=== PATIENT | female | born 1980 | race Caucasian/White ===

== ENCOUNTER 2022-05-06 21:48 | Emergency (ER) | payer OTHER, SELFPAY ==
[2022-05-06] VITALS (10 sets, daily range): BP systolic 96–127; BP diastolic 65–81; PULSE 73–104; TEMP 36.9; O2SAT 95–99; BMI 29.2
--- NOTE | 2022-05-06 23:17 | CRLHL7_ITS ---
For Patients: As a result of the Century Cures Act, medical imaging exams and procedure reports are released immediately into your electronic medical record. You may view this report before your referring provider. If you have questions, please contact your health care provider. INDICATION: Seizure. TECHNIQUE: CT head without contrast. COMPARISON: None. FINDINGS: CSF spaces: Within normal limits for age. Brain parenchyma and extra-axial spaces: The vidales-white differentiation is normal. No sign of mass, hemorrhage, or midline shift. No extra-axial fluid collection. Skull base and calvarium: The visualized paranasal sinuses and mastoid air cells demonstrate no acute or significant findings. The visualized orbits are grossly unremarkable. No skull fractures. IMPRESSION: Unremarkable noncontrast head CT. Please note that all CT scans at this facility use dose modulation, iterative reconstruction, and/or weight-based dosing when appropriate to reduce radiation dose to as low as reasonably achievable. Dictated by Meena Hart MD @ 05/06/2022 11:53:48 PM (Electronically Signed)
[2022-05-06 23:34] LABS: Appearance Urine Clear (Clear); Bilirubin Urine Negative (Negative); Blood Urine Negative (Negative); Color Urine Yellow (Yellow); Glucose Urine Negative (Negative); Ketones Urine Negative (Negative); Leukocyte Esterase Urine Negative (Negative); Nitrite Urine Negative (Negative); Protein Urine Negative (Negative); Specific Gravity Urine 1.015 (1.000-1.030); Urobilinogen Urine 0.2 (0.2-1.0)
[2022-05-06 23:38] LABS: Amphetamine Screen Urine Negative (Negative); Barbiturate Screen Urine Negative (Negative); Benzodiazepines Screen Urine Negative (Negative); Cannabinoid Screen Urine Negative (Negative); Cocaine Screen Urine Negative (Negative); Methadone Screen Urine Negative (Negative); Methamphetamines Screen Urine Negative (Negative); Opiate Screen Urine Negative (Negative); Oxycodone Screen Urine Negative (Negative); Phencyclidine Screen Urine Negative (Negative); Tricyclic Antidepressant Urine Negative (Negative)
[2022-05-06 23:41] LABS: Basophils Absolute Auto 0.03 K/uL (0.00-0.30); Basophils Percent Auto 0.4 % (0.0-3.0); Eosinophils Absolute Auto 0.04 K/uL (0.00-0.50); Eosinophils Percent Auto 0.6 % (0.0-7.0); Hematocrit 38.3 % (33.0-51.0); Hemoglobin* 13.1 gm/dL (12.0-16.0); Immature Granulocytes Abs Auto 0.04 K/uL (0.00-0.30); Immature Granulocytes Pct Auto 0.6 %; Lymphocytes Percent Auto 23.1 % (20-44); Mean Corpuscular HGB Conc 34 gm/dL (32-36); Mean Corpuscular Hemoglobin 30 pg (26-34); Mean Corpuscular Volume 88 fL (80-100); Monocytes Percent Auto 7.4 % (0.0-11.0); Neutrophils Percent Auto 67.9 % (42.0-72.0); Platelet Count* 237 K/uL (140-440); RDW Coefficient of Variation % 12.2 % (11.5-15.5); Red Blood Count 4.37 m/uL (4.00-5.20); White Blood Count* 6.92 K/uL (4.50-11.00)
[2022-05-06 23:43] LABS: Slide Review Reflex No
[2022-05-06] MEDS: 0.9 % SODIUM CHLORIDE 1000 ml 1,000 ML IV (23:50)
[2022-05-06 23:53] LABS: Chloride* 105 mmol/L (96-114); Sodium* 137 mmol/L (135-149)
--- OUTSIDE RECORDS SUMMARY | 2022-05-06 23:54 | XMS_ITS | Encounter Summary ---
:1980 Author Organization [facility] [place] Address [address] [facility] [place] [address] Care Team Providers Name Role Phone Unavailable Primary Care Provider Unavailable Reason for Visit Reason Comments No Show Encounter Details Date Type Department Care Team Description 07/29/2011 Office Visit [facility] Carla Roach [facility] Physicians ENCOUNTER--DISREGARD [address], (Primary Dx) [address] [facility] [address] [place] [address] [phone] Social History Tobacco Use Types Packs/Day Years Used Date Smoking Tobacco: Never Alcohol Use Standard Drinks/Week Comments Not Asked 0 (1 standard drink = 0.6 oz pure alcoho l) Alcohol Habits Answer Date Recorded How often do you have a drink containing alcohol? Never 07/29/2018 How many drinks containing alcohol do you have on a typical Not asked day when you are drinking? How often do you have six or more drinks on one occasion? 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
--- OUTSIDE RECORDS SUMMARY | 2022-05-06 23:54 | XMS_ITS | Encounter Summary ---
:1980 Author Organization [facility] Address [address] [facility] [place] [address] Care Team Providers Name Role Phone System, Provider Not In Primary Care Provider Unavailable Reason for Visit Reason Comments Fever chills, bodyaches, fever, di zzy, nausea, productive cough, ST, fatigue x 1 day Encounter Details Date Type Department Care Team Description 07/29/2018 Office Visit [facility] Komlanvi, Ami Strep thr oat (Primary Dx); Urgent Care Ty Lay PA-C Throat pain [address] [place] [address] [phone] Social History Tobacco Use Types Packs/Day Years Used Date Smoking Tobacco: Never Smokeless Tobacco: Never Alcohol Use Standard Drinks/Week Comments No 0 (1 standard drink = 0.6 oz [...] on file documented as of this encounter Last Filed Vital Signs Vital Sign Reading Time Taken Comments Blood Pressure 106/62 07/29/2018 5:36 PM PSYCHIATRIC THERAPIST Pulse 98 07/29/2018 5:36 PM PSYCHIATRIC THERAPIST Temperature 38.6 ??C (101.5 ??F) 07/29/2018 5:36 PM PSYCHIATRIC THERAPIST Respiratory Rate - - Oxygen Saturation 96% 07/29/2018 5:36 PM PSYCHIATRIC THERAPIST Inhaled Oxygen Concentration - - Weight 75.3 kg (166 lb) 07/29/2018 5:36 PM PSYCHIATRIC THERAPIST Height 157.5 cm (5' 2) 07/29/2018 5:36 PM PSYCHIATRIC THERAPIST Body Mass Index 30.36 07/29/2018 5:36 PM PSYCHIATRIC THERAPIST documented in this encounter Progress Notes Aby Go PA-C - 07/29/2018 5:20 PM CST SUBJECTIVE: Marc Vann is a 37 year old female presenting with a chief complaint of Chief Complaint Patient presents with ??? Fever chills, bodyaches, fever, dizzy, nausea, productive cough, ST, fatigue x 1 day She is a new patient of [facility]. URI Adult Onset of symptoms was 1 day ago. Course of illness is worsening. Severity moderate Current and Associated symptoms: sore throat, fever, chills, body aches, mild cough Treatment measures tried include Tylenol/Ibuprofen. Predisposing factors include None. Review of Systems Constitutional: Positive for chills and fever. HENT: Positive for sore throat. Respiratory: Positive for cough. Gastrointestinal: Negative for diarrhea, nausea and vomiting. Past Medical History: Diagnosis Date ??? NO ACTIVE PROBLEMS Family History Problem Relation Age of Onset ??? Cancer Father Femur A/W Current Outpatient Medications Medication Sig Dispense Refill ??? ORTHO EVRA 150-20 MCG/24HR TD PTWK 1 patch weekly for 3 weeks, skip week 4 9 4 ??? penicillin V (VEETID) 500 MG tablet Take 1 tablet (500 mg) by mouth 2 times daily for 10 days 20tablet 0 Social History Tobacco Use ??? Smoking status: Never Smoker ??? Smokeless tobacco: Never Used Substance Use Topics ??? Alcohol use: No Frequency: Never OBJECTIVE BP 106/62 (BP Location: Right arm, Patient Position: Chair, Cuff Size: Adult Regular) Pulse 98 Temp 101.5 ??F (38.6 ??C) (Oral) Ht 1.575 m (5' 2) Wt 75.3 kg (166 lb) LMP 07/21/2018 SpO2 96% ? No BMI 30.36 kg/m?? Physical Exam Constitutional: She appears well-developed and well-nourished. No distress. HENT: Head: Normocephalic and atraumatic. Right Ear: Tympanic membrane normal. Left Ear: Tympanic membrane normal. Mouth/Throat: Posterior oropharyngeal erythema present. Eyes: Conjunctivae are normal. Neck: Normal range of motion. Cardiovascular: Regular rhythm and normal heart sounds. Pulmonary/Chest: Effort normal and breath sounds normal. No respiratory distress. Neurological: She is alert. Skin: Skin is warm and dry. Psychiatric: She has a normal mood and affect. Labs: Results for orders placed or performed in visit on 07/29/18 (from the past 24 hour(s)) Strep, Rapid Screen Result Value Ref Range Specimen Description Throat Rapid Strep A Screen (A) POSITIVE: Group A Streptococcal antigen detected by immunoassay. Influenza A/B antigen Result Value Ref Range Influenza A/B Agn Specimen Nasal Influenza A Negative NEG^Negative Influenza B Negative NEG^Negative ASSESSMENT: ICD-10-CM 1. Strep throat J02.0 penicillin V (VEETID) 500 MG tablet 2. Throat pain R07.0 Strep, Rapid Screen Influenza A/B antigen PLAN: Strep throat: Penicillin VK Rx. Tylenol or motrin prn fever. Discard old toothbrush. Follow up if any worsening symptoms. Patient agrees. Followup: If not improving or if condition worsens, follow up with your Primary Care Provider HIATRIC THERAPIST documented in this encounter Plan of Treatment Not on filedocumented as of this encounter Procedures Procedure Name Priority Date/Time Associated Diagnosis Comme nts RAPID STREP SCREEN Routine 07/29/2018 5:42 PM Throat pain Res ults for this THROAT SWAB PSYCHIATRIC THERAPIST procedure are i n the results section. INFLUENZA A/B Routine 07/29/2018 5:42 PM Throat pain Results for this ANTIGEN PSYCHIATRIC THERAPIST procedure are i n the results section. documented in this encounter Results Influenza A/B antigen (07/29/2018 5:42 PM PSYCHIATRIC THERAPIST) P athologist Signature Influenza A/B Nasal 07/29/2018 [place] Agn Specimen 5:43 PM PSYCHIATRIC THERAPIST [facility] Influenza A Negative NEG^Negati 07/29/2018 [place] ve 6:03 PM [facility] Influenza B Negative NEG^Negati 07/29/2018 [place] ve 6:03 PM PSYCHIATRIC THERAPIST [facility] Comment: Test results must be correlated with cli nical data. If necessary, results should be confirmed by a molecular assay or viral culture. Specimen Anatomical Collection Method Collection Time Receive d Time (Source) Location / / Volume Laterality Specimen from 07/29/2018 5:42 PM 07/29/19 19 5:43 nose (specimen) PSYCHIATRIC THERAPIST PM PSYCHIATRIC THERAPIST Aby Go PA-C LAB - MICRO GENERAL ORDERABL ES Performing Organization Address City/[facility]/ZIP Code Phon e Number [facility] [id number] [place] [address] (ABNORMAL) Strep, Rapid Screen (07/29/2018 5:42 PM PSYCHIATRIC THERAPIST) Component Value Ref Test Analysis Performed At [facility] Range Method Time Signature Specimen Throat [facility] [place] [place] Rapid Strep A POSITIVE: Group 07/29/2018 [place] Screen A Streptococcal 5:54 PM PSYCHIATRIC THERAPIST [facility] antigen detected [place] by immunoassay. (A) Specimen Anatomical Collection Method Collection Time Receive d Time (Source) Location / / Volume Laterality Specimen from 07/29/2018 5:42 PM 07/29/19 19 5:43 throat PSYCHIATRIC THERAPIST PM PSYCHIATRIC THERAPIST (specimen) Aby Go PA-C LAB - MICRO GENERAL ORDERABL ES Performing Organization Address City/[facility] Phon e Number [facility] [address] [place] [address] documented in this encounter Visit Diagnoses Diagnosis Strep throat - Primary Streptococcal sore throat Throat pain documented in this encounter Care Teams Surgical Aides Teacher Relationship Specialty Start Date End Date System, Provider Not In PCP - General Clinic 07/29/18 07/29/18 documented as of this encounter
--- OUTSIDE RECORDS SUMMARY | 2022-05-06 23:54 | XMS_ITS | Clinical Summary ---
:1980 Author Organization [place] Address [address] [facility] [place] [address] Care Team Providers Name Role Phone Unavailable Primary Care Provider Unavailable Allergies No known active allergies Medications Medication Sig Dispensed Refills Start Date End Date Status ORTHO EVRA 150-20 1 patch weekly 9 4 10/07/2005 Active MCG/24HR TD for 3 weeks, PTWKIndications: skip week 4 Contraceptive surveillance, unspecified Active Problems No known active problems Family History Medical History Relation Comments Cancer Father Femur A/W Relation Status Comments Father Social History Tobacco Use Types Packs/Day Years [...] Assigned at Date Recorded Not on file Last Filed Vital Signs Vital Sign Reading Time Taken Comments Blood Pressure 106/62 07/29/2018 5:36 PM CONTINUOUS MINING MACHINE OPERATOR Pulse 98 07/29/2018 5:36 PM CONTINUOUS MINING MACHINE OPERATOR Temperature 38.6 ??C (101.5 ??F) 07/29/2018 5:36 PM CONTINUOUS MINING MACHINE OPERATOR Respiratory Rate - - Oxygen Saturation 96% 07/29/2018 5:36 PM CONTINUOUS MINING MACHINE OPERATOR Inhaled Oxygen Concentration - - Weight 75.3 kg (166 lb) 07/29/2018 5:36 PM CONTINUOUS MINING MACHINE OPERATOR Height 157.5 cm (5' 2) 07/29/2018 5:36 PM CONTINUOUS MINING MACHINE OPERATOR Body Mass Index 30.36 07/29/2018 5:36 PM CONTINUOUS MINING MACHINE OPERATOR Plan of Treatment Not on file Insurance Payer Benefit Plan / Subscriber ID Effective Phone Address T ype Group Dates [facility] [id number] 2018-Pres [phone] [address] HMO OPEN ACCESS ent [address] [place] [address]
--- OUTSIDE RECORDS SUMMARY | 2022-05-06 23:54 | XMS_ITS | Encounter Summary ---
:1980 Author Organization [place] Address [address] [facility] [place] [address] Care Team Providers Name Role Phone System, Provider Not In Primary Care Provider Unavailable Encounter Details Date Type Department Care Team Description 07/29/2018 Travel Social History Tobacco Use Types Packs/Day Years [...] on file documented as of this encounter Plan of Treatment Not on filedocumented as of this encounter Visit Diagnoses Not on filedocumented in this encounter Care Teams Marriage Counselor Minister Relationship Specialty Start Date End Date System, Provider Not In PCP - General Clinic 07/29/18 07/29/18 documented as of this encounter
--- OUTSIDE RECORDS SUMMARY | 2022-05-06 23:55 | XMS_ITS | Encounter Summary ---
:1980 Author Organization [facility] Address [address], [place] [address] Care Team Providers Name Role Phone No Primary/Referring, Phy Primary Care Provider Unavailable Encounter Details Date Type Department Care Team Description 02/08/2020 Notes/Orders [facility] Vineet Garcia DDS Dentistry [address] [facility] [address] [place] [address] [place] [address] 24 [phone] Social History Tobacco Use Types Packs/Day Years Used Date Smoking Tobacco: Never Smokeless Tobacco: Never Alcohol Use Standard Drinks/Week Comments No 0 (1 standard drink = 0.6 oz pure Alcoho lic Drinks/day: Freq:Never; alcohol) Sex Assigned at Date Recorded Female 05/12/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 Rx: amoxicillin to [facility]. Ira Garcia DDS 02/08/2020, 9:21 AM documented in this encounter Plan of Treatment Upcoming Encounters Date Type Specialty Care Team Description 05/12/2022 Appointment Audiology 05/12/2022 Appointment Otolaryngology Bro Arroyo , [facility] [address] [address] (Wo rk) 06/03/2022 Appointment General Dentistry Rylee Amaro, [facility] [address] [place] [address] 06/03/2022 Appointment General Dentistry Pee Garcia, DDS [address] [place] [address] (Wo rk) 06/17/2022 Appointment General Dentistry Pee Garcia, DDS [address] [place], [place] [phone] (Wo rk) documented as of this encounter Visit Diagnoses Not on filedocumented in this encounter Care Teams Dining Chair Seat Cushion Trimmer Relationship Specialty Start Date End Date No Primary/Referring, Phy PCP - General 07/15/17 documented as of this encounter
--- OUTSIDE RECORDS SUMMARY | 2022-05-06 23:55 | XMS_ITS | Clinical Summary ---
:1980 Author Organization [facility] Address [address] [place] [address] Care Team Providers Name Role Phone No Primary/Referring, Phy Primary Care Provider Unavailable Source Comments You are receiving this document as you are listed as the primary care provider,follow-up provider, or the patient has been referred to you for consultation.This is in compliance with the Medicare and Medicaid EHR Incentive Program,which states Providers who transition their patient to another setting of careor provider of care or refers their patient to another provider of care shouldprovide summarycare record for each transition of care or referral. 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 Normal 20 w [place] ultrasound. ; Supervision of other normal Immunizations Name Administration Dates Next Due HepB Adult (Engerix-B, 20+ yrs, 3 dose series) 07/14/2021 Influenza IIV4 (Quadrivalent) 0.5mL (74393) 07/04/2021 Pfizer (Comirnaty) COVID-19, 12+ Yrs Purple Top 12/06/2020, 11/13/2020 TDAP (BOOSTRIX) 10/06/2013, 12/07/2008 Family History Medical History Relation Name Comments Cancer Father lymphoma, deceas ed Diabetes Mother High Cholesterol Mother Thyroid Disorder Mother Depression Brother Diabetes Brother High Cholesterol Brother Cancer Maternal Grandmother Diabetes Maternal Grandmother Thyroid Disorder Sister Cancer, Ovary Negative Family History Relation Name Status Comments Father Mother Alive Brother Alive Maternal Grandfather Maternal Grandmother Paternal Grandfather Paternal Grandmother Sister Alive Social History Tobacco Use Types Packs/Day Years Used Date Smoking Tobacco: Never Smokeless Tobacco: Never Tobacco Cessation: Counseling Given: No Alcohol Use Standard Drinks/Week Comments No 0 (1 standard drink = 0.6 oz pure Alcoho lic Drinks/day: Freq:Never; alcohol) Sex Assigned at Date Recorded Female 05/12/2021 9:48 AM 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 Last Filed Vital Signs Vital Sign Reading Time Taken Comments Blood Pressure 113/65 12/05/2021 2:34 PM CDT Pulse 71 12/05/2021 2:34 PM CDT Temperature 37.1 ??C (98.7 ??F) 07/04/2021 5:01 PM 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 Respiratory Rate 16 01/04/2014 4:27 PM CDT Oxygen Saturation - - Inhaled Oxygen Concentration - - Weight 76.2 kg (168 lb) 12/05/2021 2:34 PM CDT Height 156.2 cm (5' 1.5) 12/05/2021 2:34 PM CDT Body Mass Index 31.23 12/05/2021 2:34 PM CDT Plan of Treatment Upcoming Encounters Date Type Specialty Care Team Description 05/12/2022 Appointment Audiology 05/12/2022 Appointment Otolaryngology Bro Arroyo , [facility] [address] [address] (Wo rk) 06/03/2022 Appointment General Dentistry Rylee Amaro, [address] [place] [address] 06/03/2022 Appointment General Dentistry Pee Garcia, DDS [address] [place] [address] (Wo rk) 06/17/2022 Appointment General Dent[place] D[place] [address] [place] [address] (Wo rk) Health Maintenance Due Date Last Done Comments COVID-19 Vaccine (3 - 01/31/2021 12/06/2020, 11/13/2020 Booster for Pfizer series) HepB (2) 08/11/2021 07/14/2021 Influenza (#1) 2022 07/04/2021 DTaP/Tdap/Td (3 - Tdap) 10/07/2023 10/06/2013, 12/07/2008 Adult Preventive Visit 12/06/2023 12/05/2021, 08/12/2020, 07/21/2019, Additional history exists Pap 12/05/2024 12/05/2021, 08/12/2020, 07/21/2019, Additional history exists Zoster/Shingles (1 of 2) 2032 HIV Screening (Preventive Completed 05/10/2013, 08/04/2007 Services) Hep C Screening (Preventive Completed 11/29/2013 Services) HPV Vaccine Aged Out No longer eligib le based on patient 's age to complete this topic HepA Aged Out No longer eligib le based on patient 's age to complete this topic Hib Aged Out No longer eligib le based on patient 's age to complete this topic IPV (Polio) Aged Out No longer eligib le based on patient 's age to complete this topic MCV4 Aged Out No longer eligib le based on patient 's age to complete this topic Pneumococcal Aged Out No longer eligib le based on patient 's age to complete this topic Insurance Payer Benefit Plan Subscriber ID Effective Phone Address Typ e / Group Dates [facility] [id number] 2020-Prese Commercial MANAGED CARE nt [facility] [employer] [id number] 2017-Prese Commercial DENTAL PLAN INSURED nt DENTAL [facility] [employer] [id number] 2020-Prese Commercial MANAGED CARE nt Marc Vann Personal/Family Self [address] (Home) [place] [address] Marc Vann Personal/Family Self [address] (Home) [place] [address] Marc Vann Personal/Family Self [address] (Home) [place] [address] Advance Directives Latest Code Status on File Code Status Date Activated Date Inactivated Comments Full Code 01/02/2014 8:37 PM 01/04/2014 9:06 PM Care Teams Nursing Scheduler Relationship Specialty Start Date End Date No Primary/Referring, Sonay PCP - General 07/15/17
--- OUTSIDE RECORDS SUMMARY | 2022-05-06 23:55 | XMS_ITS | Encounter Summary ---
:1980 Author Organization [employer] Address [address] [address] Care Team Providers Name Role Phone No Primary/Referring, Phy Primary Care Provider Unavailable Reason for Visit Reason Comments ROUTINE HEALTH MAINTENANCE Encounter Details Date Type Department Care Team Description 07/04/2021 Office Visit [place] Celeste Wisdom Enco unters for administrative purposes (Primary Dx); Medicine MD Screening examination for infectious dis ease; [address] [address] [facility] Screening examination for pulmonary tube rculosis [place], [place] [phone] [place] [address] Social History Tobacco Use Types Packs/Day Years Used Date Smoking Tobacco: Never Smokeless Tobacco: Never Alcohol Use Standard Drinks/Week Comments No 0 (1 standard drink = 0.6 oz pure Alcoho lic Drinks/day: Freq:Never; alcohol) Sex Assigned at Date Recorded 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 documented as of this encounter Last Filed Vital Signs Vital Sign Reading Time Taken Comments Blood Pressure 107/71 07/04/2021 4:50 PM WILDLIFE SCIENCE PROFESSOR Pulse 81 07/04/2021 4:50 PM WILDLIFE SCIENCE PROFESSOR Temperature 37.1 ??C (98.7 ??F) 07/04/2021 5:01 PM WILDLIFE SCIENCE PROFESSOR Respiratory Rate - - Oxygen Saturation - - Inhaled Oxygen Concentration - - Weight 78.3 kg (172 lb 9.6 oz) 07/04/2021 4:50 PM WILDLIFE SCIENCE PROFESSOR Height 157.5 cm (5' 2) 07/04/2021 4:50 PM WILDLIFE SCIENCE PROFESSOR Body Mass Index 31.57 07/04/2021 4:50 PM WILDLIFE SCIENCE PROFESSOR documented in this encounter Patient Instructions Patient InstructionsCeleste Bettencourt MD - 07/04/2021 4:30 PM CST Labs today Flu shot today COVID booster KAMRON I will let you know when paperwork completed. LIFE SCIENCE PROFESSOR documented in this encounter Progress Notes Celeste Bettencourt MD - 07/04/2021 4:30 PM CST New to me and primary care. Needs paperwork/labs to start clinicals for phlebotomy course at [facility] Sees STUDENT LOAN COUNSELOR yearly for PE - has appointment in Jul Only have records of COVID and Tdap vaccinations. Does not have other record though rec'd multiple vaccines in [place]. Does not think she's had TB testing before. No TB exposures. Patient Active Problem List Diagnosis ??? Hyperthyroidism (HRC) ??? Cervical high risk HPV (human papillomavirus) test positive Outpatient Medications Prior to Visit Medication Sig Dispense Refill ??? Norelgestromin-Eth Estradiol (XULANE) 150-35 MCG/24HR patch Apply 1 patch to skin each week for 3 weeks, then 1 week patch free; repeat cycle. 9 Patch 3 No facility-administered medications prior to visit. PMHx, Surg Hx, FHx, SocHx reviewed and updated BP 107/71 (BP Location: Right Arm, BP Cuff Size: Regular) Pulse 81 Temp 98.7 ??F (37.1 ??C) Ht5' 2 (1.575 m) Wt 172 lb 9.6 oz (78.3 kg) BMI 31.57 kg/m?? EXAM: Gen: A&O, in NAD HEENT: NCAT, non-icteric sclera Neck: supple, no LAD, no thyromegaly CV: RRR sans M Lungs: CTA B Abd: soft, NT, BS + Ext: warm and well perfused, no CCE Psych: mood and affect wnl 1. Encounters for administrative purposes - Rubeola Immune Status, IgG; Future - Mumps Immune Status, IgG; Future - Rubella Immune Status, IgG; Future - V Zoster Immune Status, IgG; Future - Hepatitis B Nahomi, Quantitative; Future - Influenza IIV4 (Quadrivalent) 0.5 mL (15020) 2. Screening examination for infectious disease - Rubeola Immune Status, IgG; Future - Mumps Immune Status, IgG; Future - Rubella Immune Status, IgG; Future - V Zoster Immune Status, IgG; Future - Hepatitis B Nahomi, Quantitative; Future 3. Screening examination for pulmonary tuberculosis - TB QuantiFERON Gold Plus; Future Patient Instructions Labs today Flu shot today COVID booster KAMRON I will let you know when paperwork completed. LIFE SCIENCE PROFESSOR documented in this encounter Plan of Treatment Upcoming Encounters Date Type Specialty Care Team Description 05/12/2022 Appointment Audiology 05/12/2022 Appointment Otolaryngology Bro Arroyo , PAMorisC [address] [facility] [address] (Wo rk) 06/03/2022 Appointment General Dentistry Rylee Amaro, [facility] [address] [place] [address] 06/03/2022 Appointment General Dentistry Pee Garcia, DDS [address] [place], [place] [phone] (Wo rk) 06/17/2022 Appointment General Dentistry Pee Garcia DDS [address] [place], [place] [phone] (Wo rk) documented as of this encounter Results (ABNORMAL) Hepatitis B Nahomi, Quantitative (07/04/2021 5:44 PM WILDLIFE SCIENCE PROFESSOR) [facility] Time Signature Hep B Surf <2.0 mIU/mL 07/04/2021 [facility] Antibody Result 9:44 PM WILDLIFE SCIENCE PROFESSOR LABORATORY Hep B Surf Negative Positive 07/04/2021 [facility] Antibody (Non (Reactive) 9:44 PM WILDLIFE SCIENCE PROFESSOR LABORATORY Interpretation Reactive) (A) Specimen Anatomical Collection Method / Collection Time Recei delta Time (Source) Location / Volume Laterality Blood Venipuncture / 07/04/2021 5:44 07/04/2021 5:56 Unknown PM WILDLIFE SCIENCE PROFESSOR PM WILDLIFE SCIENCE PROFESSOR Narrative [facility] - 07/04/2021 9:44 P M WILDLIFE SCIENCE PROFESSOR Individual is considered not immune to H BV infection. Celeste Bettencourt MD LAB_1 Performing Organization Address [facility] Phon e Number [facility] [address] [place] [address] V Zoster Immune Status, IgG (07/04/2021 5:44 PM WILDLIFE SCIENCE PROFESSOR) athologist Signature Varicella 540.7 IV 07/07/2021 [facility] Zoster Units 11:46 AM WILDLIFE SCIENCE PROFESSOR LABORATORY Comment: The magnitude of the measured r esult, above the cutoff, is not indicative of the amount of antibody present. Varicella Zoster Immune Immune 07/07/2021 11:46 AM MET HODIST LABORATORY Intepretation WILDLIFE SCIENCE PROFESSOR Specimen Anatomical Collection Method / Collection Time Recei delta Time (Source) Location / Volume Laterality Blood Venipuncture / 07/04/2021 5:44 07/04/2021 5:56 Unknown PM WILDLIFE SCIENCE PROFESSOR PM WILDLIFE SCIENCE PROFESSOR Celeste Bettencourt MD LAB_1 Performing Organization Address [facility] Phon e Number [facility] [address] [place] [address] Rubella Immune Status, IgG (07/04/2021 5:44 PM WILDLIFE SCIENCE PROFESSOR) athologist Signature Rubella Units 22.30 07/07/2021 [facility] 11:50 AM WILDLIFE SCIENCE PROFESSOR LABORATORY Comment: The magnitude of the measured r esult, above the cutoff, is not indicative of the amount of antibody present. Rubella Intepretation Immune Immune 07/07/2021 11: 50 AM WILDLIFE SCIENCE PROFESSOR [facility] Specimen Anatomical Collection Method / Collection Time Recei delta Time (Source) Location / Volume Laterality Blood Venipuncture / 07/04/2021 5:44 07/04/2021 5:56 Unknown PM WILDLIFE SCIENCE PROFESSOR PM WILDLIFE SCIENCE PROFESSOR Celeste Bettencourt MD LAB_1 Performing Organization Address [facility] Phon e Number [facility] [address] [place] [address] Mumps Immune Status, IgG (07/04/2021 5:44 PM WILDLIFE SCIENCE PROFESSOR) athologist Signature Mumps Units 29.4 AU/mL 07/07/2021 [facility] 11:49 AM WILDLIFE SCIENCE PROFESSOR LABORATORY Comment: The magnitude of the measured r esult, above the cutoff, is not indicative of the amount of antibody present. Mumps Intepretation Immune Immune 07/07/2021 11:49 AM WILDLIFE SCIENCE PROFESSOR [facility] Specimen Anatomical Collection Method / Collection Time Recei delta Time (Source) Location / Volume Laterality Blood Venipuncture / 07/04/2021 5:44 07/04/2021 5:56 Unknown PM WILDLIFE SCIENCE PROFESSOR PM WILDLIFE SCIENCE PROFESSOR Celeste Bettencourt MD LAB_1 Performing Organization Address [facility] Phon e Number [facility] [address] [place] [address] Rubeola Immune Status, IgG (07/04/2021 5:44 PM WILDLIFE SCIENCE PROFESSOR) athologist Signature Rubeola Units >300.0 AU/mL 07/07/2021 [facility] 11:48 AM WILDLIFE SCIENCE PROFESSOR LABORATORY Comment: The magnitude of the measured r esult, above the cutoff, is not indicative of the amount of antibody present. Rubeola Interpretation Immune Immune 07/07/2021 11 :48 AM WILDLIFE SCIENCE PROFESSOR [facility] Specimen Anatomical Collection Method / Collection Time Recei delta Time (Source) Location / Volume Laterality Blood Venipuncture / 07/04/2021 5:44 07/04/2021 5:56 Unknown PM WILDLIFE SCIENCE PROFESSOR PM WILDLIFE SCIENCE PROFESSOR Celeste Bettencourt MD LAB_1 Performing Organization Address City/[facility] Phon e Number [facility] [address] [place] [address] documented in this encounter Visit Diagnoses Diagnosis Encounters for administrative purposes - Primary Encounters for unspecified administrativ e purpose Screening examination for infectious dis ease Screening examination for unspecified in fectious disease Screening examination for pulmonary tube rculosis documented in this encounter Care Teams Primer Press Operator Relationship Specialty Start Date End Date No Primary/Referring, Phy PCP - General 07/15/17 documented as of this encounter
--- OUTSIDE RECORDS SUMMARY | 2022-05-06 23:55 | XMS_ITS | Encounter Summary ---
:1980 Author Organization [employer] Address [address] [address] Care Team Providers Name Role Phone No Primary/Referring, Phy Primary Care Provider Unavailable Reason for Visit Reason Comments Dental Exam sensitive UR, lost filling L R but put in a filling herself Dental Hygiene Encounter Details Date Type Department Care Team Description 03/21/2021 Office Visit [place] [facility] Mary Boone, De ntal Exam (sensitive Dentistry [facility] [place] [address] [place] [address] but put in a filling [place], [place] herself ); Dental [address] Hygiene [phone] Social History Tobacco Use Types Packs/Day Years Used Date Smoking Tobacco: Never Smokeless Tobacco: Never Alcohol Use Standard Drinks/Week Comments No 0 (1 standard drink = 0.6 oz pure Alcoho lic Drinks/day: Freq:Never; alcohol) Sex Assigned at Date Recorded 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 How to Reduce Your Risk: Hygiene recall at 3 to 6 months. Rinse with fluoride rinse once to twice daily at times other than when brushing. Use specific products to assist with proper oral hygiene such as an electric toothbrush with a timer. Radiographs to detect decay. Risk Level: MODERATE Risk Factors: Have had a diagnosis of gum disease either with or without past treatment. Missing scheduled dental appointments. Visible plaque. How to Reduce Your Risk: Return visit with the dental hygienist at 3 month intervals to assess periodontal condition and provide necessary treatment. Specific information about what causes periodontal disease and what steps can be taken to help control it. Use specific products to assist with proper oral hygiene such as electric toothbrush with timer. Schedule a separate appointment to assess the results of treatment provided for periodontal disease. Risk Level: LOW How to Maintain your Low Risk: Congratulations on your low risk for oral cancer. Making healthy life style choices such as not using tobacco and low to moderate alcohol use should help you maintain this low risk. Marc, we look forward to seeing you at your next visit! Thank you for choosing [facility]. documented in this encounter Progress Notes Marie Aguirre DDS - 03/21/2021 10:10 AM CDT RECALL EXAM NOTE REASON FOR VISIT/CHIEF COMPLAINT: Marc is a 40 y.o. female who presents for Dental Exam and Dental Hygiene CHART REVIEW: Reviewed with patient: Medical history, Dental history, Problem list, Periodontal charting and Radiographs SOFT TISSUE, HEAD AND NECK EXAMINATION: Lips: Normal Tongue: Normal linea alba Palate: Normal Throat: Normal Floor of the mouth: Normal Mucosa: Normal Head and neck: Normal left masseter tight TMD EVALUATION: Palpation Pain: None Joint Sounds: None Pain with Range of Motion: None OCCLUSAL EXAMINATION: Angle relationship: Right molar: Class I Right cuspid: Class I Left molar: Class III Left cuspid: Class I Maxillary midline: WNL Mandibular midline: WNL Overbite: 3 mm Overjet: 3 mm Crossbite: None Space loss: None Crowding: Mild Occlusion: All teeth Attrition: Normal Erosion: Absent Overall occlusal relationship: Stable COSMETIC CONCERNS: Patient's Perception: Acceptable Dentist's Perception: Acceptable TREATMENT REVIEW AND FOLLOW-UP: Discussed the Dental findings, Prognosis and Treatment options with the patient. All questions answered and informed consent was obtained. Recommended Recall Interval: Examination: 8 months : Recall prophy: 4 months Planned Recall Interval: Examination: 8 months : Recall prophy: 4 months Recommend starting with crown 31 first then 15 in the mean time sed filling recommended.Disccused clinical findings suggesting clenching recommend wearing a guard. Peridex rinse to help with inflammation.prescribed Peridex, adv to do 4 month cleaning, lot of gingival inflammation sen today, recommended a crown on # 29 as well but only after # 31 and # 15 are taken care of, recession noted on # 23 , not getting any worse Next Planned Visit: op 31 first, Marie Aguirre DDS 03/21/2021, 11:20 AM --End of Note-- Mary Boone RD - 03/21/2021 10:10 AM CDT HYGIENE PROPHY NOTE PROCEDURAL PAUSE: Patient identity verified: Yes Treatment plan/site verified with the patient: Yes Instruments/equipment verified: Yes Any medication/allergy contraindications: No PRESENTATION: Oral Hygiene: Good Plaque: Generalized, moderate interproximal, mandibular anterior and posterior buccal Calculus: Localized, moderate mandibular anterior and Generalized, light supra- gingival and interproximal Stain: None Bleeding: Generalized light Gingival tissue: Inflamed Mucogingival concerns: Absent ACTIVITIES: Hand scale, Ultrasonic scale, Essential selective polishing and Flossed all contacts PATIENT EDUCATION: Caries risk, Periodontal risk, Oral cancer risk, OHI, Demonstrated tooth brushingand Demonstrated flossing NEXT PLANNED HYGIENE VISIT: Hygiene Prophy with exam Discussed inflammation recommended peridex and demo gumline brushing. [place] anterior and 3 were more inflamed today she does use an electric brush demo how to use.recommend 4mrc Mary Boone RDH 03/21/2021, 12:22 PM --End of Note-- documented in this encounter Plan of Treatment Upcoming Encounters Date Type Specialty Care Team Description 05/12/2022 Appointment Audiology 05/12/2022 Appointment Otolaryngology Bro Arroyo , JANET [address] [place] [place] [address] (Wo rk) 06/03/2022 Appointment General Dentistry Rylee Amaro, [facility] [address] [place] [address] 06/03/2022 Appointment General Dentistry Pee Garcia, DDS [address] [place], [place] [phone] (Wo rk) 06/17/2022 Appointment General Dentistry Pee Garcia, DDS [address] [place], [place] [phone] (Wo rk) Scheduled Orders Name Type Priority Associated Diagnoses Order S chedule PROPHYLAXIS-ADULT Dental Procedures Routine 1 Occ urrences RECALL starting 2020 documented as of this encounter Procedures Procedure Name Priority Date/Time Associated Diagnosis Comme nts [id number] Routine 03/21/2021 10:10 AM Generalized mar ginal CDT gingivitis 31 FILM-PERIAPICAL Routine 03/21/2021 10:10 AM Generalized mar ginal FIRST CDT gingivitis PERIODIC ORAL Routine 03/21/2021 10:10 AM Generalized marginal EVALUATION CDT gingivitis PROPHYLAXIS-ADULT Routine 03/21/2021 10:10 AM Generalized mark inal RECALL CDT gingivitis documented in this encounter Visit Diagnoses Diagnosis Generalized marginal gingivitis - Primar y documented in this encounter Care Teams Pricing Director Relationship Specialty Start Date End Date No Primary/Referring, Phy PCP - General 07/15/17 documented as of this encounter
--- OUTSIDE RECORDS SUMMARY | 2022-05-06 23:55 | XMS_ITS | Encounter Summary ---
:1980 Author Organization [employer] Address [address] [address] Care Team Providers Name Role Phone No Primary/Referring, Phy Primary Care Provider Unavailable Reason for Visit Reason Comments Refill Encounter Details Date Type Department Care Team Description 07/05/2020 [place]ill [place] [facility] [place] Refill Obstetrics/Gynecolog y [address] [place] [address] [place], [place] [address] [phone] Social History Tobacco Use Types Packs/Day Years Used Date Smoking Tobacco: Never Smokeless Tobacco: Never Alcohol Use Standard Drinks/Week Comments No 0 (1 standard drink = 0.6 oz pure Alcoho lic Drinks/day: Freq:Never; alcohol) Sex Assigned at Date Recorded 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 XULANE 150-35 MCG/24HR patch [Pharmacy Med Name: XULANE PATCH] 9 Patch 3 Sig: APPLY 1 PATCH TO SKIN EACH WEEK FOR 3 WEEKS, THEN 1 WEEK PATCH FREE REPEAT CYCLE. Last visit- 07/21/2019 Last ordered- 07/21/2019 Prescribing provider- Dr. Rubi No future appointments. The medication(s) has been approved for refill, in accordance with the [facility] Medication Refill Policy / Per Standing Order. 90 day supply given per Emergency Refill Standing Order. Marisol Fonseca RN 07/05/2020, 11:37 AM UE SPECIALIST documented in this encounter Plan of Treatment Upcoming Encounters Date Type Specialty Care Team Description 05/12/2022 Appointment Audiology 05/12/2022 Appointment Otolaryngology Bro Arroyo , JANET [address] [facility] [address] (Wo rk) 06/03/2022 Appointment General Dentistry Rylee Amaro, [facility] [address] [place] [address] 06/03/2022 Appointment General Dentistry Pee Garcia, DDS [address] [place], [place] [phone] (Wo rk) 06/17/2022 Appointment General Dentistry Pee Garcia DDS [address] [place], [place] [phone] (Wo rk) documented as of this encounter Visit Diagnoses Diagnosis Visit for control pills maintenanc e Surveillance of previously prescribed co ntraceptive pill documented in this encounter Care Teams Application Support Technician Relationship Specialty Start Date End Date No Primary/Referring, Phy PCP - General 07/15/17 documented as of this encounter
--- OUTSIDE RECORDS SUMMARY | 2022-05-06 23:55 | XMS_ITS | Encounter Summary ---
:1980 Author Organization [employer] Address [address] [address] Care Team Providers Name Role Phone No Primary/Referring, Phy Primary Care Provider Unavailable Reason for Visit Reason Comments Restorative Services #2 Composite, CC: I just rich d a RCT and they recommended a crown, can we discuss that a lso today? Encounter Details Date Type Department Care Team Description 02/26/2020 Office Visit [facility] Ira Garcia storative Services Dentistry AMBROSE Farrell (#2 Composite, CC: I [id number] [facility] [id number] [place] [address] just had a RCT and [place] [phone] crown, can we discuss [phone] (Wo rk) that also today?) Social History Tobacco Use Types Packs/Day Years Used Date Smoking Tobacco: Never Smokeless Tobacco: Never Alcohol Use Standard Drinks/Week Comments No 0 (1 standard drink = 0.6 oz pure Alcoho lic Drinks/day: Freq:Never; alcohol) Sex Assigned at Date Recorded 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 female who presents for Restorative Services (#2 Composite, CC: I just had a RCT and they recommended a crown, can we discuss that also today?) Patient given 1%-1.5% hydrogen peroxide, rinsed for 60 seconds prior to procedure. CHIEF COMPLAINT: No CC Objective/Assessment Chart Review The following information was reviewed with the patient: Medical history, Dental history, Problem list, Periodontal charting and Radiographs PROGNOSIS: #2 Questionable May need RCT due to deep caries present. Plan Treatment Discussion I discussed the Dental findings, Prognosis, Treatment options, Risks and complications associated with procedure and Billing/Treatment estimate with patient. CONSENT: All questions answered and the patient gave informed consent to proceed with dental treatment/services. Completed Procedures ANESTHESIA: Topical with 20% benzocaine 1.0 carpules 2% lidocaine with 1:100,000 epinephrine was administered with PSA in Maxillary right No adverse side effects observed. Anesthesia was administered by Ira Gracia DDS COMPOSITE ORIENTAL ORTHODOX - #2: Prepared with complete caries removal and complete removal of the existing mosque Isolated area with high speed suction, cotton rolls and a cheek guard. Applied Glass ionomer base Bonding with [employer] [place] material Preparation filled with composite material : Shade: A3.5 Polishing adjuncts: N/A Verified occlusion, contacts, margins and aesthetics. Post-Op Instructions: Patient was advised of normal post-operative instructions, potential for post-operative sensitivity and potential need for additional treatment because of proximity to the pulp Difficult access and deep bite. Pt to call back if bite feels off. Discussed needs for mosque #14 (caries) and crown #15 (caries). Bobo #31 a priority to prevent fracture which could result in loss of the tooth. Pt concerned w/ yearly max. Will get pt a tx estimate but warned that it may not yetreflect the RCT #31 as it was done outside of and claims can take a couple of weeks to hit the account. AQA. Care was assisted by Tammi Sahu [facility] [address] Anaesthetic Technician: Cheryl Ozuna Next Planned Visit: crown #31 Ira Garcia DDS 02/26/2020, 4:23 PM --End of Note-- 2:03 PM documented in this encounter Plan of Treatment Upcoming Encounters Date Type Specialty Care Team Description 05/12/2022 Appointment Audiology 05/12/2022 Appointment Otolaryngology Bro Arroyo , JANET [address] [place] [address] (Wo rk) 06/03/2022 Appointment General Dentistry Rylee Amaro, [facility] [address] [place] [address] 06/03/2022 Appointment General Dentistry Pee Garcia, DDS [address] [place], [place] [phone] (Wo rk) 06/17/2022 Appointment General Dentistry Pee Garcia, DDS [address] [place], [place] [phone] (Wo rk) documented as of this encounter Procedures Procedure Name Priority Date/Time Associated Diagnosis Comme nts 2 O RESIN-BASED Routine 02/26/2020 1:50 PM CDT Dental caries e xtending COMPOSITE-1 into inner third of SURFACE-POSTERIO dentin 31 EXISTING ROOT CANAL Routine 02/26/2020 12:00 AM TREATMENT CDT documented in this encounter Visit Diagnoses Diagnosis Dental caries extending into inner third of dentin - Primary Defective dental mosque Unspecified unsatisfactory mosque o f tooth documented in this encounter Care Teams Dobby Loom Chain Pegger Relationship Specialty Start Date End Date No Primary/Referring, Phy PCP - General 07/15/17 documented as of this encounter
--- OUTSIDE RECORDS SUMMARY | 2022-05-06 23:55 | XMS_ITS | Encounter Summary ---
:1980 Author Organization [employer] Address [address] [place] [address] Care Team Providers Name Role Phone Unavailable Primary Care Provider Unavailable Encounter Details Date Type Department Care Team Description 10/10/2005 Orders Only [facility] ROU SARITHA MEDICAL EXAM [facility] [place] [facility] [address] [phone] Social History Tobacco Use Types Packs/Day Years [...] encounter Procedures Procedure Name Priority Date/Time Associated Comments Diagnosis CL AFF CBC WITH Routine 10/10/2005 9:51 AM Routine Medical Res ults for this PLATELETS CDT Exam procedure are i n the results section. HCL TSH Routine 10/10/2005 9:51 AM Routine Medical Result s for this CDT Exam procedure are i n the results section. HCL GLYCATED Routine 10/10/2005 9:51 AM Routine Medical Result s for this HEMOGLOBIN CDT Exam procedure are i n the results section. CL AFF A.M.A. LIPID Routine 10/10/2005 9:51 AM Routine Medical Results for this PANEL CDT Exam procedure are i n the results section. documented in this encounter Results TSH- (10/10/2005 9:51 AM CDT) P athologist Signature TSH 1.44 0.4 - 5.0 [facility] mU/L CLINIC LAB Specimen Anatomical Collection Method Collection Time Receive d Time (Source) Location / / Volume Laterality 10/10/2005 9:51 AM 6 9:56 CDT AM CDT Jennifer De La Cruz MD LABORATORY Performing Organization Address City/[facility]/ZIP Code Phon e Number [facility][1] [address] [place] [address] [facility] LAB (ABNORMAL) CBC WITH PLATELETS (10/10/2005 9:51 AM CDT) P athologist Signature WBC 3.7 (L) 4.0 - 11.0 [place] 10e9/L [facility] LAB RBC Count 4.29 3.8 - 5.2 [place] 10e12/L [facility] LAB Hemoglobin 12.8 11.7 - [facility] 15.7 g/dL [facility] Hematocrit 37.2 35.0 - [facility] 47.0 % [facility] MCV 87 78 - 100 [facility] LAB MCH 29.8 26.5 - [place] 33.0 pg [facility] LAB MCHC 34.3 32.0 - [facility] 36.0 g/dL [facility] RDW 10.9 10.0 - [place] 15.0 % [facility] Platelet Count 293 150 - 450 [place] 10e9/L [facility] LAB Specimen Anatomical Collection Method Collection Time Receive d Time (Source) Location / / Volume Laterality 10/10/2005 9:51 AM 6 9:56 CDT AM CDT Jennifer De La Cruz MD LABORATORY Performing Organization Address City/[facility]/ZIP Code Phon e Number [facility][1] [address] [place] [phone] [facility] A.M.A. LIPID PANEL (10/10/2005 9:51 AM CDT) P athologist Signature Cholesterol 167 0 - 200 [place] mg/dL [facility] LAB Comment: LDL Cholesterol is the primary guide to therapy: LDL-cholesterol goal in high risk patients is <100 mg/dL and in very high risk patients is <70 mg/dL. The NCEP recommends further evaluation of: patients with cholesterol <200 mg/dL if additional risk factors are present, cholesterol >240 mg/dL, triglycerides >150 mg/dL, or HDL <40 mg/dL. Triglycerides 45 0 - 150 mg/dL [place] [facility] HDL Cholesterol 62 50 - 110 mg/dL [facility] LDL Cholesterol Calculated 96 0 - 129 mg/dL [facility] Comment: LDL Cholesterol is the primary guide to therapy: LDL-cholesterol goal in high risk patients is <100 mg/dL and in very high risk patients is <70 mg/dL. VLDL-Cholesterol 9 0 - 30 mg/dL [place] [facility] Cholesterol/HDL Ratio 2.7 0.0 - 5.0 [facility] Specimen Anatomical Collection Method Collection Time Receive d Time (Source) Location / / Volume Laterality 10/10/2005 9:51 AM 6 9:56 CDT AM CDT Jennifer De La Cruz MD LABORATORY Performing Organization Address City/State/ZIP Code Phon e Number [facility][1] [address] [place] [phone] [facility] HEMOGLOBIN A1C (10/10/2005 9:51 AM CDT) P athologist Signature Hemoglobin A1C 5.2 4.3 - 6.0 [facility] LAB Specimen Anatomical Collection Method Collection Time Receive d Time (Source) Location / / Volume Laterality 10/10/2005 9:51 AM 6 9:56 CDT AM CDT Jennifer De La Cruz MD LABORATORY Performing Organization Address City/State/ZIP Code Phon e Number [facility][1] [address] [place] [address] [facility] documented in this encounter Visit Diagnoses Diagnosis Routine general medical examination at a health care facility documented in this encounter
--- OUTSIDE RECORDS SUMMARY | 2022-05-06 23:55 | XMS_ITS | Encounter Summary ---
:1980 Author Organization [employer] Address [address] [place] [address] Care Team Providers Name Role Phone No Primary/Referring, Phy Primary Care Provider Unavailable Encounter Details Date Type Department Care Team Description 07/04/2021 Lab Visit [facility] ters for administrative purposes; Laboratory Screening examination for in fectious disease; [id number] [facility] Screening examination [place] [phone] Social History Tobacco Use Types Packs/Day Years Used Date Smoking Tobacco: Never Smokeless Tobacco: Never Alcohol Use Standard Drinks/Week Comments No 0 (1 standard drink = 0.6 oz pure Alcoho lic Drinks/day: Freq:Never; alcohol) Sex Assigned at Date Recorded Female 05/12/2021 9:48 AM [employer] documented as of this encounter Plan of Treatment Upcoming Encounters Date Type Specialty Care Team Description 05/12/2022 Appointment Audiology 05/12/2022 Appointment Otolaryngology Bro Arroyo , PA-C [address] [facility] [place] GRIJALVA [phone] (Wo rk) 06/03/2022 Appointment General Dentistry Rylee Amaro, RDH [address] [place] [address] 06/03/2022 Appointment General Dentistry Pee Garcia, DDS [address] [place], [place] [phone] (Wo rk) 06/17/2022 Appointment General Dentistry Pee Garcia, DDS [address] [facility] [place] [place], [place] [phone] (Wo rk) documented as of this encounter Procedures Procedure Name Priority Date/Time Associated Diagnosis Comme nts RUBELLA IMMUNE Routine 07/04/2021 5:44 Encounters for Results for this STATUS, IGG PM [employer] administrative procedure are in purposes the results Screening examination sectio n. for infectious disease TB QUANTIFERON GOLD Routine 07/04/2021 5:44 Screening examinat ion Results for this PLUS PM [employer] for pulmonary procedure are in tuberculosis the results section. TB QUANTIFERON GOLD Routine 07/04/2021 5:44 Screening examinat ion Results for this PLUS MITOGEN PM [employer] for pulmonary procedure are in tuberculosis the results section. TB QUANTIFERON GOLD Routine 07/04/2021 5:44 Screening examinat ion Results for this PLUS TB2 PM [employer] for pulmonary procedure are in tuberculosis the results section. TB QUANTIFERON GOLD Routine 07/04/2021 5:44 Screening examinat ion Results for this PLUS TB1 PM [employer] for pulmonary procedure are in tuberculosis the results section. TB QUANTIFERON GOLD Routine 07/04/2021 5:44 Screening examinat ion Results for this PLUS NIL PM [employer] for pulmonary procedure are in tuberculosis the results section. HEPATITIS B SURFACE Routine 07/04/2021 5:44 Encounters for Res ults for this ANTIBODY PM [employer] administrative procedure are in purposes the results Screening examination sectio n. for infectious disease RUBEOLA IMMUNE Routine 07/04/2021 5:44 Encounters for Results for this STATUS, IGG PM [employer] administrative procedure are in purposes the results Screening examination sectio n. for infectious disease V ZOSTER IMMUNE Routine 07/04/2021 5:44 Encounters for Results for this STATUS, IGG PM [employer] administrative procedure are in purposes the results Screening examination sectio n. for infectious disease MUMPS IMMUNE STATUS, Routine 07/04/2021 5:44 Encounters for Re sults for this IGG PM [employer] administrative procedure are in purposes the results Screening examination sectio n. for infectious disease documented in this encounter Results TB QuantiFERON Gold Plus Mitogen (07/04/2021 5:44 PM [employer]) athologist Signature MITOGEN >10.000 IU/mL 07/07/2021 [facility] 1:17 PM [employer] LABORATORY Specimen Anatomical Collection Method / Collection Time Recei delta Time (Source) Location / Volume Laterality Blood Venipuncture / 07/04/2021 5:44 07/04/2021 5:56 Unknown PM [employer] PM [employer] Celeste Bettencourt MD LAB_1 Performing Organization Address [facility] Phon e Number [facility] [address] [place] [address] TB QuantiFERON Gold Plus TB2 (07/04/2021 5:44 PM [employer]) athologist Signature TB2 0.024 IU/mL 07/07/2021 [facility] 1:17 PM [employer] LABORATORY Specimen Anatomical Collection Method / Collection Time Recei delta Time (Source) Location / Volume Laterality Blood Venipuncture / 07/04/2021 5:44 07/04/2021 5:56 Unknown PM [employer] PM [employer] Celeste Bettencourt MD LAB_1 Performing Organization Address [facility] Phon e Number [facility] [address] [place] [address] TB QuantiFERON Gold Plus TB1 (07/04/2021 5:44 PM [employer]) athologist Signature TB1 0.030 IU/mL 07/07/2021 [facility] 1:18 PM [employer] LABORATORY Specimen Anatomical Collection Method / Collection Time Recei delta Time (Source) Location / Volume Laterality Blood Venipuncture / 07/04/2021 5:44 07/04/2021 5:56 Unknown PM [employer] PM [employer] Celeste Bettencourt MD LAB_1 Performing Organization Address [facility] Phon e Number [facility] [address] [place] [address] TB QuantiFERON Gold Plus NIL (07/04/2021 5:44 PM [employer]) [facility] Method Time Signature TB QuantiFERON Negative, M. Negative, M. 07/07/2021 [facility] T Gold Plus tuberculosis tuberculosis 1:18 PM LABORATORY Infection NOT Infection NOT [employer] likely likely NIL 0.021 IU/mL 07/07/2021 [facility] 1:18 PM LABORATORY [employer] TB1-NIL 0.01 IU/mL 07/07/2021 [facility] 1:18 PM LABORATORY [employer] TB2-NIL 0.00 IU/mL 07/07/2021 [facility] 1:18 PM LABORATORY [employer] Mitogen-NIL 9.98 IU/mL 07/07/2021 [facility] 1:18 PM LABORATORY [employer] Specimen Anatomical Collection Method / Collection Time Recei delta Time (Source) Location / Volume Laterality Blood Venipuncture / 07/04/2021 5:44 07/04/2021 5:56 Unknown PM [employer] PM [employer] Narrative [facility] - 07/07/2021 1:18 P M [employer] Nil ?TB1-Nil ? TB2-Nil ?Mitogen-Nil ??Result ?Interpretation (IU/ml) ??(IU/mL) ? (IU/mL) ?(IU/mL) <=8.0 ? >=0.35 & ? Any ?Any ?Positive ?M. tuberculosis ?>=25% Nil ?infection likely <=8.0 ? Any ?>=0.35 & ? Any ?Positive ?M. tuberculosis ? >=25% Nil ? infection likely <=8.0 ? <0.35 or ? <0.35 or ? >=0.50 ? Negative ?M. tuberculosis ?>=0.35 & ? >=0.35 & ?infection NOT ?<25% Nil ? <25% Nil ?likely <=8.0 ? <0.35 or ? <0.35 or ? <0.50 ? Indeterminate ??M. tuberculosis ?>=0.35 & ? >=0.35 & ?infection cannot ?<25% Nil ? <25% Nil ?be determined >8.0 ?Any ?Any ?Any ? Indeterminate ??M. tuberculosis ? infection cannot ? be determined. Important: Diagnosing or excluding tuber culosis disease, and assessing the probability of LTBI, requires a combination of epidemiological, historical, medical, and diagnostic findings that should be nirav en into account when interpreting QFT-Pl us results. See general guidance on the diagnosis and treatment of TB disease and LTBI (https://www.cdc.gov/tb/publications/guidelines/default.htm). The magnitude of the measured IFN-gamma level cannot be correlated to stage or degree of infection, level of immune responsiveness, or likelihood for progression to active disease. A positive TB respons e in persons who are negative to Mitogen is rare, but has been seen in patients with TB disease. This indicates the IFN-gamma response to TB antigens is greater than that to Mitogen, which is possible a s the level of Mitogen does not maximall y stimulate IFN-gamma production by lymphocytes. Celeste Bettencourt MD LAB_1 Performing Organization Address [facility] Phon e Number [facility] [address] [place] [address] (ABNORMAL) Hepatitis B N[place], Quantitative (07/04/2021 5:44 PM [employer]) [facility] Method Time Signature Hep B Surf <2.0 mIU/mL 07/04/2021 [facility] Antibody Result 9:44 PM [employer] LABORATORY Hep B Surf Negative Positive 07/04/2021 [facility] Antibody (Non (Reactive) 9:44 PM [employer] LABORATORY Interpretation Reactive) (A) Specimen Anatomical Collection Method / Collection Time Recei delta Time (Source) Location / Volume Laterality Blood Venipuncture / 07/04/2021 5:44 07/04/2021 5:56 Unknown PM [employer] PM [employer] Narrative [facility] - 07/04/2021 9:44 P M [employer] Individual is considered not immune to H BV infection. Celeste Bettencourt MD LAB_1 Performing Organization Address [facility] Phon e Number [facility] [address] [place] [address] V Zoster Immune Status, IgG (07/04/2021 5:44 PM [employer]) athologist Signature Varicella 540.7 IV 07/07/2021 [facility] Zoster Units 11:46 AM [employer] LABORATORY Comment: The magnitude of the measured r esult, above the cutoff, is not indicative of the amount of antibody present. Varicella Zoster Immune Immune 07/07/2021 11:46 AM MET HODIST LABORATORY Intepretation [employer] Specimen Anatomical Collection Method / Collection Time Recei delta Time (Source) Location / Volume Laterality Blood Venipuncture / 07/04/2021 5:44 07/04/2021 5:56 Unknown PM [employer] DRIVER PM [employer] Celeste Bettencourt MD LAB_1 Performing Organization Address [facility] e Number [facility] [address] [place] [address] Rubella Immune Status, IgG (07/04/2021 5:44 PM [employer]) P athologist Signature Rubella Units 22.30 07/07/2021 [facility] 11:50 AM [employer] LABORATORY Comment: The magnitude of the measured r esult, above the cutoff, is not indicative of the amount of antibody present. Rubella Intepretation Immune Immune 07/07/2021 11: 50 AM [employer]IVER [facility] Specimen Anatomical Collection Method / Collection Time Recei delta Time (Source) Location / Volume Laterality Blood Venipuncture / 07/04/2021 5:44 07/04/2021 5:56 Unknown PM [employer] DRIVER PM [employer] DRIVER Celeste Bettencourt MD LAB_1 Performing Organization Address [facility] e Number [facility] [address] [place] [phone] Mumps Immune Status, IgG (07/04/2021 5:44 PM [employer]) P athologist Signature Mumps Units 29.4 AU/mL 07/07/2021 [facility] 11:49 AM [employer] LABORATORY Comment: The magnitude of the measured r esult, above the cutoff, is not indicative of the amount of antibody present. Mumps Intepretation Immune Immune 07/07/2021 11:49 AM [employer]IVER [facility] Specimen Anatomical Collection Method / Collection Time Recei delta Time (Source) Location / Volume Laterality Blood Venipuncture / 07/04/2021 5:44 07/04/2021 5:56 Unknown PM [employer] DRIVER PM [employer] DRIVER Celeste Bettencourt MD LAB_1 Performing Organization Address [facility] e Number [facility] [address] [place] [address] Rubeola Immune Status, IgG (07/04/2021 5:44 PM [employer]) P athologist Signature Rubeola Units >300.0 AU/mL 07/07/2021 [facility] 11:48 AM [employer] LABORATORY Comment: The magnitude of the measured r esult, above the cutoff, is not indicative of the amount of antibody present. Rubeola Interpretation Immune Immune 07/07/2021 11 :48 AM [employer] DRIVER [facility] Specimen Anatomical Collection Method / Collection Time Recei delta Time (Source) Location / Volume Laterality Blood Venipuncture / 07/04/2021 5:44 07/04/2021 5:56 Unknown PM [employer] DRIVER PM [employer]IVER Celeste Bettencourt MD LAB_1 Performing Organization Address City/State/ZIP Code Phon e Number [facility] [address] [place] [address] documented in this encounter Visit Diagnoses Diagnosis Encounters for administrative purposes Encounters for unspecified administrativ e purpose Screening examination for infectious dis ease Screening examination for unspecified in fectious disease Screening examination for pulmonary tube rculosis documented in this encounter Care Teams Varnish Dipper Relationship Specialty Start Date End Date No Primary/Referring, Phy PCP - General 07/15/17 documented as of this encounter
--- OUTSIDE RECORDS SUMMARY | 2022-05-06 23:55 | XMS_ITS | Encounter Summary ---
:1980 Author Organization [facility] Address [address] [facility] [place] [address] Care Team Providers Name Role Phone Unavailable Primary Care Provider Unavailable Encounter Details Date Type Department Care Team Description 08/04/2010 Historic Results INTERFACED REPORT Caesar Cortez MD [facility] [address] [place], [place] [id number] (Wo rk) Social History Tobacco Use Types Packs/Day Years [...] Procedure Name Priority Date/Time Associated Comments Diagnosis ABO/RH TYPE AND SCREEN STAT 08/04/2010 11:35 R esults for this AM HYPERION ADMINISTRATOR procedure are i n the results section. INR AND PTT PANEL STAT 08/04/2010 10:20 Result s for this AM HYPERION ADMINISTRATOR procedure are i n the results section. CBC WITH PLATELETS & STAT 08/04/2010 10:20 Res ults for this DIFFERENTIAL AM HYPERION ADMINISTRATOR procedure are i n the results section. LIPASE STAT 08/04/2010 10:20 Results for this AM HYPERION ADMINISTRATOR procedure are i n the results section. COMPREHENSIVE STAT 08/04/2010 10:20 Results fo r this METABOLIC PANEL AM HYPERION ADMINISTRATOR procedure ar e in the results section. HCG QUALITATIVE URINE STAT 08/04/2010 8:30 AM Results for this HYPERION ADMINISTRATOR procedure are i n the results section. ROUTINE UA WITH STAT 08/04/2010 8:30 AM Result s for this MICROSCOPIC HYPERION ADMINISTRATOR procedure are i n the results section. documented in this encounter Results ABO/Rh type and screen (08/04/2010 11:35 AM HYPERION ADMINISTRATOR) Analysis Performed At Patho logist Time Signature ABO O [facility] RH(D) Pos [facility] Antibody Neg [facility] Screen Specimen 08/07/2010 [facility] Expires Specimen Anatomical Collection Method Collection Time Receive d Time (Source) Location / / Volume Laterality 08/04/2010 11:35 08/04/2010 9:58 AM HYPERION ADMINISTRATOR AM HYPERION ADMINISTRATOR Anthony Cortez MD LAB - BLOOD BANK TEST ORDER Performing Organization Address City/State/ZIP Code Phon e Number [facility] CBC with platelets differential (08/04/2010 10:20 AM HYPERION ADMINISTRATOR) Patholo gist Method Time Signature MCV 85 78 - 100 [facility] fl MCH 29.5 26.5 - [facility] 33.0 pg MCHC 34.6 31.5 - [facility] 36.5 g/dL RDW 12.0 10.0 - [facility] 15.0 % WBC 5.3 4.0 - [facility] 11.0 10e9/L RBC Count 4.37 3.8 - 5.2 [facility] 10e12/L Hemoglobin 12.9 11.7 - [facility] 15.7 g/dL Hematocrit 37.3 35.0 - [facility] 47.0 % % Neutrophils 58.5 40 - 75 % [facility] % Lymphocytes 35.0 20 - 48 % [facility] % Monocytes 5.5 0 - 12 % [facility] % Eosinophils 0.8 0 - 6 % [facility] % Basophils 0.2 0 - 2 % [facility] Platelet Count 211 150 - 450 [facility] 10e9/L Absolute 3.1 1.6 - 8.3 [facility] Neutrophil 10e9/L Absolute 1.9 0.8 - 5.3 [facility] Lymphocytes 10e9/L Absolute 0.3 0.0 - 1.3 [facility] Monocytes 10e9/L Absolute 0.0 0.0 - 0.7 [facility] Eosinophils 10e9/L Absolute 0.0 0.0 - 0.2 [facility] Basophils 10e9/L Diff Method Automated [facility] Method Specimen Anatomical Collection Method Collection Time Receive d Time (Source) Location / / Volume Laterality 08/04/2010 10:20 08/04/2010 9:58 AM HYPERION ADMINISTRATOR AM HYPERION ADMINISTRATOR Anthony Cortez MD LAB - BLOOD ORDERABLES Performing Organization Address City/State/ZIP Code Phon e Number [facility] INR AND PTT PANEL (08/04/2010 10:20 AM HYPERION ADMINISTRATOR) P athologist Signature INR 1.09 0.86 - 1.14 [facility] PTT 31 22 - 37 sec [facility] Specimen Anatomical Collection Method Collection Time Receive d Time (Source) Location / / Volume Laterality 08/04/2010 10:20 08/04/2010 9:58 AM HYPERION ADMINISTRATOR AM HYPERION ADMINISTRATOR Anthony Cortez MD LAB - BLOOD ORDERABLES Performing Organization Address City/State/ZIP Code Phon e Number [facility] Lipase (08/04/2010 10:20 AM HYPERION ADMINISTRATOR) athologist Signature Lipase 60 20 - 250 U/L [facility] Specimen Anatomical Collection Method Collection Time Receive d Time (Source) Location / / Volume Laterality 08/04/2010 10:20 08/04/2010 9:58 AM HYPERION ADMINISTRATOR AM HYPERION ADMINISTRATOR Anthony Cortez MD LAB - BLOOD ORDERABLES Performing Organization Address City/State/ZIP Code Phon e Number [facility] Comprehensive metabolic panel (08/04/2010 10:20 AM HYPERION ADMINISTRATOR) P athologist Signature Sodium 140 133 - 144 [facility] mmol/L Potassium 3.8 3.4 - 5.3 [facility] mmol/L Chloride 106 94 - 109 [facility] mmol/L Carbon Dioxide 24 20 - 32 [facility] mmol/L Glucose 92 60 - 99 [facility] mg/dL Urea Nitrogen 10 5 - 24 [facility] mg/dL Creatinine 0.66 0.52 - 1.04 [facility] mg/dL Comment: New IDMS-traceable calibration beginning 10/27/07 GFR Estimate >90 >60 mL/min/1.7m2 [facility] GFR Estimate If Black >90 >60 mL/min/1.7m2 [facility] Calcium 9.3 8.5 - 10.4 mg/dL [facility] AST 31 0 - 45 U/L [facility] Protein Total 7.7 6.8 - 8.8 g/dL [facility] Anion Gap 10 6 - 17 mmol/L [facility] Albumin 4.6 3.9 - 5.1 g/dL [facility] ALT 18 0 - 50 U/L [facility] Alkaline Phosphatase 57 40 - 150 U/L [facility] Bilirubin Total 0.2 0.2 - 1.3 mg/dL [facility] Specimen Anatomical Collection Method Collection Time Receive d Time (Source) Location / / Volume Laterality 08/04/2010 10:20 08/04/2010 9:58 AM HYPERION ADMINISTRATOR AM HYPERION ADMINISTRATOR Anthony Cortez MD LAB - BLOOD ORDERABLES Performing Organization Address City/State/ZIP Code Phon e Number [facility] (ABNORMAL) Routine UA with microscopic (08/04/2010 8:30 AM HYPERION ADMINISTRATOR) Patholo gist Method Time Signature Source Midstream [facility] Urine Color Urine Yellow [facility] Appearance Urine Slightly [facility] Cloudy Glucose Urine Negative NEG mg/dL [facility] Bilirubin Urine Negative NEG [facility] Ketones Urine Negative NEG mg/dL [facility] Specific Stanton 1.021 1.003 - [facility] Urine 1.035 Blood Urine Negative NEG [facility] pH Urine 5.5 5.0 - 7.0 [facility] pH Protein Albumin 10 (A) NEG mg/dL [facility] Urine Urobilinogen Normal 0.0 - 2.0 [facility] mg/dL mg/dL Nitrite Urine Negative NEG [facility] Leukocyte Negative NEG [facility] Esterase Urine WBC Urine 2 0 - 2 [facility] /HPF RBC Urine 1 0 - 2 [facility] /HPF Squamous 10 (H) 0 - 1 [facility] Epithelial /HPF /HPF Urine Transitional Epi <1 0 - 1 [facility] /HPF Mucous Urine Present (A) NEG /LPF [facility] Specimen Anatomical Collection Method Collection Time Receive d Time (Source) Location / / Volume Laterality 08/04/2010 8:30 AM 1 8:41 HYPERION ADMINISTRATOR AM HYPERION ADMINISTRATOR Brown Wilkinson MD LAB - URINE ORDERABLES Performing Organization Address City/State/ZIP Code Phon e Number [facility] HCG qualitative urine (08/04/2010 8:30 AM HYPERION ADMINISTRATOR) athologist Signature HCG Qual Urine Negative NEG [facility] Specimen Anatomical Collection Method Collection Time Receive d Time (Source) Location / / Volume Laterality 08/04/2010 8:30 AM 1 8:41 HYPERION ADMINISTRATOR AM HYPERION ADMINISTRATOR Brown Wilkinson MD LAB - URINE ORDERABLES Performing Organization Address City/State/ZIP Code Phon e Number [facility] documented in this encounter Visit Diagnoses Not on filedocumented in this encounter
--- OUTSIDE RECORDS SUMMARY | 2022-05-06 23:55 | XMS_ITS | Encounter Summary ---
:1980 Author Organization [facility] Address [address], [place] [address] Care Team Providers Name Role Phone No Primary/Referring, Phy Primary Care Provider Unavailable Reason for Visit Reason Comments Refill Encounter Details Date Type Department Care Team Description 02/08/2020 Telephone [facility], Vineet Farrell DDS Refill Dentistry [address] [facility] [address] [place] [address] [place], [place] [address] [phone] Social History Tobacco Use Types Packs/Day Years Used Date Smoking Tobacco: Never Smokeless Tobacco: Never Alcohol Use Standard Drinks/Week Comments No 0 (1 standard drink = 0.6 oz pure Alcoho lic Drinks/day: Freq:Never; alcohol) Sex Assigned at Date Recorded 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 [facility] Pharmacy// [place] pt. don't have an address or phone number documented in this encounter Plan of Treatment Upcoming Encounters Date Type Specialty Care Team Description 05/12/2022 Appointment Audiology 05/12/2022 Appointment Otolaryngology Bro Arroyo , PAMorisC [address] [place] [address] (Wo rk) 06/03/2022 Appointment General Dentistry Rylee Amaro, [facility] [address] [place] [address] 06/03/2022 Appointment General Dentistry Pee Garcia, DDS [address] [place], [place] [phone] (Wo rk) 06/17/2022 Appointment General Dentistry Pee Garcia DDS [address] [place], [place] [phone] (Wo rk) documented as of this encounter Visit Diagnoses Not on filedocumented in this encounter Care Teams Evidence Custodian Relationship Specialty Start Date End Date No Primary/Referring, Phy PCP - General 07/15/17 documented as of this encounter
--- OUTSIDE RECORDS SUMMARY | 2022-05-06 23:55 | XMS_ITS | Encounter Summary ---
:1980 Author Organization [employer] Address [address] [place] [address] Care Team Providers Name Role Phone No Primary/Referring, Phy Primary Care Provider Unavailable Reason for Visit Reason Comments Annual Exam Nerve issues in right leg - referral?, no patch - period concerns, wants labs ordered - not fasting t srinivasa Encounter Details Date Type Department Care Team Description 12/05/2021 Office Visit [place] E[facility]ia Helen B, Well female e xam with routine gynecological exam (Primary Dx); Obstetrics/Gynecolog y Screening for lipoid disorders; [address] Screening for diabetes mellitus; [address] Screening for thyroid disorder; [place], [place] [address] [place], [place] Screening for cervical cance r [phone] Social History Tobacco Use Types Packs/Day Years Used Date Smoking Tobacco: Never Smokeless Tobacco: Never Tobacco Cessation: Counseling Given: No Alcohol Use Standard Drinks/Week Comments No 0 (1 standard drink = 0.6 oz pure Alcoho lic Drinks/day: Freq:Never; alcohol) Sex Assigned at Date Recorded 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 female who presents today for her annual exam. She has been well, and has had no acute complaints or problems. OBGYN Issues: Menstrual history: Cycles regular with no concerns. Pap history: hx of HPV, due for recheck Current contraception: condoms STD history: no past history Other ob/gyn doctor issues: none Past Medical History: Past Medical History: Diagnosis Date ??? Obesity (HRC) ??? Pap smear abnormality of cervix ??? (spontaneous vaginal delivery) x2 ??? Thyroid disease (HRC) Past Surgical History: Past Surgical History: Procedure Laterality Date ??? WISDOM TEETH EXTRACTION Medications: Current Outpatient Medications Medication ??? 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 Diabetes Mother ??? High Cholesterol Mother ??? Thyroid Disorder Mother ??? Cancer Father 62 lymphoma, ??? Thyroid Disorder Sister ??? Depression Brother ??? Diabetes Brother ??? High Cholesterol Brother ??? Cancer Maternal Grandmother ??? Diabetes Maternal Grandmother ??? Cancer, Ovary Negative Family History Preventative health: Pap: Pap smear done today Tetanus: last tetanus booster within 10 years Cholesterol: orders written for new lab studies as appropriate; see orders Calcium/VitaminD: adequate OBJECTIVE : height is 5' 1.5 (1.562 m) and weight is 168 lb (76.2 kg). Her blood pressure is 113/65 and her pulse is 71. Estimated body mass index is 31.23 kg/m?? as calculated from the following: Height as of this encounter: 5' 1.5 (1.562 m). Weight as of this encounter: 168 lb (76.2 kg). Gen: Alert, cooperative in no acute distress. HEENT: no thyromegaly CV: RRR, no murmurs noted Lungs: CTA bilaterally Breast: Symmetric without masses or nodularity. No skin lesions. No axillary or clavicular adenopathy. Abdomen: The abdomen was soft and nontender, normal sounds present. No obvious masses or organomegaly. Pelvic: EGBUS within normal limits, normal cervix without lesions, polyps or tenderness, uterus normal size, shape, consistency, no mass or tenderness, adnexa normal in size without mass or tenderness ASSESSMENT : Routine Female Annual exam. PLAN : ICD-10-CM 1. Well female exam with routine gynecological exam Z01.419 2. Screening for lipoid disorders Z13.220 CHOLESTEROL, TOTAL AND HDL 3. Screening for diabetes mellitus Z13.1 HGB A1C 4. Screening for thyroid disorder Z13.29 TSH 5. Screening for cervical cancer Z12.4 Scr Pap Smer; Obtain Prep&Convy-Lab PAP Test HPV with 16 18 Genotyping Helen Rubi MD documented in this encounter Plan of Treatment Upcoming Encounters Date Type Specialty Care Team Description 05/12/2022 Appointment Audiology 05/12/2022 Appointment Otolaryngology Bro Arroyo , PADerick [address] [facility] [address] (Shereen espino) 06/03/2022 Appointment General Dentistry Rylee Amaro, RD [address] [place] [address] 06/03/2022 Appointment General Dentistry Pee Garcia DDS [address] [place], [place] [phone] (Shereen espino) 06/17/2022 Appointment General Dentistry Pee Garcia DDS [address] [facility] [place], [place] [phone] (Shereen espino) documented as of this encounter Procedures Procedure Name Priority Date/Time Associated Diagnosis Comme nts PAP TEST Routine 12/05/2021 3:05 PM Screening for Results for this CDT cervical cancer procedure ar e in the results section. HPV WITH 16 18 Routine 12/05/2021 3:05 PM Screening for Result s for this GENOTYPING, CDT cervical cancer procedure ar e in CERVICAL/ENDOCERVIC the resu lts AL section. documented in this encounter Results TSH (12/05/2021 3:14 PM CDT) athologist Signature TSH, Sensitive 0.97 0.30 - 12/05/2021 [facility] 4.50 9:31 PM CDT LABORATORY uIU/mL Specimen Anatomical Collection Method / Collection Time Recei delta Time (Source) Location / Volume Laterality Blood Venipuncture / 12/05/2021 3:14 12/05/2021 3:14 Unknown PM CDT PM CDT Helen Rubi MD LAB_1 Performing Organization Address City/[facility]/ZIP Code Phon e Number [facility] [address] [place] [address] HGB A1C (12/05/2021 3:14 PM CDT) athologist [facility] Hemoglobin A1C 5.2 <=5.6 % 12/05/2021 [place] (Rapid) 3:59 PM CDT LABORATORY (PN) Specimen Anatomical Collection Method / Collection Time Recei delta Time (Source) Location / Volume Laterality Blood Venipuncture / 12/05/2021 3:14 12/05/2021 3:14 Unknown PM CDT PM CDT Helen Rubi MD LAB_1 Performing Organization Address City/State/ZIP Code Phon e Number [facility] [address] [place] [address] (PN) Dr (ABNORMAL) CHOLESTEROL, TOTAL AND HDL (12/05/2021 3:14 PM CDT) [facility] Method Time Signature Cholesterol 200 (H) 0 - 199 12/05/2021 [facility] mg/dL 9:01 PM CDT LABORATORY HDL Cholesterol 75 >=40 mg/dL 12/05/2021 [facility] 9:01 PM CDT LABORATORY Non HDL Chol, 125 <=159 12/05/2021 [facility] Calculated mg/dL 9:01 PM CDT LABORATORY Specimen Anatomical Collection Method / Collection Time Recei delta Time (Source) Location / Volume Laterality Blood Venipuncture / 12/05/2021 3:14 12/05/2021 3:14 Unknown PM CDT PM CDT Helen Rubi MD LAB_1 Performing Organization Address City/State/ZIP Code Phon e Number [facility] [address] [place] [address] HPV with 16 18 Genotyping (12/05/2021 3:05 PM CDT) [facility] Method Time [facility] HPV High Risk Not Detected Not detected 12/10/2021 [facility] Type 16 PCR 5:46 AM CDT HOSPITAL HPV High Risk Not Detected Not Detected 12/10/2021 [facility] Type 18 PCR 5:46 AM CDT HOSPITAL HPV High Risk Not Detected Not detected 12/10/2021 [facility] Other Than 5:46 AM CDT HOSPITAL 16/18 Specimen Anatomical Collection Method Collection Time Receive d Time (Source) Location / / Volume Laterality Cervical Broom ENTIRE ENDOCERVIX 12/05/2021 3:05 PM 4:53 / Unknown CDT PM CDT [facility] 12/10/2021 5:46 AM CD T The Mahesh HPV test is a qualitative in vitro test for the detection of Human Papillomavirus in [facility] patient specimens. The test utilizes amplification of target DNA by Polymerase Chain Reaction (PCR ) and nucleic acid hybridization for the detection of 14 high-risk (HR) HPV types. The assay tests for high risk types (16, 18, 31, 33, 35, 39, 45, 51, 52, 56, 58, 59, 66, and 68). Helen Rubi MD LAB_1 Performing Organization Address City/State/ZIP Code Phon e Number [address] [address] PAP Test (12/05/2021 3:05 PM CDT) Component Value Ref Test Analysis Performed At [facility] Range Method Time Signature Case Report Pap ? Case: [id number] ? 2021 [facility] Authorizing Provider: ??Helen Rubi MD ?Collected: ? 12/05/2021 1505 ? 11:28 AM LABO RATORY Ordering Location: ? [place] ?Received: ?12/05/2021 1653 ? CDT ? Obstetrics/Gynecology ? First Screen: ? Nault, Shannan E, CT (ASCP) ? Specimen: ?Pap Test, Pau gnostic, Cervix/Endocervix ? Pap Specimen Satisfactory for 2021 [facility] Adequacy evaluation, 11:28 AM LABORATORY endocervical/coles CDT sformation zone component present. Pap (NILM) Negative 2021 [facility] Lisa ctronically Interpretation for 11:28 AM LABORATORY sign ed by intraepithelial CDT Naul t, Shannan E, lesion or CT (ASCP) on malignancy. 2 at 11:28 AM Pap Disclaimer The Pap test is a 2021 METHOD IST screening test 11:28 AM LABORATORY designed to aid CDT in the detection of cervical cancer and its precursor lesions. It is not a diagnostic procedure and should not be used as the sole means of detecting cervical cancer. Both false-positive and false-negative results may occur. Gross The specimen is 2021 [facility] Description received in 11:28 AM LABORATORY [facility] fixative CDT and properly labeled. 1 Pap-stained SurePath slide is prepared. Embedded Images 2021 [facility] 11:28 AM LABORATORY CDT Specimen Anatomical Collection Method Collection Time Receive d Time (Source) Location / / Volume Laterality Other Specimen ENTIRE ENDOCERVIX 12/05/2021 3:05 PM 4:53 Type / Unknown CDT PM CDT Comment: LMP: Patient's last menstrual p eriod was 11/15/2021 (exact date). Helen Rubi MD LAB PATHOLOGY Performing Organization Address City/State/ZIP Code Phon e Number [facility] [address] [place] [address] documented in this encounter Visit Diagnoses Diagnosis Well female exam with routine gynecologi karen exam - Primary Routine gynecological examination Screening for lipoid disorders Screening for diabetes mellitus Screening for thyroid disorder Screening for cervical cancer Screening for malignant neoplasm of the cervix documented in this encounter Care Teams Production Lead Relationship Specialty Start Date End Date No Primary/Referring, Phy PCP - General 07/15/17 documented as of this encounter
--- OUTSIDE RECORDS SUMMARY | 2022-05-06 23:55 | XMS_ITS | Encounter Summary ---
:1980 Author Organization [employer] Address [address], [place] [address] Care Team Providers Name Role Phone No Primary/Referring, Phy Primary Care Provider Unavailable Reason for Visit Reason Comments Forms Encounter Details Date Type Department Care Team Description 07/11/2021 Telephone [facility] Celeste Cerda MD Forms [address] [address] [place] [address] [place] [address] [phone] (Wo rk) Social History Tobacco Use Types Packs/Day Years Used Date Smoking Tobacco: Never Smokeless Tobacco: Never Alcohol Use Standard Drinks/Week Comments No 0 (1 standard drink = 0.6 oz pure Alcoho lic Drinks/day: Freq:Never; alcohol) Sex Assigned at Date Recorded Female 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 Can pick out hand paperwork and I suggest she get her first Hep B shot that day (nurse giving vaccine should document on paperwork). Celeste Bettencourt MD 1:01 PM 07/09/2021 IFIED PHARMACY TECHNICIAN documented in this encounter Plan of Treatment Upcoming Encounters Date Type Specialty Care Team Description 05/12/2022 Appointment Audiology 05/12/2022 Appointment Otolaryngology Bro Arroyo , PADerick [address] [facility] [place] [address] (Wo rk) 06/03/2022 Appointment General Dentistry Rylee Amaro, [facility] [address] [place] [address] 06/03/2022 Appointment General Dentistry Pee Garcia DDS [address] [place], [place] [phone] (Wo rk) 06/17/2022 Appointment General Dentistry Pee Garcia DDS [address] [place], [place] [phone] (Wo rk) documented as of this encounter Visit Diagnoses Not on filedocumented in this encounter Care Teams Neonatal Nurse Relationship Specialty Start Date End Date No Primary/Referring, Phy PCP - General 07/15/17 documented as of this encounter
--- OUTSIDE RECORDS SUMMARY | 2022-05-06 23:55 | XMS_ITS | Encounter Summary ---
:1980 Author Organization [employer] Address [address] [place] [address] Care Team Providers Name Role Phone No Primary/Referring, Phy Primary Care Provider Unavailable Encounter Details Date Type Department Care Team Description 01/10/2021 Notes/Orders [facility] Richard Chinchilla tact with and Kaila Willis MD (suspected) exposure [address] to [place]id-19 [place] [address] [place], [place] [phone] [address] Social History Tobacco Use Types Packs/Day Years Used Date Smoking Tobacco: Never Smokeless Tobacco: Never Alcohol Use Standard Drinks/Week Comments No 0 (1 standard drink = 0.6 oz pure Alcoho lic Drinks/day: Freq:Never; alcohol) Sex Assigned at Date Recorded 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 of 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 encounter Plan of Treatment Upcoming Encounters Date Type Specialty Care Team Description 05/12/2022 Appointment Audiology 05/12/2022 Appointment Otolaryngology Bro Arroyo , PAMroisC [address] [place] [address] (Wo rk) 06/03/2022 Appointment General Dentistry Rylee Amaro, [facility] [address] [place] [address] 06/03/2022 Appointment General Dentistry Pee Garcia, DDS [address] [place], [place] [phone] (Wo rk) 06/17/2022 Appointment General Dentistry Pee Garcia, DDS [address] [place], [place] [phone] (Wo rk) documented as of this encounter Visit Diagnoses Diagnosis Contact with and (suspected) exposure to covid-19 documented in this encounter Care Teams Lap Machine Tender Relationship Specialty Start Date End Date No Primary/Referring, Phy PCP - General 07/15/17 documented as of this encounter
--- OUTSIDE RECORDS SUMMARY | 2022-05-06 23:55 | XMS_ITS | Encounter Summary ---
:1980 Author Organization [employer] Address [address] [place] [address] Care Team Providers Name Role Phone No Primary/Referring, Phy Primary Care Provider Unavailable Encounter Details Date Type Department Care Team Description 08/12/2020 Lab Visit [facility] ry Screening cholesterol level; [address] [facility] ivania Screening for diabetes [facility]; [place], [place] [address] Thyroid disorder screen [phone] Social History Tobacco Use Types Packs/Day Years Used Date Smoking Tobacco: Never Smokeless Tobacco: Never Alcohol Use Standard Drinks/Week Comments No 0 (1 standard drink = 0.6 oz pure Alcoho lic Drinks/day: Freq:Never; alcohol) Sex Assigned at Date Recorded 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 N [phone] (Wo rk) 06/03/2022 Appointment General Dentistry Rylee Amaro, RDH [address] [place] [address] 06/03/2022 Appointment General Dentistry Pee Garcia, TAWANNAS [address] [place] [address] (Wo rk) 06/17/2022 Appointment General Dentistry Pee Garcia, DDS [address] [place] [address] (Wo rk) documented as of this encounter Procedures Procedure Name Priority Date/Time Associated Diagnosis Comme nts TSH, SENSITIVE Routine 08/12/2020 2:50 PM Thyroid disorder Res ults for this OUTSOLE TACKER screen procedure are i n the results section. CHOLESTEROL, TOTAL Routine 08/12/2020 2:50 PM Screening Res ults for this AND HDL OUTSOLE TACKER cholesterol level procedure are in the results section. HGB A1C Routine 08/12/2020 2:50 PM Screening for Results for this OUTSOLE TACKER diabetes mellitus procedure are in the results section. documented in this encounter Results TSH (08/12/2020 2:50 PM OUTSOLE TACKER) athologist Signature TSH, Sensitive 0.47 0.30 - 08/12/2020 [facility] 4.50 7:16 PM OUTSOLE TACKER LABORATORY uIU/mL Specimen Anatomical Collection Method / Collection Time Recei delta Time (Source) Location / Volume Laterality Blood Venipuncture / 08/12/2020 2:50 08/12/2020 2:50 Unknown PM OUTSOLE TACKER PM OUTSOLE TACKER Helen Rubi MD LAB_1 Performing Organization Address City/State/ZIP Code Phon e Number [facility] [address] [place] [address] Hemoglobin A1C [A1C] (08/12/2020 2:50 PM OUTSOLE TACKER) [facility] Method Time Signature Hemoglobin A1C 5.3 <=5.6 % 08/13/2020 [facility] 10:23 AM OUTSOLE TACKER CENTRAL LAB Specimen Anatomical Collection Method / Collection Time Recei delta Time (Source) Location / Volume Laterality Blood Venipuncture / 08/12/2020 2:50 08/12/2020 2:50 Unknown PM OUTSOLE TACKER PM OUTSOLE TACKER Helen Rubi MD LAB_1 Performing Organization Address City/[facility]/ZIP Code Phon e Number [email or web address] [address] [phone] (ABNORMAL) Cholesterol, Total & HDL [CHS] (08/12/2020 2:50 PM OUTSOLE TACKER) Patholo gist Method Time Signature Cholesterol 236 (H) 0 - 199 08/12/2020 [facility] mg/dL 7:09 PM OUTSOLE TACKER LABORATORY HDL Cholesterol 81 >=40 mg/dL 08/12/2020 [facility] 7:09 PM OUTSOLE TACKER LABORATORY Non HDL Chol, 155 mg/dL 08/12/2020 [facility] Calculated 7:09 PM OUTSOLE TACKER LABORATORY Specimen Anatomical Collection Method / Collection Time Recei delta Time (Source) Location / Volume Laterality Blood Venipuncture / 08/12/2020 2:50 08/12/2020 2:50 Unknown PM OUTSOLE TACKER PM OUTSOLE TACKER Helen Rubi MD LAB_1 Performing Organization Address City/State/ZIP Code Phon e Number [facility] [address] [place] [address] documented in this encounter Visit Diagnoses Diagnosis Screening cholesterol level Screening for lipoid disorders Screening for diabetes mellitus Thyroid disorder screen Screening for thyroid disorder documented in this encounter Care Teams Bone Crusher Relationship Specialty Start Date End Date No Primary/Referring, Phy PCP - General 07/15/17 documented as of this encounter
--- OUTSIDE RECORDS SUMMARY | 2022-05-06 23:55 | XMS_ITS | Encounter Summary ---
:1980 Author Organization [employer] Address [address] [place] [address] Care Team Providers Name Role Phone Unavailable Primary Care Provider Unavailable Encounter Details Date Type Department Care Team Description 10/13/2005 Orders Only [facility] Jennifer De La Cruz FIND[facility] Clinic Dejuan Fatima MD (Primary Dx) [place] [address] [place] [phone] (Wo rk) Social History Tobacco Use Types [...] as of this encounter Visit Diagnoses Diagnosis Other nonspecific abnormal finding - [facility] documented in this encounter
--- OUTSIDE RECORDS SUMMARY | 2022-05-06 23:55 | XMS_ITS | Encounter Summary ---
:1980 Author Organization [employer] Address [address] [place] [address] Care Team Providers Name Role Phone No Primary/Referring, Phy Primary Care Provider Unavailable Encounter Details Date Type Department Care Team Description 12/05/2021 Lab Visit [facility] Screening for lipoid disorde rs; [address] 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 documented as of this encounter Plan of Treatment Upcoming Encounters Date Type Specialty Care Team Description 05/12/2022 Appointment Audiology 05/12/2022 Appointment Otolaryngology Bro Arroyo , PA-C [address] [place] [phone] (Wo rk) 06/03/2022 Appointment General Dentistry Rylee Amaro, RDH [address] [place] [address] 06/03/2022 Appointment General Dentistry Pee Garcia, DDS [address] [place], [place] [phone] (Wo rk) 06/17/2022 Appointment General Dentistry Pee Garcia, DDS [address] [place] [address] (Wo rk) documented as of this encounter Procedures Procedure Name Priority Date/Time Associated Diagnosis Comme nts TSH, SENSITIVE Routine 12/05/2021 3:14 PM Screening for Result s for this CDT thyroid disorder procedure a re in the results section. CHOLESTEROL, TOTAL Routine 12/05/2021 3:14 PM Screening for li poid Results for this AND HDL CDT disorders procedure are i n the results section. HGB A1C Routine 12/05/2021 3:14 PM Screening for Results for this CDT diabetes mellitus procedure are in the results section. documented in this encounter Results TSH (12/05/2021 3:14 PM CDT) athologist Signature TSH, Sensitive 0.97 0.30 - 12/05/2021 [facility] 4.50 9:31 PM CDT LABORATORY uIU/mL Specimen Anatomical Collection Method / Collection Time Recei delta Time (Source) Location / Volume Laterality Blood Venipuncture / 12/05/2021 3:14 12/05/2021 3:14 Unknown PM CDT PM CDT Helen Rubi MD LAB_1 Performing Organization Address City/[facility]/ZIP Code Phon e Number [facility] [address] [place] [address] HGB A1C (12/05/2021 3:14 PM CDT) athologist Signature Hemoglobin A1C 5.2 <=5.6 % 12/05/2021 [facility] (Rapid) 3:59 PM CDT LABORATORY (PN) Specimen Anatomical Collection Method / Collection Time Recei delta Time (Source) Location / Volume Laterality Blood Venipuncture / 12/05/2021 3:14 12/05/2021 3:14 Unknown PM CDT PM CDT Helen Rubi MD LAB_1 Performing Organization Address City/[facility] Phon e Number [facility] [address] [place], [place] [phone] (PN) (ABNORMAL) CHOLESTEROL, TOTAL AND HDL (12/05/2021 3:14 PM CDT) [facility] Method Time Signature Cholesterol 200 (H) 0 - 199 12/05/2021 [facility] mg/dL 9:01 PM CDT LABORATORY HDL Cholesterol 75 >=40 mg/dL 12/05/2021 [facility] 9:01 PM CDT LABORATORY Non HDL Chol, 125 <=159 12/05/2021 [facility] Calculated mg/dL 9:01 PM CDT LABORATORY Specimen Anatomical Collection Method / Collection Time Recei delta Time (Source) Location / Volume Laterality Blood Venipuncture / 12/05/2021 3:14 12/05/2021 3:14 Unknown PM CDT PM CDT Helen Rubi MD LAB_1 Performing Organization Address City/State/ZIP Code Phon e Number [facility] [address] [place] [address] documented in this encounter Visit Diagnoses Diagnosis Screening for lipoid disorders Screening for diabetes mellitus Screening for thyroid disorder documented in this encounter Care Teams Channel Lip Stiffener Insoles Relationship Specialty Start Date End Date No Primary/Referring, Phy PCP - General 07/15/17 documented as of this encounter
--- OUTSIDE RECORDS SUMMARY | 2022-05-06 23:55 | XMS_ITS | Encounter Summary ---
:1980 Author Organization [employer] Address [address] [facility] [place] [address] Care Team Providers Name Role Phone Unavailable Primary Care Provider Unavailable Reason for Visit Reason Onset Date Comments Appointment 11/24/2005 billing Encounter Details Date Type Department Care Team Description 11/24/2005 Telephone [facility] Jennifer De La Cruz tme (billing) Clinic [place] MD [place] [address] [place] [phone] (Wo rk) Social History Tobacco Use Types [...] on file documented as of this encounter Miscellaneous Notes Telephone Encounter - Carrie Crane - 11/27/2005 9:26 AM CDT Pt advised of MD message. Colin Crane RN She was given phone number of the Business Office. Colin Crane RN Telephone Encounter - Thelma Patel - 11/26/2005 9:11 AM CDT Home # busy and then no answer when I tried again. Mireya Patel RN Telephone Encounter - Carrie Crane - 11/25/2005 3:58 PM CDT No answere at home, no voice mail, no work number. Colin Crane RN Telephone Encounter - Carrie Crane - 11/25/2005 1:37 PM CDT No answer at home.Colin Crane RN Telephone Encounter - Carrie Crane - 11/25/2005 11:22 AM CDT No answer at home, no voice daniel pickle processor. Will try again latter. Colin Crane RN Telephone Encounter - Jennifer De La Cruz - 11/25/2005 10:04 AM CDT Please advise patient that I only document what I do And it is billed out accordingly. She can call billing and see if they could do something for her. Telephone Encounter - Thelma Patel - 11/24/2005 4:35 PM CDT Pt states she had appt on 10/07 for RHM. Now pt states she is having to pay $300 for the exam becauseAetna states that is her part of the co-pay. She wants to amend the visit so it does notindicate she had a complete physical. I advised that may not be able to be done since she did have aRHM exam. May leave message on home recorder. Mireya Patle RN documented in this encounter Plan of Treatment Not on filedocumented as of this encounter Visit Diagnoses Not on filedocumented in this encounter
--- OUTSIDE RECORDS SUMMARY | 2022-05-06 23:55 | XMS_ITS | Encounter Summary ---
:1980 Author Organization [facility] Address [address], [place] [address] Care Team Providers Name Role Phone No Primary/Referring, Phy Primary Care Provider Unavailable Reason for Visit Reason Comments [place] [facility] [place] prep # 31 [facility] Sed filling # 15 Encounter Details Date Type Department Care Team Description 05/12/2021 Office Visit [facility] Marie Aguirre C [facility] DDS Services ([place] prep # [id number] [facility] [address]); [place], [place] Service s (Sed filling [phone] # 15) [phone] Social History Tobacco Use Types Packs/Day Years Used Date Smoking Tobacco: Never Smokeless Tobacco: Never Alcohol Use Standard Drinks/Week Comments No 0 (1 standard drink = 0.6 oz pure Alcoho lic Drinks/day: Freq:Never; alcohol) Sex Assigned at Date Recorded 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 Plan Consent: All questions answered and the patient gave informed consent to proceed with dental treatment/services. Procedural Pause: Patient identity verified: Yes Treatment plan/site verified with the patient: Yes Instruments/equipment verified: Yes Medication/allergy contraindications: No Completed Procedures: ANESTHESIA: Topical with 20% benzocaine 1.0 carpules 2% lidocaine with 1:100,000 epinephrine was administered with ARELI in #31 No adverse side effects observed. Anesthesia was administered by Marie Aguirre DDS CROWN AND BRIDGE PREP, #31: Initial placement Prepped tooth presents with Incomplete fracture Preoperative radiograph: Reviewed Isolated area with high speed suction, cotton rolls, a cheek guard and retraction cord with chemicalhemostatic agent # 00 and # 01 cords placed Applied desensitizer Triple tray and Separate bite registration impression made with polyvinyl siloxane material : Shade:3 m 3 Maura 3 D master shade guide Temporary crown made with custom material : Seated with non-eugenol Verified occlusion, contacts, margins, aesthetics and cement removal POST-OP INSTRUCTIONS: Patient was advised of normal post-operative instructions, potential for post-operative sensitivity, potential need for additional treatment because of proximity to the pulp and the need to exercise care because of the risk of fracture SEDATIVE EPISCOPALIAN, #15: Prepared with complete caries removal Isolated area with high speed suction, cotton rolls and a cheek guard Applied desensitizer Preparation filled with glass ionomer material : Shade: A2 Post-Op Instructions: Patient was advised of normal post-operative instructions Care was assisted by JAYLEEN Vargas Next Planned Visit: crown seat Marie Aguirre DDS 05/12/2021, 1:00 PM --End of Progress Note-- 10:46 AM RECOVERY OPERATOR documented in this encounter Plan of Treatment Upcoming Encounters Date Type Specialty Care Team Description 05/12/2022 Appointment Audiology 05/12/2022 Appointment Otolaryngology Bro Arroyo , PAMorisC [address] [place] [address] (Wo rk) 06/03/2022 Appointment General Dentistry Rylee Amaro, [facility] [address] [place] [address] 06/03/2022 Appointment General Dentistry Pee Garcia, DDS [address] [place], [place] [phone] (Wo rk) 06/17/2022 Appointment General Dentistry Pee Garcia, DDS [address] [place], [place] [phone] (Wo rk) documented as of this encounter Procedures Procedure Name Priority Date/Time Associated Diagnosis Comme nts 31 O RESIN-BASED Routine 05/12/2021 10:40 AM Defective dental COMPOSITE-1 OIL RECOVERY OPERATOR latter-day SURFACE-POSTERIO 15 MODL SEDATIVE Routine 05/12/2021 10:40 AM Defective dental FILLING OIL RECOVERY OPERATOR latter-day 31 PORCELAIN CROWN Routine 05/12/2021 10:40 AM Full restoratio n of OIL RECOVERY OPERATOR crown of tooth needed due to previous endodontic treat ment 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
--- OUTSIDE RECORDS SUMMARY | 2022-05-06 23:55 | XMS_ITS | Encounter Summary ---
:1980 Author Organization [employer] Address [address] [place] [address] Care Team Providers Name Role Phone Unavailable Primary Care Provider Unavailable Encounter Details Date Type Department Care Team Description 08/04/2010 [facility] Results MD EMERGENCY PHYSIC ROLF TODD [address] [place] [address] (Wo rk) Social History Tobacco Use Types [...] Name Priority Date/Time Associated Diagnosis Comme nts XR KNEE RIGHT 1/2 Routine 08/04/2010 11:27 AM Res ults for this VIEWS SENIOR PLANNING MANAGER procedure are i n the results section. XR CHEST 2 VIEWS Routine 08/04/2010 11:27 AM Resu lts for this SENIOR PLANNING MANAGER procedure are i n the results section. CT ABDOMEN PELVIS W Routine 08/04/2010 11:12 AM R esults for this CONTRAST SENIOR PLANNING MANAGER procedure are i n the results section. CT CERVICAL SPINE Routine 08/04/2010 11:11 AM Res ults for this W/O CONTRAST SENIOR PLANNING MANAGER procedure are i n the results section. documented in this encounter Results X-ray rt knee 1 to 2 view* (08/04/2010 11:27 AM SENIOR PLANNING MANAGER) Anatomical Region Laterality Modality Thigh, Knee, Leg Right Other Specimen (Source) Anatomical Collection Method Collection Time Re ceived Time Location / / Volume Laterality 08/04/2010 11:27 AM SENIOR PLANNING MANAGER Impressions 08/04/2010 1:03 PM SENIOR PLANNING MANAGER KNEE 1 TO 2 VIEWS RIGHT* Aug 04, 2010 11: 27:00 AM HISTORY: ??Trauma, FINDINGS: Negative. Anthony Cortez MD [facility] DIAGNOSTIC IMAGING ORDER KAVEH X-ray Chest 2 vws* (08/04/2010 11:27 AM SENIOR PLANNING MANAGER) Anatomical Region Laterality Modality Chest Other Specimen (Source) Anatomical Collection Method Collection Time Re ceived Time Location / / Volume Laterality 08/04/2010 11:27 AM SENIOR PLANNING MANAGER Impressions 08/04/2010 1:03 PM SENIOR PLANNING MANAGER CHEST TWO VIEW* Aug 04, 2010 11:27:00 AM HISTORY: ??Trauma, ??Right shoulder pain FINDINGS: Negative. Anthony Cortez MD [facility] [place] [facility] ORDER KAVEH CT Abdomen pelvis w contrast* (08/04/2010 11:12 AM SENIOR PLANNING MANAGER) Anatomical Region Laterality Modality Abdomen/Pelvis, SUBRAD CT BODY, UMP CT ABDOMEN PELVIS Computed Tomography Specimen (Source) Anatomical Collection Method Collection Time Re ceived Time Location / / Volume Laterality 08/04/2010 11:12 AM SENIOR PLANNING MANAGER Impressions 08/04/2010 4:[address] ABDOMEN AND PELVIS WITH CONTRAST ?? F eb 2010 11:12:00 AM HISTORY: ??Trauma. COMPARISON: ??None. TECHNIQUE: ??Following the uneventful ad ministration of 100 mL Optiray 350 intravenous contrast and oral contra st, helical sections were acquired from the top of the diaphragm t hrough the pubic symphysis. Coronal reconstructions were generated. FINDINGS: Abdomen: A small ill-defined region of l ow attenuation within the medial segment of the left lobe of the l iver is most likely focal fatty infiltration. The spleen, pancreas , adrenal glands and kidneys are unremarkable. The gallbladder is pre sent. No enlarged lymph nodes or free fluid in the upper abdomen. Scan through the lower chest is unremark able. Pelvis: The small and large bowel are no rmal in caliber. The appendix is likely visualized and unremarkable. N o bowel wall thickening, pneumatosis or free intraperitoneal gas. The uterus is present. No enlarged lymph nodes or free fluid in th e pelvis. IMPRESSION: No evidence of acute trauma within the abdomen or pelvis. Anthony Cortez MD [facility] [place] CT ORDERABLES CT Cervical spine w/o contrast* (08/04/2010 11:11 AM SENIOR PLANNING MANAGER) Anatomical Region Laterality Modality Spine, SUBRAD CT NEURO, SUBRAD CT NEURO, UMP CT SPINE Computed Tomography Specimen (Source) Anatomical Collection Method Collection Time Re ceived Time Location / / Volume Laterality 08/04/2010 11:11 AM SENIOR PLANNING MANAGER Impressions 08/04/2010 11:43 [address] CT CERVICAL SPINE WITHOUT CONTRAST ?? Fe b 2010 11:11:00 AM HISTORY: Trauma, TECHNIQUE: Axial images of the cervical spine were obtained without intravenous contrast. Multiplanar reform ations were performed. ?? COMPARISON: None. FINDINGS: There is no evidence of fractu re. Vertebral body heights of the cervical spine are well maintained. Alignment: There is normal alignment of the cervical vertebrae; however, there is mild reversal of marcelino l cervical lordosis. ?? Craniocervical junction: Normal. C1-C2: ??Normal. C2-C3: ??Normal disc, facet joints, spin al canal and neural foramina. C3-C4: ??Normal disc, facet joints, spin al canal and neural foramina. C4-C5: ??Normal disc, facet joints, spin al canal and neural foramina. C5-C6: ??Normal disc, facet joints, spin al canal and neural foramina. ?? C6-C7: ??Normal disc, facet joints, spin al canal and neural foramina. ?? C7-T1: ?? Normal disc, facet joints, spi nal canal and neural foramina. IMPRESSION: ??Normal CT scan of the cerv ical spine. ?? the Anthony Cortez MD [facility] [place] CT ORDERABLES documented in this encounter Visit Diagnoses Not on filedocumented in this encounter
--- OUTSIDE RECORDS SUMMARY | 2022-05-06 23:55 | XMS_ITS | Encounter Summary ---
:1980 Author Organization [place] Address [address] [place] [address] Care Team Providers Name Role Phone Unavailable Primary Care Provider Unavailable Reason for Visit Reason Comments Physical with pap Encounter Details Date Type Department Care Team Description 10/07/2005 Office Visit [facility] Jennifer Dalton MEDICAL EXAM (Primary Dx); Clinic Dejuan Fatima MD CONTRACEPT SURVE[facility] N[facility] [place] [address] [place] [address] [id number] Social History Tobacco Use Types Packs/Day Years [...] Sign Reading Time Taken Comments Blood Pressure 120/60 10/07/2005 8:45 AM CDT Pulse 88 10/07/2005 8:45 AM CDT Temperature - - Respiratory Rate - - Oxygen Saturation - - Inhaled Oxygen Concentration - - Weight 59 kg (130 lb) 10/07/2005 8:45 AM CDT Height 156.2 cm (5' 1.5) 10/07/2005 8:45 AM CDT Body Mass Index 24.17 10/07/2005 8:45 AM CDT documented in this encounter Progress Notes Jennifer Dalton - 10/07/2005 9:29 AM CDT SUBJECTIVE: Marc Vann is an 24 year old P0 woman who presents for annual exam. Patient's last menstrual period was 09/26/2005. Periods are regular q 28-30 days, lasting 7 days. Dysmenorrhea none. Cyclic symptoms include none. Additional symptoms include none Current contraception: oral contraceptives History of abnormal Pap smear: no Family history of uterine or ovarian cancer: no Regular self breast exam: No Family history of breast cancer: no History of abnormal lipids: no Calcium Intake: diet supplement Intake is adequate Exercise: sporadic irregular exercise walking Past Medical History Diagnosis Date ??? NO ACTIVE PROBLEMS No past surgical history on file. Current Outpatient Rx Name Route Sig Dispense Refill ??? NO ACTIVE MEDICATIONS 0 0 No Known Allergies. History Substance Use Topics ??? Tobacco Use: Never ??? Alcohol Use: Not on file Review of Systems CONSTITUTIONAL:NEGATIVE EYES: NEGATIVE ENT/MOUTH: NEGATIVE RESP: NEGATIVE CV: NEGATIVE GI: NEGATIVE : NEGATIVE MUSCULOSKELATAL: NEGATIVE INTEGUMENTARY/SKIN: NEGATIVE BREAST: NEGATIVE NEURO: Has had Febrile convulsions as a child and some seizures in 2000.None since ENDOCRINE: NEGATIVE HEME/ALLERGY/IMMUNE: NEGATIVE PSYCHIATRIC: NEGATIVE OBJECTIVE: BP 120/60 Pulse 88 Ht 5' 1.5 (1.56m) Wt 130 lbs (59.0kg) LMP 09/26/2005 EXAM: GENERAL APPEARANCE: healthy, alert and no distress NECK:Negative BREAST: normal without masses, tenderness or nipple discharge and no palpable axillary masses or adenopathy ABDOMEN:Abdomen soft, flat, nontender,without masses, without scars. PELVIS: Normal external genitalia. Vagina clean and moist. Cervix without lesions. Uterus antiverted, mobile, and normal size. Adnexae without masses, without tenderness. RECTUM: No haemorrhoids, no lesions. Patient wishes to restart Hormonal contraception. She would try the Patch. ASSESSMENT: Satisfactory annual battery tester exam Contraceptive Management PLAN: V70.0 ROUTINE MEDICAL EXAM (primary encounter diagnosis) Plan: A THIN LAYER PAP SCREEN, N.GONORRHOEAE, DNA, (GC), CHLMYD TRACH, DNA, AMP PROBE See Orders Of Today's Visit PE: reviewed health maintenance including diet, regular exercise and periodic exams. No health maintenance topics applied. documented in this encounter Nursing Notes 10/07/2005 8:45 AM CDT >> BECKI KERN 10/07/2005 9:02 am Marc Vann presents for physical with pap. Pt has consented to gc and chlamidia testing. Initial BP 120/60 Pulse 88 Ht 5' 1.5 (1.56m) Wt 130 lbs (59.0kg) LMP 09/26/2005 Body mass index is 24.17 kg/(m^2).. BP completed using cuff size: regular Becki Kern CMA documented in this encounter Plan of Treatment Not on filedocumented as of this encounter Procedures Procedure Name Priority Date/Time Associated Diagnosis Comme nts CL AFF Routine 10/07/2005 1:42 PM Routine Medical Exam R esults for this N.GONORRHOEAE, DNA CDT procedure are in AMP PROBE the results section. CL AFF CHLMYD Routine 10/07/2005 1:42 PM Routine Medical Exam Results for this TRACH, DNA, AMP CDT procedure ar e in PROBE the results section. HCL PAP THIN LAYER Routine 10/07/2005 12:00 AM Routine Medical Exam Results for this SCREEN CDT procedure are i n the results section. documented in this encounter Results CHLMYD TRACH, DNA, AMP PROBE (10/07/2005 1:42 PM CDT) Component Value Ref Test Analysis Performed At [facility] Range Method Time Signature Specimen Vagina [facility] LABS Chlamydia Negative for C. trachomatis rRNA by interactive account manager mediated amplification. [facility] Trachomatis A negative result by transc ription mediated amplification does not preclude the [place] PCR presence of C. trachomatis infection because results are dependent on proper CAMPUS LABS and adequate collection, absence of inhibitors, and suffici ent rRNA to be detected. Specimen Anatomical Collection Method Collection Time Receive d Time (Source) Location / / Volume Laterality 10/07/2005 1:42 PM 6 1:47 CDT PM CDT Jennifer Dalton MD LABORATORY Performing Organization Address City/State/ZIP Code Phon e Number [facility] [address] [place], [place] [id number] [place] [address] LABS N.GONORRHOEAE, DNA, (GC) (10/07/2005 1:42 PM CDT) Component Value Ref Test Analysis Performed At [facility] Range Method Time Signature Specimen [facility] LABS N Gonorrhea Negative for N. gonorrhoeae rRNA by interactive account manager mediated amplification. [facility] PCR A negative result by transc ription mediated amplification does not preclude the [place] presence of N. gonorrhoeae infection because re sults are dependent on proper CAMPUS LABS and adequate collection, absence of inhibitors, and suffici ent rRNA to be detected. Specimen Anatomical Collection Method Collection Time Receive d Time (Source) Location / / Volume Laterality 10/07/2005 1:42 PM 6 1:47 CDT PM CDT Jennifer Dalton MD LABORATORY Performing Organization Address City/State/ZIP Code Phon e Number [phone] [place] [address] LABS A THIN LAYER PAP SCREEN (10/07/2005 12:00 AM CDT) Component Value Ref Test Analysis Performed At [facility] Range Method Time Signature PAP NIL COP[place] Copath Report [place] Patient Name: MARC VANN MR#: [id number] Specimen #: [id number] Collected: 10/07/2005 Received: 10/08/2005 Reported: 10/09/2005 08:22 Ordering Phy(s): Nicolasa DALTON SPECIMEN/STAIN PROCESS: Pap thin layer prep screening ([facility]) ? Pap-Cyto x 1, Reflex HPV x 1 SOURCE: Cervical, endocervical ---- Pap thin layer prep screening ([facility]) SPECIMEN ADEQUACY: Satisfactory for evaluation. -Transformation zone component present. CYTOLOGIC INTERPRETATION: Negative for Intraepithelial Lesion or Malignancy Electronically signed out by: ODETTE Snow (ASCP) Processed and screened at [facility], [facility] CLINICAL HISTORY: Previous normal pap Date of Last Pap: 01-30, TESTING LAB LOCATION: [address] ??[id number] COLLECTION SITE: Client: ??[facility] Location: [facility] (S) Specimen (Source) Anatomical Collection Method Collection Time Re ceived Time Location / / Volume Laterality 10/07/2005 10/08/2005 8:33 AM CDT Jennifer Dalton MD LABORATORY Performing Organization Address City/State/ZIP Code Phon e Number [place] documented in this encounter Visit Diagnoses Diagnosis Routine general medical examination at a health care facility - Primary Contraceptive surveillance, unspecified documented in this encounter
--- OUTSIDE RECORDS SUMMARY | 2022-05-06 23:55 | XMS_ITS | Encounter Summary ---
:1980 Author Organization [employer] [facility] Address [address] [address] Care Team Providers Name Role Phone No Primary/Referring, Phy Primary Care Provider Unavailable Reason for Visit Reason Comments [facility] crown seat Encounter Details Date Type Department Care Team Description 05/26/2021 Office Visit [facility] Marie Aguirre [facility] DDS Services (crown seat ) [address] [place] [phone] Social History Tobacco Use Types Packs/Day Years Used Date Smoking Tobacco: Never Smokeless Tobacco: Never Alcohol Use Standard Drinks/Week Comments No 0 (1 standard drink = 0.6 oz pure Alcoho lic Drinks/day: Freq:Never; alcohol) Sex Assigned at Date Recorded Female 05/12/2021 9:48 AM 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 Plan Consent: All questions answered and the patient gave informed consent to proceed with dental treatment/services. Procedural Pause: Patient identity verified: Yes Treatment plan/site verified with the patient: Yes Instruments/equipment verified: Yes Medication/allergy contraindications: No Completed Procedures: ANESTHESIA: None used, procedure was minimally invasive. CROWN AND BRIDGE SEAT, #31: [place] cementation with resin-modified glass ionomer rely X luting plus Radiographs made with mormonism in place and reviewed Verified occlusion, contacts, margins, aesthetics and cement removal POST-OP INSTRUCTIONS: Patient was advised of normal post-operative instructions, potential for post-operative sensitivity, potential need for additional treatment because of proximity to the pulp and the need to exercise care because of the risk of fracture Care was assisted by Nuvia Maldonado Planned Visit: recall Marie Aguirre DDS 05/26/2021, 11:58 AM --End of Progress Note-- 11:26 AM EL REGISTERED NURSE ICU documented in this encounter Plan of Treatment Upcoming Encounters Date Type Specialty Care Team Description 05/12/2022 Appointment Audiology 05/12/2022 Appointment Otolaryngology Bro Arroyo PA-C [address] [facility] [id number] (Shereen espino) 06/03/2022 Appointment General Dentistry Rylee Amaro, [facility] [address] [place] [address] 06/03/2022 Appointment General Dentistry Pee Garcia DDS [address] [place], [place] [phone] (Shereen espino) 06/17/2022 Appointment General Dentistry Pee Garcia D[facility] [address] [facility] [place] [phone] (Wo rk) documented as of this encounter Procedures Procedure Name Priority Date/Time Associated Diagnosis Comme nts 31 CROWN SEAT Routine 05/26/2021 11:20 AM TRAVEL REGISTERED NURSE ICU Defectiv e dental mormonism Weakened cusp of tooth due to undermined en amel Full mormonism of crown of tooth needed due to previous endodontic treatment documented in this encounter Visit Diagnoses Diagnosis Defective dental mormonism - Primary Unspecified unsatisfactory mormonism o f tooth Weakened cusp of tooth due to undermined enamel Full mormonism of crown of tooth neede d due to previous endodontic treatment documented in this encounter Care Teams [employer] Relationship Specialty Start Date End Date No Primary/Referring, Phy PCP - General 07/15/17 documented as of this encounter
--- OUTSIDE RECORDS SUMMARY | 2022-05-06 23:55 | XMS_ITS | Encounter Summary ---
:1980 Author Organization [employer] Address [address], [place] [address] Care Team Providers Name Role Phone No Primary/Referring, Phy Primary Care Provider Unavailable Reason for Visit Reason Comments No Show Encounter Details Date Type Department Care Team Description 02/22/2020 Telephone [place] Al[place], [facility] No Show Dentistry [id number] [address] [place] [address] Social History Tobacco Use Types Packs/Day Years Used Date Smoking Tobacco: Never Smokeless Tobacco: Never Alcohol Use Standard Drinks/Week Comments No 0 (1 standard drink = 0.6 oz pure Alcoho lic Drinks/day: Freq:Never; alcohol) Sex Assigned at Date Recorded Female 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 documented as of this encounter Plan of Treatment Upcoming Encounters Date Type Specialty Care Team Description 05/12/2022 Appointment Audiology 05/12/2022 Appointment Otolaryngology Bro Arroyo , [facility] [address] [phone] (Wo rk) 06/03/2022 Appointment General Dentistry Rylee Amaro, RD [address] [place] [address] 06/03/2022 Appointment General Dentistry Pee Garcia DDS [address] [place], [place] [phone] (Wo rk) 06/17/2022 Appointment General Dentistry Pee Garcia, DDS [address] [place] [address] (Wo rk) documented as of this encounter Visit Diagnoses Not on filedocumented in this encounter Care Teams Oven Dauber Relationship Specialty Start Date End Date No Primary/Referring, Phy PCP - General 07/15/17 documented as of this encounter
--- OUTSIDE RECORDS SUMMARY | 2022-05-06 23:55 | XMS_ITS | Encounter Summary ---
:1980 Author Organization [place] Address [address] [facility] [place] [address] Care Team Providers Name Role Phone Unavailable Primary Care Provider Unavailable Encounter Details Date Type Department Care Team Description 11/24/2005 Telephone [facility] Jennifer De La Cruz [place] Mary Fatima MD [address] [place] [phone] [place], [place] [phone] (Wo rk) Social History Tobacco Use Types [...]
--- OUTSIDE RECORDS SUMMARY | 2022-05-06 23:55 | XMS_ITS | Encounter Summary ---
:1980 Author Organization [place] Address [address] [facility] [place] [address] Care Team Providers Name Role Phone Unavailable Primary Care Provider Unavailable Encounter Details Date Type Department Care Team Description 11/04/2010 Hospital Laboratory [facility] Jody, [place] [facility] MD Jayshree Results [facility] [address] [place] [address] (Wo rk) Social History Tobacco Use Types [...] Name Priority Date/Time Associated Diagnosis Comme nts AST Routine 11/04/2010 4:30 PM Results f or this CDT procedure are i n the results section . ALT Routine 11/04/2010 4:30 PM Results f or this CDT procedure are i n the results section . documented in this encounter Results AST (11/04/2010 4:30 PM CDT) P athologist Signature AST 38 0 - 45 U/L [facility] Specimen Anatomical Collection Method Collection Time Receive d Time (Source) Location / / Volume Laterality 11/04/2010 4:30 PM 1 4:31 CDT PM CDT Ashley Vera MD LAB - BLOOD ORDERABLES Performing Organization Address City/State/ZIP Code Phon e Number [facility] [address] [place] [address] [facility] ALT (11/04/2010 4:30 PM CDT) P athologist Signature ALT 21 0 - 50 U/L [facility] Specimen Anatomical Collection Method Collection Time Receive d Time (Source) Location / / Volume Laterality 11/04/2010 4:30 PM 1 4:31 CDT PM CDT Ashley Vera MD LAB - BLOOD ORDERABLES Performing Organization Address City/[facility] Code Phon e Number [facility] [address] [place], [place] [address] [facility] documented in this encounter Visit Diagnoses Not on filedocumented in this encounter
--- OUTSIDE RECORDS SUMMARY | 2022-05-06 23:55 | XMS_ITS | Encounter Summary ---
:1980 Author Organization [place] Address [address] [facility] [place] [address] Care Team Providers Name Role Phone No Primary/Referring, Phy Primary Care Provider Unavailable Reason for Visit Reason Comments Annual Exam Encounter Details Date Type Department Care Team Description 08/12/2020 Office Visit Spencer Eleni Rubi, Isac female e xam with routine gynecological exam (Primary Dx); Obstetrics/Gynecolog y Cervical high risk HPV (human papillomav irus) test positive; [address] Screening for cervical cancer; [address] Visit for control pills maintenanc e; [place], [place] [address] [place], [place] Screening cholesterol level; [phone] Thyroid disorder screen; [phone] Screening for d iabetes mellitus (Work) Social History Tobacco Use Types Packs/Day Years Used Date Smoking Tobacco: Never Smokeless Tobacco: Never Tobacco Cessation: Counseling Given: No Alcohol Use Standard Drinks/Week Comments No 0 (1 standard drink = 0.6 oz pure Alcoho lic Drinks/day: Freq:Never; alcohol) Sex Assigned at Date Recorded Female 05/12/2021 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 documented as of this encounter Last Filed Vital Signs Vital Sign Reading Time Taken Comments Blood Pressure 119/73 08/12/2020 2:08 PM SILK SCREEN FRAME ASSEMBLER Pulse 75 08/12/2020 2:08 PM SILK SCREEN FRAME ASSEMBLER Temperature - - Respiratory Rate - - Oxygen Saturation - - Inhaled Oxygen Concentration - - Weight 74.8 kg (165 lb) 08/12/2020 2:08 PM SILK SCREEN FRAME ASSEMBLER Height 155.6 cm (5' 1.25) 08/12/2020 2:08 PM SILK SCREEN FRAME ASSEMBLER Body Mass Index 30.92 08/12/2020 2:08 PM SILK SCREEN FRAME ASSEMBLER documented in this encounter Progress Notes Eleni Rubi MD - 08/12/2020 2:00 PM SILK SCREEN FRAME ASSEMBLER Addended by: ELENI RUBI on: 08/12/2020 02:39 PM Modules accepted: Orders SCREEN FRAME ASSEMBLER Eleni Rubi MD - 08/12/2020 2:00 PM CST PREVENTATIVE FEMALE ANNUAL EXAM This is a 39 y.o. female who presents today for her annual exam. She has been well, and has had no acute complaints or problems. OBGYN Issues: Menstrual history: Cycles regular with no concerns. 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 (spontaneous vaginal delivery) x2 Past Surgical History: Past Surgical History: Procedure Laterality Date ??? WISDOM TEETH EXTRACTION Medications: Current Outpatient Medications Medication ??? Norelgestromin-Eth Estradiol (XULANE) 150-35 MCG/24HR patch ??? 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 Diabetes Mother ??? High Cholesterol Mother ??? Thyroid Disorder Mother ??? Diabetes Maternal Grandmother ??? Cancer Father 62 lymphoma, ??? Thyroid Disorder Sister ??? Depression Brother ??? Diabetes Brother ??? High Cholesterol Brother ??? Cancer, Breast Negative Family History ??? Cancer, Ovary Negative Family History Preventative health: Pap: Pap smear done today Tetanus: last tetanus booster within 10 years Cholesterol: labs are reviewed, up to date and normal Calcium/VitaminD: adequate OBJECTIVE : height is 5' 1.25 (1.556 m) and weight is 165 lb (74.8 kg). Her blood pressure is 119/73 and her pulse is 75. Estimated body mass index is 30.92 kg/m?? as calculated from the following: Height as of this encounter: 5' 1.25 (1.556 m). Weight as of this encounter: 165 lb (74.8 kg). Gen: Alert, cooperative in no acute distress. Breast: Symmetric without masses or nodularity. No [...] exam with routine gynecological exam Z01.419 2. Cervical high risk HPV (human papillomavirus) test positive R87.810 Scr Pap Smer; Obtain Prep&Convy-Lab PAP Test HPV with 16 18 Genotyping 3. Screening for cervical cancer Z12.4 Scr Pap Smer; Obtain Prep&Convy-Lab PAP Test HPV with 16 18 Genotyping 4. Visit for control pills maintenance Z30.41 Norelgestromin-Eth Estradiol (XULANE) 150-35 MCG/24HR patch Eleni Rubi MD SCREEN FRAME ASSEMBLER documented in this encounter Plan of Treatment Upcoming Encounters Date Type Specialty Care Team Description 05/12/2022 Appointment Audiology 05/12/2022 Appointment Otolaryngology rBo Arroyo , PAMorisC [address] [facility] [phone] (Shereen espino) 06/03/2022 Appointment General Dentistry Rylee Amaro, RD [address] [place] [address] 06/03/2022 Appointment General Dentistry Pee Garcia DDS [address] [place] [address] (Wo rk) 06/17/2022 Appointment General Dentistry Pee Garcia, DDS [address] [place], [place] [id number] (Wo rk) documented as of this encounter Procedures Procedure Name Priority Date/Time Associated Diagnosis Comme nts PAP TEST Routine 08/12/2020 2:43 PM Cervical high risk Res ults for this SILK SCREEN FRAME ASSEMBLER HPV (human procedure are i n papillomavirus) test the res ults positive section. Screening for cervical cancer HPV WITH 16 18 Routine 08/12/2020 2:43 PM Cervical high risk R esults for this GENOTYPING, SILK SCREEN FRAME ASSEMBLER HPV (human procedure are i n CERVICAL/ENDOCERVIC papillomavirus) test the results AL positive section. Screening for cervical cancer documented in this encounter Results TSH (08/12/2020 2:50 PM SILK SCREEN FRAME ASSEMBLER) athologist Signature TSH, Sensitive 0.47 0.30 - 08/12/2020 [facility] 4.50 7:16 PM SILK SCREEN FRAME ASSEMBLER LABORATORY uIU/mL Specimen Anatomical Collection Method / Collection Time Recei delta Time (Source) Location / Volume Laterality Blood Venipuncture / 08/12/2020 2:50 08/12/2020 2:50 Unknown PM SILK SCREEN FRAME ASSEMBLER PM SILK SCREEN FRAME ASSEMBLER Eleni Rubi MD LAB_1 Performing Organization Address City/State/ZIP Code Phon e Number [facility] [address] [place] [address] Hemoglobin A1C [A1C] (08/12/2020 2:50 PM SILK SCREEN FRAME ASSEMBLER) [facility] Method Time Signature Hemoglobin A1C 5.3 <=5.6 % 08/13/2020 [facility] 10:23 AM SILK SCREEN FRAME ASSEMBLER CEN[facility]AL LAB Specimen Anatomical Collection Method / Collection Time Recei delta Time (Source) Location / Volume Laterality Blood Venipuncture / 08/12/2020 2:50 08/12/2020 2:50 Unknown PM SILK SCREEN FRAME ASSEMBLER PM SILK SCREEN FRAME ASSEMBLER Eleni Rubi MD LAB_1 Performing Organization Address City/State/ZIP Code Phon e Number [facility] [address] [address] (ABNORMAL) Cholesterol, Total & HDL [CHS] (08/12/2020 2:50 PM SILK SCREEN FRAME ASSEMBLER) [facility] Method Time Signature Cholesterol 236 (H) 0 - 199 08/12/2020 [facility] mg/dL 7:09 PM SILK SCREEN FRAME ASSEMBLER LABORATORY HDL Cholesterol 81 >=40 mg/dL 08/12/2020 [facility] 7:09 PM SILK SCREEN FRAME ASSEMBLER LABORATORY Non HDL Chol, 155 mg/dL 08/12/2020 [facility] Calculated 7:09 PM SILK SCREEN FRAME ASSEMBLER LABORATORY Specimen Anatomical Collection Method / Collection Time Recei delta Time (Source) Location / Volume Laterality Blood Venipuncture / 08/12/2020 2:50 08/12/2020 2:50 Unknown PM SILK SCREEN FRAME ASSEMBLER PM SILK SCREEN FRAME ASSEMBLER Eleni Rubi MD LAB_1 Performing Organization Address City/[facility] Phon e Number [facility] [address] [place] [address] HPV with 16 18 Genotyping (08/12/2020 2:43 PM SILK SCREEN FRAME ASSEMBLER) [facility] Method Time Signature HPV High Risk Not Detected Not detected 08/15/2020 [facility] Type 16 PCR 1:19 PM SILK SCREEN FRAME ASSEMBLER [facility] HPV High Risk Not Detected Not Detected 08/15/2020 [facility] Type 18 PCR 1:19 PM [facility] HPV High Risk Not Detected Not detected 08/15/2020 [facility] Other Than 1:19 PM [facility] 16 Specimen Anatomical Collection Method Collection Time Receive d Time (Source) Location / / Volume Laterality Cervical Broom ENTIRE ENDOCERVIX 08/12/2020 2:43 PM 4:11 / Unknown SILK SCREEN FRAME ASSEMBLER PM SILK SCREEN FRAME ASSEMBLER [facility] 08/15/2020 1:19 PM CS T The Mahesh HPV test is a [...] 52, 56, 58, 59, 66, and 68). Eleni Rubi MD LAB_1 Performing Organization Address City/[facility]/ZIP [facility] Phon e Number [address] [address] PAP Test (08/12/2020 2:43 PM SILK SCREEN FRAME ASSEMBLER) Component Value Ref Test Analysis Performed At [facility] Range Method Time Signature Case Report Pap ? Case: [id number] ? 08/19/2020 [facility] Authorizing Provider: ??Eleni Rubi MD ?Collected: ? 08/12/2020 1443 ? 4:15 PM LABO RATORY Ordering Location: ? [place] ?Received: ?08/12/2020 1606 ? SILK SCREEN FRAME ASSEMBLER ? Obstetrics/Gynecology ? First Screen: ? Марина Zaragoza, CT (ASCP) ? Specimen: ?Pap Test, Pau gnostic, Cervix/Endocervix ? Pap Specimen Satisfactory for 08/19/2020 [facility] Adequacy evaluation, 4:15 PM LABORATORY endocervical/coles SILK SCREEN FRAME ASSEMBLER sformation zone component present. Pap Negative for 08/19/2020 [facility] Electr onically Interpretation intraepithelial 4:15 PM LABORATOR Y signed by garret Zaragoza or SILK SCREEN FRAME ASSEMBLER PRISCILLA Patel malignancy (ASCP) on (NILM). 08/19/2020 at 4:15 PM Pap Disclaimer The Pap test is a 08/19/2020 METHOD IST screening test 4:15 PM LABORATORY designed to aid SILK SCREEN FRAME ASSEMBLER in the detection of cervical cancer and its precursor lesions. It is not a diagnostic procedure and should not be used as the sole means of detecting cervical cancer. Both false-positive and false-negative results may occur. Gross The specimen is 08/19/2020 [facility] Description received in 4:15 PM LABORATORY [employer] fixative SILK SCREEN FRAME ASSEMBLER and properly labeled. 1 Pap-stained [facility] slide is prepared. Embedded Images 08/19/2020 [facility] 4:15 PM LABORATORY SILK SCREEN FRAME ASSEMBLER Specimen Anatomical Collection Method Collection Time Receive d Time (Source) Location / / Volume Laterality Other Specimen ENTIRE ENDOCERVIX 08/12/2020 2:43 PM 4:06 Type / Unknown SILK SCREEN FRAME ASSEMBLER PM SILK SCREEN FRAME ASSEMBLER Comment: LMP: Patient's last menstrual p eriod was 08/07/2020 (exact date). Eleni Rubi MD LAB PATHOLOGY Performing Organization Address City/State/ZIP Code Phon e Number [facility] [address] [place] [address] documented in this encounter Visit Diagnoses Diagnosis Well female exam with routine gynecologi karen exam - Primary Routine gynecological examination Cervical high risk HPV (human papillomav irus) test positive Cervical high risk human papillomavirus (HPV) DNA test positive Screening for cervical cancer Screening for malignant neoplasm of the cervix Visit for control pills maintenanc e Surveillance of previously prescribed co ntraceptive pill Screening cholesterol level Screening for lipoid disorders Thyroid disorder screen Screening for thyroid disorder Screening for diabetes mellitus documented in this encounter Care Teams External Grinder Relationship Specialty Start Date End Date No Primary/Referring, Phy PCP - General 07/15/17 documented as of this encounter
--- OUTSIDE RECORDS SUMMARY | 2022-05-06 23:55 | XMS_ITS | Encounter Summary ---
:1980 Author Organization [facility] Address [address], [place] [address] Care Team Providers Name Role Phone No Primary/Referring, Phy Primary Care Provider Unavailable Reason for Visit Reason Comments IMMUNIZATIONS Encounter Details Date Type Department Care Team Description 07/14/2021 Nursing Visit [facility], Wendy Roach [facility] Fp immunization (Primary [address] Dx) [place] [address] Social History Tobacco Use Types Packs/Day Years Used Date Smoking Tobacco: Never Smokeless Tobacco: Never Alcohol Use Standard Drinks/Week Comments No 0 (1 standard drink = 0.6 oz pure Alcoho lic Drinks/day: Freq:Never; alcohol) Sex Assigned at Date Recorded Female 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 documented as of this encounter Plan of Treatment Upcoming Encounters Date Type Specialty Care Team Description 05/12/2022 Appointment Audiology 05/12/2022 Appointment Otolaryngology Bro Arroyo , PA-C [address] [facility] [address] [place] [address] (Wo rk) 06/03/2022 Appointment General Dentistry Rylee Amaro, RDH [address] [place] [address] 06/03/2022 Appointment General Dentistry Pee Garcia, DDS [address] [place] [address] (Wo rk) 06/17/2022 Appointment General Dentistry [place], DDS [address] [place] [address] (Wo rk) documented as of this encounter Visit Diagnoses Diagnosis Encounter for immunization - Primary Need for other specified prophylactic va ccination against single bacterial disease documented in this encounter Care Teams Rope Laying Machine Operator Relationship Specialty Start Date End Date No Primary/Referring, Phy PCP - General 07/15/17 documented as of this encounter
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
[2022-05-06 23:56] LABS: Carbon Dioxide* 24 mmol/L (20-32); Creatinine* 0.7 mg/dL (0.5-1.5); Est. Creatinine Clearance* 89.26; Estimated Glomerular Filt Rate 113 ml/min
--- OUTSIDE RECORDS SUMMARY | 2022-05-06 23:56 | XMS_ITS | Encounter Summary ---
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 N [phone] (Wo rk) 06/03/2022 Appointment General Dentistry Rylee Amaro, [facility] [address] [place] [address] 06/03/2022 Appointment General Dentistry Pee Garcia, DDS [address] [place] [address] (Wo rk) 06/17/2022 Appointment General Dentistry Pee Garcia, DDS [address] [place], [place] [phone] (Wo rk) documented as of this encounter Procedures Procedure Name Priority Date/Time Associated Diagnosis Comme nts TSH, SENSITIVE Routine 06/17/2017 3:49 PM Hyperthyroidism Resu lts for this DETECTIVE AND INTELLIGENCE ANALYST procedure are i n the results section . FREE T4 Routine 06/17/2017 3:49 PM Hyperthyroidism Result s for this DETECTIVE AND INTELLIGENCE ANALYST procedure are i n the results section . documented in this encounter Results TSH (06/17/2017 3:49 PM DETECTIVE AND INTELLIGENCE ANALYST) athologist Signature Thyroid 1.03 0.30 - PN SOFT Stimulating 4.50 Hormone uIU/mL Specimen Anatomical Collection Method Collection Time Receive d Time (Source) Location / / Volume Laterality 06/17/2017 3:49 PM 7 6:30 DETECTIVE AND INTELLIGENCE ANALYST PM DETECTIVE AND INTELLIGENCE ANALYST Narrative PN SOFT - 06/17/2017 7:16 PM DETECTIVE AND INTELLIGENCE ANALYST [place] [address] CLIA number [id number] Daniel PURCELL LAB_1 Performing Organization Address [facility] Phon e Number PN SOFT [address] [place] [address] Free T4 (06/17/2017 3:49 PM DETECTIVE AND INTELLIGENCE ANALYST) athologist Signature Thyroxine, Free 0.9 0.7 - 1.5 PN SOFT ng/dL Specimen Anatomical Collection Method Collection Time Receive d Time (Source) Location / / Volume Laterality 06/17/2017 3:49 PM 7 6:30 DETECTIVE AND INTELLIGENCE ANALYST PM DETECTIVE AND INTELLIGENCE ANALYST Narrative PN SOFT - 06/17/2017 8:00 PM DETECTIVE AND INTELLIGENCE ANALYST Performed at [address] [address] CLIA number [id number] Daniel GILBERTBS LAB_1 Performing Organization Address [facility] Phon e Number PN SOFT [address] [place] [address] documented in this encounter Visit Diagnoses Diagnosis Hyperthyroidism (HRC) Thyrotoxicosis without mention of goiter or other cause, without mention of thyrotoxic crisis or storm documented in this encounter Care Teams Shipping Clerk Packing Relationship Specialty Start Date End Date Needs Pcp, Assignment PCP - General 06/08/13 07/14/17 [place] [address] documented as of this encounter
--- OUTSIDE RECORDS SUMMARY | 2022-05-06 23:56 | XMS_ITS | Encounter Summary ---
:1980 Author Organization [employer] Address [address], [place] [address] Care Team Providers Name Role Phone No Primary/Referring, Phy Primary Care Provider Unavailable Reason for Visit Reason Comments No Show LM regarding no showed appt. Encounter Details Date Type Department Care Team Description 01/05/2018 Telephone [facility] Cheryl Russo, N o Show (LM regarding Dentistry LDA no showed appt. 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 JAYLEEN Mills 01/05/2018, 3:44 PM documented in this encounter Plan of Treatment Upcoming Encounters Date Type Specialty Care Team Description 05/12/2022 Appointment Audiology 05/12/2022 Appointment Otolaryngology Bro Arroyo , JANET [address] [place] [address] (Wo rk) 06/03/2022 Appointment General Dentistry Rylee Amaro, [facility] [address] [place] [address] 06/03/2022 Appointment General Dentistry Pee Garcia, DDS [address] [place] [address] (Wo rk) 06/17/2022 Appointment General Dentistry Pee Garcia DDS [address] [place] [address] (Wo rk) documented as of this encounter Visit Diagnoses Not on filedocumented in this encounter Care Teams Director Compliance Relationship Specialty Start Date End Date No Primary/Referring, Phy PCP - General 07/15/17 documented as of this encounter
--- OUTSIDE RECORDS SUMMARY | 2022-05-06 23:56 | XMS_ITS | Encounter Summary ---
:1980 Author Organization [employer] Address [address], [place] [address] Care Team Providers Name Role Phone Needs Pcp, Assignment Primary Care Provider Reason for Visit Reason Comments Orders Needed Encounter Details Date Type Department Care Team Description 06/09/2017 Telephone [facility] [address] Clarence Bobo MBBS Orders Needed Endocrinology [address] 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 ACE LAY OUT TECHNICIAN Daniel Bobo MBBS - 06/09/2017 10:05 AM CST Labs are signed. ACE LAY OUT TECHNICIAN Barb Santos, RN - 06/09/2017 9:35 AM CST Pt. Calling to have repeat thyroid labs ordered. Previous have . Please sign pending. Any additional? Call the pt. Back with an update. ACE LAY OUT TECHNICIAN documented in this encounter Plan of Treatment Upcoming Encounters Date Type Specialty Care Team Description 05/12/2022 Appointment Audiology 05/12/2022 Appointment Otolaryngology Bro Arroyo , PA-C [address] [facility] [address] (Wo rk) 06/03/2022 Appointment General Dentistry Rylee Amaro, [facility] [address] [place] [address] 06/03/2022 Appointment General Dentistry Pee Garcia, DDS [address] [place] [address] (Wo rk) 06/17/2022 Appointment General Dentistry P[place] Garcia, DDS [address] [place], [place] [phone] (Wo rk) documented as of this encounter Results TSH (06/17/2017 3:49 PM SURFACE LAY OUT TECHNICIAN) athologist Signature Thyroid 1.03 0.30 - PN SOFT Stimulating 4.50 Hormone uIU/mL Specimen Anatomical Collection Method Collection Time Receive d Time (Source) Location / / Volume Laterality 06/17/2017 3:49 PM 7 6:30 SURFACE LAY OUT TECHNICIAN PM SURFACE LAY OUT TECHNICIAN Narrative PN SOFT - 06/17/2017 7:16 PM SURFACE LAY OUT TECHNICIAN Performed at [facility], [address] [place] [address] CLIA number [id number] Daniel PURCELL LAB_1 Performing Organization Address City/State/ZIP Code Phon e Number PN SOFT [address] [place] [address] [phone] Free T4 (06/17/2017 3:49 PM SURFACE LAY OUT TECHNICIAN) P athologist Signature Thyroxine, Free 0.9 0.7 - 1.5 PN SOFT ng/dL Specimen Anatomical Collection Method Collection Time Receive d Time (Source) Location / / Volume Laterality 06/17/2017 3:49 PM 7 6:30 SURFACE LAY OUT TECHNICIAN PM SURFACE LAY OUT TECHNICIAN Narrative PN SOFT - 06/17/2017 8:00 PM SURFACE LAY OUT TECHNICIAN Performed at [place] [address] [place] [address] CLIA number [id number] Daniel PURCELL LAB_1 Performing Organization Address City/State/ZIP Code Phon e Number PN SOFT [address] [place] [address] documented in this encounter Visit Diagnoses Diagnosis Hyperthyroidism (HRC) - Primary Thyrotoxicosis without mention of goiter or other cause, without mention of thyrotoxic crisis or storm Hyperthyroidism (HRC) Thyrotoxicosis without mention of goiter or other cause, without mention of thyrotoxic crisis or storm documented in this encounter Care Teams Shelf Stocker Relationship Specialty Start Date End Date Needs Pcp, Assignment PCP - General 06/08/13 07/14/17 [place] [address] documented as of this encounter
--- OUTSIDE RECORDS SUMMARY | 2022-05-06 23:56 | XMS_ITS | Encounter Summary ---
:1980 Author Organization [email or web address] Address [address] [place] [address] Care Team Providers Name Role Phone Needs Pcp, Assignment Primary Care Provider Reason for Visit Procedure/Equipment (Routine) - Incomplete Specialty Diagnoses / Procedures Referred By Contact Refer red To Contact Diagnoses Breast pain Jessica De Luna MD Procedures [facility] Mammogram Diag [address] [place], [place] [address] Referral ID Status Reason Start Date Expiration Date Visits V isits Requested Authorized [id number] Incomplete 12/18/2016 03/19/2018 1 1 Encounter Details Date Type Department Care Team Description 12/24/2016 Imaging [facility] 385Chandni Stevenson MD Breast pain Mammography [address] 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 documented as of this encounter Plan of Treatment Upcoming Encounters Date Type Specialty Care Team Description 05/12/2022 Appointment Audiology 05/12/2022 Appointment Otolaryngology Bro Arroyo , JANET [address] [place] [address] (Wo rk) 06/03/2022 Appointment General Dentistry Rylee Amaro, [facility] [address] [place] [address] 06/03/2022 Appointment General Dentistry Pee Garcia, DDS [address] [place], [place] [phone] (Wo rk) 06/17/2022 Appointment General Dentistry Pee Garcia, DDS [address] [place], [place] [phone] (Wo rk) documented as of this encounter Procedures Procedure Name Priority Date/Time Associated Diagnosis Comme nts [facility] MAMMOGRAM DIAG Routine 12/24/2016 8:34 AM Breast pain Res ults for this RT W 3D SINAN CDT procedure are i n the results section. documented in this encounter Results [facility] US Breast Rt (12/24/2016 9:05 AM CDT) Anatomical Region Laterality Modality Breast Right Ultrasound Specimen (Source) Anatomical Collection Method Collection Time Re ceived Time Location / / Volume Laterality 12/24/2016 9:05 AM CDT Impressions 12/24/2016 9:37 AM CDT IMPRESSION: ??ACR BI-RADS CATEGORY 1: ??Negative. Given the lack of imaging findings, furt her management should be based on clinical grounds. Narrative 12/24/2016 9:37 AM CDT HISTORY: right breast pain, asymmetry, no palpable mass, no prior imaging COMPARISON: None ? FINDINGS: Right CC and MLO C-Views with CAD and tomosynthesis. There are scattered areas of fibroglandular density. There is no suspicious mass, suspicious microcalcifications or architectural distortion. Right breast ultrasound from the 9-12 o' clock position and in the axilla was performed. There is no suspicious mass. This was confirmed with real-time imaging. ?? RECOMMENDATIONS: The results were discus sed with the patient after the exam. Clinical follow-up is recommended. Bilateral screening mammography is recommended to begin at age 40. The [facility] will attempt to schedule the re commended follow up with the patient. ??If the patient develops new symptoms such as a new palpable lump, skin changes or nipple discharge, evaluation at that time is recommended. ?? Procedure Note Brown Smith MD - 12/24/2016Format ting of this note might be different from the original. HISTORY: right breast pain, asymmetry, n o palpable mass, no prior imaging COMPARISON: None FINDINGS: Right CC and MLO C-Views with CAD and tomosynthesis. There are scattered areas of fibroglandular density. There is no suspicious mass, suspicious microcalcifications or architectural distortion. Right breast ultrasound from the 9-12 o' clock position and in the axilla was performed. There is no suspicious mass. This was confirmed with real-time imaging. RECOMMENDATIONS: The results were discus sed with the patient after the exam. Clinical follow-up is recommended. Bilateral screening mammography is recommended to begin at age 40. The [facility] will attempt to schedule the recommended foll ow up with the patient. If the patient develops new symptoms such as a new palpable lump, skin changes or nipple discharge, evaluation at that time is recommended. IMPRESSION IMPRESSION: ACR BI-RADS CATEGORY 1: Nega tive. Given the lack of imaging findings, furt her management should be based on clinical grounds. Jessica De Luna MD RAD COURT [facility] Mammogram Diag [address]t [address] Sinan (12/24/2016 8:34 AM CDT) Anatomical Region Laterality Modality Breast Right Mammography Specimen (Source) Anatomical Collection Method Collection Time Re ceived Time Location / / Volume Laterality 12/24/2016 8:31 AM CDT Impressions 12/24/2016 9:37 AM CDT IMPRESSION: ??ACR BI-RADS CATEGORY 1: ??Negative. Given the lack of imaging findings, furt her management should be based on clinical grounds. Narrative 12/24/2016 9:37 AM CDT HISTORY: right breast pain, asymmetry, no palpable mass, no prior imaging COMPARISON: None ? FINDINGS: Right CC and MLO C-Views with CAD and tomosynthesis. There are scattered areas of fibroglandular density. There is no suspicious mass, suspicious microcalcifications or architectural distortion. Right breast ultrasound from the 9-12 o' clock position and in the axilla was performed. There is no suspicious mass. This was confirmed with real-time imaging. ?? RECOMMENDATIONS: The results were discus sed with the patient after the exam. Clinical follow-up is recommended. Bilateral screening mammography is recommended to begin at age 40. The [facility] will attempt to schedule the re commended follow up with the patient. ??If the patient develops new symptoms such as a new palpable lump, skin changes or nipple discharge, evaluation at that time is recommended. ?? Procedure Note Brown Smith MD - 12/24/2016Format ting of this note might be different from the original. HISTORY: right breast pain, asymmetry, n o palpable mass, no prior imaging COMPARISON: None FINDINGS: Right CC and MLO C-Views with CAD and tomosynthesis. There are scattered areas of fibroglandular density. There is no suspicious mass, suspicious microcalcifications or architectural distortion. Right breast ultrasound from the 9-12 o' clock position and in the axilla was performed. There is no suspicious mass. This was confirmed with real-time imaging. RECOMMENDATIONS: The results were discus sed with the patient after the exam. Clinical follow-up is recommended. Bilateral screening mammography is recommended to begin at age 40. The [facility] will attempt to schedule the recommended foll ow up with the patient. If the patient develops new symptoms such as a new palpable lump, skin changes or nipple discharge, evaluation at that time is recommended. IMPRESSION IMPRESSION: ACR BI-RADS CATEGORY 1: Nega tive. Given the lack of imaging findings, furt her management should be based on clinical grounds. Jessica De Luna MD RAD COURT documented in this encounter Visit Diagnoses Diagnosis Breast pain Mastodynia Breast pain Mastodynia documented in this encounter Care Teams Flat Bed Operator Relationship Specialty Start Date End Date Needs Pcp, Assignment PCP - General 06/08/13 07/14/17 [place] [address] documented as of this encounter
--- OUTSIDE RECORDS SUMMARY | 2022-05-06 23:56 | XMS_ITS | Encounter Summary ---
:1980 Author Organization [employer] Address [address], [place] [address] Care Team Providers Name Role Phone Needs Pcp, Assignment Primary Care Provider Reason for Visit Reason Onset Date Comments LAB RESULTS 12/30/2016 Encounter Details Date Type Department Care Team Description 12/30/2016 Telephone [facility] Daniel Bobo MBBS LAB RESULTS [address] [place], [place] [phone] [place] [address] Social History Tobacco Use Types Packs/Day Years Used Date Smoking Tobacco: Never Smokeless Tobacco: Never Alcohol Use Standard Drinks/Week Comments No 0 (1 standard drink = 0.6 oz pure Alcoho lic Drinks/day: Freq:Never; alcohol) Sex Assigned at Date Recorded 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 Called back and was informed of below. Pt. States an understanding. No additional questions at this time. T Myrtle Gupta - 12/30/2016 9:05 AM CDT Called pt, no answer. LM to call back. Myrtle Gupta - 12/30/2016 9:05 AM CDT ----- Message from JAZZY Blair sent at 12/28/2016 8:22 AM CDT ----- Thyroid labs are improving and thyroid antibody was negative. This suggests thyroiditis, which is self limited and should recover back to normal spontaneously in 2-3 months. I recommend observation, repeating the thyroid labs again in 6 weeks. documented in this encounter Plan of Treatment Upcoming Encounters Date Type Specialty Care Team Description 05/12/2022 Appointment Audiology 05/12/2022 Appointment Otolaryngology Bro Arroyo , JANET [address] [facility] [address] (Wo rk) 06/03/2022 Appointment General Dentistry Rylee Amaro, [facility] [address] [place] [address] 06/03/2022 Appointment General Dentistry Pee Garcia, DDS [address] [place], [place] [phone] (Wo rk) 06/17/2022 Appointment General Dentistry Pee Garcia DDS [address] [place], [place] [phone] (Wo rk) documented as of this encounter Visit Diagnoses Not on filedocumented in this encounter Care Teams Thermocouple Tester Relationship Specialty Start Date End Date Needs Pcp, Assignment PCP - General 06/08/13 07/14/17 [place] [address] documented as of this encounter
--- OUTSIDE RECORDS SUMMARY | 2022-05-06 23:56 | XMS_ITS | Encounter Summary ---
:1980 Author Organization [employer] Address [address], [place] [address] Care Team Providers Name Role Phone No Primary/Referring, Phy Primary Care Provider Unavailable Reason for Visit Reason Comments TOOTHACHE cheek swelling. Encounter Details Date Type Department Care Team Description 01/08/2020 Telephone [facility] Ira Garcia, TOOTHACHE (cheek Dentistry DDS swelling. 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 [address] [place] [address] 06/03/2022 Appointment General Dentistry Pee Garcia, DDS [address] [place], [place] [phone] (Wo rk) 06/17/2022 Appointment General Dentistry Pee Garcia DDS [address] [facility] [place] [phone] (Wo rk) documented as of this encounter Visit Diagnoses Not on filedocumented in this encounter Care Teams Telemarketing Fundraiser Relationship Specialty Start Date End Date No Primary/Referring, Phy PCP - General 07/15/17 documented as of this encounter
--- OUTSIDE RECORDS SUMMARY | 2022-05-06 23:56 | XMS_ITS | Encounter Summary ---
:1980 Author Organization [employer] Address [address], [place] [address] Care Team Providers Name Role Phone No Primary/Referring, Phy Primary Care Provider Unavailable Reason for Visit Reason Comments Problem Focused Exam TA lower Right Encounter Details Date Type Department Care Team Description 01/08/2020 Office Visit [facility] [place] [address] [place] [address] Problem Focused Exam Dentistry Yardsophia, Exam (TA lower Right) [address] [place] [address] Social History Tobacco Use Types Packs/Day Years Used Date Smoking Tobacco: Never Smokeless Tobacco: Never Alcohol Use Standard Drinks/Week Comments No 0 (1 standard drink = 0.6 oz pure Alcoho lic Drinks/day: Freq:Never; alcohol) Sex Assigned at Date Recorded 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 female who presents for Problem Focused Exam (TA lower Right) Patient given 1%-1.5% hydrogen peroxide, rinsed for 60 seconds prior to procedure. CHIEF COMPLAINT: Toothache Pain started last Wednesday, generalized to R side, not a specific tooth.I was out of town when the pain started. Has had pain for the last 5 days. Taking tylenol Last dose was last night 500 mg. For the past 2- 3 days no relief from OTC meds. Yesterday sore tro touch, pain all over and yesterday I think it was the last tooth on the Lower Right. Tender to biting pressure and to tooth brushing, not sens to hot or cold, feels like I have a swollen face, no bleeding, LOP 8 T.Also used bee pollen which helped some. But try not to take too many meds. Mostly take at night. Feels swollen on gum and cheek, now hurts to bite. Have hyperalgesia on lower right from nerve damage whe n wisdom tooth pulled Objective/Assessment Chart Review The following information was reviewed with the patient: Medical history, Dental history, Problem list, Periodontal charting and Radiographs #31 existing occlusal composite, swelling of gingiva behind tooth, cl 1 mobile. Wears head scarf so hard to detect facial swelling, no submandibular swelling No clinical caries or crown fx. 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 Discussed option to try and save with endo and crown, other option extract. Patient elects extraction. No time today, rescheduled for tomorrow CONSENT: All questions answered and the patient gave informed consent to proceed with dental treatment/services. Completed Procedures Limited Oral Exam RX for PenVK ANTIBIOTIC PRECAUTIONS: Reviewed verbally with the patient ?? Take as prescribed, even if symptoms improve, to get the most benefit from this antibiotic. ?? This medication may be taken with or without food. Take with food or milk if you experience nausea while taking this drug. ?? Stop taking medication and seek immediate medical attention in case of a serious allergic reaction (i.e. rash; hives; itching; shortness of breath; wheezing; cough; and/or swelling of the face, lips, tongue or throat). ?? control pills and other hormone based control drugs may not work well to prevent while taking antibiotics. Use some other type of control while taking this drug. ?? Call your physician or dentist immediately if you experience very loose or watery stools, or bloody stools as this be an indication of a serious medical condition. [facility] PAIN MANAGEMENT PROTOCOL: ?? Take 3 (200 mg) tablets of Ibuprofen (Advil or Motrin) before the anesthetic wears off. ?? If after 3 to 4 hours the Ibuprofen hasn't controlled the pain, take Acetaminophen (Tylenol). ?? You can take 2 tablets (500 mg) or 3 tablets of Regular Strength (325 mg). ?? Alternating Ibuprofen and Acetaminophen every 3 to 4 hours gives you an even amount of medicationto help control your discomfort. Do not take more than 2400 mg of Ibuprofen or 3000 mg of Acetaminophen in a 24-hour period. Care was assisted by gabby Next Planned Visit: extract 31. Jaime Chan DDS 01/08/2020, 1:45 PM --End of Note-- 1:03 PM documented in this encounter Plan of Treatment Upcoming Encounters Date Type Specialty Care Team Description 05/12/2022 Appointment Audiology 05/12/2022 Appointment Otolaryngology Bro Arroyo , JANET [address] [facility] [address] (Shereen espino) 06/03/2022 Appointment General Dentistry Rylee Amaro, [facility] [address] [place] [address] 06/03/2022 Appointment General Dentistry Pee Garcia DDS [address] [place], [place] [phone] (Shereen espino) 06/17/2022 Appointment General Dentistry Pee Garcia DDS [address] [facility] [place], [place] [phone] (Shereen espino) documented as of this encounter Procedures Procedure Name Priority Date/Time Associated Diagnosis Comme nts FILM-PERIAPICAL FIRST Routine 01/08/2020 12:50 PM Symptomatic irreversible CDT pulpitis Cracked tooth syndrome documented in this encounter Visit Diagnoses Diagnosis Symptomatic irreversible pulpitis - Prim zander Cracked tooth syndrome documented in this encounter Care Teams Hospitalist Nocturnist Physician Relationship Specialty Start Date End Date No Primary/Referring, Phy PCP - General 07/15/17 documented as of this encounter
--- OUTSIDE RECORDS SUMMARY | 2022-05-06 23:56 | XMS_ITS | Encounter Summary ---
:1980 Author Organization [employer] Address [address], [place] [address] Care Team Providers Name Role Phone Needs Pcp, Assignment Primary Care Provider Encounter Details Date Type Department Care Team Description 12/28/2016 Notes/Orders [facility] [address] Hyper thyroidism (Primary Endocrinology M, MBBS Dx) [address] [facility] 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 documented as of this encounter Plan of Treatment Upcoming Encounters Date Type Specialty Care Team Description 05/12/2022 Appointment Audiology 05/12/2022 Appointment Otolaryngology Bro Arroyo PA-C [address] [facility] [address] [address] (Wo rk) 06/03/2022 Appointment General Dentistry Rylee Amaro, [facility] [address] [place] [address] 06/03/2022 Appointment General Dentistry Pee Garcia, DDS [address] [place] [address] (Wo rk) 06/17/2022 Appointment General Dentistry Pee Garcia, DDS [address] [place] [address] (Wo rk) documented as of this encounter Visit Diagnoses Diagnosis Hyperthyroidism (HRC) - Primary Thyrotoxicosis without mention of goiter or other cause, without mention of thyrotoxic crisis or storm documented in this encounter Care Teams Duplicating Machine Mechanic Relationship Specialty Start Date End Date Needs Pcp, Assignment PCP - General 06/08/13 07/14/17 [place] [address] documented as of this encounter
--- OUTSIDE RECORDS SUMMARY | 2022-05-06 23:56 | XMS_ITS | Encounter Summary ---
:1980 Author Organization [employer] Address [address] [place] [address] Care Team Providers Name Role Phone No Primary/Referring, Phy Primary Care Provider Unavailable Reason for Visit Reason Comments Annual Exam no concerns Encounter Details Date Type Department Care Team Description 05/02/2018 Office Visit [facility] Helen Rubi, Encounter for gynecological examination without abnormal finding (Primary Dx); Obstetrics/Gynecolog y Screening for lipoid disorders; [address] Screening for thyroid disorder; [address] Screening for diabetes mellitus; [place], [place] [address] [place], [place] Screening for endocrine diso rder; [phone] Encounter for vitamin deficiency screeni ng; [phone] Visit for control pills maintenance (Work) Social History Tobacco Use Types Packs/Day Years Used Date Smoking Tobacco: Never Smokeless Tobacco: Never Alcohol Use Standard Drinks/Week Comments No 0 (1 standard drink = 0.6 oz pure Alcoho lic Drinks/day: Freq:Never; alcohol) Sex Assigned at Date Recorded 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 documented as of this encounter Last Filed Vital Signs Vital Sign Reading Time Taken Comments Blood Pressure 97/63 05/02/2018 3:27 PM EARTHMOVING LABOURER Pulse 76 05/02/2018 3:27 PM EARTHMOVING LABOURER Temperature - - Respiratory Rate - - Oxygen Saturation - - Inhaled Oxygen Concentration - - Weight 73.4 kg (161 lb 12.8 oz) 05/02/2018 3:27 PM EARTHMOVING LABOURER Height 156.7 cm (5' 1.71) 05/02/2018 3:27 PM EARTHMOVING LABOURER Body Mass Index 29.87 05/02/2018 3:27 PM EARTHMOVING LABOURER documented in this encounter Progress Notes Helen Rubi MD - 05/02/2018 3:00 PM CST PREVENTATIVE FEMALE ANNUAL EXAM This is a 37 y.o. female who presents today for her annual exam. She has been well, and has had no acute complaints or problems. OBGYN Issues: Menstrual history: Cycles regular with no concerns. Pap history: No history of abnormal paps. Pap/HPV neg 2015 Current contraception: Ortho-Evra STD history: no past history Other spot welder issues: none Past Medical History: Past Medical History: Diagnosis Date ??? (spontaneous vaginal delivery) x2 Past Surgical History: Past Surgical History: Procedure Laterality Date ??? WISDOM TEETH EXTRACTION Medications: Current Outpatient Prescriptions Medication ??? Norelgestromin-Eth Estradiol (XULANE) 150-35 MCG/24HR patch ??? 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 Diabetes Mother ??? High Cholesterol Mother ??? Thyroid Disorder Mother ??? Diabetes Maternal Grandmother ??? Cancer Father 62 lymphoma, ??? Thyroid Disorder Sister ??? Depression Brother ??? Cancer, Breast Negative Family History ??? Cancer, Ovary Negative Family History Preventative health: Pap: Pap smear schedule reviewed with patient Tetanus: last tetanus booster within 10 years Cholesterol: orders written for new lab studies as appropriate; see orders Calcium/VitaminD: adequate OBJECTIVE : height is 5' 1.71 (1.568 m) and weight is 161 lb 12.8 oz (73.4 kg). Her blood pressure is 97/63 and her pulse is 76. Estimated body mass index is 29.87 kg/(m^2) as calculated from the following: Height as of this encounter: 5' 1.71 (1.568 m). Weight as of this encounter: 161 lb 12.8 oz (73.4 kg). Gen: Alert, cooperative in no acute distress. Breast: Symmetric without masses or nodularity. No skin lesions. No axillary or clavicular adenopathy. Abdomen: The abdomen was soft and nontender, normal sounds present. No obvious masses or organomegaly. Pelvic: EGBUS within normal limits, uterus normal size, shape, consistency, no mass or tenderness, adnexa normal in size without mass or tenderness ASSESSMENT : Routine Female Annual exam. PLAN : ICD-10-CM 1. Encounter for gynecological examination without abnormal finding Z01.419 2. Screening for lipoid disorders Z13.220 LIPID PANEL AND DIRECT LDL(IF NEEDED) 3. Screening for thyroid disorder Z13.29 TSH with Free T4 (if TSH Abnormal) 4. Screening for diabetes mellitus Z13.1 Glucose 5. Screening for endocrine disorder Z13.29 VITAMIN D 25-HYDROXY, TOTAL 6. Encounter for vitamin deficiency screening Z13.21 VITAMIN D 25-HYDROXY, TOTAL 7. Visit for control pills maintenance Z30.41 Norelgestromin-Eth Estradiol (XULANE) 150-35 MCG/24HR patch Helen Rubi MD HMOVING LABOURER documented in this encounter Plan of Treatment Upcoming Encounters Date Type Specialty Care Team Description 05/12/2022 Appointment Audiology 05/12/2022 Appointment Otolaryngology Bro Arroyo , JANET [address] [facility] [address] (Shereen espino) 06/03/2022 Appointment General Dentistry Rylee Amaro, [facility] [address] [place] [address] 06/03/2022 Appointment General Dentistry Pee Garcia DDS [address] [place], [place] [phone] (Shereen espino) 06/17/2022 Appointment General Dentistry Pee Garcia DDS [address] [facility] [place] [phone] (Shereen espino) documented as of this encounter Results (ABNORMAL) VITAMIN D 25-HYDROXY, TOTAL (05/17/2018 8:15 AM EARTHMOVING LABOURER) athologist Signature Vitamin D 25 Oh 11 (L) 20 - 80 PN SOFT ng/mL Comment: Deficiency = <20 Adequate ??= 20-29 Preferred = 30-50 Uncertain safety = 51-80 High = >80 Specimen Anatomical Collection Method Collection Time Receive d Time (Source) Location / / Volume Laterality 05/17/2018 8:15 AM 8 EARTHMOVING LABOURER 11:46 AM EARTHMOVING LABOURER Narrative PN SOFT - 05/17/2018 12:30 PM EARTHMOVING LABOURER Performed at [facility] [address] [place] [address] CLIA number [id number] Helen Rubi MD LAB_1 Performing Organization Address City[facility] Phon e Number PN SOFT [address] [place] [address] Glucose (05/17/2018 8:15 AM EARTHMOVING LABOURER) athologist Signature Lab Glucose 95 70 - 100 PN SOFT mg/dL Comment: The stated glucose range is for the fast ing state. Non-fasting glucose range is 70-180 mg/d L Specimen Anatomical Collection Method Collection Time Receive d Time (Source) Location / / Volume Laterality 05/17/2018 8:15 AM 8 EARTHMOVING LABOURER 11:14 AM EARTHMOVING LABOURER Narrative PN SOFT - 05/17/2018 12:16 PM EARTHMOVING LABOURER Performed at [facility]3], [address] [place] [address] CLIA number [id number] Helen Rubi MD LAB_1 Performing Organization Address [facility] Phon e Number PN SOFT [address] [place] [address] TSH with Free T4 (if TSH Abnormal) (05/17/2018 8:15 AM EARTHMOVING LABOURER) athologist Signature Thyroid 2.13 0.30 - PN SOFT Stimulating 4.50 Hormone uIU/mL Specimen Anatomical Collection Method Collection Time Receive d Time (Source) Location / / Volume Laterality 05/17/2018 8:15 AM 8 EARTHMOVING LABOURER 11:46 AM EARTHMOVING LABOURER Narrative PN SOFT - 05/17/2018 12:28 PM EARTHMOVING LABOURER Performed at [facility], [address] [place] [address] CLIA number [id number] Helen Rubi MD LAB_1 Performing Organization Address [facility] Phon e Number PN SOFT [address] [place] [address] (ABNORMAL) LIPID PANEL AND DIRECT LDL(IF NEEDED) (05/17/2018 8:15 AM EARTHMOVING LABOURER) [facility] gist Method Time Signature Cholesterol 208 (H) 0 - 199 PN SOFT mg/dL Triglycerides 96 4 - 149 PN SOFT mg/dL HDL Cholesterol 85 >39 mg/dL PN SOFT Cholesterol/HDL 2.4 PN SOFT Ratio Screen LDL Calculated 104 19 - 130 PN SOFT mg/dL Non HDL Chol, Calc 123 0 - 159 PN SOFT mg/dL Length Of Fast 11.0 PN SOFT Specimen Anatomical Collection Method Collection Time Receive d Time (Source) Location / / Volume Laterality 05/17/2018 8:15 AM 8 EARTHMOVING LABOURER 11:14 AM EARTHMOVING LABOURER Narrative PN SOFT - 05/17/2018 12:16 PM EARTHMOVING LABOURER Performed at [facility]3], [address] [place] [address] CLIA number [id number] Helen Rubi MD LAB_1 Performing Organization Address [facility] Phon e Number PN SOFT [address] [place] [address] documented in this encounter Visit Diagnoses Diagnosis Encounter for gynecological examination without abnormal finding - Primary Routine gynecological examination Screening for lipoid disorders Screening for thyroid disorder Screening for diabetes mellitus Screening for endocrine disorder Encounter for vitamin deficiency screeni ng Visit for control pills maintenanc e Surveillance of previously prescribed co ntraceptive pill Screening for lipoid disorders Screening for thyroid disorder Screening for diabetes mellitus Screening for endocrine disorder Encounter for vitamin deficiency screeni ng documented in this encounter Care Teams Bag Sorter Relationship Specialty Start Date End Date No Primary/Referring, Phy PCP - General 07/15/17 documented as of this encounter
--- OUTSIDE RECORDS SUMMARY | 2022-05-06 23:56 | XMS_ITS | Encounter Summary ---
:1980 Author Organization [employer] ? Address [address], [place] [address] Care Team Providers Name Role Phone No Primary/Referring, Phy Primary Care Provider Unavailable Reason for Visit Reason Comments DENTAL PAIN Encounter Details Date Type Department Care Team Description 11/01/2017 Telephone [facility], Vineet Farrell DDS DENTAL PAIN Dentistry [address] [facility] [address] [place] [address] [place], [place] [address] [phone] Social History Tobacco Use Types Packs/Day Years Used Date Smoking Tobacco: Never Smokeless Tobacco: Never Alcohol Use Standard Drinks/Week Comments No 0 (1 standard drink = 0.6 oz pure Alcoho lic Drinks/day: Freq:Never; alcohol) Sex Assigned at Date Recorded Female 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 Have you ever been seen in our office before? [] No [x] Yes Last Seen: [] Less than 5 years [] 5 years or more Comments: 2. What is causing your problem? [] Accident [] Lost Moravian [] Broken Tooth [] Chipped Tooth Location: [] Upper Left [] Upper Front [] Upper Right [] Lower Left [] Lower Front [x] Lower Right Comments: 3. What kind of discomfort are you in? [] No Discomfort [x] Awake Last Night [x] Radiating Pain [x] Throbbing Pain Comments: 4. When does the discomfort occur? [x] Cold Sensitive [x] Constantly [x] Pressure Sensitive [x] Hot Sensitive [] Occasionally [] Other (fill in comments) Comments: 5. How long has the degree of discomfort lasted? [x] Longer Duration [] Other (enter duration in comments) Comments: 2 day aago Are you experiencing any other signs or symptoms? [] Bleeding/Oozing [] Fever [] Other (list other signs/symptoms in comments) Comments: No Are you taking medications for this problem? [] No [] Yes (list meds in comments) Comments: ADVIL 6. Have you been advised to take antibiotics prior to dental treatment? [x] No [] Yes Comments: documented in this encounter Plan of Treatment Upcoming Encounters Date Type Specialty Care Team Description 05/12/2022 Appointment Audiology 05/12/2022 Appointment Otolaryngology Bro Arroyo , JANET [address] [facility] [address] [address] (Shereen espino) 06/03/2022 Appointment General Dentistry Rylee Amaro, [facility] [address] [place] [address] 06/03/2022 Appointment General Dentistry Pee Garcia DDS [address] [place], [place] [phone] (Shereen rk) 06/17/2022 Appointment General Dentistry Pee Garcia DDS [address] [place], [place] [phone] (Shereen espino) documented as of this encounter Visit Diagnoses Not on filedocumented in this encounter Care Teams Multimedia Production Assistant Relationship Specialty Start Date End Date No Primary/Referring, Phy PCP - General 07/15/17 documented as of this encounter
--- OUTSIDE RECORDS SUMMARY | 2022-05-06 23:56 | XMS_ITS | Encounter Summary ---
:1980 Author [facility] Address [address], [place] [address] Care Team Providers Name Role Phone No Primary/Referring, Phy Primary Care Provider Unavailable Reason for Visit Reason Comments Oral Surgical Services Encounter Details Date Type Department Care Team Description 07/26/2019 Office Visit [facility] Ira Garcia Or jasmine Surgical Dentistry Bud, [facility] [id number] [place] [phone] (Wo rk) Social History Tobacco Use Types Packs/Day Years Used Date Smoking Tobacco: Never Smokeless Tobacco: Never Alcohol Use Standard Drinks/Week Comments No 0 (1 standard drink = 0.6 oz pure Alcoho lic Drinks/day: Freq:Never; alcohol) Sex Assigned at Date Recorded Female 05/12/2021 9:48 AM 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 female who presents for Oral Surgical Services CHART REVIEW Reviewed with patient: Medical history, Dental history, Problem list, Periodontal charting and Radiographs TREATMENT DISCUSSION I discussed the Dental findings, Prognosis and Treatment options with patient. PROGNOSIS: #1, #16 Unfavorable CONSENT: Oral Surgery: Patient was advised of the risks and potential complications of oral surgery: ?? Postoperative discomfort, swelling or bruising, and jaw stiffness that may necessitate several days of home recuperation. ?? Nerve injury resulting in a temporary or permanent numbness of tingling of the lip, tongue, chin,gums, cheek or teeth ?? Infection requiring medication or additional treatment ?? Opening into the sinus cavity requiring medication or additional surgical treatment. ?? Injury to adjacent teeth and restorations resulting in treatment (fillings, crowns, perio surg, rct and/or tooth loss). ?? Breaking the jaw ?? Restricted mouth opening and/or facial or joint pain lasting for several days or weeks, potentially requiring additional treatment. ?? Dry socket, which may require treatment. ?? Leaving a small piece of root in jaw when its removal would require extensive surgery or unnecessary risks. ?? Small fragments of bone may appear, sometimes months after surgery, which may require removal. ?? Extraction may result movement of remaining teeth or space loss. ?? Need for subsequent procedures and any unforeseen complications. All questions answered and the patient gave informed consent to proceed with dental treatment/services. PROCEDURES PERFORMED AT THIS VISIT ANESTHESIA: Topical with 20% benzocaine 2.25 carpules 2% lidocaine with 1:100,000 epinephrine was administered with PSA and infiltration in #1, #16, Maxillary right and Maxillary left No adverse side effects observed. Anesthesia was administered by Ira Garcia DDS ORAL SURGICAL SERVICES: Preoperative blood pressure was taken and recorded 107/67 p 68 Site of surgery: Verified with the patient Extraction: #1, #16 Flap: N/A Bone removal: N/A Section: N/A Alveoplasty: N/A Irrigation: N/A Sutures: None Patient tolerated the procedure : Complications: None Postoperative blood pressure was taken and recorded 109/70 p 76 POST-OP INSTRUCTIONS: Reviewed verbally and in writing with the patient ?? The mouth will be numb approximately two to four hours. ?? If oozing occurs hold gauze with firm pressure against surgical site until oozing has stopped. ?? Contact us if bleeding continues for more than two hours. ?? Do not disturb surgical site ?? Rinse with warm salt water beginning tomorrow after meals. ?? Avoid physical exercise and exertion today (resume normal activities as tolerated). ?? Drink cool non-carbonated liquids (no straws) after all bleeding has stopped. ?? Cold soft foods are ideal first day, consistency of foods can progress by 2nd day as tolerated. ?? Avoid foods such as nuts, sunflower seeds, and popcorn until healing is more established. ?? Teeth may be brushed and flossed gently but avoid stimulating the surgical site. ?? 600 mg Ibuprofen and 1000 mg Acetaminophen at six hour intervals. Advised not to take more than 2400 mg of Ibuprofen or 3000 mg of Acetaminophen in a 24-hour period recommended. No Medications ordered this encounter Care was assisted by Lois NEXT PLANNED VISIT: restorations, allow 3-4 weeks for healing of extraction sites. Ira Garcia DDS 07/26/2019, 9:45 AM --End of Note-- 9:03 AM ERIBS TRIMMER documented in this encounter Plan of Treatment Upcoming Encounters Date Type Specialty Care Team Description 05/12/2022 Appointment Audiology 05/12/2022 Appointment Otolaryngology Bro Arroyo , JANET [address] [facility] [address] (Shereen espino) 06/03/2022 Appointment General Dentistry Rylee Amaro, [facility] [address] [place] [address] 06/03/2022 Appointment General Dentistry Pee Garcia DDS [address] [place], [place] [phone] (Wo rk) 06/17/2022 Appointment General Dentistry Pee Garcia DDS [address] [place], [place] [phone] (Wo rk) documented as of this encounter Procedures Procedure Name Priority Date/Time Associated Diagnosis Comme nts 16 EXTRACTION-ERUPTED Routine 07/26/2019 8:40 AM SPARERIBS TRIMMER Dental ca mark extending TOOTH OR EXPOSED RT into middle third of dentin 1 EXTRACTION-ERUPTED Routine 07/26/2019 8:40 AM SPARERIBS TRIMMER Dental car ies limited TOOTH OR EXPOSED RT to outer third of dentin documented in this encounter Visit Diagnoses Diagnosis Dental caries limited to outer third of dentin - Primary Dental caries extending into middle thir d of dentin documented in this encounter Care Teams Director Of Supply Chain Relationship Specialty Start Date End Date No Primary/Referring, Phy PCP - General 07/15/17 documented as of this encounter
--- OUTSIDE RECORDS SUMMARY | 2022-05-06 23:56 | XMS_ITS | Encounter Summary ---
:1980 Author Organization [facility] Address [address] [address] Care Team Providers Name Role Phone No Primary/Referring, Phy Primary Care Provider Unavailable Reason for Visit Reason Comments Annual Exam Encounter Details Date Type Department Care Team Description 07/21/2019 Office Visit Helen Giordano Well female e xam with routine gynecological exam (Primary Dx); Obstetrics/Gynecolog y MD Screening for cervical cancer; [address] 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 documented as of this encounter Last Filed Vital Signs Vital Sign Reading Time Taken Comments Blood Pressure 99/72 07/21/2019 3:12 PM KNITTING INSPECTOR Pulse 76 07/21/2019 3:12 PM KNITTING INSPECTOR Temperature - - Respiratory Rate - - Oxygen Saturation - - Inhaled Oxygen Concentration - - Weight 76.2 kg (168 lb) 07/21/2019 3:12 PM KNITTING INSPECTOR Height 156.2 cm (5' 1.5) 07/21/2019 3:12 PM KNITTING INSPECTOR Body Mass Index 31.23 07/21/2019 3:12 PM KNITTING INSPECTOR documented in this encounter Progress Notes Helen Rubi MD - 07/21/2019 3:00 PM CST PREVENTATIVE FEMALE ANNUAL EXAM This is a 38 y.o. female who presents today for her annual exam. She has been well, and has had no acute complaints or problems. OBGYN Issues: Menstrual history: Cycles regular with no concerns. Pap history: No history of abnormal paps. Current contraception: Ortho-Evra STD history: no past history Other obgyn nurse issues: none Past Medical History: Past Medical History: Diagnosis Date ??? (spontaneous vaginal delivery) x2 Past Surgical History: Past Surgical History: Procedure Laterality Date ??? WISDOM TEETH EXTRACTION Medications: Current Outpatient Medications Medication ??? Norelgestromin-Eth Estradiol (XULANE) 150-35 MCG/24HR patch ??? 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 Her blood pressure is 99/72 and her pulse is 76. Estimated body mass index is 31.23 kg/m?? [...] routine gynecological exam Z01.419 2. Screening for cervical cancer Z12.4 Scr Pap Smer; Obtain Prep&Convy-Lab PAP Test HPV with 16 18 Genotyping 3. Visit for control pills maintenance Z30.41 Norelgestromin-Eth Estradiol (XULANE) 150-35 MCG/24HR patch Helen Rubi MD TING INSPECTOR documented in this encounter Plan of Treatment Upcoming Encounters Date Type Specialty Care Team Description 05/12/2022 Appointment Audiology 05/12/2022 Appointment Otolaryngology Bro Arroyo , PAMorisC [address] [facility] [address] (Wo rk) 06/03/2022 Appointment General Dentistry Rylee Amaro, [facility] [address] [place] [address] 06/03/2022 Appointment General Dentistry Pee Garcia DDS [address] [place], [place] [phone] (Wo rk) 06/17/2022 Appointment General Dentistry Pee Garcia DDS [address] [place], [place] [phone] (Wo rk) documented as of this encounter Procedures Procedure Name Priority Date/Time Associated Diagnosis Comme nts PAP TEST Routine 07/21/2019 3:57 PM Screening for Results for this KNITTING INSPECTOR cervical cancer procedure ar e in the results section. HPV WITH 16 18 Routine 07/21/2019 3:57 PM Screening for Result s for this GENOTYPING, KNITTING INSPECTOR cervical cancer procedure ar e in CERVICAL/ENDOCERVIC the resu lts AL section. documented in this encounter Results (ABNORMAL) HPV with 16 18 Genotyping (07/21/2019 3:57 PM KNITTING INSPECTOR) [facility] Method Time Signature HPV High Risk Not Detected Not detected 07/25/2019 [facility] Type 16 PCR 2:33 PM KNITTING INSPECTOR LABORATORY HPV High Risk Not Detected Not Detected 07/25/2019 NONDENOMINATIONAL Type 18 PCR 2:33 PM KNITTING INSPECTOR LABORATORY HPV High Risk Detected (A) Not detected 07/25/2019 NONDENOMINATIONAL Other Than 2:33 PM KNITTING INSPECTOR LABORATORY 16/18 Specimen Anatomical Collection Method Collection Time Receive d Time (Source) Location / / Volume Laterality Cervical Broom ENTIRE ENDOCERVIX 07/21/2019 3:57 PM 4:00 / Unknown KNITTING INSPECTOR PM KNITTING INSPECTOR Narrative [facility] - 07/25/2019 2:33 P M KNITTING INSPECTOR The Mahesh HPV test is a qualitative [...] 52, 56, 58, 59, 66, and 68). NOTE: This test was developed and its pe rformance characteristics determined by [facility]. It has not been cleared or approved by the FDA. The laboratory ??is required under CLIA as qualified to perform high-complexity brannon ting. This test is used for clinical purposes. It should not be regarded as investigational or for research. Helen Rubi MD LAB_1 Performing Organization Address City/State/ZIP Code Phon e Number [facility] [address] [place] [address] PAP Test (07/21/2019 3:57 PM KNITTING INSPECTOR) Component Value Ref Test Analysis Performed At [facility] Range Method Time Signature Case Report Pap ? Case: [id number] ? 07/28/2019 NONDENOMINATIONAL Authorizing Provider: ??Helen Rubi MD ?Collected: ? 07/21/2019 03:57 PM ? 10:31 AM LABORA TORY Ordering Location: ? [place] ?Received: ?07/21/2019 04:00 PM ? KNITTING INSPECTOR ? Obstetrics/Gynecology ? First Screen: ? Mali, Cheryl J, CT (ASCP) ? Rescreen: ?Марина Zaragoza, CT (ASCP) ? Specimen: ?Pap Test, Rou cosmo, Cervix/Endocervix ? Pap Specimen Satisfactory for 07/28/2019 NONDENOMINATIONAL Adequacy evaluation, 10:31 AM LABORATORY endocervical/[place] KNITTING INSPECTOR sformation zone component present. Pap Negative for 07/28/2019 NONDENOMINATIONAL Electr onically Interpretation intraepithelial 10:31 AM LABORATOR Y signed by garret Zaragoza or KNITTING INSPECTOR PRISCILLA Patel malignancy (ASCP) on (NILM). 07/28/2019 at 10:31 AM Gross The specimen is 07/28/2019 NONDENOMINATIONAL Description received in 10:31 AM LABORATORY [facility] fixative KNITTING INSPECTOR and properly labeled. 1 Pap-stained Sure[facility] slide is prepared. Pap Disclaimer The Pap test is a 07/28/2019 METHOD IST screening test 10:31 AM LABORATORY designed to aid KNITTING INSPECTOR in the detection of cervical cancer and its precursor lesions. It is not a diagnostic procedure and should not be used as the sole means of detecting cervical cancer. Both false-positive and false-negative reports may occur. Embedded Images 07/28/2019 NONDENOMINATIONAL 10:31 AM LABORATORY KNITTING INSPECTOR Specimen Anatomical Collection Method Collection Time Receive d Time (Source) Location / / Volume Laterality Other Specimen ENTIRE ENDOCERVIX 07/21/2019 3:57 PM 4:00 Type / Unknown KNITTING INSPECTOR PM KNITTING INSPECTOR Comment: LMP: Patient's last menstrual p eriod was 07/07/2019 (exact date). Helen Rubi MD LAB PATHOLOGY Performing Organization Address City/State/ZIP Code Phon e Number [facility] [address] [place] [address] documented in this encounter Visit Diagnoses Diagnosis Well female exam with routine gynecologi karen exam - Primary Routine gynecological examination Screening for cervical cancer Screening for malignant neoplasm of the cervix Visit for control pills maintenanc e Surveillance of previously prescribed co ntraceptive pill documented in this encounter Care Teams Diversified Crops Farmer Relationship Specialty Start Date End Date No Primary/Referring, Phy PCP - General 07/15/17 documented as of this encounter
--- OUTSIDE RECORDS SUMMARY | 2022-05-06 23:56 | XMS_ITS | Encounter Summary ---
:1980 Author Organization [facility] Address [address] [place] [address] Care Team Providers Name Role Phone Needs Pcp, Assignment Primary Care Provider Encounter Details Date Type Department Care Team Description 12/24/2016 Lab Visit [facility] [address] Hyperthyroidism; [address] [place] 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 This suggests thyroiditis, which is self limited and should recover back to normal spontaneously in 2-3 months. I recommend observation, repeating the thyroid labs again in 6 weeks. documented in this encounter Plan of Treatment Upcoming Encounters Date Type Specialty Care Team Description 05/12/2022 Appointment Audiology 05/12/2022 Appointment Otolaryngology Bro Arroyo PA-C [address] [place] [address] (Wo rk) 06/03/2022 Appointment General Dentistry Prem Rylee Bud, RDH [address] [place] [address] 06/03/2022 Appointment General Dentistry Pee Garcia, DDS [address] [place], [place] [phone] (Wo rk) 06/17/2022 Appointment General Dentistry Pee Garcia, DDS [address] [place] [address] (Wo rk) documented as of this encounter Procedures Procedure Name Priority Date/Time Associated Diagnosis Comme nts TSH RECEPTOR Routine 12/24/2016 10:26 AM Hyperthyroid ism Results for this ANTIBODY CDT Vitamin D deficiency procedu re are in the results section. T3, FREE Routine 12/24/2016 10:26 AM Hyperthyroid ism Results for this CDT Vitamin D deficiency procedu re are in the results section. LIVER PANEL(HEPATIC Routine 12/24/2016 10:26 AM Hyperthy roidism Results for this FUNCTION PANEL) CDT Vitamin D deficiency proc edure are in the results section. TSH, SENSITIVE Routine 12/24/2016 10:26 AM Hyperthyroid ism Results for this CDT Vitamin D deficiency procedu re are in the results section. COMPLETE BLOOD Routine 12/24/2016 10:26 AM Hyperthyroid ism Results for this COUNT-NO DIFF CDT Vitamin D deficiency proced ure are in the results section. FREE T4 Routine 12/24/2016 10:26 AM Hyperthyroid ism Results for this CDT Vitamin D deficiency procedu re are in the results section. documented in this encounter Results (ABNORMAL) CBC - Complete Blood Count No Diff (12/24/2016 10:26 AM CDT) Analysis Performed At Patho logist Time Signature White Blood Cell 3.5 (L) 3.8 - 11.0 PN SOFT Count k/cmm Red Blood Cell 4.46 3.70 - PN SOFT Count 5.20 m/cmm Hemoglobin 13.4 11.8 - PN SOFT 15.5 g/dL Hematocrit 38.6 35.0 - PN SOFT 46.0 % Mean Corpuscular 86.5 80.0 - PN SOFT Volume 100.0 fL RDW 11.9 11.0 - PN SOFT 15.0 % Platelet Count 204 140 - 450 PN SOFT k/cmm Specimen Anatomical Collection Method Collection Time Receive d Time (Source) Location / / Volume Laterality 12/24/2016 10:26 12/24/2016 AM CDT 10:25 AM CDT Narrative PN SOFT - 12/24/2016 11:23 AM CDT Performed at [facility], [facility] [place] [address] CLIA number [id number] Daniel PURCELL LAB_1 Performing Organization Address [facility] Phon e Number PN SOFT [address] [place] [address] Tsh Receptor Antibody (12/24/2016 10:26 AM CDT) P athologist Signature TSH Receptor <0.90 <=1.75 IU/L PN SOFT Antibody Comment: INTERPRETIVE INFORMATION: Thyroid Stimul ating Hormone Receptor Ab Autoimmune thyroid disease may be confir med when TRAb testing is positive. Performed by [facility], [address] [place] [id number] [email or web address], Doug Altamirano MD - Lab . Director Specimen Anatomical Collection Method Collection Time Receive d Time (Source) Location / / Volume Laterality 12/24/2016 10:26 12/24/2016 2:23 AM CDT PM CDT Narrative PN SOFT - 12/25/2016 7:57 PM CDT Performed at [facility] [address] [place] [address] CLIA number [id number] Daniel PURCELL LAB_1 Performing Organization Address [facility] Phon e Number PN SOFT [address] [place] [address] [phone] Hepatic Function Panel (12/24/2016 10:26 AM CDT) Patholo gist Method Time Signature Alk Phos 53 40 - 150 PN SOFT U/L Bilirubin Total 0.3 0.2 - 1.2 PN SOFT mg/dL Bilirubin, Direct <0.1 0.0 - 0.5 PN SOFT mg/dL Protein Total, Serum 7.7 6.4 - 8.3 PN SOFT g/dL Albumin 3.8 3.4 - 5.0 PN SOFT g/dL Aspartate 17 10 - 40 PN SOFT Aminotransferase U/L Alanine 15 9 - 55 PN SOFT Aminotransferase U/L Specimen Anatomical Collection Method Collection Time Receive d Time (Source) Location / / Volume Laterality 12/24/2016 10:26 12/24/2016 AM CDT 10:25 AM CDT Narrative PN SOFT - 12/24/2016 11:02 AM CDT Performed at [address] [address] CLIA number [id number] Davidraymundo Willis Jeramie [facility] LAB_1 Performing Organization Address [facility] Phon e Number PN SOFT [address] [place] [address] T3 - Triiodothyronine, Free (FRT3) (12/24/2016 10:26 AM CDT) athologist Signature Triiodothyronin 2.9 1.7 - 3.7 PN SOFT e, Free pg/mL Specimen Anatomical Collection Method Collection Time Receive d Time (Source) Location / / Volume Laterality 12/24/2016 10:26 12/24/2016 AM CDT 12:18 PM CDT Narrative PN SOFT - 12/24/2016 1:22 PM CDT Performed at [facility], [address] [place] [address] CLIA number [id number] Davidraymundo Willis Jeramie [facility] Performing Organization Address [facility] Phon e Number PN SOFT [address] [place] [address] Free T4 (12/24/2016 10:26 AM CDT) P athologist Signature Thyroxine, Free 0.9 0.7 - 1.5 PN SOFT ng/dL Specimen Anatomical Collection Method Collection Time Receive d Time (Source) Location / / Volume Laterality 12/24/2016 10:26 12/24/2016 AM CDT 12:18 PM CDT Narrative PN SOFT - 12/24/2016 1:22 PM CDT Performed at [address] [address] CLIA number [id number] Daniel Dunnricki PUR[facility] LAB_1 Performing Organization Address [facility] Phon e Number PN SOFT [address] [place] [address] [phone] (ABNORMAL) TSH (12/24/2016 10:26 AM CDT) [facility] Method Time Signature Thyroid 0.04 (L) 0.30 - PN SOFT Stimulating 4.50 Hormone uIU/mL Specimen Anatomical Collection Method Collection Time Receive d Time (Source) Location / / Volume Laterality 12/24/2016 10:26 12/24/2016 AM CDT 12:18 PM CDT Narrative PN SOFT - 12/24/2016 1:22 PM CDT Performed at [address] [address] CLIA number [id number] Daniel Dunnricki PUR[facility] LAB_1 Performing Organization Address [facility] Phon e Number PN SOFT [address] [place] [address] documented in this encounter Visit Diagnoses Diagnosis Hyperthyroidism (HRC) Thyrotoxicosis without mention of goiter or other cause, without mention of thyrotoxic crisis or storm Vitamin D deficiency (HRC) Unspecified vitamin D deficiency documented in this encounter Care Teams Boat Tender Relationship Specialty Start Date End Date Needs Pcp, Assignment PCP - General 06/08/13 07/14/17 [place] [address] documented as of this encounter
--- OUTSIDE RECORDS SUMMARY | 2022-05-06 23:56 | XMS_ITS | Encounter Summary ---
:1980 Author Organization [facility] Address [address], [place] [address] Care Team Providers Name Role Phone No Primary/Referring, Phy Primary Care Provider Unavailable Reason for Visit Reason Comments No Show failed OP appt Encounter Details Date Type Department Care Team Description 01/07/2018 Telephone [facility] Marie Aguirre M, N o Show (failed OP Dentistry DDS appt) [address] [facility] [id number] [place] [address] [place], [place] [phone] (Wo rk) Social History Tobacco Use Types Packs/Day Years Used Date Smoking Tobacco: Never Smokeless Tobacco: Never Alcohol Use Standard Drinks/Week Comments No 0 (1 standard drink = 0.6 oz pure Alcoho lic Drinks/day: Freq:Never; alcohol) Sex Assigned at Date Recorded Female 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 She then kept saying hello, hello. I am unsure if the connection was broken or if she was having a hard time hearing me. Disconnectedthe line. Fail letter 2 sent. Tammi Sahu 01/07/2018, 4:26 PM documented in this encounter Plan of Treatment Upcoming Encounters Date Type Specialty Care Team Description 05/12/2022 Appointment Audiology 05/12/2022 Appointment Otolaryngology Bro Arroyo , PA-C [address] [facility] [place] [address] (Wo rk) 06/03/2022 Appointment General Dentistry Rylee Amaro, [facility] [address] [place] [address] 06/03/2022 Appointment General Dentistry Pee Garcia, DDS [address] [place], [place] [phone] (Wo rk) 06/17/2022 Appointment General Dentistry Pee Garcia DDS [address] [place], [place] [phone] (Wo rk) documented as of this encounter Visit Diagnoses Not on filedocumented in this encounter Care Teams Film Loader Relationship Specialty Start Date End Date No Primary/Referring, Phy PCP - General 07/15/17 documented as of this encounter
--- OUTSIDE RECORDS SUMMARY | 2022-05-06 23:56 | XMS_ITS | Encounter Summary ---
:1980 Author Organization [employer] Address [address] [address] Care Team Providers Name Role Phone No Primary/Referring, Phy Primary Care Provider Unavailable Reason for Visit Reason Comments Endodontic Services #29 RCT Dental (Routine) - Closed Specialty Diagnoses / Procedures Referred By Contact Refer red To Contact Diagnoses Symptomatic irreversible pulpitis Ira Garcia DDS [address] [place], [place] [address] Referral ID Status Reason Start Date Expiration Date Visits Requ ested Visits Authorized [id number] Closed 11/01/2017 01/31/2019 1 1 Encounter Details Date Type Department Care Team Description 11/17/2017 Office Visit [place] Fan Laureano Endodo ntic Services Endodontics DDS (#29 RCT) [address] [place] [address] Social History Tobacco Use Types Packs/Day Years Used Date Smoking Tobacco: Never Smokeless Tobacco: Never Alcohol Use Standard Drinks/Week Comments No 0 (1 standard drink = 0.6 oz pure Alcoho lic Drinks/day: Freq:Never; alcohol) Sex Assigned at Date Recorded 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 Endodontic Services #29 RCT Chart Review ?? Reviewed health history, dental history, problem list and radiographs with the patient Treatment Plan ?? Today's treatment plan was discussed with: the patient ?? Treatment options and prognosis was discussed yes ?? Treatment Options: Nonsurgical Endodontic Therapy ?? Prognosis: favorable Patient Consent ?? Marc gives informed consent: yes; after all questions were answered Today's Treatment Endo Consent Discussed the following risks and potential complications of endodontic treatment: Endodontic therapy or root canal therapy is an attempt to save a tooth which otherwise may require extraction. Success of treatment is dependent on many variables, which are not under the control of the dentist or patient. Root canal therapy is reportedly successful 85-95% of the time. It is important that you know the complications, which can occur during treatment, which may affect the outcome of treatment. Such complications include, but are not limited to: ?? Post-operative discomfort or swelling lasting a few hours to several days which may require medications as deemed necessary by the dentist. ?? Crack or fracture of tooth/restorationist (porcelain restorations especially) during treatment, which may require a new restorationist or possibly result in loss of the tooth. ?? Short or long-term tenderness or soreness related to the temporomandibular joint (jaw joint). ?? Persistent tooth pain after successful treatment. Pain present for six months or more after root canal therapy has been reported in a small number of cases after successful treatment and such patients will require evaluation and treatment from pain specialist. Once the treatment is completed, timely, definitive restorationist of the tooth is often required. If you continue to have symptoms with the tooth, please contact our office for further instructions. Periodic recalls may be recommended. All questions were answered and the patient gave permission to perform the endodontic procedure(s). Anesthesia ?? Total carpules used: 1.0 ?? Type of anesthetic: 4% septocaine with 1:100,000 epinephrine ?? Administration of anesthesia: ARELI Anesthetic was delivered by: Fan Laureano DDS Care was assisted by: JAYLEEN Ruggiero Completed dental procedures in this visit There are no completed dental procedures in this visit. ENDODONTIC TREATMENT ?? Endodontic therapy on tooth: 29 ?? Tooth isolated with: rubber dam Canal Location Working Length Instrument Size single canal 22 (mm) 25 ?? Irrigation with sodium hypochlorite 2.5-5.25%; and dried with paper points ?? Sealed with BC sealer endodontic sealer ?? Canals filled by: warm lateral compaction sidney percha Access closed with: comp ?? Post-Op Instructions: patient advised of normal post-operative instructions ?? Total radiographs required for this treatment at this visit: 1 some vitality apically documented in this encounter Plan of Treatment Upcoming Encounters Date Type Specialty Care Team Description 05/12/2022 Appointment Audiology 05/12/2022 Appointment Otolaryngology Bro Arroyo , JANET [address] [facility] [place] [address] (Wo rk) 06/03/2022 Appointment General Dentistry Rylee Amaro, [facility] [address] [place] [address] 06/03/2022 Appointment General Dentistry Pee Garcia DDS [address] [place], [place] [phone] (Wo rk) 06/17/2022 Appointment General Dentistry Pee Garcia DDS [address] [place], [place] [phone] (Wo rk) documented as of this encounter Procedures Procedure Name Priority Date/Time Associated Diagnosis Comme nts 29 O RESIN-BASED Routine 11/17/2017 11:31 AM CDT Acute pulpiti s COMPOSITE-1 SURFACE-POSTERIO 29 ROOT CANAL-BICUSPID Routine 11/17/2017 11:31 AM CDT Acute p ulpitis documented in this encounter Visit Diagnoses Diagnosis Acute pulpitis - Primary Pulpitis documented in this encounter Care Teams Associate Professor Of Literature Relationship Specialty Start Date End Date No Primary/Referring, Phy PCP - General 07/15/17 documented as of this encounter
--- OUTSIDE RECORDS SUMMARY | 2022-05-06 23:56 | XMS_ITS | Encounter Summary ---
:1980 Author Organization [facility] Address [address] [place] [address] Care Team Providers Name Role Phone No Primary/Referring, Phy Primary Care Provider Unavailable Reason for Referral Dental (Routine) - Closed Specialty Diagnoses / Procedures Referred By Contact Refer red To Contact Diagnoses Impacted tooth Marie Aguirre DDS [address] [place], [place] [address] Referral ID Status Reason Start Date Expiration Date Visits Requ ested Visits Authorized [id number] Closed 10/06/2017 01/05/2019 1 1 Scheduling Instructions Your provider has recommended an appoint ment with an oral surgeon within [facility]. You may c all one of the clinics below to schedule an appointment. If you prefer, a medical scheduler will contact you within the next 3 business days to assist you in setting up this ap pointment. Anita - [phone] [facility] [phone] [facility] [phone] Reason for Visit Reason Comments Dental Exam Think theres decay, sensitiv e to temp and sweet Dental Hygiene Encounter Details Date Type Department Care Team Description 10/06/2017 Office Visit Kerry Chaney, Hector ntal Exam (Think Dentistry [place], [address] [place] [address] [place] sensitive to temp and [place], [place] sweet); Dental Hygiene [id number] Social History Tobacco Use Types Packs/Day Years Used Date Smoking Tobacco: Never Smokeless Tobacco: Never Alcohol Use Standard Drinks/Week Comments No 0 (1 standard drink = 0.6 oz pure Alcoho lic Drinks/day: Freq:Never; alcohol) Sex Assigned at Date Recorded 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 documented as of this encounter Patient Instructions Patient InstructionsMaricelSamantha Rene - 10/06/2017 12:00 PM CDT Your next hygiene recall is due 10/06/2018 PERSONAL DENTAL RISK REPORT FOR MICHELLE VANN Caries (Tooth Decay) Risk Periodontal (Gum Disease) Risk Oral Cancer Risk Your Risk Level Moderate High Moderate X Low This exam Your Risk Level Low High Moderate Low X This exam Your Risk Level Low Elevated Low X This exam Your Risk Factors One to two caries in the last 3 years How To Reduce Your Risk Hygiene recall 6 to 12 months Rinse with fluoride rinse once or twice daily at times other than when brushing Application of a concentrated fluoride product to the teeth in the clinic to assist in remineralization Your Risk Factors How To Reduce Your Risk Return visit with the dental hygienist at 12 month intervals Your Risk Factors How To Reduce Your Risk CONGRATULATIONS. The results of your dental risk assessment indicate you are at low risk for gum disease. Making healthy life style choices including brushing twice a day; daily flossing and not using tobacco should help you maintain this low risk. CONGRATULATIONS. The results of your dental risk assessment indicate you are at low risk for oral cancer. Making healthy life style choices such as not using tobacco and low to moderate alcohol use should help you maintain this low risk. Michelle, we look forward to seeing you at your next visit! Thank you for choosing [facility]. documented in this encounter Progress Notes Marie Aguirre DDS - 10/06/2017 12:00 PM CDT RECALL EXAM NOTE Chief Complaint Patient presents with ??? Dental Exam Think theres decay, sensitive to temp and sweet ??? Dental Hygiene Chart Review ?? Reviewed health history, dental history, problem list, periodontal charting and radiographs with the patient Soft tissue, head and neck examination ?? Lips: normal ?? Tongue: normal ?? Palate: normal ?? Throat: normal ?? Floor of the mouth: normal ?? Mucosa: normal ?? Head and neck: normal TMD Evaluation ?? Palpation pain: none ?? Joint sounds: none ?? Pain with range of motion: none Occlusal examination ?? Angle relationship: Right molar: class I Right cuspid: class I Left molar: class I Left cuspid:class III ?? Maxillary midline: within normal limits ?? Mandibular midline: within normal limits ?? Overbite: 2 mm ?? Overjet: 2 mm ?? Crossbite: none ?? Space loss: none ?? Crowding: mild ?? Occlusion: all teeth ?? Attrition: normal ?? Erosion: absent ?? Overall occlusal relationship: stable Cosmetic concerns ?? Patient???s perception: acceptable ?? Dentist???s perception: acceptable Treatment Review and Follow-up ?? Dental Findings: were described to the patient: yes; and they expressed understanding: yes ?? Treatment options and prognosis were discussed: yes ?? Informed patient consent was obtained: yes; after all questions were answered: yes ?? Recommended Recall Examination: 12 months Recall prophy: 12 months ?? Planned Recall Examination: 12 months Recall prophy: 12 months RTC:#15 and #2 filling Marie Aguirre DDS 10/06/2017, 12:40 PM Samantha Connelly - 10/06/2017 12:00 PM CDT PROPHY NOTE PROPHY/ASSESSMENT:02040::PROPHY NOTE Collaborative Agreement: ?? Patient consents to have charting, radiographs and prophylaxis by the dental hygienist performed with the understanding that this care is not a substitute for examination by a dentist. Presentation ?? Oral Hygiene: normal ?? Plaque: generalized; moderate; interproximal ?? Calculus:localized; light; supra-gingival and mandibular anterior ?? Stain: none ?? Bleeding: generalized; light ?? Gingival tissue: inflamed ?? Mucogingival concerns: absent Activities ?? Treatment included: OHI, hand scale, essential selective polishing and flossed all contacts Patient Education ?? Discussion topics: caries risk assessment and OHI Remineralization counseling ?? Patient's readiness for change is: action ?? Caries risk factors to be addressed: recent or active caries, oral hygiene and diet ?? Patient has been compliant with previous recommendations to address caries risk ?? Reviewed: reviewed diet and reviewed oral hygiene ?? Procedures: applied fluoride ?? Today these health education materials were distributed: fluoride ?? Prescriptions for pharmacy and/or over the counter products: OTC Fluoride ?? Follow up plan: #15 and #2 filling Completed dental procedures in this visit ??? TOOTH REMIN-INITIAL ??? PROPHYLAXIS-ADULT RECALL ??? PERIODIC ORAL EVALUATION Chief Complaint: Treatment Options: ??? [id number] ??? TOPICAL FLUORIDE VARNISH ??? FILM-PANORAMIC Samantha Connelly 10/06/2017, 12:56 PM documented in this encounter Plan of Treatment Upcoming Encounters Date Type Specialty Care Team Description 05/12/2022 Appointment Audiology 05/12/2022 Appointment Otolaryngology Bro Arroyo , PA-C [address] [facility] [phone] (Wo rk) 06/03/2022 Appointment General Dentistry Rylee Amaro, RD [address] [place] [address] 06/03/2022 Appointment General Dentistry Pee Garcia, DDS [address] [place] [address] (Wo rk) 06/17/2022 Appointment General Dentistry Pee Garcia, DDS [address] [place], [place] [phone] (Wo rk) Scheduled Referrals Name Type Priority Associated Diagnoses Order S chedule Oral Surgery Consult Referral Routine Impacted tooth Order ed: 10/06/2017 documented as of this encounter Procedures Procedure Name Priority Date/Time Associated Diagnosis Comme nts FILM-PANORAMIC Routine 10/06/2017 12:57 PM Generalized margina l CDT gingivitis TOPICAL FLUORIDE Routine 10/06/2017 12:57 PM Generalized florencio nal VARNISH CDT gingivitis [id number] Routine 10/06/2017 12:56 PM Generalized mar ginal CDT gingivitis PERIODIC ORAL Routine 10/06/2017 12:56 PM Generalized marginal EVALUATION CDT gingivitis PROPHYLAXIS-ADULT Routine 10/06/2017 12:56 PM Generalized mark inal RECALL CDT gingivitis TOOTH REMIN-INITIAL Routine 10/06/2017 12:56 PM Generalized ma rginal CDT gingivitis 3 EXISTING ROOT CANAL Routine 06/12/2016 12:00 AM 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 2 O EXISTING COMPOSITE Routine 06/12/2016 12:00 AM FILLING SPORTS ACTIVITIES FOUL JUDGE 20 O EXISTING COMPOSITE Routine 06/12/2016 12:00 AM FILLING SPORTS ACTIVITIES FOUL JUDGE 5 MO EXISTING COMPOSITE Routine 06/12/2016 12:00 AM FILLING SPORTS ACTIVITIES FOUL JUDGE 29 DO EXISTING Routine 06/12/2016 12:00 AM COMPOSITE FILLING SPORTS ACTIVITIES FOUL JUDGE 4 MO EXISTING COMPOSITE Routine 06/12/2016 12:00 AM FILLING SPORTS ACTIVITIES FOUL JUDGE 21 O EXISTING COMPOSITE Routine 06/12/2016 12:00 AM FILLING SPORTS ACTIVITIES FOUL JUDGE 19 O EXISTING COMPOSITE Routine 06/12/2016 12:00 AM FILLING SPORTS ACTIVITIES FOUL JUDGE 18 O EXISTING COMPOSITE Routine 06/12/2016 12:00 AM FILLING SPORTS ACTIVITIES FOUL JUDGE 15 O EXISTING COMPOSITE Routine 06/12/2016 12:00 AM FILLING SPORTS ACTIVITIES FOUL JUDGE 14 DO EXISTING Routine 06/12/2016 12:00 AM COMPOSITE FILLING SPORTS ACTIVITIES FOUL JUDGE 13 O EXISTING COMPOSITE Routine 06/12/2016 12:00 AM FILLING SPORTS ACTIVITIES FOUL JUDGE 12 O EXISTING COMPOSITE Routine 06/12/2016 12:00 AM FILLING SPORTS ACTIVITIES FOUL JUDGE 28 O EXISTING COMPOSITE Routine 06/12/2016 12:00 AM FILLING SPORTS ACTIVITIES FOUL JUDGE 30 MO EXISTING Routine 06/12/2016 12:00 AM COMPOSITE FILLING SPORTS ACTIVITIES FOUL JUDGE documented in this encounter Visit Diagnoses Diagnosis Generalized marginal gingivitis - Primar y Impacted tooth Disturbances in tooth eruption Caries of dentin Dental caries extending into dentine Open margin on tooth bahai Open bahai margins Gingivitis, chronic, non-plaque induced Chronic gingivitis, non-plaque induced documented in this encounter Care Teams Head Counselor Relationship Specialty Start Date End Date No Primary/Referring, Phy PCP - General 07/15/17 documented as of this encounter
--- OUTSIDE RECORDS SUMMARY | 2022-05-06 23:56 | XMS_ITS | Encounter Summary ---
:1980 Author Organization [facility] Address [address], [place] [address] Care Team Providers Name Role Phone No Primary/Referring, Phy Primary Care Provider Unavailable Reason for Referral Dental (Routine) - Closed Specialty Diagnoses / Procedures Referred By Contact Refer red To Contact Diagnoses Symptomatic irreversible pulpitis Ira Garcia DDS [address] [place], [place] [address] Referral ID Status Reason Start Date Expiration Date Visits Requ ested Visits Authorized [id number] Closed 11/01/2017 01/31/2019 1 1 Scheduling Instructions Your provider has recommended an appoint ment for endodontic services within [facility]. You may c all one of the clinics below to schedule an appointment. If you prefer, a nuclear medicine medical director will contact you within the next 3 business days to assist you in setting up this ap pointment. [place] [phone] [place] [phone] [place] [phone] [place] [phone] [place] [phone] [place] [phone] [place] [phone] Reason for Visit Reason Comments Problem Focused Exam LR TA Encounter Details Date Type Department Care Team Description 11/01/2017 Office Visit [place] Ira Johns oblem Focused Exam Dentistry AMBROSE Farrell (TARAS TA) [address] [facility] [address] [place] [address] [phone] (Wo rk) Social History Tobacco Use Types Packs/Day Years Used Date Smoking Tobacco: Never Smokeless Tobacco: Never Alcohol Use Standard Drinks/Week Comments No 0 (1 standard drink = 0.6 oz pure Alcoho lic Drinks/day: Freq:Never; alcohol) Sex Assigned at Date Recorded 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 Most pain occurs during the first few hours after dental treatment. However, you may have some discomfort for 24 to 48 hours. Follow these instructions to help relieve your pain: ??? Take 3 tablets (200 mg) of ibuprofen (such as Advil or Motrin) before the anesthetic wears off. Why? It is easier to control pain before it gets started. ??? If after 3 to 4 hours the ibuprofen hasn???t controlled the pain, take acetaminophen (Tylenol). You can take 2 tablets of Extra Strength (500 mg) or 3 tablets of Regular Strength (325 mg). ??? Alternating ibuprofen and acetaminophen every 3 to 4 hours gives you an even amount of medication to help control your discomfort. Do not take more than 2400 mg of ibuprofen or 3000 mg of acetaminophen in a 24-hour period. ??? Use acetaminophen only as long as you need for pain control. Never take more than the maximum daily dose of 8 regular or 6 extra strength acetaminophen tablets. ??? Keep taking ibuprofen for 2 to 3 days even after your pain subsides. Ibuprofen also controls inflammation, which can contribute to pain. Please contact our office (during normal business hours) or [facility] CareLine? service at [phone] (after business hours) if: ??? your pain is not controlled by alternating ibuprofen and acetaminophen ??? you develop swelling, or ??? you have any other reactions ?? 2016 [facility] documented in this encounter Progress Notes Ira Garcia DDS - 11/01/2017 1:50 PM CDT DENTAL VISIT NOTE Chief Complaint Patient presents with ??? Problem Focused Exam LR TA Subjective: Pt. Presents with CC: I am having a TA on my LR, last time I came in they couldn't find anything wrong but the pain has been much worse for the last 3 days! Spontaneous, intermittent sharp pain, veryintense pressure like feeling, she had to hide puller on the way here due to the pain. Pain radiates into her jaw and up to her right ear.Taking Ibuprofen (200mg) every 4 hours, using cloves also-doesn'thelp much. Pain woke her up the last 2 nights. Pt. Points to tooth #29. Objective: PA shows widened pdl #29. Previous deep DO composite sabianism present. Percussion 28-, 29++, 30-.Bu vestibule tender #29. Discussed irreversible pulpitis and need for RCT. Pt consents to palliativetx today. See below. 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 Today's treatment plan was discussed with the patient ?? Treatment options and prognosis was discussed: yes Patient Consent ?? Patient gives informed consent yes; after all questions were answered Today's Treatment Anesthesia ?? Topical anesthesia used: 20% benzocaine ?? Total carpules used: 1.0 ?? Type of anesthetic: 4% septocaine with 1:100,000 epinephrine ?? Administration of anesthesia: ARELI ?? Quadrant treated: mandibular right quadrant ?? Side effects: no adverse side affects were observed Anesthesia ?? Total carpules used: 0.5 ?? Type of anesthetic: 2% lidocaine with 1:100,000 epinephrine ?? Administration of anesthesia: intrapulpal ?? Quadrant treated: Tooth #(s): 29 ?? Side effects: no adverse side affects were observed Sedative [employer] ?? Tooth #(s): 29 ?? Accessed into vital, hemorrhagic pulp. Pulpotomy, FMC, cotton. ?? Shade used: A3; filling material: glass ionomer ?? The patient was advised of the need for further treatment. RCT to be finished #29 Next Visit ?? Next planned visit: complete RCT #29 w/ Dr. Laureano Care was assisted by: Tammi Sahu Completed dental procedures in this visit ??? LIMITED ORAL EVALUATION ??? FILM-PERIAPICAL FIRST ??? 29 PALLIATIVE TREATMENT Ira Garcia DDS 11/01/2017, 2:51 PM documented in this encounter Plan of Treatment Upcoming Encounters Date Type Specialty Care Team Description 05/12/2022 Appointment Audiology 05/12/2022 Appointment Otolaryngology Bro Arroyo , PAMorisC [address] [facility] [place] [address] (Wo rk) 06/03/2022 Appointment General Dentistry Rylee Amaro, [facility] [address] [place] [address] 06/03/2022 Appointment General Dentistry Pee Garcia DDS [address] [place] [address] (Wo rk) 06/17/2022 Appointment General Dentistry Pee Garcia DDS [address] [place], [place] [phone] (Wo rk) Scheduled Referrals Name Type Priority Associated Diagnoses Order S chedule Endodontics Consult Referral Routine Symptomatic irreversi ble Ordered: 11/01/2017 pulpitis documented as of this encounter Procedures Procedure Name Priority Date/Time Associated Diagnosis Comme nts FILM-PERIAPICAL FIRST Routine 11/01/2017 2:48 PM Symptomatic i rreversible CDT pulpitis 29 PALLIATIVE Routine 11/01/2017 2:48 PM Symptomatic irreversi ble TREATMENT CDT pulpitis documented in this encounter Visit Diagnoses Diagnosis Symptomatic irreversible pulpitis - Prim zander documented in this encounter Care Teams Mobility Developer Relationship Specialty Start Date End Date No Primary/Referring, Phy PCP - General 07/15/17 documented as of this encounter
--- OUTSIDE RECORDS SUMMARY | 2022-05-06 23:56 | XMS_ITS | Encounter Summary ---
:1980 Author Organization [facility] Address [address], [place] [address] Care Team Providers Name Role Phone No Primary/Referring, Phy Primary Care Provider Unavailable Reason for Visit Reason Onset Date Comments Refill 11/11/2017 Encounter Details Date Type Department Care Team Description 11/11/2017 Refill [place] Helen Rubi M D Refill Obstetrics/Gynecolog y [address] [place], [place] [address] [place] [address] [phone] Social History Tobacco Use Types Packs/Day Years Used Date Smoking Tobacco: Never Smokeless Tobacco: Never Alcohol Use Standard Drinks/Week Comments No 0 (1 standard drink = 0.6 oz pure Alcoho lic Drinks/day: Freq:Never; alcohol) Sex Assigned at Date Recorded Female 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 Requested Prescriptions Signed Prescriptions Disp Refills ??? Norelgestromin-Eth Estradiol (XULANE) 150-35 MCG/24HR patch 9 Patch 0 Sig: Apply 1 patch to skin each week for 3 weeks, then 1 week patch free; repeat cycle. Authorizing Provider: HELEN RUBI Ordering User: GLO KILGORE Refilled above per protocol. Last qualifying visit on 08/28/16 and future appointment scheduled with Dr Rubi on 12/17/17. documented in this encounter Plan of Treatment Upcoming Encounters Date Type Specialty Care Team Description 05/12/2022 Appointment Audiology 05/12/2022 Appointment Otolaryngology Bro Arroyo , PADerick [address] [facility] [address] (Wo rk) 06/03/2022 Appointment General Dentistry Rylee Amaro, [facility] [address] [place] [address] 06/03/2022 Appointment General Dentistry Pee Garcia, DDS [address] [place], [place] [phone] (Wo rk) 06/17/2022 Appointment General Dentistry Pee Garcia DDS [address] [place] [address] (Wo rk) documented as of this encounter Visit Diagnoses Diagnosis Visit for control pills maintenanc e Surveillance of previously prescribed co ntraceptive pill documented in this encounter Care Teams Pharmacology Teacher Relationship Specialty Start Date End Date No Primary/Referring, Phy PCP - General 07/15/17 documented as of this encounter
--- OUTSIDE RECORDS SUMMARY | 2022-05-06 23:56 | XMS_ITS | Encounter Summary ---
:1980 Author Organization [employer] Address [address], [place] [address] Care Team Providers Name Role Phone No Primary/Referring, Phy Primary Care Provider Unavailable Reason for Visit Reason Comments Restorative Services UL composite Encounter Details Date Type Department Care Team Description 04/29/2018 Office Visit [facility] Marie Aguirre R estorative Services Dentistry DDS (UL composite) [address] [facility] [id number] [place] [id number] [phone] Social History Tobacco Use Types Packs/Day Years Used Date Smoking Tobacco: Never Smokeless Tobacco: Never Alcohol Use Standard Drinks/Week Comments No 0 (1 standard drink = 0.6 oz pure Alcoho lic Drinks/day: Freq:Never; alcohol) Sex Assigned at Date Recorded 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 TREATMENT DISCUSSION Discussed the dental findings, prognosis and treatment options with the patient. All questions were answered and the the patient gave informed consent to proceed with treatment/services. PROCEDURES PERFORMED AT THIS VISIT No anesthetic was given There were no procedures performed at this visit. Pt arrived and requested a tx estimate for today's appointment, gave her a printed estimate and there was a large copay. Her insurance is close to being maxed out for the year ($101 left) so she elected to wait until June to complete her work so she will not have to pay so much out of pocket. Pt apo logized for taking time out of our schedule, assured her it was ok! She will call back to schedule after she checks her own schedule at home/work. NEXT VISIT Next planned visit is reschedule fillings for June after insurance renews. Care was assisted by Tammi Sahu Completed dental procedures in this visit ??? NON-URGENT EVALUATION Tammi Sahu 04/29/2018, 11:02 AM --End of Note-- documented in this encounter Plan of Treatment Upcoming Encounters Date Type Specialty Care Team Description 05/12/2022 Appointment Audiology 05/12/2022 Appointment Otolaryngology Bro Arroyo , JANET [address] [place] [facility], [place] [address] (Wo rk) 06/03/2022 Appointment General Dentistry Rylee Amaro, [facility] [address] [place] [address] 06/03/2022 Appointment General Dentistry Pee Garcia DDS [address] [place], [place] [phone] (Wo rk) 06/17/2022 Appointment General Dentistry Pee Garcia DDS [address] [place], [place] [phone] (Wo rk) documented as of this encounter Procedures Procedure Name Priority Date/Time Associated Diagnosis Comme nts NON-URGENT EVALUATION Routine 04/29/2018 11:06 AM Dental mani s extending CDT into middle third of dentin documented in this encounter Visit Diagnoses Diagnosis Dental caries extending into middle thir d of dentin - Primary documented in this encounter Care Teams Research Professor Relationship Specialty Start Date End Date No Primary/Referring, Phy PCP - General 07/15/17 documented as of this encounter
--- OUTSIDE RECORDS SUMMARY | 2022-05-06 23:56 | XMS_ITS | Encounter Summary ---
:1980 Author Organization [employer] Address [address] [place] [address] Care Team Providers Name Role Phone No Primary/Referring, Phy Primary Care Provider Unavailable Encounter Details Date Type Department Care Team Description 05/17/2018 Lab Visit [facility] Screening for lipoid disorde rs; [address] [address]. 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 encounter Plan of Treatment Upcoming Encounters Date Type Specialty Care Team Description 05/12/2022 Appointment Audiology 05/12/2022 Appointment Otolaryngology Bro Arroyo , PA-C [address] [address] (Wo rk) 06/03/2022 Appointment General Dentistry Rylee Amaro, RD [address] [place] [address] 06/03/2022 Appointment General Dentistry Pee Garcia, DDS [address] [place], [place] [phone] (Wo rk) 06/17/2022 Appointment General Dentistry Pee Garcia, DDS [address] [place], [place] [phone] (Wo rk) documented as of this encounter Procedures Procedure Name Priority Date/Time Associated Diagnosis Comme nts GLUCOSE Routine 05/17/2018 8:15 AM Screening for Results for this QUILL PICKING MACHINE OPERATOR diabetes mellitus procedure are in the results section. LIPID PANEL AND Routine 05/17/2018 8:15 AM Screening for lipoi d Results for this DIRECT LDL(IF QUILL PICKING MACHINE OPERATOR disorders procedure are in NEEDED) the results section. VITAMIN D Routine 05/17/2018 8:15 AM Screening for Results for this 25-HYDROXY, TOTAL QUILL PICKING MACHINE OPERATOR endocrine diso rder procedure are in Encounter for the results vitamin deficiency section. screening TSH, SENSITIVE Routine 05/17/2018 8:15 AM Screening for Result s for this (WITH REFLEX) QUILL PICKING MACHINE OPERATOR thyroid disorder procedure are in the results section. documented in this encounter Results (ABNORMAL) VITAMIN D 25-HYDROXY, TOTAL (05/17/2018 8:15 AM QUILL PICKING MACHINE OPERATOR) athologist Signature Vitamin D 25 Oh 11 (L) 20 - 80 PN SOFT ng/mL Comment: Deficiency = <20 Adequate ??= 20-29 Preferred = 30-50 Uncertain safety = 51-80 High = >80 Specimen Anatomical Collection Method Collection Time Receive d Time (Source) Location / / Volume Laterality 05/17/2018 8:15 AM 8 QUILL PICKING MACHINE OPERATOR 11:46 AM QUILL PICKING MACHINE OPERATOR Narrative PN SOFT - 05/17/2018 12:30 PM QUILL PICKING MACHINE OPERATOR Performed at [facility], [address] [facility] [place] [address] CLIA number [id number] Helen Rubi MD LAB_1 Performing Organization Address City/State/ZIP Code Phon e Number PN SOFT [address] [place] [address] [phone] Glucose (05/17/2018 8:15 AM QUILL PICKING MACHINE OPERATOR) athologist Signature Lab Glucose 95 70 - 100 PN SOFT mg/dL Comment: The stated glucose range is for the fast ing state. Non-fasting glucose range is 70-180 mg/d L Specimen Anatomical Collection Method Collection Time Receive d Time (Source) Location / / Volume Laterality 05/17/2018 8:15 AM 8 QUILL PICKING MACHINE OPERATOR 11:14 AM QUILL PICKING MACHINE OPERATOR Narrative PN SOFT - 05/17/2018 12:16 PM QUILL PICKING MACHINE OPERATOR Performed at [facility], [address] [place] [address] CLIA number [id number] Helen Rubi MD LAB_1 Performing Organization Address City/[facility]/ZIP [facility] Phon e Number PN SOFT [address] [place] [address] TSH with Free T4 (if TSH Abnormal) (05/17/2018 8:15 AM QUILL PICKING MACHINE OPERATOR) athologist Signature Thyroid 2.13 0.30 - PN SOFT Stimulating 4.50 Hormone uIU/mL Specimen Anatomical Collection Method Collection Time Receive d Time (Source) Location / / Volume Laterality 05/17/2018 8:15 AM 8 QUILL PICKING MACHINE OPERATOR 11:46 AM QUILL PICKING MACHINE OPERATOR Narrative PN SOFT - 05/17/2018 12:28 PM QUILL PICKING MACHINE OPERATOR Performed at [facility], [facility] [place] [address] CLIA number [id number] Helen Rubi MD LAB_1 Performing Organization Address City/[facility] Phon e Number PN SOFT [address] [place] [address] (ABNORMAL) LIPID PANEL AND DIRECT LDL(IF NEEDED) (05/17/2018 8:15 AM QUILL PICKING MACHINE OPERATOR) [facility] gist Method Time Signature Cholesterol 208 [...] / Volume Laterality 05/17/2018 8:15 AM 8 QUILL PICKING MACHINE OPERATOR 11:14 AM QUILL PICKING MACHINE OPERATOR Narrative PN SOFT - 05/17/2018 12:16 PM QUILL PICKING MACHINE OPERATOR Performed at [facility], [address] [place] [address] CLIA number [id number] Helen Rubi MD LAB_1 Performing Organization Address City/State/ZIP Code Phon e Number PN SOFT [address] [place] [address] [phone] documented in this encounter Visit Diagnoses Diagnosis Screening for lipoid disorders Screening for thyroid disorder Screening for diabetes mellitus Screening for endocrine disorder Encounter for vitamin deficiency screeni ng documented in this encounter Care Teams Patient Carrier Relationship Specialty Start Date End Date No Primary/Referring, Phy PCP - General 07/15/17 documented as of this encounter
--- OUTSIDE RECORDS SUMMARY | 2022-05-06 23:56 | XMS_ITS | Encounter Summary ---
:1980 Author Organization [employer] Address [address] [place] [address] Care Team Providers Name Role Phone Needs Pcp, Assignment Primary Care Provider Reason for Visit Procedure/Equipment (Routine) - Incomplete Specialty Diagnoses / Procedures Referred By Contact Refer red To Contact Diagnoses Breast pain Jessica De Luna MD Procedures [facility] US Breast Rt [address] [place], [place] [address] Referral ID Status Reason Start Date Expiration Date Visits V isits Requested Authorized [id number] Incomplete 12/18/2016 03/19/2018 1 1 Encounter Details Date Type Department Care Team Description 12/24/2016 Imaging [facility] 385Chandni Stevenson MD Breast pain Mammography [address] 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 [address] [place] [address] 06/03/2022 Appointment General Dentistry Pee Garcia, DDS [address] [place], [place] [phone] (Wo rk) 06/17/2022 Appointment General Dentistry Pee Garcia, DDS [address] [place], [place] [phone] (Wo rk) documented as of this encounter Procedures Procedure Name Priority Date/Time Associated Diagnosis Comme nts [facility] US BREAST RT Routine 12/24/2016 9:05 AM Breast pain Resul ts for this CDT procedure are i n the results section. documented in this encounter Results [facility] US Breast Rt (12/24/2016 9:05 AM CDT) [...] recommended to begin at age 40. The [facility] will attempt to schedule the re [...] recommended to begin at age 40. [facility] will attempt to schedule the recommended [...] grounds. Jessica De Luna MD RAD COURT YMM Mammogram Diag Rt W Sinan (12/24/2016 8:34 [...] recommended to begin at age 40. [facility] will attempt to schedule the re [...] recommended to begin at age 40. [facility] will attempt to schedule the recommended [...] Mastodynia documented in this encounter Care Teams Hat Lining Paster Relationship Specialty Start Date End Date Needs Pcp, Assignment PCP - General 06/08/13 07/14/17 [place] [address] documented as of this encounter
--- OUTSIDE RECORDS SUMMARY | 2022-05-06 23:56 | XMS_ITS | Encounter Summary ---
:1980 Author Organization [employer] Address [address], [place] [address] Care Team Providers Name Role Phone No Primary/Referring, Phy Primary Care Provider Unavailable Reason for Visit Reason Comments Dental Hygiene cc: has RCT scheduled R post erior but now another tooth sens same side Encounter Details Date Type Department Care Team Description 01/30/2020 Office Visit [facility] Kerry Hair De ntal Hygiene (cc: Dentistry [facility] has RCT scheduled R [address] [address] 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 female who presents for Dental Hygiene (cc: has RCT scheduled R posterior but now another tooth sens same side) CHART REVIEW: Reviewed with patient: Medical history, Dental history, Problem list, Periodontal charting and Radiographs SOFT TISSUE, HEAD AND NECK EXAMINATION: Lips: Normal Tongue: crenations Palate: Normal Throat: Normal Floor of the mouth: Normal Mucosa:linea alba Head and neck: Normal TMD EVALUATION: Palpation Pain: None Joint Sounds: None Pain with Range of Motion: None OCCLUSAL EXAMINATION: Unchanged COSMETIC CONCERNS: Patient's Perception: Acceptable Dentist's Perception: Acceptable TREATMENT REVIEW AND FOLLOW-UP: Discussed the Dental findings, Prognosis and Treatment options with the patient. All questions answered and informed consent was obtained. Recommended Recall Interval: Examination: 6 months : Recall prophy: 6 months Planned Recall Interval: Examination: 6 months : Recall prophy: 6 months Patient has not decided on extraction vs endo on 31, has another endo consult on 02/06/20 and will see what that person says. Reminded of existing op tx plan, will need build up and crown on 15, may need endo on 15 in future, deep decay. Disc clenching, try otc occl guard, custom is best Next Planned Visit: op 2,14,15; crown 15 Jaime Chan DDS 01/30/2020, 3:11 PM --End of Note-- Kerry Hair RDH - 01/30/2020 2:20 PM CDT Pt was 25 min late for her caty't today. Exam only today. Cleaning rescheduled Patient given 1%-1.5% hydrogen peroxide, rinsed for 60 seconds prior to procedure. Kerry Hair 01/30/2020, 4:04 PM documented in this encounter Plan of Treatment Upcoming Encounters Date Type Specialty Care Team Description 05/12/2022 Appointment Audiology 05/12/2022 Appointment Otolaryngology Bro Arroyo PA-C [address] [address] (Wo rk) 06/03/2022 Appointment General Dentistry Rylee Amaro, [facility] [address] [place] [address] 06/03/2022 Appointment General Dentistry Pee Garcia, DDS [address] [place] [address] (Wo rk) 06/17/2022 Appointment General Dentistry Pee Garcia, DDS [address] [place] [address] (Wo rk) documented as of this encounter Procedures Procedure Name Priority Date/Time Associated Diagnosis Comme nts PERIODIC ORAL Routine 01/30/2020 2:20 PM Routine adult health EVALUATION CDT maintenance documented in this encounter Visit Diagnoses Diagnosis Routine adult health maintenance - Prima ry Routine general medical examination at a health care facility documented in this encounter Care Teams Seam Hammerer Relationship Specialty Start Date End Date No Primary/Referring, Phy PCP - General 07/15/17 documented as of this encounter
--- OUTSIDE RECORDS SUMMARY | 2022-05-06 23:56 | XMS_ITS | Encounter Summary ---
:1980 Author Organization [employer] Address [address] [place] [address] Care Team Providers Name Role Phone Needs Pcp, Assignment Primary Care Provider Reason for Visit Reason Comments Thyroid Problem Consult/Transfer Care (Routine) - Closed Specialty Diagnoses / Procedures Referred By Contact Refer red To Contact Diagnoses Low TSH level Jessica De Luna MD [address] [place], [place] [address] Referral ID Status Reason Start Date Expiration Date Visits Requ ested Visits Authorized [id number] Closed 12/07/2016 03/08/2018 1 1 Encounter Details Date Type Department Care Team Description 12/24/2016 Initial Consult [facility] [address] Bobo perthyroidism (Primary Dx); Endocrinology M, MBBS Vitamin D deficiency [address] 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 Last Filed Vital Signs Vital Sign Reading Time Taken Comments Blood Pressure 108/69 12/24/2016 9:52 AM CDT Pulse 81 12/24/2016 9:52 AM CDT Temperature - - Respiratory Rate - - Oxygen Saturation - - Inhaled Oxygen Concentration - - Weight 70.6 kg (155 lb 9.6 oz) 12/24/2016 9:52 AM CDT Height 156.2 cm (5' 1.5) 12/24/2016 9:52 AM CDT Body Mass Index 28.92 12/24/2016 9:52 AM CDT documented in this encounter Progress Notes Daniel Bobo MBBS - 12/24/2016 10:00 AM CDT [facility] Department of Endocrinology, Diabetes and Metabolism Clinic Note Name: Marc Vann Date: 12/24/2016 Cc: The patient was referred by Dr De Luna for hyperthyroidism evaluation. 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 #1 Hyperthyroidism: This was detected during routine annual exam, TSH was undetectable, free T4 was 1.2. She have been feeling tired, was having breast pain, but mammogram and US were normal today. She have LE swelling and exercise intolerance, she have vitamin D deficiency and not taking vitamin D. She have leg pain when pressing on it. The patient denies having heat intolerance, tremors, palpitations or diarrhea. No changes in weight. Periods are regular on control patch. She have 2 kids, 9 and 3 and not planning for a . No neck pain. No eye symptoms. No recent iodinated contrast exposure. Her sister have a thyroid problem but she is not sure what type. ROS: A 10 point ROS was done, and is negative unless specified otherwise in the HPI. Medications: Medication list was reviewed and updated on the EMR. PMHx: Past Medical History: Diagnosis Date ??? (spontaneous vaginal delivery) x2 FHx: family history includes Cancer (age of onset: 62) in her father; Depression in her brother; Diabetes in her mother and maternal grandmother; High Cholesterol in her mother; Thyroid Disorder in her sister. There is no history of Cancer, Breast or Cancer, Ovary. SHx: Social History Substance Use Topics ??? Smoking status: Never Smoker ??? Smokeless tobacco: Never Used ??? Alcohol use No Comment: Alcoholic Drinks/day: Freq:Never; Physical Examination: Vitals: BP 108/69 Pulse 81 Ht 5' 1.5 (1.562 m) Wt 155 lb 9.6 oz (70.6 kg) LMP 12/12/2016 BMI 28.92 kg/m2 General: The patient is alert and oriented, no acute distress. Eyes: EOMI, pupils are equal. ENT: Mucous membranes are moist. Neck: Supple, no palpable lymph nodes. Thyroid: No exophthalmos, no lid lag or retraction. Thyroid gland is not palpable. Chest: Clear to auscultation bilaterally. Normal S1 and S2, no murmurs. Neurologic exam: Power is symmetrical 5/5 in upper and lower extremities. Reflexes are normal and symmetrical bilaterally. Upper extremities: Hands are dry, no clubbing or cyanosis. Labs: Reviewed and summarized in the HPI. Assessment and Plan: Marc Vann is a 36 y.o. female: #1 Hyperthyroidism: Differential diagnosis include Graves disease, silent thyroiditis and uni/multinodular toxic goiter. Discussed with the patient the possible diagnoses, and explained to the patient that the treatment options will depend on the underlying etiology. I will repeat the TSH / Free T4 and check the free T3 and TSI. I will check LFTs and CBC for baseline measurement. If the diagnosis was not clear with that, I will plan to arrange for BALBUENA uptake and scan and plan tomeet her back to discuss treatment options. #2 Vitamin D deficiency: Start vitamin D3 2000 units daily. JAZZY Blair Rough Rice Grader documented in this encounter Plan of Treatment Upcoming Encounters Date Type Specialty Care Team Description 05/12/2022 Appointment Audiology 05/12/2022 Appointment Otolaryngology Bro Arroyo , JANET [address] [facility] [place] [address] (Wo rk) 06/03/2022 Appointment General Dentistry Rylee Amaro, [facility] [address] [place] [address] 06/03/2022 Appointment General Dentistry Pee Garcia, DDS [address] [place], [place] [phone] (Wo rk) 06/17/2022 Appointment General Dentistry Pee Garcia, DDS [address] [place], [place] [phone] (Wo rk) documented as of this encounter Results (ABNORMAL) CBC - Complete [...] - 12/24/2016 11:23 AM CDT Performed at [facility], [address] [place] [address] CLIA number [id number] Daniel [facility]_1 Performing Organization Address City/State/ZIP Code Phon e Number PN SOFT [address] [place] [address] Tsh Receptor Antibody (12/24/2016 10:26 AM CDT) athologist Signature TSH Receptor <0.90 <=1.75 IU/L PN SOFT Antibody Comment: INTERPRETIVE INFORMATION: Thyroid Stimul ating Hormone Receptor Ab Autoimmune thyroid disease may be confir med when TRAb testing is positive. Performed by [facility], [facility] [place] [address] [email or web address], Doug Altamirano MD - Lab . Director Specimen Anatomical Collection Method Collection Time Receive d Time (Source) Location / / Volume Laterality 12/24/2016 10:26 12/24/2016 2:23 AM CDT PM CDT Narrative PN SOFT - 12/25/2016 7:57 PM CDT Performed at [facility] [address] [place] [address] CLIA number [id number] Daniel [facility] Performing Organization Address [facility] Code Phon e Number PN SOFT [address] [place] [address] [phone] Hepatic Function Panel (12/24/2016 10:26 AM CDT) [facility] gist Method Time Signature Alk Phos 53 [...] - 12/24/2016 11:02 AM CDT Performed at [facility], [facility] [place] [address] CLIA number [id number] Daniel [facility] Performing Organization Address [facility] Phon e Number PN SOFT [address] [place] [address] T3 - Triiodothyronine, Free (FRT3) (12/24/2016 10:26 AM CDT) P athologist Signature Triiodothyronin 2.9 1.7 - 3.7 PN SOFT e, Free pg/mL Specimen Anatomical Collection Method Collection Time Receive d Time (Source) Location / / Volume Laterality 12/24/2016 10:26 12/24/2016 AM CDT 12:18 PM CDT Narrative PN SOFT - 12/24/2016 1:22 PM [place] [address] CLIA number [id number] Daniel Willis Jeramie [facility] LAB_1 Performing Organization Address [facility] Phon e Number PN SOFT [address] [place] [address] Free T4 (12/24/2016 10:26 AM CDT) athologist Signature Thyroxine, Free 0.9 0.7 - 1.5 PN SOFT ng/dL Specimen Anatomical Collection Method Collection Time Receive d Time (Source) Location / / Volume Laterality 12/24/2016 10:26 12/24/2016 AM CDT 12:18 PM CDT Narrative PN SOFT - 12/24/2016 1:22 PM CDT Performed at [address] [address] CLIA number [id number] Daniel Celisbety [facility] LAB_1 Performing Organization Address [facility] Phon e Number PN SOFT [address] [place] [address] (ABNORMAL) TSH (12/24/2016 10:26 AM CDT) Patholo gist Method Time Signature Thyroid 0.04 (L) 0.30 - PN SOFT Stimulating 4.50 Hormone uIU/mL Specimen Anatomical Collection Method Collection Time Receive d Time (Source) Location / / Volume Laterality 12/24/2016 10:26 12/24/2016 AM CDT 12:18 PM CDT Narrative PN SOFT - 12/24/2016 1:22 PM CDT Performed at [address] [address] CLIA number [id number] Daniel [facility] Performing Organization Address City/State/ZIP Code Phon e Number PN SOFT [address] [place] [address] documented in this encounter Visit Diagnoses Diagnosis Hyperthyroidism (HRC) - Primary Thyrotoxicosis without mention of goiter or other cause, without mention of thyrotoxic crisis or storm Vitamin D deficiency (HRC) Unspecified vitamin D deficiency Hyperthyroidism (HRC) Thyrotoxicosis without mention of goiter or other cause, without mention of thyrotoxic crisis or storm Vitamin D deficiency (HRC) Unspecified vitamin D deficiency documented in this encounter Care Teams Pediatric Psychologist Relationship Specialty Start Date End Date Needs Pcp, Assignment PCP - General 06/08/13 07/14/17 [place] [address] documented as of this encounter
--- OUTSIDE RECORDS SUMMARY | 2022-05-06 23:56 | XMS_ITS | Encounter Summary ---
:1980 Author Organization [employer] Address [address], [place] [address] Care Team Providers Name Role Phone No Primary/Referring, Phy Primary Care Provider Unavailable Reason for Visit Reason Comments Refill Encounter Details Date Type Department Care Team Description 08/19/2017 Refill [place] Helen Rubi M D Refill Obstetrics/Gynecolog y [address] [place] [address] [place], [place] [address] [phone] Social History Tobacco Use Types Packs/Day Years Used Date Smoking Tobacco: Never Smokeless Tobacco: Never Alcohol Use Standard Drinks/Week Comments No 0 (1 standard drink = 0.6 oz pure Alcoho lic Drinks/day: Freq:Never; alcohol) Sex Assigned at Date Recorded Female 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 However, to receive additional refills, patient will need to schedule an appointment. Provided phone number [phone] [email or web address]. ODUCTION ORDER PROCESSOR Glo Kilgore RN - 08/19/2017 8:01 AM CST Refilled ocp for 3 months per protocol. Last rx and well exam on 08/28/16. Pt due for well exam after 08/28/17. Forwarding to frontline to assist in scheduling. ODUCTION ORDER PROCESSOR documented in this encounter Plan of Treatment Upcoming Encounters Date Type Specialty Care Team Description 05/12/2022 Appointment Audiology 05/12/2022 Appointment Otolaryngology Bro Arroyo , PAMorisC [address] [facility] [place] [address] (Wo rk) 06/03/2022 Appointment General Dentistry Rylee Amaro, RD [address] [place] [address] 06/03/2022 Appointment General Dentistry Pee Garcia DDS [address] [place], [place] [phone] (Wo rk) 06/17/2022 Appointment General Dentistry Pee Garcia DDS [address] [place], [place] [phone] (Wo rk) documented as of this encounter Visit Diagnoses Diagnosis Visit for control pills maintenanc e Surveillance of previously prescribed co ntraceptive pill documented in this encounter Care Teams District Manager Postal Service Relationship Specialty Start Date End Date No Primary/Referring, Phy PCP - General 07/15/17 documented as of this encounter
--- OUTSIDE RECORDS SUMMARY | 2022-05-06 23:56 | XMS_ITS | Encounter Summary ---
:1980 Author Organization [facility] Address [address] [address] Care Team Providers Name Role Phone No Primary/Referring, Phy Primary Care Provider Unavailable Reason for Referral Dental (Routine) - Closed Specialty Diagnoses / Procedures Referred By Contact Refer red To Contact Diagnoses Symptomatic irreversible pulpitis Cracked tooth syndrome Jaime Chan DDS [address] [place], [place] [address] Referral ID Status Reason Start Date Expiration Date Visits Requ ested Visits Authorized [id number] Closed 01/09/2020 04/09/2021 1 1 Scheduling Instructions Your provider has recommended an appoint ment for endodontic services within [facility]. You may c all one of the clinics below to schedule an appointment. [place] [phone] [place] [phone] [place] [phone] [place] [phone] Reason for Visit Reason Comments Problem Focused Exam TA LR Encounter Details Date Type Department Care Team Description 01/09/2020 Office Visit [facility] Ignacio Chan DDS [address] [place] [address] Problem Focused Exam Dentistry Rocio, Exam (TA LR) [address] [place] [address] Social History Tobacco Use Types Packs/Day Years Used Date Smoking Tobacco: Never Smokeless Tobacco: Never Alcohol Use Standard Drinks/Week Comments No 0 (1 standard drink = 0.6 oz pure Alcoho lic Drinks/day: Freq:Never; alcohol) Sex Assigned at Date Recorded Female 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 female who presents for Problem Focused Exam (GURMEET LR) Patient given 1%-1.5% hydrogen peroxide, rinsed for 60 seconds prior to procedure. CHIEF COMPLAINT: not sure I want tooth pulled. I spoke to my sister in law in [place] who is a dentist, and she said if possible, best to save tooth. I feel better today after starting the medication, so I am thinking better now. Yesterday I just wanted it pulled to get out of pain. Objective/Assessment Chart Review The following information was reviewed with the patient: Medical history, Dental history, Problem list, Periodontal charting and Radiographs Rechecked perio probings, no pockets greater than 4 but very sens to probe DB aspect. She thinks that is from her hyperalgesia. 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 Reviewed endo procedure, will need crown in future. I'm not comfortable doing this endo tx, so will refer to specialist CONSENT: All questions answered and the patient gave informed consent to proceed with dental treatment/services. Completed Procedures Re-exam 31, endo referral 31 Care was assisted by araceli brown Next Planned Visit: endo 31, future crown Jaime Chan DDS 01/09/2020, 1:09 PM --End of Note-- 12:29 PM documented in this encounter Plan of Treatment Upcoming Encounters Date Type Specialty Care Team Description 05/12/2022 Appointment Audiology 05/12/2022 Appointment Otolaryngology Bro Arroyo , HAILEYC [address] [place] [address] (Wo rk) 06/03/2022 Appointment General Dentistry Rylee Amaro, [facility] [address] [place] [address] 06/03/2022 Appointment General Dentistry Pee Garcia, DDS [address] [place] [address] (Wo rk) 06/17/2022 Appointment General Dentistry Pee Garcia, DDS [address] [place] [address] (Wo rk) Scheduled Referrals Name Type Priority Associated Diagnoses Order S chedule Endodontics Consult Referral Routine Symptomatic irreversi ble Ordered: 01/09/2020 pulpitis Cracked tooth syndrome documented as of this encounter Visit Diagnoses Diagnosis Symptomatic irreversible pulpitis - Prim zander Cracked tooth syndrome documented in this encounter Care Teams Trades Helper Relationship Specialty Start Date End Date No Primary/Referring, Noemy PCP - General 07/15/17 documented as of this encounter
--- OUTSIDE RECORDS SUMMARY | 2022-05-06 23:56 | XMS_ITS | Encounter Summary ---
:1980 Author Organization [employer] Address [address], [place] [address] Care Team Providers Name Role Phone No Primary/Referring, Phy Primary Care Provider Unavailable Reason for Visit Reason Comments Refill Encounter Details Date Type Department Care Team Description 05/19/2019 Refill [place] Helen Rubi M D Refill Obstetrics/Gynecolog y [address] [place] [address] [place], [place] [address] [phone] Social History Tobacco Use Types Packs/Day Years Used Date Smoking Tobacco: Never Smokeless Tobacco: Never Alcohol Use Standard Drinks/Week Comments No 0 (1 standard drink = 0.6 oz pure Alcoho lic Drinks/day: Freq:Never; alcohol) Sex Assigned at Date Recorded Female 05/12/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 Requested Prescriptions Signed Prescriptions Disp Refills ??? Norelgestromin-Eth Estradiol (XULANE) 150-35 MCG/24HR patch 9 Patch 0 Sig: APPLY 1 PATCH TO SKIN EACH WEEK FOR 3 WEEKS, THEN 1 WEEK PATCH FREE REPEAT CYCLE. Authorizing Provider: HELEN RUBI Ordering User: GLO KILGORE Refilled for 3 months per protocol. Last well exam with Dr Rubi on 05/02/18. Pt due for appointment. Forwarding to frontline to assist in scheduling appointment. LIER QUALITY ENGINEERING MANAGER documented in this encounter Plan of Treatment Upcoming Encounters Date Type Specialty Care Team Description 05/12/2022 Appointment Audiology 05/12/2022 Appointment Otolaryngology Bro Arroyo , PAMorisC [address] [facility] [place] [address] (Wo rk) 06/03/2022 Appointment General Dentistry Rylee Amaro, RD [address] [place] [address] 06/03/2022 Appointment General Dentistry Pee Garcia DDS [address] [place] [address] (Shereen rk) 06/17/2022 Appointment General Dentistry Pee Garcia DDS [address] [place], [place] [phone] (Shereen rk) documented as of this encounter Visit Diagnoses Diagnosis Visit for control pills maintenanc e Surveillance of previously prescribed co ntraceptive pill documented in this encounter Care Teams Social Work Administrator Relationship Specialty Start Date End Date No Primary/Referring, Noemy PCP - General 07/15/17 documented as of this encounter
--- OUTSIDE RECORDS SUMMARY | 2022-05-06 23:56 | XMS_ITS | Encounter Summary ---
:1980 Author Organization [employer] Address [address], [place] [address] Care Team Providers Name Role Phone No Primary/Referring, Phy Primary Care Provider Unavailable Reason for Visit Reason Comments Dental Hygiene cc's, gen cold sens Encounter Details Date Type Department Care Team Description 06/05/2019 Office Visit [facility] Kerry Hair De ntal Hygiene (cc's, Dentistry [facility] gen cold sens) [id number] [place] [phone] Social History Tobacco Use Types Packs/Day Years Used Date Smoking Tobacco: Never Smokeless Tobacco: Never Alcohol Use Standard Drinks/Week Comments No 0 (1 standard drink = 0.6 oz pure Alcoho lic Drinks/day: Freq:Never; alcohol) Sex Assigned at Date Recorded Female 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 documented as of this encounter Last Filed Vital Signs Vital Sign Reading Time Taken Comments Blood Pressure - - Pulse 70 06/05/2019 3:04 PM SERGING MACHINE OPERATOR AUTOMATIC Temperature - - Respiratory Rate - - Oxygen Saturation - - Inhaled Oxygen Concentration - - Weight - - Height - - Body Mass Index - - documented in this encounter Patient Instructions Patient InstructionsKerry Hair, [facility] - 06/05/2019 3:00 PM CST Your next hygiene recall is due: 12/02/2019 YOUR PERSONAL DENTAL RISK REPORT Caries (Tooth Decay) Risk Periodontal (Gum) Disease Risk Oral Cancer Risk low mod HIGH low MOD high LOW elevated ^ ^ ^ Risk Level: HIGH Risk Factors: Caries (tooth decay) in 3 or more teeth in the last three years. How to Reduce Your Risk: Rinse with fluoride rinse once to twice daily at times other than when brushing. Radiographs to detect decay. Risk Level: MODERATE Risk Factors: Have had a diagnosis of gum disease either with or without past treatment. How to Reduce Your Risk: Return visit with the dental hygienist at 6 month intervals to assess periodontal condition and provide necessary treatment. Risk Level: LOW How to Maintain your Low Risk: Congratulations on your low risk for oral cancer. Making healthy life style choices such as not using tobacco and low to moderate alcohol use should help you maintain this low risk. Marc, we look forward to seeing you at your next visit! Thank you for choosing [facility]. ING MACHINE OPERATOR AUTOMATIC documented in this encounter Progress Notes Ira Garcia DDS - 06/05/2019 3:00 PM CST RECALL [EXAM] NOTE REASON FOR VISIT/CHIEF COMPLAINT: Marc is a 38 y.o. female who presents for Dental Hygiene (cc's,gen cold sens) CHART REVIEW: Reviewed with patient: Medical history, Dental history, Problem list, Periodontal charting and Radiographs SOFT TISSUE, HEAD AND NECK EXAMINATION: Lips: Normal Tongue: Normal Palate: Normal Throat: Normal Floor of the mouth: Normal Mucosa: Normal Head and neck: Normal TMD EVALUATION: Palpation Pain: None Joint Sounds: None Pain with Range of Motion: None OCCLUSAL EXAMINATION: Unchanged COSMETIC CONCERNS: Patient's Perception: Acceptable Dentist's Perception: Acceptable TREATMENT REVIEW AND FOLLOW-UP: Discussed the Dental findings, Prognosis and Treatment options with the patient. All questions answered and informed consent was obtained. Recommend ext of 1 and 16 due to position and caries. Advised of new caries. Recommend full coverage#15. 16 needs to be extracted first. Recommended Recall Interval: Examination in 6 months : Recall prophy in 6 months. Planned Recall Interval: Examination in 6 months : Recall prophy in 6 months. Next Planned Visit:op as tx planned Ira Garcia DDS 06/05/2019, 3:39 PM --End of Note-- ING MACHINE OPERATOR AUTOMATIC Kerry Hair RDH - 06/05/2019 3:00 PM CST [HYGIENE PROPHY] NOTE COLLABORATIVE AGREEMENT: The patient consents to have charting, radiographs and prophylaxis by the dental hygienist performed with the understanding that this care is not a substitute for an examination by a dentist. PRESENTATION: Oral Hygiene: Fair Plaque: Generalized, moderate interproximal Calculus: Localized, moderate mandibular anterior Stain: None Bleeding: Generalized moderate Gingival tissue: Inflamed Mucogingival concerns: Absent ACTIVITIES: Hand scale, Essential selective polishing and Flossed all contacts PATIENT EDUCATION: Caries risk, Periodontal risk, Oral cancer risk, Fluoride rinse and Desensitizingproducts Pt and her son both had caty't at the same time today. Her son was not seen as he was diagnosid with strep throat just before his caty't . Pt (mom) was still seen as pt's sick son sat in my op room with a mask on. NEXT PLANNED HYGIENE VISIT: Hygiene Prophy with exam Kerry Hair 06/05/2019, 3:58 PM --End of Note-- ING MACHINE OPERATOR AUTOMATIC documented in this encounter Plan of Treatment Upcoming Encounters Date Type Specialty Care Team Description 05/12/2022 Appointment Audiology 05/12/2022 Appointment Otolaryngology Bro Arroyo PA-C [address] [facility] [id number] (Shereen espino) 06/03/2022 Appointment General Dentistry Rylee Amaro RD [address] [place] [address] 06/03/2022 Appointment General Dentistry Pee Garcia DDS [address] [facility] [phone] (Shereen rk) 06/17/2022 Appointment General Dentistry Pee Garcia DDS [address] [facility] [place] [phone] (Wo rk) Scheduled Orders Name Type Priority Associated Order Schedule Diagnoses 14 DO 14 DO Dental Procedures Routine 1 Occurren kiah RESIN-BASED starting 2019 COMPOSITE-2 SURF-POSTERIOR 15 15 PORCELAIN Dental Procedures Routine 1 Occur rences CROWN starting 2019 15 15 CROWN SEAT Dental Procedures Routine 1 Occu rrences starting 2019 documented as of this encounter Procedures Procedure Name Priority Date/Time Associated Diagnosis Comme nts MYUC-OZHOIGNE-UQKB Routine 06/05/2019 3:00 PM SERGING MACHINE OPERATOR AUTOMATIC Localized gi ngivitis PERIODIC ORAL EVALUATION Routine 06/05/2019 3:00 PM SERGING MACHINE OPERATOR AUTOMATIC Locali zed gingivitis PROPHYLAXIS-ADULT RECALL Routine 06/05/2019 3:00 PM SERGING MACHINE OPERATOR AUTOMATIC Locali zed gingivitis 3 EXISTING PORCELAIN Routine 06/05/2019 12:00 AM CROWN SERGING MACHINE OPERATOR AUTOMATIC documented in this encounter Visit Diagnoses Diagnosis Localized gingivitis - Primary documented in this encounter Care Teams Client Relationship Consultant Relationship Specialty Start Date End Date No Primary/Referring, Phy PCP - General 07/15/17 documented as of this encounter
[2022-05-06 23:57] LABS: Blood Urea Nitrogen* 13 mg/dL (5-24); Calcium* 9.3 mg/dL (8.4-10.6); Glucose* 113 mg/dL (60-115)
--- OUTSIDE RECORDS SUMMARY | 2022-05-06 23:57 | XMS_ITS | Encounter Summary ---
:1980 Author Organization [employer] Address [address], [place] [address] Care Team Providers Name Role Phone Needs Pcp, Assignment Primary Care Provider Reason for Visit Reason Comments Routine Visit Encounter Details Date Type Department Care Team Description 01/01/2014 Routine [facility] Garima Santana Rout ine Midwifery CODE OFFICIAL, CNM Visit 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 Has questions/concerns so added on for an OB check. Is feeling frustrated that her induction last week was cancelled, even though her request was justto speak with a CNM vs have induction cancelled. Feeling like she is having difficulty being heard and there have been issues with miscommunication. Wishing she was already delivered and feeling nervous about being post-dates. Having some bleeding which sounds consistent with cervical change. Irregular contractions. Reviewed options for induction and discussed that method of induction will be decidedupon by CNM school occupational therapist based on cervical exam. O: See flowsheet SVE deferred NST: 130 bmp, moderate variability, + accels, no decels CTX: none A: @ 42w 0d Post dates multip Reactive NST P: IOL tomorrow Questions answered Knows to call with labor Apologized on behalf of CNM group for miscommunication documented in this encounter Plan of Treatment Upcoming Encounters Date Type Specialty Care Team Description 05/12/2022 Appointment Audiology 05/12/2022 Appointment Otolaryngology Bro Arroyo , JANET [address] [facility] [place] [address] (Shereen espino) 06/03/2022 Appointment General Dentistry Rylee Amaro, [facility] [address] [place] [address] 06/03/2022 Appointment General Dentistry Pee Garcia DDS [address] [place] [address] (Shereen espino) 06/17/2022 Appointment General Dentistry Pee Garcia DDS [address] [place], [place] [phone] (Shereen espino) documented as of this encounter Visit Diagnoses Diagnosis Post-dates - Primary Post term , unspecified episode of care documented in this encounter Care Teams Insurance Solicitor Relationship Specialty Start Date End Date Needs Pcp, Assignment PCP - General 06/08/13 07/14/17 [place] [address] documented as of this encounter
--- OUTSIDE RECORDS SUMMARY | 2022-05-06 23:57 | XMS_ITS | Encounter Summary ---
:1980 Author Organization [employer] Address [address] [address] Care Team Providers Name Role Phone Needs Pcp, Assignment Primary Care Provider Reason for Visit Reason Comments Routine Visit Encounter Details Date Type Department Care Team Description 12/13/2013 Routine [facility] Alondra Mondragon Rou tine Midwifery SAGE CASTANEDA Visit 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 Week 39 of Your : After Your Visit Your Care Instructions During these final weeks, you may feel anxious to see your new baby. [place] babies often look different from what you see in pictures or movies. Right after , their heads may have a strange shape. Their eyes may be puffy. And their genitals may be swollen. They may also have very dry skin, or red mustafa on the eyelids, nose, or neck. Still, most parents think their babies are beautiful. Follow-up care is a medellin part of your treatment and safety. Be sure to make and go to all appointments, and call your doctor if you are having problems. It's also a good idea to know your test results and keep a list of the medicines you take. How can you care for yourself at home? Prepare to breast-feed ?? If you are breast-feeding, continue to eat healthy foods. ?? Avoid alcohol, cigarettes, and drugs. This includes prescription and nfcx-rbq-[id number] medicines. ?? You can help prevent sore nipples if you feed your baby in the correct position. Nurses will helpyou learn to do this. ?? Your will need to be fed about every 1?? to 3 hours. Choose the right control after your baby is born ?? Women who are breast-feeding can still get . Use control if you don't want to get . ?? Intrauterine devices (IUDs) work for women who have only one sex partner and who want to wait at least 2 years before getting again. They are safe to use while you are breast-feeding. ?? Depo-Provera can be used while you are breast-feeding. It is a shot you get every 3 months. ?? control pills work well. But you need a different kind of pill while you are breast-feeding. And when you start taking these pills, you need to make sure to use another type of control until you start your second pack. ?? Diaphragms, cervical caps, tubal implants, and condoms with spermicide work less well after . If you have a diaphragm or cervical cap, you will need to have it refitted. ?? Tubal ligation (tying your tubes) and vasectomy are both permanent. These are good options if youare sure you are done having children. Where can you learn more? Go to www.[employer]net/patiented. Enter A811 in the search box to learn more about Week 39 of Your : After Your Visit. Last Revised: November 03, 2012 ?? [id number] [place], [place]. Care instructions adapted under license by your healthcare professional. If you have questions about a medical condition or this instruction, always ask your healthcare professional. [employer] disclaims any warranty or liability for your use of this information. documented in this encounter Progress Notes Alondra Mondragon APRN, CNM - 12/13/2013 4:01 PM CDT S: 32 y.o. is being seen today for her routine visit. Ready at home few contractions, baby active Hard time sleeping O:see flowsheet A: at 39+2 weeks P: RX breast pump discussed fluid DANAE and coping with post dates Discussed post dates surveillance and IOL assisted with FMLA paperwork -Follow up: 1 weeks, prn documented in this encounter Plan of Treatment Upcoming Encounters Date Type Specialty Care Team Description 05/12/2022 Appointment Audiology 05/12/2022 Appointment Otolaryngology Bro Arroyo , PA-C [address] [facility] [place] [address] (Wo rk) 06/03/2022 Appointment General Dentistry Rylee Amaro, JOSEY [address] [place] [address] 06/03/2022 Appointment General Dentistry Pee Garcia DDS [address] [place], [place] [phone] (Wo rk) 06/17/2022 Appointment General Dentistry Pee Garcia DDS [address] [place] [address] (Wo rk) documented as of this encounter Visit Diagnoses Diagnosis Supervision of other normal - Primary documented in this encounter Care Teams Theatre Program Director Relationship Specialty Start Date End Date Needs Pcp, Assignment PCP - General 06/08/13 07/14/17 [place] [address] documented as of this encounter
--- OUTSIDE RECORDS SUMMARY | 2022-05-06 23:57 | XMS_ITS | Encounter Summary ---
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 Induction cancelled and was rescheduled for January 02. However, January 02 puts her over 42 weeks and she is concerned and would like to talk with someone today; does not want to wait until Wednesday. Explained that Nurse Line would give her contact information to the wire winding machine operator who would page the assistant corporation counsel mobile paramedical examiner to call her. Asked that she call back if she had not spoken with anyonein the next half hour; caller agreed. Contact information given to the wire winding machine operator. documented in this encounter Plan of Treatment Upcoming Encounters Date Type Specialty Care Team Description 05/12/2022 Appointment Audiology 05/12/2022 Appointment Otolaryngology Bro Arroyo , PAMorisC [address] [facility] [address] (Wo rk) 06/03/2022 Appointment General Dentistry Rylee Amaro, [facility] [address] [place] [address] 06/03/2022 Appointment General Dentistry Pee Garcia, DDS [address] [place], [place] [phone] (Wo rk) 06/17/2022 Appointment General Dentistry Pee Garcia DDS [address] [place], [place] [phone] (Wo rk) documented as of this encounter Visit Diagnoses Not on filedocumented in this encounter Care Teams Analyst Relationship Specialty Start Date End Date Needs Pcp, Assignment PCP - General 06/08/13 07/14/17 [place] [address] documented as of this encounter
--- OUTSIDE RECORDS SUMMARY | 2022-05-06 23:57 | XMS_ITS | Encounter Summary ---
:1980 Author Organization [facility] Address [address], [place] [address] Care Team Providers Name Role Phone Needs Pcp, Assignment Primary Care Provider Reason for Visit Reason Comments Routine Visit Encounter Details Date Type Department Care Team Description 12/20/2013 [facility]ine [facility] Alondra Mondragon Rou tine Midwifery SAGE CASTANEDA Visit 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 Week 40 of Your : After Your Visit Your Care Instructions By week 40, you have reached your due date. Your baby could be coming any day. But it's a good idea to think ahead to the next few weeks and what might happen. If this is your first time having a baby, try not to worry. If you don't start labor on your own by 41 or 42 weeks, your doctor may recommend giving you medicines to start labor. This care sheet gives you information about how labor can be started. It also gives you some ideas about breathing exercises you can do if you start to feel anxious or if you are trying to relax. Follow-up care is a medellin part of your treatment and safety. Be sure to make and go to all appointments, and call your doctor if you are having problems. It's also a good idea to know your test results and keep a list of the medicines you take. How can you care for yourself at home? Learn how labor can be started ?? If you and your baby are both healthy and ready, and if your cervix has started to open, your doctor may break your water (rupture the amniotic sac). This often starts labor. ?? If your cervix is not quite ready, you may get a medicine called Pitocin through an IV to start contractions. ?? If your cervix is still very firm, you may have prostaglandin tablets (misoprostol) placed in your vagina to soften the cervix. Try guided imagery to help you relax ?? Find a comfortable place to sit or lie down. Close your eyes. ?? Start by just taking a few deep breaths to help you relax. ?? Picture a setting that is calm and peaceful. This could be a beach, a mountain setting, a meadow,or a scene that you choose. ?? Imagine your scene, and try to add some detail. For example, is there a breeze? What does the skylook like? Is it clear, or are there clouds? ?? It often helps to add a path to your scene. For example, as you enter the meadow, imagine a path leading you through the meadow to the trees on the other side. As you follow the path farther into the meadow you feel more and more relaxed. ?? When you are deep into your scene and are feeling relaxed, take a few minutes to breathe slowly and feel the calm. ?? When you are ready, slowly take yourself out of the scene back to the present. Tell yourself thatyou will feel relaxed and refreshed and will bring that sense of calm with you. ?? Count to 3, and open your eyes. Where can you learn more? Go to www.[employer].net/patiented. Enter T922 in the search box to learn more about Week 40 of Your : After Your Visit. Last Revised: January 07, 2012 ?? [id number] [employer]. Care instructions adapted under license by your healthcare professional. If you have questions about a medical condition or this instruction, always ask your healthcare professional. [employer] disclaims any warranty or liability for your use of this information. Week 41 of Your : After Your Visit Your Care Instructions By now, you're probably tired of people asking you when the baby is going to be born. Your baby could come any day--even today! Your doctor wants to make sure that you have a safe and so may recommend giving you medicines to start labor or scheduling a delivery. Most women who give after their due dates have healthy newborns. But you may have tests to make sure everything is okay. This care sheet will help you prepare for giving after 41 weeks. Follow-up care is a medellin part of your treatment and safety. Be sure to make and go to all appointments, and call your doctor if you are having problems. It's also a good idea to know your test results and keep a list of the medicines you take. How can you care for yourself at home? At about 41 weeks ?? Your doctor will measure the amount of fluid surrounding the baby and test your baby's movement and heart rate. ?? If your baby seems strong and well, your doctor might give you medicine to start labor. ?? If there are other concerns, your doctor may tell you that a delivery would be best for you and your baby. After 42 weeks ?? Your baby may be harder to deliver. ?? The placenta may no longer be able to meet your baby's needs. ?? The baby might have a bowel movement into the amniotic fluid, which could go into the baby's lungs. Ease or reduce swelling in your feet, ankles, hands, and fingers ?? If your fingers are puffy, take off your rings. ?? Do not eat high-salt foods, such as potato chips. ?? Prop up your feet on a stool or couch as much as possible. Sleep with pillows under your feet. ?? Do not stand for long periods of time or wear tight shoes. ?? Wear support stockings. Where can you learn more? Go to www.[employer].net/patiented. Enter Q609 in the search box to learn more about Week 41 of Your : After Your Visit. Last Revised: January 07, 2012 ?? [id number] [employer]. Care instructions adapted under license by your healthcare professional. If you have questions about a medical condition or this instruction, always ask your healthcare professional. [employer] disclaims any warranty or liability for your use of this information. documented in this encounter Progress Notes Alondra Mondragon APRN, CNM - 12/21/2013 12:32 AM CDT S: 33 y.o. is being seen today for her routine visit. Baby very active. Few contractions. Very ready for labor O:see flowsheet A: at 40+2 weeks P: reviewed warning S/S as well and labor S/S Discussed post dates surveillance -ordered discussed IOL after 41 weeks- she would prefer not to be induced -Follow up: 1 weeks, prn documented in this encounter Plan of Treatment Upcoming Encounters Date Type Specialty Care Team Description 05/12/2022 Appointment Audiology 05/12/2022 Appointment Otolaryngology Bro Arroyo PA-C [address] [phone] (Wo rk) 06/03/2022 Appointment General Dentistry Rylee Amaro, [facility] [address] [place] [address] 06/03/2022 Appointment General Dentistry Pee Garcia, DDS [address] [place], [place] [phone] (Wo rk) 06/17/2022 Appointment General Dentistry Pee Garcia, DDS [address] [place], [place] [phone] (Wo rk) documented as of this encounter Visit Diagnoses Diagnosis Supervision of other normal - Primary Post-dates Post term , unspecified episode of care documented in this encounter Care Teams Soap Tender Relationship Specialty Start Date End Date Needs Pcp, Assignment PCP - General 06/08/13 07/14/17 [place] [address] documented as of this encounter
--- OUTSIDE RECORDS SUMMARY | 2022-05-06 23:57 | XMS_ITS | Encounter Summary ---
:1980 Author Organization [facility] [employer] Address [address], [place] [address] Care Team Providers Name Role Phone Needs Pcp, Assignment Primary Care Provider Reason for Visit Reason Comments Appt. Scheduled Encounter Details Date Type Department Care Team Description 12/26/2013 Telephone [facility] Jessica Ge APRN, Appt. Scheduled [address] 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 She states shehas more questions before she wants IOL. She would like to try sweeping the membranes again and seeing what happens before resched the IOL. CNM consulted, CNM appt sched, L&D called, and IOL cancelled. documented in this encounter Plan of Treatment Upcoming Encounters Date Type Specialty Care Team Description 05/12/2022 Appointment Audiology 05/12/2022 Appointment Otolaryngology Bro Arroyo , JANET [address] [place] [phone] (Wo rk) 06/03/2022 Appointment General Dentistry Rylee Amaro, [facility] [address] [place] [address] 06/03/2022 Appointment General Dentistry Pee Garcia, DDS [address] [place] [address] (Wo rk) 06/17/2022 Appointment General Dentistry Pee Garcia, DDS [address] [place], [place] [phone] (Wo rk) documented as of this encounter Visit Diagnoses Not on filedocumented in this encounter Care Teams Duplicator Punch Set Up Operator Relationship Specialty Start Date End Date Needs Pcp, Assignment PCP - General 06/08/13 07/14/17 [place] [address] documented as of this encounter
--- OUTSIDE RECORDS SUMMARY | 2022-05-06 23:57 | XMS_ITS | Encounter Summary ---
:1980 Author Organization [facility] Address [address], [place] [address] Care Team Providers Name Role Phone Needs Pcp, Assignment Primary Care Provider Reason for Visit Reason Comments Routine Visit Encounter Details Date Type Department Care Team Description 12/25/2013 Routine [facility] Jessica Concepcion Routin e Midwifery SAGE CASTANEDA Visit [address] [place] [address] [place] [address]. 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 as of this encounter Last Filed Vital Signs Vital Sign Reading Time Taken Comments Blood Pressure 95/51 12/26/2013 9:08 AM CDT Pulse - - Temperature - - Respiratory Rate - - Oxygen Saturation - - Inhaled Oxygen Concentration - - Weight 78.6 kg (173 lb 4 oz) 12/26/2013 9:08 AM CDT Height - - Body Mass Index 32.21 11/29/2013 3:19 PM CDT documented in this encounter Progress Notes Jessica Concepcion APRN, CNM - 12/28/2013 7:59 AM CDT Quick Note: GBS neg AL Jessica Concepcion APRN, CNM - 12/26/2013 9:14 AM CDT Post date testing including NST - 04/06 Tried to sweep membranes - head too high and cervix too posterior Head not engaged, encourage squats, lunges, birthing ball at home. Ultimately would like to RTC Wednesday to schedule IOL but with holiday we have very poor access. Weschedule IOL for morning. I did offer Wednesday or Wednesday. Repeated GBS today. documented in this encounter Miscellaneous Notes Miscellaneous - 10/15/2016 6:32 PM CDTNotes Recorded by Jessica Concepcion CNM on 12/28/2013 at 7:59 AMGBS neg AL documented in this encounter Plan of Treatment Upcoming Encounters Date Type Specialty Care Team Description 05/12/2022 Appointment Audiology 05/12/2022 Appointment Otolaryngology Bro Arroyo , PA-C [address] [facility] [place] [address] (Wo rk) 06/03/2022 Appointment General Dentistry Rylee Amaro, [facility] [address] [place] [address] 06/03/2022 Appointment General Dentistry Pee Garcia DDS [address] [place], [place] [phone] (Wo rk) 06/17/2022 Appointment General Dentistry Pee Garcia DDS [address] [place], [place] [phone] (Wo rk) documented as of this encounter Procedures Procedure Name Priority Date/Time Associated Diagnosis Comme nts GROUP B STREP Routine 12/25/2013 3:49 PM screening R esults for this SCREEN (OB PTS) CDT for streptococcus B proce dure are in the results section. documented in this encounter Results Group B Strep Screen (OB Pts) (12/25/2013 3:49 PM CDT) [facility] gist Method Time Signature Source Vag/Rec HP CONVERSION Site HP CONVERSION Culture Strep No beta HP CONVERSION Screen Other hemolytic Source Streptococcus , Group A or B Specimen (Source) Anatomical Collection Method Collection Time Re ceived Time Location / / Volume Laterality Vag/Rec: 12/25/2013 3:49 PM CDT Transcriptions 10/15/2016 6:32 PM CDTNotes Recorded by Jessica Concepcion CNM on 12/28/2013 at 7:59 AMGBS neg AL Jessica Concepcion APRN, CNM LAB_1 Performing Organization Address City/State/ZIP Code Phon e Number HP CONVERSION documented in this encounter Visit Diagnoses Diagnosis screening for streptococcus B - Primary screening for Streptococcus B Post-dates Post term , unspecified episode of care Supervision of other normal documented in this encounter Care Teams Extender Relationship Specialty Start Date End Date Needs Pcp, Assignment PCP - General 06/08/13 07/14/17 [place] [address] documented as of this encounter
--- OUTSIDE RECORDS SUMMARY | 2022-05-06 23:57 | XMS_ITS | Encounter Summary ---
:1980 Author Organization [facility] Address [address] [place] [address] Care Team Providers Name Role Phone Needs Pcp, Assignment Primary Care Provider Reason for Visit Reason Onset Date Comments BREAST ENGORGMENT 11/30/2016 Encounter Details Date Type Department Care Team Description 11/30/2016 Nurse Triage [place] Helen Rubi M D BREAST ENGORGMENT Obstetrics/Gynecolog y [address] [facility] [address] [facility] [place], [place] [address] [place], [place] [phone] (Wo rk) Social History Tobacco Use Types Packs/Day Years Used Date Smoking Tobacco: Never Smokeless Tobacco: Never Alcohol Use Standard Drinks/Week Comments No 0 (1 standard drink = 0.6 oz pure Alcoho lic Drinks/day: Freq:Never; alcohol) Sex Assigned at Date Recorded 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 This week it hasgotten significantly larger and heavier and pt sometimes feels a burning sensation. Denies fever, area of redness or drainage. Appt scheduled. No further questions. documented in this encounter Plan of Treatment Upcoming Encounters Date Type Specialty Care Team Description 05/12/2022 Appointment Audiology 05/12/2022 Appointment Otolaryngology Bro Arroyo , PAMorisC [address] [facility] [address] (Wo rk) 06/03/2022 Appointment General Dentistry Rylee Amaro, [facility] [address] [place] [address] 06/03/2022 Appointment General Dentistry Pee Garcia, DDS [address] [place], [place] [phone] (Wo rk) 06/17/2022 Appointment General Dentistry Pee Garcia DDS [address] [place], [place] [phone] (Wo rk) documented as of this encounter Visit Diagnoses Not on filedocumented in this encounter Care Teams Plant Operator Helper Relationship Specialty Start Date End Date Needs Pcp, Assignment PCP - General 06/08/13 07/14/17 [place] [address] documented as of this encounter
--- OUTSIDE RECORDS SUMMARY | 2022-05-06 23:57 | XMS_ITS | Encounter Summary ---
:1980 Author Organization [facility] Address [address], [place] [address] Care Team Providers Name Role Phone Needs Pcp, Assignment Primary Care Provider Reason for Visit Reason Comments Refill Encounter Details Date Type Department Care Team Description 06/17/2016 Refill [place] Eleni Rubi M D Refill Obstetrics/Gynecolog y [address] [place], [place] [id number] [place] [address] [phone] Social History Tobacco Use Types Packs/Day Years Used Date Smoking Tobacco: Never Smokeless Tobacco: Never Alcohol Use Standard Drinks/Week Comments No 0 (1 standard drink = 0.6 oz pure Alcoho lic Drinks/day: Freq:Never; alcohol) Sex Assigned at Date Recorded 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 Requested Prescriptions Signed Prescriptions Disp Refills ??? XULANE 150-35 MCG/24HR patch 9 Patch 0 Sig: PLACE 1 PATCH ONTO THE SKIN ONCE A WEEK. FOR 3 WEEKS, FOLLOWED BY 1 WEEK THAT IS PATCH-FREE REPEAT. Authorizing Provider: ELENI RUBI Ordering User: MAGALIE LEUNG Last annual 07/26/15, will need an appointment for further refills. RUMENT TECHNOLOGIST documented in this encounter Plan of Treatment Upcoming Encounters Date Type Specialty Care Team Description 05/12/2022 Appointment Audiology 05/12/2022 Appointment Otolaryngology Bro Arroyo , PA-C [address] [address] (Wo rk) 06/03/2022 Appointment General Dentistry Rylee Amaro, [facility] [address] [place] [address] 06/03/2022 Appointment General Dentistry Pee Garcia DDS [address] [place], [place] [phone] (Wo rk) 06/17/2022 Appointment General Dentistry Pee Garcia DDS [address] [place], [place] [phone] (Wo rk) documented as of this encounter Visit Diagnoses Not on filedocumented in this encounter Care Teams Bander And Cellophaner Machine Helper Relationship Specialty Start Date End Date Needs Pcp, Assignment PCP - General 06/08/13 07/14/17 [place] [address] documented as of this encounter
--- OUTSIDE RECORDS SUMMARY | 2022-05-06 23:57 | XMS_ITS | Encounter Summary ---
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 Subjective: Busy with 2 kids now. No concerns. No further bleeding. Normal bowel/bladder function. , good supply. Past Medical History Diagnosis Date ??? (spontaneous vaginal delivery) x2 Past Surgical History Procedure Laterality Date ??? [place] tooth extraction Medications: Current Outpatient Prescriptions on File Prior to Visit Medication Sig Dispense Refill ??? [DISCONTINUED] ferrous sulfate 325 mg (65 mg iron) EC tablet Take 1 tablet by mouth daily (every24 hours). 60 tablet 1 ??? [DISCONTINUED] ibuprofen (MOTRIN) 600 mg tablet Take 1 tablet by mouth every 6 hours as needed. 30 tablet 0 ??? VITS CMB W-O CA NO.2 ( VITAMIN NO.2 ORAL) Take by mouth. ??? [DISCONTINUED] senna-docusate (SENOKOT S) 8.6-50 mg per tablet Take 1 tablet by mouth 2 times daily. 100 tablet 0 No current facility-administered medications on file prior to visit. Allergies: No Known Allergies Review of Systems: All systems were reviewed and found to be negative except as noted above. Objective: Healthy appearing female in no acute distress Vital signs: BP 98/62 Wt 73.483 kg (162 lb) BMI 30.63 kg/m2 LMP 03/13/2013 ? Yes Body mass index is 30.63 kg/(m^2). Breasts: Symmetric, nontender without dominant mass. No axillary adenopathy. Abdomen: Soft, nontender, without helpatosplenomegaly, masses or hernias Pelvic: Normal external genitalia, normal urethral meatus, [place]'s and [place]'s glands. Normal vaginal mucosa and discharge. Normal cervix. Urethral and bladder without masses or tenderness. Uterus normal size, nontender with no adnexal masses or tenderness. Perineum well healed. last Hgb: Lab Results Component Value Date HGB 9.7* 01/03/2014 Pap: due in 1 year [place] Depression Scale: 6 ASSESSMENT/PLAN: 1. Routine OB Exam. 2. Control Plan: Paraguard IUD 3. Next annual due in one year. Helen Rubi MD documented in this encounter Plan of Treatment Upcoming Encounters Date Type Specialty Care Team Description 05/12/2022 Appointment Audiology 05/12/2022 Appointment Otolaryngology Bro Arroyo , JANET [address] [place] [address] (Wo rk) 06/03/2022 Appointment General Dentistry Rylee Amaro, [facility] [address] [place] [address] 06/03/2022 Appointment General Dentistry Pee Garcia, DDS [address] [place] [address] (Wo rk) 06/17/2022 Appointment General Dentistry Pee Garcia, DDS [address] [place], [place] [phone] (Wo rk) documented as of this encounter Visit Diagnoses Diagnosis Routine follow-up - Primary documented in this encounter Care Teams Supervisor Taping Relationship Specialty Start Date End Date Needs Pcp, Assignment PCP - General 06/08/13 07/14/17 [place] [address] documented as of this encounter
--- OUTSIDE RECORDS SUMMARY | 2022-05-06 23:57 | XMS_ITS | Encounter Summary ---
:1980 Author Organization [employer] Address [address] [place] [address] Care Team Providers Name Role Phone Needs Pcp, Assignment Primary Care Provider Reason for Referral Consult/Transfer Care (Routine) - Closed Specialty Diagnoses / Procedures Referred By Contact Refer red To Contact Diagnoses Low TSH level Aiden Carmen MD [address] [place], [place] [address] Referral ID Status Reason Start Date Expiration Date Visits Requ ested Visits Authorized [id number] Closed 12/07/2016 03/08/2018 1 1 Scheduling Instructions Your provider has recommended an appoint ment with [facility]. You may call [phone] to schedule your a ppointment. If you do not schedule an appointment within the next 1 to 3 busin days, we will call you to help arrange your appointment. We suggest you call [employer] about your coverage and benefits for this appointme nt. 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 I am referring her to endocrinology for further evaluation. Aiden Collins LPN - 12/07/2016 4:20 PM CDT otw documented in this encounter Plan of Treatment Upcoming Encounters Date Type Specialty Care Team Description 05/12/2022 Appointment Audiology 05/12/2022 Appointment Otolaryngology Bro Arroyo , PAMorisC [address] [facility] [id number] (Shereen espino) 06/03/2022 Appointment General Dentistry Rylee Amaro, [facility] [address] [place] [address] 06/03/2022 Appointment General Dentistry Pee Garcia DDS [address] [place], [place] [phone] (Shereen espino) 06/17/2022 Appointment General Dentistry Pee Garcia DDS [address] [place], [place] [phone] (Wo rk) Scheduled Referrals Name Type Priority Associated Diagnoses Order S chedule Endocrinology Referral Routine Low TSH level (HRC) Ordered : 12/07/2016 Consult-Adults documented as of this encounter Procedures Procedure Name Priority Date/Time Associated Diagnosis Comme nts GLUCOSE Routine 12/04/2016 2:34 PM Screening for Results for this CDT diabetes mellitus procedure are in the results section. FREE T4 Routine 12/04/2016 2:34 PM Results f or this CDT procedure are i n the results section. CHOLESTEROL, TOTAL Routine 12/04/2016 2:34 PM Screening for li poid Results for this AND HDL CDT disorders procedure are i n the results section. TSH, SENSITIVE Routine 12/04/2016 2:34 PM Screening for Result s for this (WITH REFLEX) CDT thyroid disorder procedure are in the results section. documented in this encounter Results Free T4 (12/04/2016 2:34 PM CDT) athologist Signature Thyroxine, Free 1.2 0.7 - 1.5 PN SOFT ng/dL Specimen Anatomical Collection Method Collection Time Receive d Time (Source) Location / / Volume Laterality 12/04/2016 2:34 PM 7 3:38 CDT PM CDT Narrative PN SOFT - 12/04/2016 5:15 PM CD[place] [address] CLIA number [id number] September Annamarie ANAYA LAB_1 Performing Organization Address City/State/ZIP Code Phon e Number PN SOFT [facility] [place] [address] (ABNORMAL) TSH with Free T4 (if TSH Abnormal) (12/04/2016 2:34 PM CDT) [facility] Method Time Signature Thyroid <0.02 (A) 0.30 - PN SOFT Stimulating 4.50 Hormone uIU/mL Specimen Anatomical Collection Method Collection Time Receive d Time (Source) Location / / Volume Laterality 12/04/2016 2:34 PM 7 3:38 CDT PM CDT Narrative PN SOFT - 12/04/2016 4:35 PM CDT Performed at [facility], [address] [place] [address] CLIA number [id number] Aiden Carmen MD LAB_1 Performing Organization Address [facility] Phon e Number PN SOFT [address] [place] [address] Glucose (12/04/2016 2:34 PM CDT) P athologist Signature Lab Glucose 93 70 - 100 PN SOFT mg/dL Comment: The stated glucose range is for the fast ing state. Non-fasting glucose range is 70-180 mg/d L Specimen Anatomical Collection Method Collection Time Receive d Time (Source) Location / / Volume Laterality 12/04/2016 2:34 PM 7 3:38 CDT PM CDT Narrative PN SOFT - 12/04/2016 4:19 PM CDT Performed at [address] [address] CLIA number [id number] Aiden Carmen MD LAB_1 Performing Organization Address [facility] Phon e Number PN SOFT [address] [place] [address] (ABNORMAL) CHOLESTEROL, TOTAL AND HDL (12/04/2016 2:34 PM CDT) Analysis Performed At Patho logist Time Signature Cholesterol 208 (H) 0 - 199 PN SOFT mg/dL HDL Cholesterol 68 >39 mg/dL PN SOFT Cholesterol/HDL 3.1 PN SOFT Ratio Screen Specimen Anatomical Collection Method Collection Time Receive d Time (Source) Location / / Volume Laterality 12/04/2016 2:34 PM 7 3:38 CDT PM CDT Narrative PN SOFT - 12/04/2016 4:19 PM CDT Performed at [address] [address] CLIA number [id number] Aiden Carmen MD LAB_1 Performing Organization Address [facility] Phon e Number PN SOFT [address] [place] [address] documented in this encounter Visit Diagnoses Diagnosis Low TSH level - Primary Nonspecific abnormal results of thyroid function study Screening for lipoid disorders Screening for diabetes mellitus Screening for thyroid disorder documented in this encounter Care Teams Assistant Community Manager Relationship Specialty Start Date End Date Needs Pcp, Assignment PCP - General 06/08/13 07/14/17 [place] [address] documented as of this encounter
--- OUTSIDE RECORDS SUMMARY | 2022-05-06 23:57 | XMS_ITS | Encounter Summary ---
:1980 Author Organization [employer] Address [address] [address] Care Team Providers Name Role Phone Needs Pcp, Assignment Primary Care Provider Reason for Visit Reason Comments Routine Visit Encounter Details Date Type Department Care Team Description 12/28/2013 Routine [facility] Jane Miguel Rout ine Midwifery [facility] SANITARIAN, CNM Visit [address] [facility] [address] [place] [phone] (Wo rk) Social History Tobacco Use Types Packs/Day Years Used Date Smoking Tobacco: Never Assessed Sex Assigned at Date Recorded 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 Induction on Wednesday. documented in this encounter Progress Notes Jane Miguel - 12/28/2013 10:40 AM CDT S) Marc canceled her induction today because she had questions and concerns about doing an induction. First, she was told the baby was low, then high and unsweepable. Marc recently had a friend who was cared for by the CNMs, was induced and ended up in C/S. She had a fast and natural with her last baby, and has a strong preference to await spontaneous labor. She has not been feeling many contractions, although she does feel the baby lower. Reviewed the question about whether she has a seizure disorder. Marc reports that she had two seizures many years ago. Was worked up and neurologically negative. No seizures since then. When asked directly if she has a seizure D/O, she responds no. O) See AP flow. US confirmed with BSUS, since PP felt wide. P) Recommended a repeat NST today, but Marc cannot stay. She was hoping for membrane sweeping, but the CNM on-call is very busy, so was unable. Induction scheduled for WednesdayJanuary 02 at 1900, which is the first available appt over the holiday weekend. BPP and NST on Wednesday. Reviewed how and when tocall for labor, and advised kick counts. documented in this encounter Plan of Treatment Upcoming Encounters Date Type Specialty Care Team Description 05/12/2022 Appointment Audiology 05/12/2022 Appointment Otolaryngology Bro Arroyo , PAMorisC [address] [phone] (Wo rk) 06/03/2022 Appointment General Dentistry Rylee Amaro, [address] [place] [address] 06/03/2022 Appointment General Dentistry Pee Garcia, DDS [address] [place], [place] [phone] (Wo rk) 06/17/2022 Appointment General Dentistry Pee Garcia, DDS [address] [facility] [place] [phone] (Wo rk) documented as of this encounter Visit Diagnoses Diagnosis Post-dates - Primary Post term , unspecified episode of care Supervision of other normal documented in this encounter Care Teams Stevedore Dock Relationship Specialty Start Date End Date Needs Pcp, Assignment PCP - General 06/08/13 07/14/17 [place] [address] documented as of this encounter
--- OUTSIDE RECORDS SUMMARY | 2022-05-06 23:57 | XMS_ITS | Encounter Summary ---
:1980 Author Organization [employer] Address [address] [place] [address] Care Team Providers Name Role Phone Needs Pcp, Assignment Primary Care Provider Reason for Visit Reason Comments Appt. Needed Encounter Details Date Type Department Care Team Description 12/30/2013 Telephone [place] [address] Certified Armida Mg APRN, Appt. Needed Nurse Animal Care Service Worker CN [address] [facility] . 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 She states she cancelled her IOL on because she wanted more information and then had CNM appt and when CNM recommended NST pt states she did not have time to stay for that. (BPP and NST scheduled for Monday 01/01 and IOL 01/02.) Pt states she also was having some mild cramping last night and some spotting. She now wants assurance (in writing that her baby will be okay if she goes further post dates. She is also requesting IOL today or tomorrow. O: Pt is 41/57 weeks today. Had BPP and NST on 12/26 that were 04/06. P:L&D is on divert so unable to have pt come in to our facility today. Instructed pt that if shewants NST for reassurance , or feels she needs to be seen I would have to have her go to another hospital. Pt will go to [facility] for eval. Report called to CNM dixonac operator-Fadumo that pt needs NST today. Will keep NST and BPP here on Wednesday if everything okay today. documented in this encounter Plan of Treatment Upcoming Encounters Date Type Specialty Care Team Description 05/12/2022 Appointment Audiology 05/12/2022 Appointment Otolaryngology Bro Arroyo , PAMorisC [address] [facility] [address] (Wo rk) 06/03/2022 Appointment General Dentistry Rylee Amaro, [facility] [address] [place] [address] 06/03/2022 Appointment General Dentistry Pee Garcia DDS [address] [place], [place] [phone] (Wo rk) 06/17/2022 Appointment General Dentistry Pee Garcia DDS [address] [place], [place] [phone] (Wo rk) documented as of this encounter Visit Diagnoses Diagnosis Post-dates - Primary Post term , unspecified episode of care Supervision of other normal documented in this encounter Care Teams Carpenter And Joiner Relationship Specialty Start Date End Date Needs Pcp, Assignment PCP - General 06/08/13 07/14/17 [place], [place] [address] documented as of this encounter
--- OUTSIDE RECORDS SUMMARY | 2022-05-06 23:57 | XMS_ITS | Encounter Summary ---
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 documented in this encounter Plan of Treatment Upcoming Encounters Date Type Specialty Care Team Description 05/12/2022 Appointment Audiology 05/12/2022 Appointment Otolaryngology Bro Arroyo , PAMorisC [address] [address] (Wo rk) 06/03/2022 Appointment General Dentistry Rylee Amaro, [facility] [address] [place] [address] 06/03/2022 Appointment General Dentistry Pee Garcia, DDS [address] [place] [address] (Wo rk) 06/17/2022 Appointment General Dentistry Pee Garcia, DDS [address] [place] [address] (Wo rk) documented as of this encounter Visit Diagnoses Not on filedocumented in this encounter Care Teams Filter Pulp Washer Relationship Specialty Start Date End Date Needs Pcp, Assignment PCP - General 06/08/13 07/14/17 [place] [address] documented as of this encounter
--- OUTSIDE RECORDS SUMMARY | 2022-05-06 23:57 | XMS_ITS | Encounter Summary ---
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 Details Date Type Department Care Team Description 07/26/2015 Office Visit Helen Giordano, Encounter for gynecological examination without abnormal finding (Primary Dx); Obstetrics/Gynecolog y Screening for malignant neoplasm of cerv ix; [address] Screening for lipoid disorders; [address] Screening for endocrine disorder; [place], [place] [address] [place], [place] Encounter for vitamin defici ency screening; [phone] [id number] Encounter for initial prescription of ot her contraceptives; [phone] Screening for d eficiency anemia (Work) Social History Tobacco Use Types Packs/Day Years Used Date Smoking Tobacco: Never Assessed Sex Assigned at Date Recorded Female 05/12/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 documented as of this encounter Last Filed Vital Signs Vital Sign Reading Time Taken Comments Blood Pressure 117/74 07/26/2015 10:28 AM JANITORIAL TECH Pulse 92 07/26/2015 10:28 AM JANITORIAL TECH Temperature - - Respiratory Rate - - Oxygen Saturation - - Inhaled Oxygen Concentration - - Weight 74.8 kg (165 lb) 07/26/2015 10:28 AM JANITORIAL TECH Height 155.6 cm (5' 1.25) 07/26/2015 10:28 AM JANITORIAL TECH Body Mass Index 30.92 07/26/2015 10:28 AM JANITORIAL TECH documented in this encounter Progress Notes Pau Dsouza RN - 08/06/2015 8:09 AM JANITORIAL TECH Quick Note: Dear Marc, I am writing to let you know that your PAP and HPV result is negative. This means that your test result was normal. No cancer or precancerous cells were seen. Based on current cervical cancer screening recommendations, your next PAP and HPV should be in 3 years. Continue to schedule your annual preventive exams for your overall health. If you have questions about cervical cancer screening or your test results, call Cervical Cancer Screening and Management Team [phone] Sincerely, Pau Dsouza RN on behalf of Dr. Wendi Limon, Newborn Hearing Screener Nadege Fuentes Cervical Cancer Screening and Management TORIAL TECH Helen Rubi MD - 07/26/2015 10:54 AM CST PREVENTATIVE FEMALE ANNUAL EXAM This is a 34 y.o. female who presents today for her annual exam. She has been well, and has had no acute complaints or problems. OBGYN Issues: Menstrual history: Cycles regular with no concerns. Pap history: No history of abnormal paps. Current contraception: no method, would like to get restarted on the patch, has used this in the past with good success. 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 (spontaneous vaginal delivery) x2 Past Surgical History: Past Surgical History Procedure Laterality Date ??? [place] tooth extraction Medications: Current Outpatient Prescriptions Medication ??? norelgestromin-ethinyl estradiol (ORTHO EVRA) 150-35 mcg/24 hr ??? 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 Diabetes Mother ??? High Cholesterol Mother ??? Diabetes Maternal Grandmother ??? Cancer Father ??? Other Father Preventative health: Pap: Pap smear done today Tetanus: last tetanus booster within 10 years Cholesterol: orders written for new lab studies as appropriate; see orders Calcium/VitaminD: adequate OBJECTIVE : height is 5' 1.25 (1.556 m) and weight is 165 lb (74.844 kg). Her blood pressure is 117/74 and herpulse is 92. Body mass index is 30.91 kg/(m^2). Gen: Alert, cooperative in no acute distress. Breast: Symmetric without masses or nodularity. No skin lesions. No axillary or clavicular adenopathy. Abdomen: The abdomen was soft and nontender, normal sounds present. No obvious masses or organomegaly. Pelvic: EGBUS within normal limits, normal vagina and vulva, normal cervix without lesions, polyps or tenderness, uterus anteverted, uterus normal size, shape, consistency, no mass or tenderness, adnexa normal in size without mass or tenderness ASSESSMENT : Routine Female Annual exam. PLAN : Diagnosis and Associated Orders ICD-10-CM ICD-9-CM 1. Encounter for gynecological examination without abnormal finding [Z01.419] Z01.419 V72.31 2. Screening for malignant neoplasm of cervix Z12.4 V76.2 Pap Test Order 3. Screening for lipoid disorders Z13.220 V77.91 Cholesterol And HDL 4. Screening for endocrine disorder Z13.29 V77.99 5. Encounter for vitamin deficiency screening Z13.21 V77.99 Vitamin D (In house) 6. Encounter for initial prescription of other contraceptives Z30.018 V25.02 7. Screening for deficiency anemia Z13.0 V78.1 Complete Blood Count - No Diff [ABC] Helen Rubi MD TORIAL TECH documented in this encounter Miscellaneous Notes Miscellaneous - 08/05/2016 10:07 PM CSTNotes Recorded by Pau Dsouza RN on 08/06/2015 at 8:09 Cuca Tran,I am writing to let you know that your PAP and HPV result is negative. This means that your test result was normal. No cancer or precancerous cells were seen.Based on current cervical cancer screening recommendations, your next PAP and HPV should be in 3 years. Continue to schedule your annual preventive exams for your overall health.If you have questions about cervical cancer screening or your test results, callCervical Cancer Screening and Management Team [phone] Warner RN on behalf ofDr. Wendi Limon Medical DirectorPark Gina Cervical Cancer Screening and Management TORIAL TECH Miscellaneous - 08/05/2016 10:07 PM CSTNotes Recorded by Pau Dsouza RN on 08/06/2015 at 8:09 Cuca Tran,I am writing to let you know that your PAP and HPV result is negative. This means that your test result was normal. No cancer or precancerous cells were seen.Based on current cervical cancer screening recommendations, your next PAP and HPV should be in 3 years. Continue to schedule your annual preventive exams for your overall health.If you have questions about cervical cancer screening or your test results, callCervical Cancer Screening and Management Team [phone] Warner RN on behalf ofDrJolene Limon, Medical DirectorCalvin Gina Cervical Cancer Screening and Management TORIAL TECH documented in this encounter Plan of Treatment Upcoming Encounters Date Type Specialty Care Team Description 05/12/2022 Appointment Audiology 05/12/2022 Appointment Otolaryngology Bro Arroyo , PAMorisC [address] [facility] [address] (Shereen espino) 06/03/2022 Appointment General Dentistry Rylee Amaro, [facility] [address] [place] [address] 06/03/2022 Appointment General Dentistry Pee Garcia DDS [address] [place], [place] [phone] (Shereen espino) 06/17/2022 Appointment General Dentistry Pee Garcia DDS [address] [place], [place] [phone] (Shereen espino) documented as of this encounter Procedures Procedure Name Priority Date/Time Associated Comments Diagnosis PAP TEST ORDER Routine 07/26/2015 11:07 AM Screening for Resul ts for this JANITORIAL TECH malignant neoplasm procedure are in of cervix the results section. HPV WITH 16 18 Routine 07/26/2015 11:07 AM Result s for this GENOTYPING, JANITORIAL TECH procedure are i n CERVICAL/ENDOCERVICA the res ults L section. ANATOMICAL PATH Routine 07/26/2015 11:07 AM Resul ts for this LIQUID BASED JANITORIAL TECH procedure are i n the results section. documented in this encounter Results Pap Smear (07/26/2015 11:07 AM JANITORIAL TECH) Specimen (Source) Anatomical Collection Method Collection Time Re ceived Time Location / / Volume Laterality 07/26/2015 11:07 AM JANITORIAL TECH Narrative HP CONVERSION - 07/31/2015 1:42 PM JANITORIAL TECH FINAL GYNECOLOGICAL CYTOLOGY REPORT Pathology #: [id number] ?Date Obtained: 07/26/2015 ? Date Received: 07/29/2015 INTERPRETATION/RESULTS: Negative for Intraepithelial Lesion or M alignancy. SPECIMEN ADEQUACY: Satisfactory for Evaluation. ??Endocervi karen cells/transformation zone component present. Verified on 07/31/2015 ??by KIKE JACOME (electronic signature) CLINICAL NOTES: ?Abnormal bleeding: No, LMP: 1/2 16, Menstrual status: None ?Apply, Current form of therapy: None apply LIQUID BASED PAP SMEAR SPECIMEN TYPE: ?ROUTINE CERVICAL PAP TEST PLEASE NOTE: The pap smear is a screening test design ed to aid in the detection of cervical cancer and its pre cursor lesions. It is not a diagnostic procedure and ana uld not be used as the sole means of detecting cervical cancer. Both false-positive and false-negative report s may occur. Performed at [facility], [address] [place] [address] Transcriptions 08/05/2016 10:07 PM CSTNotes Recorded by Pau Dsouza RN on 08/06/2015 at 8:09 Cuca Tran, I am writing to let you know that your PAP and HPV result is negative. This means that your test resu lt was normal. No cancer or precancerous cells were seen. Based on current cervical cancer screening recommendations, your next PAP and HPV should be in 3 years. Continue to schedule your annual preventive exams for your overall health. If you have questions about cervical can cer screening or your test results, call Cervical Cancer Screening and Management Team [phone],Pau Dsouza RN on behalf ofDr. Wendi Limon, Newborn Hearing Screener [facility] Cervical Cancer Screening and Management Helen Rubi MD LAB_1 Performing Organization Address City/State/ZIP Code Phon e Number HP CONVERSION HPV with 16 18 Genotyping (07/26/2015 11:07 AM JANITORIAL TECH) [facility] Method Time Signature HPV High Risk Not Detected HP CONVERSION 16 HPV High Risk Not Detected HP CONVERSION 18 Other HPV Not Detected HP CONVERSION High Risk Not 16/18 Comment: The Mahesh HPV Test is a qualitative in v itro test for the detection of Human Papillomavirus in [facility] patient specimens. ??The test utilizes amplifica tion of target DNA by Polymerase Chain Reaction (PCR) and n ucleic acid hybridization for the detection of 14 hi gh-risk (HR) HPV types. The assay tests for high risk typ es (16, 18, 31, 33, 35, 39, 45, 51, 52, 56, 58, 59, 66 and 6 8). NOTE: This test was developed and its pe rformance characteristics determined by [facility]. It has not been cleared or approved by [facility]. The laboratory is regulated under CLIA as qualified to perform high-complexity testing. This test is used for clinical purposes. It should not be regarded as investigational or fo r research. Specimen Anatomical Collection Method Collection Time Receive d Time (Source) Location / / Volume Laterality 07/26/2015 11:07 07/26/2015 AM JANITORIAL TECH 11:07 AM JANITORIAL TECH Narrative HP CONVERSION - 08/05/2015 11:30 AM JANITORIAL TECH Performed at [facility], [address] [place] [address] CLIA number [id number] Transcriptions 08/05/2016 10:07 PM CSTNotes Recorded by Pau Dsouza RN on 08/06/2015 at 8:09 Cuca Tran, I am writing to let you know that your PAP and HPV result is negative. This means that your test resu lt was normal. No cancer or precancerous cells were seen. Based on current cervical cancer screening recommendations, your next PAP and HPV should be in 3 years. Continue to schedule your annual preventive exams for your overall health. If you have questions about cervical can cer screening or your test results, call Cervical Cancer Screening and Management Team [phone] Warner RN on behalf ofDr. Wendi Limon, Newborn Hearing Screener [facility] Cervical Cancer Screening and Management Helen Rubi MD LAB_1 Performing Organization Address City/[facility]/ZIP Code Phon e Number HP CONVERSION Pap Test Order (07/26/2015 11:07 AM JANITORIAL TECH) [facility] gist Method Time Signature Pap Smear Collected HP CONVERSION Monolayer tracking test Specimen Anatomical Collection Method Collection Time Receive d Time (Source) Location / / Volume Laterality 07/26/2015 11:07 07/29/2015 7:55 AM JANITORIAL TECH AM JANITORIAL TECH Helen Rubi MD LAB_1 Performing Organization Address City/[facility] Phon e Number HP CONVERSION documented in this encounter Visit Diagnoses Diagnosis Encounter for gynecological examination without abnormal finding - Primary Routine gynecological examination Screening for malignant neoplasm of cerv ix Screening for malignant neoplasm of the cervix Screening for lipoid disorders Screening for endocrine disorder Encounter for vitamin deficiency screeni ng Encounter for initial prescription of ot her contraceptives Screening for deficiency anemia Screening for other and unspecified defi ciency anemia documented in this encounter Care Teams Risk Adjustment Specialist Relationship Specialty Start Date End Date Needs Pcp, Assignment PCP - General 06/08/13 07/14/17 [facility] [place] [address] documented as of this encounter
--- OUTSIDE RECORDS SUMMARY | 2022-05-06 23:57 | XMS_ITS | Encounter Summary ---
:1980 Author Organization [employer] Address [address], [place] [address] Care Team Providers Name Role Phone Needs Pcp, Assignment Primary Care Provider Encounter Details Date Type Department Care Team Description 01/01/2014 [facility] [address] ; Radiology Ultrasound Supervision of other normal [address] [facility] 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 documented in this encounter Miscellaneous Notes Miscellaneous - 08/06/2016 6:13 PM CSTNotes Recorded by Jane Miguel CNM on 01/01/2014 at 7:00 PMNormal ZENAIDA and BPP 8/8 noted and discussed via MC. SHOE PERSON documented in this encounter Plan of Treatment Upcoming Encounters Date Type Specialty Care Team Description 05/12/2022 Appointment Audiology 05/12/2022 Appointment Otolaryngology Bro Arroyo PA-C [address] [place] [address] (Wo rk) 06/03/2022 Appointment General Dentistry Amaro Rylee Bud, RD [address] [place] [address] 06/03/2022 Appointment General Dentistry Pee Garcia, DDS [address] [place], [place] [phone] (Wo rk) 06/17/2022 Appointment General Dentistry Pee Garcia, DDS [address] [place] [address] (Wo rk) documented as of this encounter Procedures Procedure Name Priority Date/Time Associated Diagnosis Comme nts OB BPP / ZENAIDA Routine 01/01/2014 7:27 AM Post-dates pr egnancy Results for this SINGLE CDT Supervision of other procedu re are in normal the results section. documented in this encounter Results US OB BPP / ZENAIDA Single (01/01/2014 7:27 AM CDT) Anatomical Region Laterality Modality Pelvis Other Specimen (Source) Anatomical Location Collection Method / Collectio n Time Received Time / Laterality Volume Narrative 01/01/2014 7:37 AM CDT TECHNIQUE: Limited ultrasound examination was performed for evaluation of amniotic fIuid index (ZENAIDA) and biophysical profile (BPP). ? FINDINGS: Type of Gestation: Mcrae Presentation: vertex Cardiac Rate: 124 BPM Placental Position: anterior 4-quadrant ZENAIDA: 8.3 cm, which is within normal limits for gestational age. Other Findings: None. BPP breathin (One episode of breathing for > 30 seconds) Gross movements: 2 (> 3 body, limb , discrete or separate movements) tone: 2 (One episode of extension/ flexion of limbs, head or trunk) Amniotic fluid single deepest pocket: 2 (> 2 cm (>36 weeks), > 3 cm (< 36 weeks)) TOTAL SCORE: 8 Observation time: 7 minutes (maximum geraldine e 30 minutes). Procedure Note Danilo Morse MD - 2015Formatti ng of this note might be different from the original. TECHNIQUE: Limited ultrasound examinatio n was performed for evaluation of amniotic fIuid index (ZENAIDA) and biophysical profile (BPP). FINDINGS: Type of Gestation: Mcrae Presentation: vertex Cardiac Rate: 124 BPM Placental Position: anterior 4-quadrant ZENAIDA: 8.3 cm, which is within normal limits for gestational age. Other Findings: None. BPP breathin (One episode of breathing for > 30 seconds) Gross movements: 2 (> 3 body, limb , discrete or separate movements) tone: 2 (One episode of extension/ flexion of limbs, head or trunk) Amniotic fluid single deepest pocket: 2 (> 2 cm (>36 weeks), > 3 cm (< 36 weeks)) TOTAL SCORE: 8 Observation time: 7 minutes (maximum geraldine e 30 minutes). Transcriptions Danilo Morse MD - 08/06/2016 6:13 PM CSTNotes Recorded by Jane Miguel CNM on 01/01/2014 at 7:00 PMNormal ZENAIDA and BPP 8 noted and discussed via MC. Jane Miguel APRN, CNM [facility] documented in this encounter Visit Diagnoses Diagnosis Post-dates Post term , unspecified episode of care Supervision of other normal documented in this encounter Care Teams Core Cutter Relationship Specialty Start Date End Date Needs Pcp, Assignment PCP - General 06/08/13 07/14/17 [place] [address] documented as of this encounter
--- OUTSIDE RECORDS SUMMARY | 2022-05-06 23:57 | XMS_ITS | Encounter Summary ---
:1980 Author Organization [employer] Address [address] [address] Care Team Providers Name Role Phone Needs Pcp, Assignment Primary Care Provider Reason for Visit Reason Comments TEST, Encounter Details Date Type Department Care Team Description 12/30/2013 Telephone [place] 1515 Certified Armida Mg APRN, TEST, Nurse Carpenter Supervisor Wooden Ship CN [address] [facility] . [address] [place] [address] [facility] 5th Floor [phone] 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 Pt was seen there and had a reactive NST and a bedside US to verify vtx position. Cx Pt was instructed to call [place] midwives if symptoms of labor and to keep BPP and NST appts on Wednesday. documented in this encounter Plan of Treatment Upcoming Encounters Date Type Specialty Care Team Description 05/12/2022 Appointment Audiology 05/12/2022 Appointment Otolaryngology Bro Arroyo , JANET [address] [place] [address] (Wo rk) 06/03/2022 Appointment General Dentistry Rylee Amaro, [facility] [address] [place] [address] 06/03/2022 Appointment General Dentistry Pee Garcia, DDS [address] [place] [address] (Wo rk) 06/17/2022 Appointment General Dentistry Pee Garcia, DDS [address] [place], [place] [phone] (Wo rk) documented as of this encounter Visit Diagnoses Diagnosis Post-dates - Primary Post term , unspecified episode of care Supervision of other normal documented in this encounter Care Teams Section Weaver Relationship Specialty Start Date End Date Needs Pcp, Assignment PCP - General 06/08/13 07/14/17 [place] [address] documented as of this encounter
--- OUTSIDE RECORDS SUMMARY | 2022-05-06 23:57 | XMS_ITS | Encounter Summary ---
:1980 Author Organization [employer] Address [address], [place] [address] Care Team Providers Name Role Phone Needs Pcp, Assignment Primary Care Provider Reason for Visit Reason Comments Routine Visit Encounter Details Date Type Department Care Team Description 12/05/2013 [facility]ine [facility] Tiesha Pena Midwifery Irma Willis APRN, SAGE Visit 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 Looking for peds at Ct, will give name next wk. Congratulated her on healthyweight gain. Worried about perineal healing . She had an episiotomy and had a slow, uncomfortable healing process after her daugher. Discussed rarity of episiotomies, perineal massage. RTC 1 wk. documented in this encounter Plan of Treatment Upcoming Encounters Date Type Specialty Care Team Description 05/12/2022 Appointment Audiology 05/12/2022 Appointment Otolaryngology Bro Arroyo , JANET [address] [facility] [address] (Wo rk) 06/03/2022 Appointment General Dentistry Rylee Amaro, [facility] [address] [place] [address] 06/03/2022 Appointment General Dentistry Pee Garcia, DDS [address] [place], [place] [phone] (Wo rk) 06/17/2022 Appointment General Dentistry Pee Garcia, DDS [address] [place], [place] [phone] (Wo rk) documented as of this encounter Visit Diagnoses Diagnosis Supervision of other normal - Primary documented in this encounter Care Teams Signal And Communications Maintainer Relationship Specialty Start Date End Date Needs Pcp, Assignment PCP - General 06/08/13 07/14/17 [place], [place] [address] documented as of this encounter
--- OUTSIDE RECORDS SUMMARY | 2022-05-06 23:57 | XMS_ITS | Encounter Summary ---
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 documented as of this encounter Progress Notes Taylor Downs LPN - 04/30/2014 10:27 AM CST EPDS: 4- questions #6 wasn't answered ECT MANAGEMENT SPECIALIST documented in this encounter Plan of Treatment Upcoming Encounters Date Type Specialty Care Team Description 05/12/2022 Appointment Audiology 05/12/2022 Appointment Otolaryngology Bro Arroyo PA-C [address] [place] [address] (Wo rk) 06/03/2022 Appointment General Dentistry Rylee Amaro, [facility] [address] [place] [address] 06/03/2022 Appointment General Dentistry [place] Garcia, D[place] [address] [place], [place] [phone] (Wo rk) 06/17/2022 Appointment General Dentistry Pee Garcia, DDS [address] [place] [address] (Wo rk) documented as of this encounter Visit Diagnoses Not on filedocumented in this encounter Care Teams Enterprise Applications Manager Relationship Specialty Start Date End Date Needs Pcp, Assignment PCP - General 06/08/13 07/14/17 [place] [address] documented as of this encounter
--- OUTSIDE RECORDS SUMMARY | 2022-05-06 23:57 | XMS_ITS | Encounter Summary ---
:1980 Author Organization [facility] Address [address] [place] [address] Care Team Providers Name Role Phone Needs Pcp, Assignment Primary Care Provider Encounter Details Date Type Department Care Team Description 12/25/2013 Imaging [facility] 380 U ltrasound Post-dates [address] [place] [address] Social History Tobacco Use Types Packs/Day Years Used Date Smoking Tobacco: Never Assessed Sex Assigned at Date Recorded Female 05/12/2021 9:48 AM [employer] documented as of this encounter Progress Notes Alondra Mondragon APRN, CNM - 12/25/2013 4:52 PM CDT Quick Note: pt was seen today- aware 8/8 - normal ZENAIDA documented in this encounter Miscellaneous Notes Miscellaneous - 08/06/2016 6:24 PM CSTNotes Recorded by Alondra Mondragon CNM on 12/25/2013 at 4:52 PMpt was seen today- aware8/8 - normal ZENAIDA [employer] documented in this encounter Plan of Treatment Upcoming Encounters Date Type Specialty Care Team Description 05/12/2022 Appointment Audiology 05/12/2022 Appointment Otolaryngology Bro Arroyo , JANET [address] [place] [address] (Wo rk) 06/03/2022 Appointment General Dentistry Rylee Amaro Bud, [facility] [address] [place] [address] 06/03/2022 Appointment General Dentistry Pee Garcia, DDS [id number] [place] [address] (Wo rk) 06/17/2022 Appointment General [place] [address] [place] [address] (Wo rk) documented as of this encounter Procedures Procedure Name Priority Date/Time Associated Diagnosis Comme nts US OB BPP / ZENAIDA Routine 12/25/2013 1:15 PM Post-dates pregnanc y Results for this SINGLE CDT procedure are i n the results section. documented in this encounter Results US OB BPP / ZENAIDA Single (12/25/2013 1:15 PM CDT) Anatomical Region Laterality Modality Pelvis Other Specimen (Source) Anatomical Location Collection Method / Collectio n Time Received Time / Laterality Volume Narrative 12/25/2013 1:19 PM CDT TECHNIQUE: Limited ultrasound examination was performed for evaluation of amniotic fIuid index (ZENAIDA) and biophysical profile (BPP). ? FINDINGS: Type of Gestation: Mcrae Presentation: vertex Cardiac Rate: 132 BPM Placental Position: anterior 4-quadrant ZENAIDA: 11.1 cm, which is within normal limits for [...] 36 weeks)) TOTAL SCORE: 8 Observation time: 10 minutes (maximum ti me 30 minutes). Procedure Note Danilo Morse MD - 2015Formatti ng of this note might be different from the original. TECHNIQUE: Limited ultrasound examinatio n was performed for evaluation of amniotic fIuid index (ZENAIDA) and biophysical profile (BPP). FINDINGS: Type of Gestation: Mcrae Presentation: vertex Cardiac Rate: 132 BPM Placental Position: anterior 4-quadrant ZENAIDA: 11.1 cm, which is within normal limits for [...] 36 weeks)) TOTAL SCORE: 8 Observation time: 10 minutes (maximum ti me 30 minutes). 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
--- OUTSIDE RECORDS SUMMARY | 2022-05-06 23:57 | XMS_ITS | Encounter Summary ---
:1980 Author Organization [facility] Address [address] [address] Care Team Providers Name Role Phone Needs Pcp, Assignment Primary Care Provider Reason for Visit Reason Comments Scheduled Induction Encounter Details Date Type Department Care Team Description 01/02/2014 - Hospital Encounter [facility] [place], Active labor (Primary Dx); 01/04/2014 Delivery Recovery Mayra L, Perineal laceration during d elivery; [address] [employer], CNM Post-dates ; 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 SUBJECTIVE: Eating, voiding, and ambulating without problems. Baby is breast feeding well. Her is present in the room and supportive. Baby is doing well. Plans circumcision later today. Lochia: minimal OBJECTIVE: Filed Vitals: 01/03/14 0700 01/03/14 1700 01/04/14 0030 BP: 104/67 110/67 103/69 Pulse: 83 86 84 Temp: 36.6 ??C (97.9 ??F) 36.3 ??C (97.3 ??F) 36.4 ??C (97.5 ??F) Resp: 16 16 20 General: well developed, well nourished female in no acute distress. Alert, oriented, cooperative. Affect is appropriate. Breasts: Soft, non-tender. Nipples intact. Abdomen: Soft, non-tender. Fundus: umbilicus -1 Lochia: scant rubra Perineum: well approximated, trace edema, no sign of infection Hemorrhoids: small, non-thrombosed Legs: non tender to palpation. Negative Homans. Lab Results Component Value Date/Time Hemoglobin 9.7* 01/03/2014 0812 OB Hemoglobin 10.8 10/06/2013 1627 BB BLOOD TYPE (BLOOD GROUP & RH) O POS 08/04/2007 1215 ASSESSMENT: post day #2 anemia PLAN: - Routine post care - CNM teaching/discharge instructions reviewed - Encouraged iron rich foods - Rx for iron - Rx for Ibuprofen - Home care - Meds reconciled for discharge - Discharge home today Mayra Beatty APRN, CNM - 01/02/2014 8:21 PM CDT Induction of labor for post dates at 42 weeks 1 day using pitocin. Respnded well and labored with great progress. Due to vatriable decelerations and contractions too close together, pitocin was discontinued at 17:22. Pt went on to labor spontaneously. Rapid progress to complete. 9 cm at 1850 when IFSEapplied due to suspected variables not tracing well due to maternal movement. Complete at 1905 and pushed over 6 minutes to deliver a vigorous male infant 19:11. APGARS 9/9. Spontaneous placenta withinminutes of delivery. Intact with 3VC and no calcifications noted. Repair of shallow, 4 cm. 2nd degree vaginal tear with slight extension to perineum at introitus. [id number] ml Infant weight pending. See Delivery Note for details. Information for the patient's : Hannah Vann [[id number]] Delivery Information for Hannah Vann Labor Details Labor onset: 01/02/2014 at 2:00 PM Dilation complete: 01/02/2014 at 7:05 PM Rupture: 01/02/2014 at 4:58 PM Rupture type: Artificial Fluid color: Clear Meconium: Augmentation: AROM;Oxytocin Labor Comments: Pitocin induction of labor for post dates. AROM at 4-5 cm. Progressed to spontaneouslabor after pitocin discontinued at 1722. Pitocin remained off. Progressed rapidly to complete at 1905 labor: No steroids: None steroid comments: Cervical ripening / Induction: None Induction indication: Post-term Gestation Other indications for induction: Labor complications: None Complication comments: Heart Monitoring: Variable decels at 7 cm. Pitocin off at 1722 with improvement until transition labor.O2 on. IFSE applied at 1850 Labor Length First stage: hours, minutes Second stage: hours, minutes Third stage: hours, minutes Anesthesia Anesthesia/Analgesics: Local Comments: Lidocaine gel and infiltrate for repair Delivery & Repair Episiotomy: None Delivery Comments Laceration Repaired? Perineal: 2nd Yes MOst of laceration was vaginal Periurethral: Labial: Sulcus: Vaginal: Cervical: Repair suture: 3-0 Vicryl Vaginal Estimated Blood loss (mL): 400 Final vaginal inspection performed: Yes History of female circumcision: No Female circumcision reversed: Repair Comments: Shallow 4 cm 2nd degree vaginal tear with slight extension to perineum Other Procedures: Comments: [place] Infection Risk: ROM greater than 18 hours? No Maternal fever greater than 38C/100.4F? No Antibiotics given? No Antibiotics given 4 hours prior to delivery? Diagnosis of Chorioamnionitis: No Maternal GBS Result: Information for the patient's mother: Marc Vann [[id number]] Culture Strep Screen Other Source Date Value Range Status 12/25/2013 No beta hemolytic Streptococcus, Group A or B Final Comments: Information: Date of : 01/02/2014 Time of : 7:11 PM Delivering clinician: Mayra Beatty Gender: male Delivery type: Vaginal, Spontaneous Delivery, Breech type (if applicable): Observed anomalies and comments: Gestational Age & Living Status Gestational Age: <None> Living status: Yes APGARS One minute Five minutes Ten minutes Fifteen minutes Twenty minutes Skin color: 1 1 Heart rate: 2 2 Grimace: 2 2 Muscle tone: 2 2 Breathin 2 Totals: 9 9 Presentation & Position Presentation: Vertex Position: Right, Occiput, Anterior Resuscitation Method(s): Comments: Placenta Delivered: 01/02 7:17 PM Appearance: Intact Removal: Spontaneous Disposition Discarded Comments: Not calcified Measurements Weight: Length: Head circ: Chest circ: Other Providers MAYRA BEATTY MISTY M IMUS, HEATHER K Second Delivery Md Resident Step Down Specialist Qa Software Tester Second Qa Software Tester Nursery Lace Sewer Nurse Practitioner Details of Assisted Delivery (if applicable) Forceps attempted? No Vacuum attempted? No Comments: Details of Shoulder Dystocia (if applicable) Dystocia Present? No Maneuvers Performed: Comments: Multiple - Onset second stage 01/02/2014 at 7:05 PM documented in this encounter Discharge Instructions Discharge Instr - Cris Cervantes RN - 01/04/2014 5:22 PM CDT [facility] Discharge Instructions 1.Transitioning in to parenthood is challenging. Be sure to get plenty of rest! Sleep when your babysleeps and let people help you with meals and chores for the 1st 2 weeks. Have visitors when you feel up to it. Rest is essential to help your body transition back to not being and to help youproduce enough milk. Most importantly, rest helps to prevent feeling overwhelmed and reduces your risk of depression. 2. The 3 main reasons to call the clinic phone nurse ([phone] between 8:30 am and 4:30 pm) before your exam are: *Too much bleeding or soaking a pad in less than 1 hour. Your bleeding may be heavier if your baby nurses well or you are more active, but the general trend should be to bleed less with time. Some amount of bleeding may be normal for 4-6 weeks. *Fever of 100.4 or higher *Pain more than you had while in the hospital, such as increased abdominal pain and cramping especially if accompanied by a foul smelling discharge and more bleeding. A painful,hard lump or red streakin your breast or a painful,hard ,warm red lump in your leg should also be reported. You need to call the lamp shade assembler credit collections manager ([phone]) if the clinic is closed.Most issues are best handled in the clinic setting 3. Medications: see the med list given at discharge and follow it. Keep taking your vitamin, [place] 3 and D3 supplements while . Even if not , we recommend you take your vitamin for 6 weeks. If you were anemic during your , you should continue your vitamin or a multivitamin with iron for 6 months * Ibuprofen is most effective for soreness and cramping. Taking it more regularly for the 1st few days is helpful. *To prevent constipation or to help heal hemorrhoids, drink plenty of fluids and get enough fiber in your diet. You may take an over the counter stool softener or fiber supplement.(such as Colace or Metamucil) * Additional meds: 4. During the of your baby, you had: Stitches after an episiotomy or tear. Use your squirt bottle to rinse yourself after using thebathroom for the 1st 2 weeks. Take a warm tub soak for 10-15 minutes 1-2 times daily.This really helps you to heal faster and have less discomfort. Your stitches will begin to dissolve in 10-20 days and you should be completley healed by your 6 week check-up. Get air to your bottom for an hour a day and wear loose clothing.Shower to bathe. No tampons.Avoid sex until your bleeding stops and your bottom is comfortable- usually 4-6 weeks. Stitches involving your rectum. Avoid constipation by taking a stool softener 1-2 times daily for 4-6 weeks. Follow steps for cleaning above. No sex or tampons for 6 weeks No stitches or a superficial laceration left unrepaired. Keep your bottom clean by using the angelika-bottle after using the restroom and tub soak as desired. 5. Unless you decline it, if you go home before 48 hours, we will order a Home Care Visit. They willcall you to arrange it. 6. For problems, contact the Center at [phone]. Their store has many useful items to support you as you breast feed. 7. Visit the website [facility] [email or web address] for useful information on the early days of parenting and . Breast engorgement occurs as your milk comes in and can last 24-48 hours. Nurse your baby often. Take ibuprofen for comfort. Apply warm compresses and massage your breasts to soften them and make it easier for your baby to latch. If you are not , wear a sports bra for a few days and do not stimulate your breasts. You can apply ice packs for comfort. 8. Many women experience mood swings and as your hormones change, you may get teary. This can be normal and is usually short-lived. Stay rested, eat well and let others care for you. If you feel you are struggling with sadness, please call the clinic or lamp shade assembler credit collections manager, or have another support person call us. 9. Do not use tampons for bleeding. Do not have intercourse until your bleeding stops, your stitches are healed and you have a plan for prevention in place. Studies support that having at least 18 months between conceptions is healthier for both Moms and babies. [place] may otis little uncomfortable at 1st. Take it slow and use a personal lubricant if needed. Some positions may be more comfortable than others. If you plan to use an IUD or just are not sure what method is best for you, use condoms or abstain until your 6 week check or your IUD is placed at 8-10 weeks . Women can get very soon after they have a baby, even if they are . 10. Call the clinic at [phone] to schedule your visit(s) as directed. Your baby's doctor will tell you when they need to see your baby. They also have a Nurseline if youhave questions about your baby. ADDITIONAL INSTRUCTIONS Instructions for Mom Activity: ?? Walking is important ?? No heavy lifting ?? Rest often ?? Decrease activity if bleeding increases ?? Do not put anything in your vagina for six weeks. Do not use tampons ?? Talk with your doctor/lamp shade assembler about when you may return to work and driving. Diet: ?? Eat a health balanced diet ?? Drink plenty of fluids Handouts given (In addition to Taking Care of You & Your Baby): Step Down Specialist instruction sheet Patient's [place] score = Discharge/Transfer Information for Mom Patient was: Discharged to Home Home Care Follow-up: Vaginal delivery and Multiparous Home care phone number: [phone] Warning Signs or Reasons to Call Call your doctor or nurse-lamp shade assembler if you have: ?? Chest pain and cough ?? Fever over 100.4 F (by mouth). ?? Discharge with bad odor ?? Heavy bleeding ?? Trouble or pain with emptying your bladder ?? Nausea and vomiting ?? Incision or stitches that open up ?? Swollen, red, or painful area on your leg ?? Hot, tender breasts ?? Increased pain in your bottom or incision ?? Sadness or irritability lasting more than two weeks ?? Thoughts of hurting yourself, your baby, or someone else In case of an emergency...call 911. This includes if your baby turns blue or vidales. documented in this encounter Medications at Time of Discharge Medication Sig Dispensed Refills Start Date End Date ferrous sulfate (aka Take 1 tablet by 60 tablet 1 4 02/22/2014 IRON SULFATE) TBEC mouth daily (every 24 hours). ibuprofen (aka MOTRIN) Take 1 tablet by 30 tablet 0 014 02/22/2014 tablet mouth every 6 hours as needed. STOOL SOFTENER & Take 1 tablet by 100 tablet 0 01/03/2014 LAXATIVE OR mouth 2 times daily. Vit-Fe Take by mouth. 0 12/13/201307/04 Fumarate-FA ( Reported on 08/28/2016 OR) documented as of this encounter Progress Notes Cris Tejada RN - 01/04/2014 6:39 PM CDT DISCHARGE O: Patient safely discharged with baby to home. D: Patient is alert and oriented x 4. Vital signs stable. Patient is up independently. Parental bonding: mother bonding well with baby. A: Discharge instructions and medication reconciliation reviewed and given to patient. Prescriptions: filled by [facility] pharmacy. Belongings sent with patient. Equipment sent: None. Care plan issues addressed and education record updated. Vaccines addressed prior to discharge. R: patient verbalize(s) understanding of discharge instructions and follow-up visits. Infant discharged in car seat. Patient discharged per ambulation with family. Irma Pena APRN, CNM - 01/03/2014 1:04 PM CDT POST PROGRESS NOTE CHIEF COMPLAINT: no complaints. SUBJECTIVE: Eating, voiding, and ambulating without problems. Baby is breast feeding well. Iv was kept in for heavier bleeding after delivery. Bleeding has been stable/light since recovery. Baby is doing well. Lochia: minimal OBJECTIVE: Filed Vitals: 01/03/14 0001 01/03/14 0400 01/03/14 0700 BP: 100/61 103/60 104/67 Pulse: 90 70 83 Temp: 36.4 ??C (97.5 ??F) 36.6 ??C (97.9 ??F) Resp: 16 16 16 General: well developed, well nourished female in no acute distress. Alert, oriented, cooperative. Affect is appropriate. Breasts: Soft, non-tender. Nipples intact. Abdomen: Soft, non-tender. Fundus: umbilicus -1 Lochia: small rubra Perineum: mild edema Legs: non tender to palpation. Negative Homans. Lab Results Component Value Date/Time Hemoglobin 9.7* 01/03/2014 0812 OB Hemoglobin 10.8 10/06/2013 1627 BB BLOOD TYPE (BLOOD GROUP & RH) O POS 08/04/2007 1215 ASSESSMENT: post day #1 Anemia PLAN: - Routine post care - CNM teaching/discharge instructions reviewed - Home care - Meds reconciled for discharge. Rx iron. Has breast pump Rx. - Discharge home tomorrow Amaris Almanza RN - 01/02/2014 8:18 PM CDT LABOR: VAGINAL DELIVERY NOTE O: Patient will have a stable recovery period and begin bonding behavior with . D: Patient had a spontaneous vaginal delivery.Second degree. See Delivery Summary for details. A: Vital Signs and assessments per guidelines and prn. Ice pack applied to perineum. Patient instructed on plan of care. Questions answered. First time out of bed or up to the bathroom to bedone with assist of R.N. Patient instructed to call for assistance when ready to get up and as needed. R: Positive bonding behaviors observed. Vital signs stable and assessments WDL. Patient verbalizes understanding of information given and denies further questions or needs at this time. T Mayra Beatty APRN, CNM - 01/02/2014 5:36 PM CDT Pitocin off past 20 min with improvement in FHR. Donna every 2-3 min on her own, lasting 60-80seconds. More uncomfortable O. FHR baseline 120-130. Accels present to 156 lasting over 15 seconds. Mild variable to 110 [id number] seconds with some contractions. Moderate variability A. Category 2 tracing with occasional mild variable and accels present P. Desires hydrotherapy. Watch FHR ad anticipate onset 2nd stage soon Mayra Camilo APRN, CNM - 01/02/2014 5:13 PM CDT S. Working hard- moving actively and managing contractions well. Agrees to AROM O. AROM small amount clear fluid. Cervix now 4-5/80%/-1 with variable decels to 90 -100 at some contraction peaks. Baseline FHR 130.Oxytocin remains at 5 mu with contractions every 2-3 min x 60-90 seconds. Moderate variability, accels present between contractions. A. Category 2 tracing. P. Change maternal positon. Watch FHR and turn pitocin back and possible off if indicated. Anticipate SVB Mayra Beatty APRN, CNM - 01/02/2014 3:32 PM CDT With pitocin at 5 mu, donna moderatley every 2-4 min. O. FHR reactive and reassuring with baseline 130 and accels of 30-50 beats x 30- 50 seconds. No decels. Membranes slightly bulging A. Progressing well P. Desires hydrotherapy. Anticipate SVB Marya Beatty APRN, CNM - 01/02/2014 3:06 PM CDT Care assumed for post dates inductio of labor. Regular care and DANAE confirmed by US. BPP/ZENAIDA yesterday 02/02 and ZENAIDA 01/26. plans reviewed and should be able to carry out couple's desires. Reviewed exam and advise pitocin induction of labor. Reactive NST ion admission Walker's score =8-9 Membranes swept and IOL initiated See H and P Cheryl Scott RN - 01/02/2014 9:10 AM CDT LABOR: ADMISSION O: Marc Vann is a 33 y.o. female with Estimated Date of Delivery: 12/18/13 at 42w1d gestation who is being admitted for induction of labor. Patient admitted via ambulated per self from home to bed # [id number]. D: OB/medical history significant risk factors include:patient denies. Patient irregular uterine contractions. Membranes: Intact. Vaginal bleeding: No.. Movement: normal. present and supportive. Miriam del real done. Fetus palpated vertex and not engaged. Will share findings with Aster SRN, the patient's primary RN. See admission assessment for further detail. A: record reviewed. Discussed plan of care. Oriented to use and verbal consent obtained forfetal monitoring: Yes. EFM applied. Oriented to room and educational materials at the bedside for [facility]. See education record for admission education. Call light within reach. Questions answered. R: Patient is agreeable to plan of care. Patient verbalizes understanding of information given and denies further questions or needs at this time. Patient is agreeable to reviewing educational materials. documented in this encounter OR Notes H&P - Mayra Beatty APRN, SAGE - 01/02/2014 3:14 PM CDT Subjective: Marc Vann is a 33 y.o. female with Estimated Date of Delivery: 12/18/13 at 42 weeks 1 day gestation who is being admitted for induction of labor. Patient reports no complaints, occasional contractions. BPP 8/8 yesterday and ZENAIDA 8.3. Movement: normal. All other ROS is negative. dating: Patient's last menstrual period was 03/13/2013. [employer] History: Has had post dates testing and refused induction up to now OB History Para Term AB TAB SAB Ectopic Multiple Living 2 1 1 1 # Outc Date GA Lbr Migel/2nd Wgt Sex Del Anes PTL Lv 2 Current 1 Term 02/2008 3714 g (8 lb 3 oz) F Vag-Spont None Y Past Medical History: Past Medical History Diagnosis Date ??? (spontaneous vaginal delivery) x1 Surgeries: Past Surgical History Procedure Laterality Date ??? [place] tooth extraction Family/Genetic History: Family History Problem Relation Age of Onset ??? Diabetes Mother ??? High Cholesterol Mother ??? Diabetes Maternal Grandmother ??? Cancer Father ??? Other Father Social History: History Social History ??? Marital Status: Spouse Name: Genet Number of Children: 1 ??? 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 Smoking status: Never Smoker ??? Smokeless tobacco: Never Used ??? Alcohol Use: No Comment: Alcoholic Drinks/day: Freq:Never; ??? Drug Use: No ??? Sexually Active: Yes -- Male partner(s) Control/ Protection: None Other Topics Concern ??? Bike Helmet Yes ??? [place] Yes ??? Exercise No ??? Guns In Home No ??? Seat Belt Yes ??? Special Diet No ??? Weight Concern Yes Social History Narrative Allergies: No Known Allergies Medications: No current facility-administered medications on file prior to encounter. No current outpatient prescriptions on file prior to encounter. Objective: BP 98/56 Pulse 67 Temp(Src) 36.3 ??C (97.4 ??F) (Oral) Resp 18 Ht 1.549 m (5' 0.98) LMP 03/13/2013 General: alert, cooperative, no distress, Skin: normal HEENT: PERRLA and Sclera clear, anicteric Lungs: clear to auscultation bilaterally Heart: regular rate and rhythm, S1, S2 normal, no murmur, click, rub or gallop Breasts: deferred Abdomen gravid Presentation: Cephalic by [place] and exam and US yesterday EFW: 8.5 lbs FHT: 140 BPM, moderate variability, acels present x 30 -40 beats, decels absent Contractions: occasional on admission Pelvic: adequate Cervix: Dilation: 1-2 Effacement: 70 Station: -2 Consistency: soft Position: anterior Walker Score 8-9 Lab Review GBS negative See record for other labs. Assessment: 33 y.o. at 42 1/7 weeks gestation. Not in labor and post dates Category 1 tracing. Patient Active Problem List Diagnosis ??? Supervision of other normal ??? Post-dates Plan: Admit to [facility]. Induction and routine admission orders. IOL with pitocin Anticipate . wishes reviewed with pt and her documented in this encounter Miscellaneous Notes Medication History - Lennox, MD Bong - 01/04/2014 6:39 PM CDT INPATIENT MEDS Encounter Date: 12/09/13 ibuprofen (MOTRIN) 600 mg tablet Start Date:01/03/14, End Date:02/22/14, Frequency:EVERY 6 HOURS PRN *No Administrations Recorded senna-docusate (SENOKOT S) 8.6-50 mg per tablet Start Date:01/03/14, End Date:02/22/14, Frequency:2 TIMES DAILY *No Administrations Recorded ferrous sulfate 325 mg (65 mg iron) EC tablet Start Date:01/03/14, End Date:02/22/14, Frequency:DAILY *No Administrations Recorded oxytocin 20 units in lactated ringers 1000 ml infusion Start Date:01/02/14, End Date:01/04/14, Frequency:PRN *No Administrations Recorded methylergonovine (METHERGINE) injection 0.2 mg Start Date:01/02/14, End Date:01/04/14, Frequency:ONCE PRN *No Administrations Recorded misoprostol (CYTOTEC) tablet 600-800 mcg Start Date:01/02/14, End Date:01/04/14, Frequency:ONCE PRN *No Administrations Recorded sodium citrate-citric acid (BICITRA) solution 30 mL Start Date:01/02/14, End Date:01/04/14, Frequency:ONCE PRN *No Administrations Recorded temazepam (RESTORIL) capsule 15 mg Start Date:01/02/14, End Date:01/04/14, Frequency:AT BEDTIME MAY REPEAT X1 PRN *No Administrations Recorded carboprost (HEMABATE) injection 250 mcg Start Date:01/02/14, End Date:01/04/14, Frequency:ONCE PRN *No Administrations Recorded ibuprofen (MOTRIN) tablet 600 mg Start Date:01/02/14, End Date:01/04/14, Frequency:EVERY 6 HOURS PRN Taken Dose Action User Route Site Recorded Comment Reason 01/04/14 1252 600 mg Given Cris Tejada RN Oral - 01/04/14 1252 - - 01/04/14 0227 600 mg Given Aga Wilks RN Oral - 01/04/14 0227 - - 01/03/14 1716 600 mg Given Cami Frazier RN Oral - 01/03/14 1716 - - 01/03/14 1142 600 mg Given Cami Frazier RN Oral - 01/03/14 1143 - - 01/03/14 0430 600 mg Given Radha Perry RN Oral - 01/03/14 0430 - - hydrocortisone 0.5 % cream Start Date:01/02/14, End Date:01/04/14, Frequency:2 TIMES DAILY PRN *No Administrations Recorded glycerin-witch lu (TUCKS) 12.5-50 % pads Start Date:01/02/14, End Date:01/04/14, Frequency:PRN *No Administrations Recorded acetaminophen (TYLENOL) tablet 650 mg Start Date:01/02/14, End Date:01/04/14, Frequency:EVERY 4 HOURS PRN *No Administrations Recorded acetaminophen-codeine (TYLENOL #3) 300-30 mg per tablet 1-2 tablet Start Date:01/02/14, End Date:01/04/14, Frequency:EVERY 4 HOURS PRN *No Administrations Recorded senna-docusate (SENOKOT S) 8.6-50 mg per tablet 1 tablet Start Date:01/02/14, End Date:01/04/14, Frequency:2 TIMES DAILY Taken Dose Action User Route Site Recorded Comment Reason 01/04/14 0848 1 tablet Given Cris Tejada RN Oral - 01/04/14 0849 - - 01/03/142020 1 tablet Given Booker Chester RN Oral - 01/03/14 2021 - - 01/03/14 0854 1 tablet Given Cami Frazier RN Oral - 01/03/14 0902 - - 01/02/14 2100 1 tablet Not Given Radha Perry RN Oral - 01/02/14 2347 Will start in am Other oxytocin (PITOCIN) injection 10 Units Start Date:01/02/14, End Date:01/04/14, Frequency:ONCE PRN *No Administrations Recorded oxytocin 20 units in lactated ringers 1000 ml infusion Start Date:01/02/14, End Date:01/04/14, Frequency:ONCE PRN *No Administrations Recorded ykrmqvf-xshjo-gcadbtu vaccine (MMR II) injection 0.5 mL Start Date:01/02/14, End Date:01/04/14, Frequency:PRIOR TO DISCHARGE *No Administrations Recorded oxytocin 20 units in lactated ringers 1000 ml infusion Start Date:01/02/14, End Date:01/02/14, Frequency:TITRATED Taken Dose Action User Route Site Recorded Comment Reason 01/02/14 1128 2 reggie-units/min Started(Override) Lyudmila Farris RN Intravenous - 01/02/14 1128 - - terbutaline (BRETHINE) injection 0.25 mg Start Date:01/02/14, End Date:01/02/14, Frequency:ONCE PRN *No Administrations Recorded lactated ringers infusion Start Date:01/02/14, End Date:01/02/14, Frequency:TITRATED Taken Dose Action User Route Site Recorded Comment Reason 01/02/14 1045 125 mL/hr Not Given Lyudmila Farris RN Intravenous - 01/02/14 1227 duplicate Other methylergonovine (METHERGINE) injection 0.2 mg Start Date:01/02/14, End Date:01/02/14, Frequency:ONCE PRN *No Administrations Recorded lidocaine 1% (PF) injection 1-30 mL Start Date:01/02/14, End Date:01/02/14, Frequency:ONCE PRN Taken Dose Action User Route Site Recorded Comment Reason 01/02/14 193 30 mL Given(Override) Amaris Almanza RN See Admin Instructions - 01/02/141930 - - lidocaine (XYLOCAINE) 2 % jelly 5-10 mL Start Date:01/02/14, End Date:01/02/14, Frequency:ONCE PRN *No Administrations Recorded ibuprofen (MOTRIN) tablet 600 mg Start Date:01/02/14, End Date:01/02/14, Frequency:ONCE PRN Taken Dose Action User Route Site Recorded Comment Reason 01/02/141999 600 mg Given Amaris Almanza RN Oral - 01/02/141999 - - acetaminophen-codeine (TYLENOL #3) 300-30 mg per tablet 1-2 tablet Start Date:01/02/14, End Date:01/02/14, Frequency:ONCE PRN *No Administrations Recorded acetaminophen (TYLENOL) tablet 1,000 mg Start Date:01/02/14, End Date:01/02/14, Frequency:ONCE PRN *No Administrations Recorded oxytocin (PITOCIN) injection 10 Units Start Date:01/02/14, End Date:01/02/14, Frequency:ONCE PRN *No Administrations Recorded oxytocin 20 units in lactated ringers 1000 ml infusion Start Date:01/02/14, End Date:01/02/14, Frequency:ONCE PRN *No Administrations Recorded oxytocin 20 units in lactated ringers 1000 ml infusion Start Date:01/02/14, End Date:01/02/14, Frequency:PRN *No Administrations Recorded lactated ringers IV bolus 1,000 mL Start Date:01/02/14, End Date:01/02/14, Frequency:ONCE PRN Taken Dose Action User Route Site Recorded Comment Reason 01/02/142001 1,000 mL Started Amaris Almanza, PHILLY Intravenous - 01/02/142001 - - lactated ringers infusion Start Date:01/02/14, End Date:01/02/14, Frequency:TITRATED Taken Dose Action User Route Site Recorded Comment Reason 01/02/14 1846 125 mL/hr Started Linda Nation RN Intravenous - 01/02/14 1846 - - 01/02/14 1117 125 mL/hr Started(Override) Lyudmila Farris, PHILLY Intravenous - 01/02/14 1228 - - fentaNYL (SUBLIMAZE) injection 50-100 mcg Start Date:01/02/14, End Date:01/02/14, Frequency:EVERY 1 HOUR PRN *No Administrations Recorded documented in this encounter Plan of Treatment Upcoming Encounters Date Type Specialty Care Team Description 05/12/2022 Appointment Audiology 05/12/2022 Appointment Otolaryngology Bro Arroyo , PAMorisC [address] [facility] [place] [address] (Wo rk) 06/03/2022 Appointment General Dentistry Rylee Amaro, RDH [address] [place] [address] 06/03/2022 Appointment General Dentistry Pee Garcia DDS [address] [place] [address] (Wo rk) 06/17/2022 Appointment General Dentistry Pee Garcia [place], DDS [address] [place] [address] (Wo rk) documented as of this encounter Procedures Procedure Name Priority Date/Time Associated Comments Diagnosis HEMOGLOBIN, BLOOD Specified Time 01/03/2014 8:12 Resul ts for this AM CDT procedure are i n the results section. DRAW & HOLD - STAT 01/02/2014 10:36 Results fo r this INPATIENT ONLY AM CDT procedure are in the results section. HEMOGLOBIN, BLOOD Routine 01/02/2014 10:36 Result s for this AM CDT procedure are i n the results section. documented in this encounter Results (ABNORMAL) Hemoglobin, Blood (01/03/2014 8:12 AM CDT) athologist Signature Hemoglobin 9.7 (L) 11.8 - 15.5 HP CONVERSION g/dL Specimen Anatomical Collection Method Collection Time Receive d Time (Source) Location / / Volume Laterality 01/03/2014 8:12 AM 4 8:25 CDT AM CDT Mayra Beatty APRN, CNM LAB_1 Performing Organization Address City/[facility]/ZIP Code Phon e Number HP CONVERSION DRAW & HOLD - INPATIENT ONLY (01/02/2014 10:36 AM CDT) athologist Signature Draw And Hold REC'D HP CONVERSION Specimen Anatomical Collection Method Collection Time Receive d Time (Source) Location / / Volume Laterality 01/02/2014 10:36 01/02/2014 AM CDT 10:42 AM CDT Mayra Beatty APRN, CNM PN BLOOD BANK ORDERS Performing Organization Address [facility]/ZIP Code Phon e Number HP CONVERSION (ABNORMAL) Hemoglobin, Blood (01/02/2014 10:36 AM CDT) athologist Signature Hemoglobin 10.3 (L) 11.8 - 15.5 HP CONVERSION g/dL Specimen Anatomical Collection Method Collection Time Receive d Time (Source) Location / / Volume Laterality 01/02/2014 10:36 01/02/2014 AM CDT 10:42 AM CDT Mayra Beatty LEONEL, SAGE LAB_1 Performing Organization Address City/State/ZIP Code Phon e Number HP CONVERSION documented in this encounter Visit Diagnoses Diagnosis Active labor - Primary Normal delivery Perineal laceration during delivery Unspecified perineal laceration, unspeci fied as to episode of care in Post-dates Post term , unspecified episode of care Primary uterine inertia Primary uterine inertia, unspecified as to episode of care Vaginal delivery Normal delivery Plan of Care - Booker Chester RN - 01/04/2014 1:16 AM CDT Problem: Following Vaginal Delivery (Obstetrics) Goal: Prevent/Manage Potential Problems Signs and symptoms of listed problems will be absent or manageable. Pt will be free from hemorrhage,infection, and have pain less than 4/10. Outcome: Ongoing (Interventions Implemented as Appropriate) Plan of Care - Radha Perry RN - 01/02/2014 11:48 PM CDT Problem: (NICU,[place],Obstetrics,Pediatric) Goal: Prevent/Manage Potential Problems Signs and symptoms of listed problems will be absent or manageable.Patient will be discharged to home independent in with a LATCH score >7. Outcome: Ongoing (Interventions Implemented as Appropriate) Plan of Care - Radha Perry RN - 01/02/2014 11:48 PM CDT Problem: Following Vaginal Delivery (Obstetrics) Goal: Prevent/Manage Potential Problems Signs and symptoms of listed problems will be absent or manageable. Pt will be free from hemorrhage,infection, and have pain less than 4/10. Outcome: Ongoing (Interventions Implemented as Appropriate) Plan of Care - Cheryl Scott RN - 01/02/2014 9:02 AM CDT Problem: General Plan of Care (Adult, Obstetrics) Goal: Plan of Care Review (Adult, Obstetrics) The patient and/or their energy conservation representative will communicate an understanding of their plan of care. Outcome: Ongoing (Interventions Implemented as Appropriate) Plan of Care - Cheryl Scott RN - 01/02/2014 9:00 AM CDT Problem: General Plan of Care (Adult, Obstetrics) Goal: Individualization/Patient-Specific Goal (Adult, Obstetrics) The patient and/or their energy conservation representative will achieve their patient-specific goals related to the plan of care. Outcome: Ongoing (Interventions Implemented as Appropriate) Problem: Labor (Obstetrics) Goal: Prevent/Manage Potential Problems Signs and symptoms of listed problems will be absent or manageable. Outcome: Ongoing (Interventions Implemented as Appropriate) documented in this encounter Care Teams Supervisor Final Relationship Specialty Start Date End Date Needs Pcp, Assignment PCP - General 06/08/13 07/14/17 [place] [address] documented as of this encounter
--- OUTSIDE RECORDS SUMMARY | 2022-05-06 23:57 | XMS_ITS | Encounter Summary ---
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 Pt acknowledges understanding and rx sent into [facility]. Adrian Molina MD - 01/15/2014 10:07 AM CDT Pls fax or vijay a scrip for Dicloxacillin 500 mg tid times 7d. Pls let pt know this is totally safe for baby and that she should continue to nurse or pump on the sore breast. If not better in 2-3d needsexam thanks Glo Kilgore, RN - 01/15/2014 9:58 AM CDT Pt had delivery on 01/02/14 and states has had sore cracked nipples, but now the left breast has an area of redness with a lump felt and pt c/o chills and body aches. Pt did not take temp, but felt feverish. Pt using Ibuprofen yesterday. Forwarding to Dr Molina to further advise. Pharmacy entered. documented in this encounter Plan of Treatment Upcoming Encounters Date Type Specialty Care Team Description 05/12/2022 Appointment Audiology 05/12/2022 Appointment Otolaryngology Bro Arroyo , PA-C [address] [facility] [id number] (Wo rk) 06/03/2022 Appointment General Dentistry Rylee Amaro, [facility] [address] [place] [address] 06/03/2022 Appointment General Dentistry Pee Garcia DDS [address] [place], [place] [phone] (Wo rk) 06/17/2022 Appointment General Dentistry Pee Garcia DDS [address] [place], [place] [phone] (Wo rk) documented as of this encounter Visit Diagnoses Not on filedocumented in this encounter Care Teams Mint Wafer Depositor Relationship Specialty Start Date End Date Needs Pcp, Assignment PCP - General 06/08/13 07/14/17 [place], [place] [address] documented as of this encounter
--- OUTSIDE RECORDS SUMMARY | 2022-05-06 23:57 | XMS_ITS | Encounter Summary ---
:1980 Author Organization [employer] Address [address] [place] [address] Care Team Providers Name Role Phone Needs Pcp, Assignment Primary Care Provider Reason for Visit Reason Comments Annual Exam Encounter Details Date Type Department Care Team Description 08/28/2016 Office Visit Helen Giordano Well female e xam with routine gynecological exam (Primary Dx); Obstetrics/Gynecolog y MD Visit for control pills maintenanc e [address] [place] [address] [place] [address] [place] [address] [place], [place] [phone] [address] Social History Tobacco Use Types Packs/Day Years Used Date Smoking Tobacco: Never Smokeless Tobacco: Never Tobacco Cessation: Counseling Given: No Alcohol Use Standard Drinks/Week Comments No 0 (1 standard drink = 0.6 oz pure Alcoho lic Drinks/day: Freq:Never; alcohol) Sex Assigned at Date Recorded Female 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 documented as of this encounter Last Filed Vital Signs Vital Sign Reading Time Taken Comments Blood Pressure 108/71 08/28/2016 2:40 PM ANTIQUE FINISHER Pulse 75 08/28/2016 2:40 PM ANTIQUE FINISHER Temperature - - Respiratory Rate - - Oxygen Saturation - - Inhaled Oxygen Concentration - - Weight 71.9 kg (158 lb 8 oz) 08/28/2016 2:40 PM ANTIQUE FINISHER Height 154.9 cm (5' 1) 08/28/2016 2:40 PM ANTIQUE FINISHER Body Mass Index 29.95 08/28/2016 2:40 PM ANTIQUE FINISHER documented in this encounter Progress Notes Helen Rubi MD - 08/28/2016 3:07 PM CST PREVENTATIVE FEMALE ANNUAL EXAM This is a 35 y.o. female who presents today for her annual exam. She has been well, and has had no acute complaints or problems. OBGYN Issues: Menstrual history:Cycles regular with no concerns. Pap history: No history of abnormal paps. Pap/HPV neg 2015. Current contraception: Ortho-Evra STD history: no past history Other wave guide assembler issues: none Past Medical History: Past Medical History Diagnosis Date ??? (spontaneous vaginal delivery) x2 Past Surgical History: Past Surgical History Procedure Laterality Date ??? Sparkman teeth extraction Medications: Current Outpatient Prescriptions Medication ??? Norelgestromin-Eth Estradiol (XULANE) 150-35 MCG/24HR patch ??? 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 Diabetes Mother ??? High Cholesterol Mother ??? Cancer Mother ??? Diabetes Maternal Grandmother ??? Cancer Father ??? Other Father ??? Thyroid Disorder Sister ??? Depression Brother Preventative health: Pap: Pap smear schedule reviewed with patient Tetanus: last tetanus booster within 10 years Cholesterol: labs are reviewed, up to date and normal Calcium/VitaminD: adequate OBJECTIVE : height is 5' 1 (1.549 m) and weight is 158 lb 8 oz (71.895 kg). Her blood pressure is 108/71 and her pulse is 75. Estimated body mass index is 29.96 kg/(m^2) as calculated from the following: Height as of this encounter: 5' 1 (1.549 m). Weight as of this encounter: 158 lb 8 oz (71.895 kg). Gen: Alert, cooperative in no acute [...] exam with routine gynecological exam Z01.419 2. Visit for control pills maintenance Z30.41 Norelgestromin-Eth Estradiol (XULANE) 150-35 MCG/24HR patch Helen Rubi MD QUE FINISHER documented in this encounter Plan of Treatment Upcoming Encounters Date Type Specialty Care Team Description 05/12/2022 Appointment Audiology 05/12/2022 Appointment Otolaryngology Bro Arroyo , PAMorisC [address] [facility] [address] (Wo rk) 06/03/2022 Appointment General Dentistry Rylee Amaro, [facility] [address] [place] [address] 06/03/2022 Appointment General Dentistry Pee Garcia, DDS [address] [place], [place] [phone] (Wo rk) 06/17/2022 Appointment General Dentistry Pee Garcia DDS [address] [place], [place] [phone] (Wo rk) documented as of this encounter Visit Diagnoses Diagnosis Well female exam with routine gynecologi karen exam - Primary Routine gynecological examination Visit for control pills maintenanc e Surveillance of previously prescribed co ntraceptive pill documented in this encounter Care Teams Hook And Eye Sewing Machine Operator Relationship Specialty Start Date End Date Needs Pcp, Assignment PCP - General 06/08/13 07/14/17 [place] [address] documented as of this encounter
--- OUTSIDE RECORDS SUMMARY | 2022-05-06 23:57 | XMS_ITS | Encounter Summary ---
:1980 Author Organization [employer] Address [address], [place] [address] Care Team Providers Name Role Phone Needs Pcp, Assignment Primary Care Provider Reason for Visit Reason Onset Date Comments LAB RESULTS 12/07/2016 Encounter Details Date Type Department Care Team Description 12/07/2016 [place]phone [place] MD LAB RESULTS Obstetrics/Gynecolog y [address] [place] [address] [place], [place] [address] [phone] Social History Tobacco Use Types Packs/Day Years Used Date Smoking Tobacco: Never Smokeless Tobacco: Never Alcohol Use Standard Drinks/Week Comments No 0 (1 standard drink = 0.6 oz pure Alcoho lic Drinks/day: Freq:Never; alcohol) Sex Assigned at Date Recorded 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 Message from Dr De Luna relayed to pt who verbalized understanding and has no further questions. Connected to Endocrinology to schedule consult appt. Cheryl Mane RN - 12/07/2016 4:37 PM CDT Called pt and left voicemail for pt to call back for message from Dr De Luna. Cheryl Mane RN - 12/07/2016 4:34 PM CDT ----- Message from Jessica De Luna MD sent at 12/07/2016 4:29 PM CDT ----- Please let pt know that her TSH returned low, indicating that she may have an overactive thyroid. I am referring her to endocrinology for further evaluation. documented in this encounter Plan of Treatment Upcoming Encounters Date Type Specialty Care Team Description 05/12/2022 Appointment Audiology 05/12/2022 Appointment Otolaryngology Bro Arroyo , JANET [address] [facility] [id number] (Wo rk) 06/03/2022 Appointment General Dentistry Rylee Amaro, [facility] [address] [place] [address] 06/03/2022 Appointment General Dentistry Pee Garcia DDS [address] [place], [place] [phone] (Wo rk) 06/17/2022 Appointment General Dentistry Pee Garcia DDS [address] [place], [place] [phone] (Wo rk) documented as of this encounter Visit Diagnoses Not on filedocumented in this encounter Care Teams Slot Floorman Relationship Specialty Start Date End Date Needs Pcp, Assignment PCP - General 06/08/13 07/14/17 [place], [place] [phone] documented as of this encounter
--- OUTSIDE RECORDS SUMMARY | 2022-05-06 23:57 | XMS_ITS | Encounter Summary ---
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 documented as of this encounter Plan of Treatment Upcoming Encounters Date Type Specialty Care Team Description 05/12/2022 Appointment Audiology 05/12/2022 Appointment Otolaryngology Bro Arroyo , PAMorisC [address] [facility] N [address] (Wo rk) 06/03/2022 Appointment General Dentistry Rylee Amaro, [facility] [address] [place] [address] 06/03/2022 Appointment General Dentistry Pee Garcia DDS [address] [place], [place] [phone] (Wo rk) 06/17/2022 Appointment General Dentistry Pee Garcia DDS [address] [place] [address] (Wo rk) documented as of this encounter Visit Diagnoses Not on filedocumented in this encounter Care Teams Cattle Alley Worker Relationship Specialty Start Date End Date Needs Pcp, Assignment PCP - General 06/08/13 07/14/17 [place] [address] documented as of this encounter
--- OUTSIDE RECORDS SUMMARY | 2022-05-06 23:57 | XMS_ITS | Encounter Summary ---
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 [address] [place] [address] 06/03/2022 Appointment General Dentistry Pee Garcia DDS [address] [place] [address] (Wo rk) 06/17/2022 Appointment General Dentistry Pee Garcia, DDS [address] [place] [address] (Wo rk) documented as of this encounter Procedures Procedure Name Priority Date/Time Associated Diagnosis Comme nts VITAMIN D Routine 07/26/2015 11:08 AM Encounter for Results for this 25-HYDROXY, TOTAL SAND SCREENER vitamin deficiency proc edure are in screening the results section. COMPLETE BLOOD Routine 07/26/2015 11:08 AM Screening for Resul ts for this COUNT-NO DIFF SAND SCREENER deficiency anemia procedure are in the results section. CHOLESTEROL, TOTAL Routine 07/26/2015 11:08 AM Screening for l ipoid Results for this AND HDL SAND SCREENER disorders procedure are i n the results section. documented in this encounter Results Complete Blood Count-No Diff (07/26/2015 11:08 AM SAND SCREENER) athologist Signature White Blood Cell 4.2 3.8 - 11.0 HP CONVERSIO N Count k/cmm Red Blood Cell 4.21 3.70 - HP CONVERSION Count 5.20 m/cmm Hemoglobin 12.7 11.8 - HP CONVERSION 15.5 g/dL Hematocrit 36.9 35.0 - HP CONVERSION 46.0 % Mean Corpuscular 87.6 80.0 - HP CONVERSION Volume 100.0 fL RDW 12.7 11.0 - HP CONVERSION 15.0 % Platelet Count 217 140 - 450 HP CONVERSION k/cmm Specimen Anatomical Collection Method Collection Time Receive d Time (Source) Location / / Volume Laterality 07/26/2015 11:08 07/26/2015 AM SAND SCREENER 11:08 AM SAND SCREENER Narrative HP CONVERSION - 07/26/2015 11:13 AM SAND SCREENER Performed at [facility], [address], [place] [address] CLIA number [id number] Helen Rubi MD LAB_1 Performing Organization Address City/State/ZIP Code Phon e Number HP CONVERSION (ABNORMAL) Vitamin D 25-Hydroxy, Total (07/26/2015 11:08 AM SAND SCREENER) athologist Signature Vitamin D 25 19 (L) 20 - 80 HP CONVERSION Oh ng/mL Comment: Deficiency = <20 Adequate ??= 20-29 Preferred = 30-50 Uncertain safety = 51-80 High = >80 Specimen Anatomical Collection Method Collection Time Receive d Time (Source) Location / / Volume Laterality 07/26/2015 11:08 07/26/2015 2:01 AM SAND SCREENER PM SAND SCREENER Narrative HP CONVERSION - 07/29/2015 11:18 AM SAND SCREENER Performed at [facility], [address] [place] [id number] CLIA number [id number] Helen Rubi MD LAB_1 Performing Organization Address City/[facility] Phon e Number HP CONVERSION (ABNORMAL) Cholesterol, Total and HDL (07/26/2015 11:08 AM SAND SCREENER) [facility] Method Time Signature Cholesterol 203 (H) 0 - 199 HP CONVERSION mg/dL HDL Cholesterol 68 >39 mg/dL HP CONVERSION Cholesterol/HDL 3.0 HP CONVERSION Ratio Screen Specimen Anatomical Collection Method Collection Time Receive d Time (Source) Location / / Volume Laterality 07/26/2015 11:08 07/26/2015 4:28 AM SAND SCREENER PM SAND SCREENER Narrative HP CONVERSION - 07/26/2015 10:38 PM SAND SCREENER Performed at [facility], [facility] [place] [address] CLIA number [id number] Helen Rubi MD LAB_1 Performing Organization Address [facility] Phon e Number HP CONVERSION documented in this encounter Visit Diagnoses Diagnosis Screening for lipoid disorders Encounter for vitamin deficiency screeni ng Screening for deficiency anemia Screening for other and unspecified defi ciency anemia documented in this encounter Care Teams Club Licensee Relationship Specialty Start Date End Date Needs Pcp, Assignment PCP - General 06/08/13 07/14/17 [place] [address] documented as of this encounter
--- OUTSIDE RECORDS SUMMARY | 2022-05-06 23:57 | XMS_ITS | Encounter Summary ---
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 documented as of this encounter Progress Notes Taylor Downs LPN - 03/07/2014 2:06 PM CDT EPDS: 6 documented in this encounter Plan of Treatment Upcoming Encounters Date Type Specialty Care Team Description 05/12/2022 Appointment Audiology 05/12/2022 Appointment Otolaryngology Bro Arroyo , PADerick [address] [address] (Wo rk) 06/03/2022 Appointment General Dentistry Rylee Amaro, [facility] [address] [place] [address] 06/03/2022 Appointment General Dentistry Pee Garcia, DDS [address] [place], [place] [phone] (Wo rk) 06/17/2022 Appointment General Dentistry Pee Garcia DDS [address] [place], [place] [phone] (Wo rk) documented as of this encounter Visit Diagnoses Not on filedocumented in this encounter Care Teams Knot Picker Cloth Relationship Specialty Start Date End Date Needs Pcp, Assignment PCP - General 06/08/13 07/14/17 [place] [address] documented as of this encounter
--- OUTSIDE RECORDS SUMMARY | 2022-05-06 23:57 | XMS_ITS | Encounter Summary ---
:1980 Author Organization [employer] Address [address] [place] [address] Care Team Providers Name Role Phone Needs Pcp, Assignment Primary Care Provider Reason for Visit Reason Comments Refill Encounter Details Date Type Department Care Team Description 09/13/2016 Refill [place] Helen Rubi M D Refill Obstetrics/Gynecolog y [address] [place] [address] [place], [place] [address] [phone] Social History Tobacco Use Types Packs/Day Years Used Date Smoking Tobacco: Never Smokeless Tobacco: Never Alcohol Use Standard Drinks/Week Comments No 0 (1 standard drink = 0.6 oz pure Alcoho lic Drinks/day: Freq:Never; alcohol) Sex Assigned at Date Recorded 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 encounter Plan of Treatment Upcoming Encounters Date Type Specialty Care Team Description 05/12/2022 Appointment Audiology 05/12/2022 Appointment Otolaryngology Bro Arroyo , PADerick [address] [address] (Wo rk) 06/03/2022 Appointment General Dentistry Rylee Amaro, [facility] [address] [place] [address] 06/03/2022 Appointment General Dentistry Pee Garcia, DDS [address] [place] [address] (Wo rk) 06/17/2022 Appointment General Dentistry Pee Garcia, [place]S [address] [place] [address] (Wo rk) documented as of this encounter Visit Diagnoses Not on filedocumented in this encounter Care Teams Director Of Publications Relationship Specialty Start Date End Date Needs Pcp, Assignment PCP - General 06/08/13 07/14/17 [place], [place] [address] documented as of this encounter
--- OUTSIDE RECORDS SUMMARY | 2022-05-06 23:57 | XMS_ITS | Encounter Summary ---
:1980 Author Organization [employer] Address [address] [address] Care Team Providers Name Role Phone Needs Pcp, Assignment Primary Care Provider Reason for Visit Reason Comments Dental Conversion Legacy EDR to [place] convers ion Encounter Details Date Type Department Care Team Description 12/03/2016 Dental Conversion [facility] Yojana Garcia, [facility] DDS [address] [facility] [address] [place] [address] [phone] (Wo rk) Social History Tobacco Use Types Packs/Day Years Used Date Smoking Tobacco: Never Smokeless Tobacco: Never Alcohol Use Standard Drinks/Week Comments No 0 (1 standard drink = 0.6 oz pure Alcoho lic Drinks/day: Freq:Never; alcohol) Sex Assigned at Date Recorded 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 Not feeling well documented in this encounter Miscellaneous Notes Miscellaneous - Interface, In Edr Dental Conversion - 07/23/2016 12:00 AM LICENSE INSPECTOR 07/23/2016: SNC/NS Notification: pt called at 11:30 to cx her 12:10 appt for today NSE INSPECTOR Miscellaneous - Interface, In Edr Dental Conversion - 05/19/2016 12:00 AM LICENSE INSPECTOR 05/19/2016: Films Imported Into CADI: 3 BW 11.13.14, 2 PA 7.6.15, 1 PA 1.22.15 & 2 JACK 1.16.13 from: [facility] Dentistry NSE INSPECTOR documented in this encounter Plan of Treatment Upcoming Encounters Date Type Specialty Care Team Description 05/12/2022 Appointment Audiology 05/12/2022 Appointment Otolaryngology Bro Arroyo , PA-C [address] [facility] N [address] (Wo rk) 06/03/2022 Appointment General Dentistry Rylee Amaro, [facility] [address] [place] [address] 06/03/2022 Appointment General Dentistry Pee Garcia DDS [address] [place], [place] [phone] (Wo rk) 06/17/2022 Appointment General Dentistry Pee Garcia DDS [address] [place], [place] [phone] (Wo rk) documented as of this encounter Visit Diagnoses Not on filedocumented in this encounter Care Teams Cancer Program Consultant Relationship Specialty Start Date End Date Needs Pcp, Assignment PCP - General 06/08/13 07/14/17 [place] [address] documented as of this encounter
--- OUTSIDE RECORDS SUMMARY | 2022-05-06 23:58 | XMS_ITS | Encounter Summary ---
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 as of this encounter Plan of Treatment Upcoming Encounters Date Type Specialty Care Team Description 05/12/2022 Appointment Audiology 05/12/2022 Appointment Otolaryngology Bro Arroyo , PAMorisC [address] [facility], N [address] (Wo rk) 06/03/2022 Appointment General Dentistry Rylee Amaro, RD [address] [place] [address] 06/03/2022 Appointment General Dentistry Pee Garcia DDS [address] [place] [address] (Wo rk) 06/17/2022 Appointment General Dentistry Pee Garcia garrett Farrell, DDS [address] [place], [place] [phone] (Wo rk) documented as of this encounter Procedures Procedure Name Priority Date/Time Associated Diagnosis Comme nts MFM US NT Routine 06/14/2013 1:33 PM Other specified Result s for this DEMAND PLANNER procedure are i n the screening(V28.89) results se ction. documented in this encounter Results Denice US NT (06/14/2013 1:33 PM DEMAND PLANNER) Anatomical Region Laterality Modality Pelvis Other Specimen (Source) Anatomical Location Collection Method / Collectio n Time Received Time / Laterality Volume Impressions 06/14/2013 2:18 PM DEMAND PLANNER : 1) Intrauterine at 12 4/7 week s gestational age by early US 2) The nuchal translucency measurement i s within the normal range. 3) U/S agrees with ASSIGNED DANAE 4) anatomy appeared normal for ges tational age. Jake Sinclair MD <Electronic Signature> ??06/14/2013 02:1 8pm Narrative 06/14/2013 2:18 PM DEMAND PLANNER ? [facility] ?[place], [place] ??[address] ? Phone: ?Offices: Bertha Al[facility] [place] Pat. Name: MICHELLE VANN ? Location of [place] Pat. No: ?? [id number] ?Study Date: ?? 06/14/2013 ??1:34pm LMP: ? 03/13/2013 ?Referring MD: Helne Rubi ??MD 6 GA by LMP: 13w2d ? It Systems Analyst: ??Kirti Gallegos RDMS GA by 1st: 12w4d ? , Age: ? 1980, 32 GA by US: ??13w0d ? Pregnancies: ?? 2, Para 1001 Hist/Ind: ??First Trimester Screening ? GA Selected: ??12w4d (From First U) ? DANAE: ?12/23/2013 MEASUREMENTS & AGE ? GROWTH EVALUATION Measurement ??GA ? Range ? So urce ?? % ?? 12w4d ??Ratios ----- ------- ?? CRL ??6.8 cm 13w0d ([id number]) Hadlock ??CRL ??70% GA for sonogram 13w0d ([id number]) based on (CRL) Avg ? Heart Rate: 145 bpm CLINICAL SUMMARY A First Trimester Ultrasound Nuchal Ramirez slucency Screening was done. TYPE OF GESTATION: Mcrae PRESENTATION OF FETUS:Transverse MOTION: ?? appears normal UTERUS AND ADNEXAE: The uterus and ovari es are grossly normal. YOLK SAC: ??Was not seen HEART: ?? The cardiac rhythm is re gular and the rate is normal. EXTREMITIES: ?? All four extremities are visualized and movement is noted. GROWTH: ?? Consistent with normal growth NASAL BONE: ?? nasal bone was visua lized. NUCHAL TRANSLUCENCY: ??measures ??2.0 mm , ??which is below the 95th %tile. She did not meet with one of the [facility] genetic counselors today. RECOMMENDATIONS: This patient is less than 35 years of ag e at the time of delivery. ??She was seen today for first trimester screening for aneuploidy (Ultrascreen). ?? Blood was drawn for MESSI-A and free Beta HCG. ??She will be informed of test results when available - typically 7-10 days. This first trimester test does not scree n for open neural tube defect (ONTD, spina bifida). ??All women should be off ered maternal serum alpha fetoprotein (MS-AFP) screening at 15-18 weeks gestat ion Procedure Note Jaek Sinclair MD - 02/24/2016Forma tting of this note might [place] [address] Fax: Offices: Bertha Parikh [place] Pat. Name: MICHELLE VANN Location of [facility] Pat. No: [id number] Study Date: 06/14/2013 1:34pm LMP: 03/13/2013 Referring MD: Johanna Rubi MD 2095 GA by LMP: 13w2d It Systems Analyst: Kirti Gallegos RDMS GA by 1st: 12w4d , Age: 8 1980, 5 0 GA by US: 13w0d Pregnancies: 2, Para 1001 Hist/Ind: First Trimester Screening GA Selected: 12w4d (From First U) DANAE: 12/23/2013 MEASUREMENTS & AGE GROWTH EV ALUATION Measurement GA Range Source % 12w4d Rati os ----- ------- CRL 6.8 cm 13w0d ([id number]) Hadlock C RL 70% GA for sonogram 13w0d ([id number]) based on (CRL) Avg Heart Rate: 145 bpm CLINICAL SUMMARY A First Trimester Ultrasound Nuchal Ramirez slucency Screening was done. TYPE OF GESTATION: Mcrae PRESENTATION OF FETUS:Transverse MOTION: appears normal UTERUS AND ADNEXAE: The uterus and ovari es are grossly normal. YOLK SAC: Was not seen HEART: The cardiac rhythm is regul ar and the rate is normal. EXTREMITIES: All four extremities are vi sualized and movement is noted. GROWTH: Consistent with normal fet al growth NASAL BONE: nasal bone was visuali zed. NUCHAL TRANSLUCENCY: measures 2.0 mm, wh ich is below the 95th %tile. She did not meet with one of the [facility] genetic counselors today. RECOMMENDATIONS: This patient is less than 35 years of ag e at the time of delivery. She was seen today for first trimester screening for aneuploidy (Ultrascreen). Blood was drawn for MESSI-A and free Beta HCG. She will be informed of test results when available - typically 7-10 days. This first trimester test does not scree n for open neural tube defect (ONTD, spina bifida). All women should be offer ed maternal serum alpha fetoprotein (MS-AFP) screening at 15-18 weeks gestat ion IMPRESSION : 1) Intrauterine at 12 4/7 week s gestational age by early US 2) The nuchal translucency measurement i s within the normal range. 3) U/S agrees with ASSIGNED DANAE 4) anatomy appeared normal for ges tational age. Jake Sinclair MD <Electronic Signature> 06/14/2013 02:18p m Vianney L Joan Warren GAS TRUCK DRIVER, HISTORIAN DRAMATIC ARTS RAD DENICE US documented in this encounter Visit Diagnoses Diagnosis Supervision of other normal - Primary Other specified screening(V28. 89) Other specified screening documented in this encounter Care Teams Electrician Sound Relationship Specialty Start Date End Date Needs Pcp, Assignment PCP - General 06/08/13 07/14/17 [place] [address] documented as of this encounter
--- OUTSIDE RECORDS SUMMARY | 2022-05-06 23:58 | XMS_ITS | Encounter Summary ---
:1980 Author Organization [email or web address] Address [address] [place] [address] Care Team Providers Name Role Phone Needs Pcp, Assignment Primary Care Provider Reason for Visit Reason Comments Routine Visit Encounter Details Date Type Department Care Team Description 11/23/2013 Routine [place] Helen Rubi, Routine P renatal Obstetrics/Gynecolog y Visit 53[address] [facility] 53[address] [facility] [place], [place] [address] [place], [place] [phone] [address] Social History Tobacco Use Types Packs/Day Years Used Date Smoking Tobacco: Never Assessed Sex Assigned at Date Recorded 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 cx FT/long/high, vtx. GBS cx sent. Wants to make sure she has a female providerfor delivery so txing to [facility] service for hakan last month. Helen Rubi MD documented in this encounter Plan of Treatment Upcoming Encounters Date Type Specialty Care Team Description 05/12/2022 Appointment Audiology 05/12/2022 Appointment Otolaryngology Bro Arroyo , HAILEYC [address] [facility] [place] [address] (Wo rk) 06/03/2022 Appointment General Dentistry Rylee Amaro, [facility] [address] [place] [address] 06/03/2022 Appointment General Dentistry Pee Garcia, DDS [address] [place], [place] [phone] (Wo rk) 06/17/2022 Appointment General Dentistry Pee Garcia, DDS [address] [facility] [place] [phone] (Wo rk) documented as of this encounter Procedures Procedure Name Priority Date/Time Associated Diagnosis Comme nts GROUP B STREP Routine 11/23/2013 4:25 PM screening R esults for this SCREEN (OB PTS) CDT for streptococcus B proce dure are in the results section. documented in this encounter Results Group B Strep Screen (OB Pts) (11/23/2013 4:25 PM CDT) [facility] Method Time Signature Source Vag/Rec HP CONVERSION Site HP CONVERSION Culture Strep No beta HP CONVERSION Screen Other hemolytic Source Streptococcus , Group A or B Specimen (Source) Anatomical Collection Method Collection Time Re ceived Time Location / / Volume Laterality Vag/Rec: 11/23/2013 4:25 PM CDT Helen Rubi MD LAB_1 Performing Organization Address City/State/ZIP Code Phon e Number HP CONVERSION documented in this encounter Visit Diagnoses Diagnosis Supervision of other normal - Primary screening for streptococcus B screening for Streptococcus B documented in this encounter Care Teams Vest Tailor Relationship Specialty Start Date End Date Needs Pcp, Assignment PCP - General 06/08/13 07/14/17 [place] [address] documented as of this encounter
--- OUTSIDE RECORDS SUMMARY | 2022-05-06 23:58 | XMS_ITS | Encounter Summary ---
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 Maybe feeling a little movement. Over all feeling better. Excited to be traveling to visit [place] of the country. Using medication for nasal congestion. Mouth is very dry at night. RTC 4 weeks. Pt declined MSAFP after reviewing what the test is for. ERS' COMPENSATION MEDIATOR documented in this encounter Plan of Treatment Upcoming Encounters Date Type Specialty Care Team Description 05/12/2022 Appointment Audiology 05/12/2022 Appointment Otolaryngology Bro Arroyo , PAMorisC [address] [facility] [address] (Wo rk) 06/03/2022 Appointment General Dentistry Rylee Amaro, [facility] [address] [place] [address] 06/03/2022 Appointment General Dentistry Pee Garcia, DDS [address] [place], [place] [phone] (Wo rk) 06/17/2022 Appointment General Dentistry Pee Garcia DDS [address] [place], [place] [phone] (Wo rk) documented as of this encounter Visit Diagnoses Diagnosis Supervision of other normal - Primary documented in this encounter Care Teams Claims Examiner Relationship Specialty Start Date End Date Needs Pcp, Assignment PCP - General 06/08/13 07/14/17 [place] [address] documented as of this encounter
--- OUTSIDE RECORDS SUMMARY | 2022-05-06 23:58 | XMS_ITS | Encounter Summary ---
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 States she recently started cold symp and nasal congestion is her main symptom. Denies fever. Analgesic use during : Antihistamine use during : Do not use Nolamine during . Cold Remedies: Do NOT use any products containing Aspirin, Ibuprofen (Advil, Motrin). Decongestant use in : Increase fluids, try steamy lemon herbal tea, chicken broth. Use heated, humidified air in home, especially at night. Do NOT use any products containing Aspirin, Ibuprofen (Advil, Motrin). Advised to call back if any of the following occur: symptoms worsen Patient/Caller agrees with plan and denies additional questions. Medications: Reviewed/updated today in the EMR. K CAPTAIN documented in this encounter Plan of Treatment Upcoming Encounters Date Type Specialty Care Team Description 05/12/2022 Appointment Audiology 05/12/2022 Appointment Otolaryngology Bro Arroyo , JANET [address] [facility] [phone] (Wo rk) 06/03/2022 Appointment General Dentistry Rylee Amaro, [facility] [address] [place] [address] 06/03/2022 Appointment General Dentistry Pee Garcia DDS [address] [place], [place] [phone] (Wo rk) 06/17/2022 Appointment General Dentistry Pee Garcia DDS [address] [place], [place] [phone] (Wo rk) documented as of this encounter Visit Diagnoses Not on filedocumented in this encounter Care Teams Ruby Engineer Relationship Specialty Start Date End Date Needs Pcp, Assignment PCP - General 06/08/13 07/14/17 [place] [address] documented as of this encounter
--- OUTSIDE RECORDS SUMMARY | 2022-05-06 23:58 | XMS_ITS | Encounter Summary ---
:1980 Author Organization [employer] Address [address] [facility] [place] [address] Care Team Providers Name Role Phone Unavailable Primary Care Provider Unavailable Reason for Visit Reason Comments Ultrasound Results Encounter Details Date Type Department Care Team Description 03/24/2013 Telephone [place] Helen Rubi M D Ultrasound Results Obstetrics/Gynecolog y 5320 [facility] 5320 [facility] D ivania Gama [place], [place] [address] [place], [place] [phone] (Wo rk) Social History Tobacco Use Types Packs/Day Years Used Date Smoking Tobacco: Never Assessed Sex Assigned at Date Recorded 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 Pt acknowledges understanding. States her bleeding has stopped and she is trying to become so does not want to go on ocp. Pt will monitor her cycle and call back for any questions or concerns. Helen Rubi MD - 03/24/2013 12:39 PM CDT The ultrasound is completely normal. Given her pap was normal and no evidence of infection I don't think this is anything to worry about. Some people do have spotting around the time of ovulation. I amhappy to see her in the office to discuss further, we could also try going on an OCP if she wants. Glo Kilgore RN - 03/24/2013 11:15 AM CDT Pt had ultrasound this morning and calling for results. Results reviewed with pt. (see phone note from 03/21/13). Dr Rubi advised an office appointment to discuss/review results. Pt would like to know ifan appointment is needed and if Dr Rubi could call on phone to discuss. Forwarding to Dr Rubi to advise. documented in this encounter Plan of Treatment Upcoming Encounters Date Type Specialty Care Team Description 05/12/2022 Appointment Audiology 05/12/2022 Appointment Otolaryngology Bro Arroyo , PADerick 0[address] [facility] 838386 (Shereen espino) 06/03/2022 Appointment General Dentistry Rylee Amaro, [facility] [address] [place] [address] 06/03/2022 Appointment General Dentistry Pee Garcia DDRadha [address] [place], [place] [phone] (Wo rk) 06/17/2022 Appointment General Dentistry Pee Garcia DDS [address] [place], [place] [phone] (Shereen espino) documented as of this encounter Visit Diagnoses Not on filedocumented in this encounter
--- OUTSIDE RECORDS SUMMARY | 2022-05-06 23:58 | XMS_ITS | Encounter Summary ---
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 documented as of this encounter Plan of Treatment Upcoming Encounters Date Type Specialty Care Team Description 05/12/2022 Appointment Audiology 05/12/2022 Appointment Otolaryngology Bro Arroyo , PAMorisC [address] [place] [facility] [address] (Shereen espino) 06/03/2022 Appointment General Dentistry Rylee Amaro, RD [address] [place] [address] 06/03/2022 Appointment General Dentistry Pee Garcia DDS [address] [place], [place] [phone] (Shereen espino) 06/17/2022 Appointment General Dentistry Pee Garcia DDS [address] [facility] [place] [phone] (Sehreen espino) documented as of this encounter Procedures Procedure Name Priority Date/Time Associated Comments Diagnosis COMPLETE BLOOD Routine 08/26/2011 5:35 PM Facial pain Results for this COUNT-W/DIFF TUFTING SUPERVISOR procedure are i n the results section. DIFFERENTIAL Routine 08/26/2011 5:35 PM Results f or this TUFTING SUPERVISOR procedure are i n the results section. ESR Routine 08/26/2011 5:35 PM Facial pain Results f or this TUFTING SUPERVISOR procedure are i n the results section. documented in this encounter Results Differential (08/26/2011 5:35 PM TUFTING SUPERVISOR) athologist Signature Absolute 2.1 1.8 - 8.0 HP CONVERSION Neutrophils k/cmm Absolute 2.6 1.1 - 4.0 HP CONVERSION Lymphocytes k/cmm Absolute 0.4 0.2 - 0.8 HP CONVERSION Monocytes k/cmm Absolute 0.1 0.0 - 0.5 HP CONVERSION Eosinophils k/cmm Absolute 0.0 0.0 - 0.2 HP CONVERSION Basophils k/cmm Specimen Anatomical Collection Method Collection Time Receive d Time (Source) Location / / Volume Laterality 08/26/2011 5:35 PM 2 5:35 TUFTING SUPERVISOR PM TUFTING SUPERVISOR Narrative HP CONVERSION - 08/26/2011 5:45 PM TUFTING SUPER[place]OR [place] [address] Elise Morel MD LAB_1 Performing Organization Address [facility] Phon e Number HP CONVERSION ESR (08/26/2011 5:35 PM TUFTING SUPERVISOR) [facility] gist Method Time Signature Sedimentation Rate 15 0 - 20 HP CONVERSI ON mm/hr Specimen Anatomical Collection Method Collection Time Receive d Time (Source) Location / / Volume Laterality 08/26/2011 5:35 PM 2 5:35 TUFTING SUPERVISOR PM TUFTING SUPERVISOR Narrative HP CONVERSION - 08/26/2011 6:16 PM TUFTING SUPERVISOR [place] [address] Elise Morel MD LAB_1 Performing Organization Address [facility] Phon e Number HP CONVERSION Hemogram/Plts/Diff (08/26/2011 5:35 PM TUFTING SUPERVISOR) P athologist Signature White Blood Cell 5.2 3.8 - 11.0 HP CONVERSIO N Count k/cmm Red Blood Cell 4.48 3.70 - HP CONVERSION Count 5.20 m/cmm Hemoglobin 13.4 11.8 - HP CONVERSION 15.5 g/dL Hematocrit 39.3 35.0 - HP CONVERSION 46.0 % Mean Corpuscular 87.7 80.0 - HP CONVERSION Volume 100.0 fL RDW 13.1 11.0 - HP CONVERSION 15.0 % Platelet Count 209 140 - 450 HP CONVERSION k/cmm Specimen Anatomical Collection Method Collection Time Receive d Time (Source) Location / / Volume Laterality 08/26/2011 5:35 PM 2 5:35 TUFTING SUPERVISOR PM TUFTING SUPERVISOR Narrative HP CONVERSION - 08/26/2011 5:45 PM TUFTING SUPERVISOR Performed at [facility], [address] [place] [address] Elise Morel MD LAB_1 Performing Organization Address City/State/ZIP Code Phon e Number HP CONVERSION documented in this encounter Visit Diagnoses Diagnosis Facial pain Headache documented in this encounter
--- OUTSIDE RECORDS SUMMARY | 2022-05-06 23:58 | XMS_ITS | Encounter Summary ---
:1980 Author Organization [employer] Address [address] [place] [address] Care Team Providers Name Role Phone Needs Pcp, Assignment Primary Care Provider Encounter Details Date Type Department Care Team Description 06/13/2013 Notes/Orders [facility] [address], [facility] Supervision of other normal (P rimary Dx); Maternal [address] [facility] Medicine S [address] [facility]. [place], [place] S. 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 documented as of this encounter Plan of Treatment Upcoming Encounters Date Type Specialty Care Team Description 05/12/2022 Appointment Audiology 05/12/2022 Appointment Otolaryngology Bro Arroyo , PA-C [address] [facility] [place] [address] (Wo rk) 06/03/2022 Appointment General Dentistry Rylee Amaro, RD [address] [place] [address] 06/03/2022 Appointment General Dentistry Pee Garcia, DDS [address] [place], [place] [phone] (Wo rk) 06/17/2022 Appointment General Dentistry Pee Garcia, DDS [address] [place], [place] [phone] (Wo rk) documented as of this encounter Visit Diagnoses Diagnosis Supervision of other normal - Primary First trimester screening Other specified screening documented in this encounter Care Teams Paint Grinder Relationship Specialty Start Date End Date Needs Pcp, Assignment PCP - General 06/08/13 07/14/17 [place] [address] documented as of this encounter
--- OUTSIDE RECORDS SUMMARY | 2022-05-06 23:58 | XMS_ITS | Encounter Summary ---
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 She would like to schedule as soon as possible. Warm transferred to radiology to schedule. Pt will call the call center to schedule follow up visit with Dr. Rubi after U/S completed. No further questions at this time. Helen Rubi MD - 03/23/2013 8:27 AM CDT I did order an ultrasound and have her make an appt after the scan for follow up. Marisol Moreno, RN - 03/21/2013 1:46 PM CDT Pt calling continues to have mid cycle bleeding. Pt's LMP is 9/16-21 and today she is having cramping and dark brown spotting. PT states thisis usually what happens, sometimes it is brought on by intercourse, but not always. Pt discussed this at her annual in September with Dr. Rubi and she mentioned monitoring the bleeding and doing an US if the irregular bleeding continued. Pt offered appt and declines.Sending to Dr. Rubi to advise documented in this encounter Plan of Treatment Upcoming Encounters Date Type Specialty Care Team Description 05/12/2022 Appointment Audiology 05/12/2022 Appointment Otolaryngology Bro Arroyo , JANET [address] [facility] [address] (Wo rk) 06/03/2022 Appointment General Dentistry Rylee Amaro, [facility] [address] [place] [address] 06/03/2022 Appointment General Dentistry Pee Garcia DDS [address] [place], [place] [phone] (Wo rk) 06/17/2022 Appointment General Dentistry Pee Garcia DDS [address] [place], [place] [phone] (Wo rk) documented as of this encounter Visit Diagnoses Diagnosis Irregular intermenstrual bleeding - Prim zander Metrorrhagia documented in this encounter
--- OUTSIDE RECORDS SUMMARY | 2022-05-06 23:58 | XMS_ITS | Encounter Summary ---
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 documented as of this encounter Last Filed Vital Signs Vital Sign Reading Time Taken Comments Blood Pressure 102/62 05/10/2013 3:11 PM SPECIAL EDUCATION RESOURCE ROOM TEACHER Pulse 70 05/10/2013 3:11 PM SPECIAL EDUCATION RESOURCE ROOM TEACHER Temperature - - Respiratory Rate - - Oxygen Saturation - - Inhaled Oxygen Concentration - - Weight 70.8 kg (156 lb) 05/10/2013 3:11 PM SPECIAL EDUCATION RESOURCE ROOM TEACHER Height 156.2 cm (5' 1.5) 05/10/2013 3:11 PM SPECIAL EDUCATION RESOURCE ROOM TEACHER Body Mass Index 29 05/10/2013 3:11 PM SPECIAL EDUCATION RESOURCE ROOM TEACHER documented in this encounter Progress Notes Vianney Burgos APRN, SENIOR RISK ANALYST - 05/10/2013 4:08 PM CST SUBJECTIVE: The patient is here for her NOB I visit. This is her second with Nadege Fuentes. She had a difficult recovery secondary to perineal pain. G/P:07/1000 LMP: 03/13/13 Menstrual EDC:12/18/13 Cycle length: 28 days HCG positive: At home on:04/16/13 Circumstances of : planned Signs and symptoms of : nausea, breast tenderness ( now resolved), fatigue Past Medical History Diagnosis Date ??? (spontaneous vaginal delivery) 03/13/08 x1 Past Surgical History Procedure Laterality Date ??? [place] tooth extraction Genetic screening: Genetic screening check off list was reviewed and found to be negative. Immunization History Administered Date(s) Administered ??? TDAP (Boostrix) 12/07/2008 Obstetric History T1 TAB0 SAB0 E0 M0 L1 Name of Baby 1 Nour- Female. 8.3 lbs ??? Outcome Date 03/13/08 GA 40 w 5 days ??? Delivery Type Vaginal, Spontaneous Delivery midline episiotomy and 2 degree tear. Significant PPpain. ??? at 1 min. Not recorded at 5 min. Not recorded ??? Living Yes- TWG 30 lbs. Pumped breast milk for 5 months, also used formula. Name of Baby 2 Current - planned. ??? Outcome Date Not recorded GA Not recorded ??? Delivery Type Not recorded ??? at 1 min. Not recorded at 5 min. Not recorded ??? Living Not recorded No Known Allergies Current outpatient prescriptions:adapalene (DIFFERIN) 0.1 % cream, Apply topically nightly. Apply toclean dry skin 1 hour before bedtime., Disp: 45 g, Rfl: 11; [DISCONTINUED] clindamycin (CLEOCIN T) 1% lotion, Apply topically every morning., Disp: 60 mL, Rfl: 11; [DISCONTINUED] ibuprofen (MOTRIN) 600 mg tablet, Take 1 tablet by mouth 3 times daily., Disp: 30 tablet, Rfl: 0 [DISCONTINUED] norelgestromin-ethinyl estradiol (ORTHO EVRA) 150-20 mcg/24 hr, Place 1 patch onto the skin once a week. For 3 weeks, followed by 1 week that is patch-free repeat., Disp: 9 patch, Rfl: 3 Family History Problem Relation Age of Onset ??? Diabetes Mother ??? High Cholesterol Mother ??? Diabetes Maternal Grandmother ??? Cancer Father ??? Other Father History Social History ??? Marital Status: Spouse Name: Genet Number of Children: Jarad. Female. Born 03/13/08. ??? 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 Smoking status: [...] ??? Weight Concern Yes Social History Narrative ??? 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 She is thinking about returning to school for a [employer] or a graduate degree in something else. OBJECTIVE: Vital Signs:BP 102/62 Pulse 70 Ht 5' 1.5 (1.562 m) Wt 156 lb (70.761 kg) BMI 29 kg/m2 LMP03/13/2013 Height:5' 1.5 (1.562 m) Weight: 156 lb (70.761 kg) Pre- weight:155. Pt is concerned about her weight. Her all time high weight was 160. BMI: Body mass index is 29 kg/(m^2). General: Patient alert, in NAD. HEENT: Eyes normal. Sclera clear. Mouth normal lips teeth and gums. Ears symmetrical. Neck: Supple, without thyromegaly or mass. Upper Extremities: FROM with good strength, no lesions or deformities CV:RRR without murmurs, rubs or gallops. Resp: Clear to auscultation without crackles, wheezes or distress. Abdomen: Soft, non-tender, without hepatosplenomegaly, masses, or hernias. Breasts: Symmetrical, nontender, without masses or nipple discharge Lymphatic: No neck, supraclavicular, axillary or groin lymphadenopathy. Lower Extremities: FROM, normal gait without edema, lesions, or deformity. Pelvic: External normal without lesions. Vagina reveals healthy mucosa with no vaginal or cervical lesions,no abnormal discharge or odor. A pap smear was obtained. Bimanual reveals uterus to be enlarged. No adenexal masses or tenderness are noted. Rectal: No external hemorrhoids or perianal fissures Skin: No lesions, warm and dry Psychiatric: Alert & oriented with normal affect and insight. Patient does not appear depressed or anxious. A positive heart beat was seen by US. CRL was 1.32 cm or 7w4d. ASSESSMENT: NOB I Pt would like to do NT. PLAN: Patient was sent to the lab for blood work and urine. She will return for a NOB II visit with . Labs: Initial new OB labs have been ordered and results will be released to MY CHART and reviewed at the next OB visit. health counseling and education: Pt was oriented to RAISIN WASHER, routine OB visits, hospital call system, diet, exercise, sexual activity, and we reviewed screening tests including NIPT, nuchaltranslucency, quad screen and ultrasound, Tdap, one hour glucose, group B strep vaginal culture.. Patient will call back should she decide to do the first trimester screen. Patient's questions and concerns were addressed. TT:30 CT: 17 IAL EDUCATION RESOURCE ROOM TEACHER documented in this encounter Plan of Treatment Upcoming Encounters Date Type Specialty Care Team Description 05/12/2022 Appointment Audiology 05/12/2022 Appointment Otolaryngology Bro Arroyo , JANET [address] [facility] [address] (Shereen espino) 06/03/2022 Appointment General Dentistry Rylee Amaro, [facility] [address] [place] [address] 06/03/2022 Appointment General Dentistry Pee Garcia DDS [address] [place], [place] [phone] (Shereen espino) 06/17/2022 Appointment General Dentistry Pee Garcia DDS [address] [facility] [place], [place] [phone] (Shereen espino) documented as of this encounter Procedures Procedure Name Priority Date/Time Associated Comments Diagnosis ANATOMICAL PATH Routine 05/10/2013 4:03 PM Result s for this LIQUID BASED SPECIAL EDUCATION RESOURCE ROOM TEACHER procedure are i n the results section. PAP SMEAR ORDER Routine 05/10/2013 4:03 PM Screening for Resul ts for this SPECIAL EDUCATION RESOURCE ROOM TEACHER malignant neoplasm procedure are in of the cervix the results section. documented in this encounter Results Pap Smear (05/10/2013 4:03 PM SPECIAL EDUCATION RESOURCE ROOM TEACHER) Specimen (Source) Anatomical Collection Method Collection Time Re ceived Time Location / / Volume Laterality 05/10/2013 4:03 PM SPECIAL EDUCATION RESOURCE ROOM TEACHER Narrative HP CONVERSION - 05/30/2013 12:08 PM SPECIAL EDUCATION RESOURCE ROOM TEACHER FINAL GYNECOLOGICAL CYTOLOGY REPORT Pathology #: [id number] ?Date Obtained: 05/10/2013 ? Date Received: 05/11/2013 INTERPRETATION/RESULTS: Negative for Intraepithelial Lesion or M alignancy SPECIMEN ADEQUACY: Satisfactory for Evaluation. ??Endocervi karen cells/transformation zone component present. Verified on 05/30/2013 ??by MINIE BACCAM , CT(ASCP) (electronic signature) CLINICAL NOTES: ?Abnormal bleeding: No, LMP: 02/26, Hormonal TX: No, LIQUID BASED PAP SMEAR SPECIMEN TYPE: ?CERVICAL WITH REFLEX TO HPV IF ASCUS PLEASE NOTE: The pap smear is a screening test design ed to aid in the detection of cervical cancer and its pre cursor lesions. It is not a diagnostic procedure and ana uld not be used as the sole means of detecting cervical cancer. Both false-positive and false-negative report s may occur. ? End of Report Vianney Warren NEWCOMER HOSTESS, SENIOR RISK ANALYST LAB_1 Performing Organization Address City/State/ZIP Code Phon e Number HP CONVERSION Pap Smear Order (05/10/2013 4:03 PM SPECIAL EDUCATION RESOURCE ROOM TEACHER) P athologist Signature PAP Routine Collected HP CONVERSION Specimen Anatomical Collection Method Collection Time Receive d Time (Source) Location / / Volume Laterality 05/10/2013 4:03 PM 3 4:56 SPECIAL EDUCATION RESOURCE ROOM TEACHER AM SPECIAL EDUCATION RESOURCE ROOM TEACHER Vianney Warren APRN, SENIOR RISK ANALYST LAB_1 Performing Organization Address City/State/ZIP Code Phon e Number HP CONVERSION documented in this encounter Visit Diagnoses Diagnosis Screening for diabetes mellitus - Primar y Encounter for blood typing screening for isoimmunization Screening for unspecified disorder of bl ood and blood-forming organs Special screening examination for other specified viral diseases Screening examination for venereal disea se Screening examination for rubella Supervision of other normal Screening for malignant neoplasm of the cervix documented in this encounter
--- OUTSIDE RECORDS SUMMARY | 2022-05-06 23:58 | XMS_ITS | Encounter Summary ---
:1980 Author Organization [employer] Address [address], [place] [address] Care Team Providers Name Role Phone Needs Pcp, Assignment Primary Care Provider Reason for Visit Reason Comments Routine Visit Encounter Details Date Type Department Care Team Description 10/06/2013 Routine [place] Helen Rubi, Routine P renatal Obstetrics/Gynecolog y MD Visit [address] [facility] [place] [address] [facility] [place], [place] [address] [place], [place] [phone] [address] Social History Tobacco Use Types Packs/Day Years Used Date Smoking Tobacco: Never Assessed Sex Assigned at Date Recorded 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 No problems. Gct, Hgb, Tdap today. RTC 32 weeks. Helen Rubi MD documented in this encounter Plan of Treatment Upcoming Encounters Date Type Specialty Care Team Description 05/12/2022 Appointment Audiology 05/12/2022 Appointment Otolaryngology Bro Arroyo , PA-C [facility] [facility] [address] (Wo rk) 06/03/2022 Appointment General Dentistry Rylee Amaro, [facility] [address] [place] [address] 06/03/2022 Appointment General Dentistry Pee Garcia, DDS [address] [place] [address] (Wo rk) 06/17/2022 Appointment General Dentistry Pee Garcia DDS [address] [place] [address] (Wo rk) documented as of this encounter Visit Diagnoses Diagnosis Supervision of other normal - Primary Need for Tdap vaccination Need for prophylactic vaccination with c ombined cgjsssemsg-pcznluv-bhxvlshav (DTP) vaccine documented in this encounter Care Teams Notch Grinder Relationship Specialty Start Date End Date Needs Pcp, Assignment PCP - General 06/08/13 07/14/17 [place] [address] documented as of this encounter
--- OUTSIDE RECORDS SUMMARY | 2022-05-06 23:58 | XMS_ITS | Encounter Summary ---
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 Doing well. No complaints or problems. Pt recalls a long prodromal labor with her first. Onceshe got to the hospital she was 9 cm and delivered about 2 hours later. She did not use pain medication. Plans to visit with the CNMs and may transfer to their care. Baby is active. documented in this encounter Plan of Treatment Upcoming Encounters Date Type Specialty Care Team Description 05/12/2022 Appointment Audiology 05/12/2022 Appointment Otolaryngology Bro Arroyo , JANET [address] [facility] [phone] (Wo rk) 06/03/2022 Appointment General Dentistry Rylee Amaro, [facility] [address] [place] [address] 06/03/2022 Appointment General Dentistry Pee Garcia, DDS [address] [place], [place] [phone] (Wo rk) 06/17/2022 Appointment General Dentistry Pee Garcia DDS [address] [place], [place] [phone] (Wo rk) documented as of this encounter Visit Diagnoses Diagnosis Supervision of other normal - Primary documented in this encounter Care Teams Diamond Selector Relationship Specialty Start Date End Date Needs Pcp, Assignment PCP - General 06/08/13 07/14/17 [place] [address] documented as of this encounter
--- OUTSIDE RECORDS SUMMARY | 2022-05-06 23:58 | XMS_ITS | Encounter Summary ---
:1980 Author Organization [employer] Address [address] [place] [address] Care Team Providers Name Role Phone Needs Pcp, Assignment Primary Care Provider Encounter Details Date Type Department Care Team Description 07/28/2013 Imaging [place] 1515 Ultras ound Supervision of other normal [facility] 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 [address] [place] [address] 06/03/2022 Appointment General Dentistry Pee Garcia DDS [address] [place], [place] [phone] (Wo rk) 06/17/2022 Appointment General Dentistry Pee Garcia DDS [address] [place] [address] (Wo rk) documented as of this encounter Procedures Procedure Name Priority Date/Time Associated Diagnosis Comme nts US OB 20 WEEKS Routine 07/28/2013 12:06 PM Supervision of jonna darden Results for this COMPLETE SINGLE OWNER SPA DIRECTOR normal procedur e are in the results section. documented in this encounter Results US OB 20 Weeks Complete Single (07/28/2013 12:06 PM OWNER SPA DIRECTOR) Anatomical Region Laterality Modality Pelvis Other Specimen (Source) Anatomical Location Collection Method / Collectio n Time Received Time / Laterality Volume Impressions 07/28/2013 12:44 PM OWNER SPA DIRECTOR IMPRESSION: ??19 weeks 2 days Narrative 07/28/2013 12:44 PM OWNER SPA DIRECTOR CLINICAL HISTORY: ??Size and dates COMPARISON: ??06/14/2013 ?? FINDINGS: ??A level 1 ultrasound was per formed. Transabdominal ??scanning was performed. Type of Gestation: ??Mcrae. Presentation: Cephalic Movement Present: ??Yes Cardiac Rate: 143 bpm and is regular Amniotic Fluid Volume: ??Normal Placental Position: ??Anterior Cervix: ??3.8 cm ANATOMIC SURVEY RESULTS: ??Negative The anatomic survey includes assessment of: Cranium, Lateral Ventricles, Cerebellum, Cisterna Magna, Nuchal Fold, Face: Orbits, Upper Lip, Profile, Spine: Long C,T,L,S, Transverse Sacrum, Heart: 4 Chamb er View, M-Mode, Right ventricular outfl ow tract, Left ventricular outflow tract, Abdomen: Cord Insertion, 3-Vessel Cord, Bladder, Stomach, Diaphragm, Kidneys, Extremities: presence of arms and legs. Measurements (Source Hadlock): BPD: ??4.5 cm = 19 weeks 4 days ?? HC: ??16.5 cm = 19 weeks 2 days AC: ??14.3 cm= 19 weeks 5 days ?? FL: ??3.1 cm = 19 weeks 5 days Anatomic Ratios: ??JOHNSON ratio normal at 1. 15 Estimated Weight: Not done ?? GA by LMP: ??19 weeks 4 days GA by Prior US: ??18 weeks 6 days GA by today's US: ??19 weeks 2 days ?? DANAE by today's US: ??12/20/2013 Other Findings: ??None Procedure Note Leafblad, Jared, MD - 12/14/2015Format ting of this note might be different from the original. CLINICAL HISTORY: Size and dates COMPARISON: 06/14/2013 FINDINGS: A level 1 ultrasound was perfo rmed. Transabdominal scanning was performed. Type of Gestation: Mcrae. Presentation: Cephalic Movement Present: Yes Cardiac Rate: 143 bpm and is regular Amniotic Fluid Volume: Normal Placental Position: Anterior Cervix: 3.8 cm ANATOMIC SURVEY RESULTS: Negative The anatomic survey includes assessment of: Cranium, Lateral Ventricles, Cerebellum, Cisterna Magna, Nuchal Fold, Face: Orbits, Upper Lip, Profile, Spine: Long C,T,L,S, Transverse Sacrum, Heart: 4 Chamber View, M-Mode, Right ventricular outflow tract, Left ventricular outflow tract, Abdomen: Cord Insertion, 3-Vessel Cord, Bladder, Stomach, Diaphragm, Kidneys, Extremities: presence of arms and legs. Measurements (Source Hadlock): BPD: 4.5 cm = 19 weeks 4 days HC: 16.5 cm = 19 weeks 2 days AC: 14.3 cm= 19 weeks 5 days FL: 3.1 cm = 19 weeks 5 days Anatomic Ratios: JOHNSON ratio normal at 1.15 Estimated Weight: Not done GA by LMP: 19 weeks 4 days GA by Prior US: 18 weeks 6 days GA by today's US: 19 weeks 2 days DANAE by today's US: 12/20/2013 Other Findings: None IMPRESSION IMPRESSION: 19 weeks 2 days Helen Rubi MD [facility] US documented in this encounter Visit Diagnoses Diagnosis Supervision of other normal documented in this encounter Care Teams Reading Teacher Relationship Specialty Start Date End Date Needs Pcp, Assignment PCP - General 06/08/13 07/14/17 [place] [address] documented as of this encounter
--- OUTSIDE RECORDS SUMMARY | 2022-05-06 23:58 | XMS_ITS | Encounter Summary ---
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 She is planning on seeing the [facility] at the next 2 scheduled appts and would like to keep 11/29 as her transfer appt to the [facility]. Maylin Goodman APRN, CNM - 10/30/2013 1:07 PM CDT Patient is a 32 y/o at [address] Rubi at [facility] so would be internal transfer. Uncomplicated term vaginal delivery 2007. Pre-preg BMI= 29. Medical hx per past note from Dr. Rubi-- She has a history of a seizure disorder, seen by neurology on 02/23/08, as well as 11/[address] Fernández and Dr. Aguirre. Apparently there is no concern for ongoing seizure disorders. It was possibly a sleep-deprived seizure and she is on no chronic medication, and has no needs to see Neurology in followup at this time. She is appropriate for CNM care and since internal transfer ok to keep 6/4 as transfer appointment unless patient is able to transfer sooner. She has appointments scheduled at [facility] 11/09 adn 11/23. Please call and let the patient know- thanks! Akua Kaminski, RN - 10/27/2013 11:46 AM CDT Pt calling to transfer cares to CNM at 37 wks so she can ' have the CNM experience.' Has cnm transfer appt scheduled on 11/29 at [place]. Pt is aware that the CNM director needs to OK the transfer for after 36 weeks. Will await a call back if OK to keep the /4 appt. documented in this encounter Plan of Treatment Upcoming Encounters Date Type Specialty Care Team Description 05/12/2022 Appointment Audiology 05/12/2022 Appointment Otolaryngology Bro Arroyo PA-C [address] [facility] N [phone] (Shereen espino) 06/03/2022 Appointment General Dentistry Rylee Amaro, [facility] [address] [place] [address] 06/03/2022 Appointment General Dentistry Pee Garcia, DDS [address] [place] [address] (Wo kenzie) 06/17/2022 Appointment General Dentistry Pee Garcia, DDS [address] [place], [place] [phone] (Wo rk) documented as of this encounter Visit Diagnoses Diagnosis Supervision of other normal - Primary documented in this encounter Care Teams Glove Factory Sewer Relationship Specialty Start Date End Date Needs Pcp, Assignment PCP - General 06/08/13 07/14/17 [place] [address] documented as of this encounter
--- OUTSIDE RECORDS SUMMARY | 2022-05-06 23:58 | XMS_ITS | Encounter Summary ---
:1980 Author Organization [employer] Address [address] [place] [address] Care Team Providers Name Role Phone Needs Pcp, Assignment Primary Care Provider Encounter Details Date Type Department Care Team Description 08/24/2013 Notes/Orders [place] Helen Rubi M D Screening for iron deficiency anemia (Pr imary Dx); Obstetrics/Gynecolog y 53[address] [facility] Screening for diabetes bertha tus [address] [place], [place] [phone] Social History Tobacco Use Types Packs/Day Years Used Date Smoking Tobacco: Never Assessed Sex Assigned at Date Recorded 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 documented as of this encounter Plan of Treatment Upcoming Encounters Date Type Specialty Care Team Description 05/12/2022 Appointment Audiology 05/12/2022 Appointment Otolaryngology Bro Arroyo , PA-C [address] [phone] (Wo rk) 06/03/2022 Appointment General Dentistry Rylee Amaro, RD [address] [place] [address] 06/03/2022 Appointment General Dentistry Pee Garcia, DDS [address] [place], [place] [phone] (Wo rk) 06/17/2022 Appointment General Dentistry Pee Garcia, DDS [address] [place], [place] [phone] (Wo rk) documented as of this encounter Visit Diagnoses Diagnosis Screening for iron deficiency anemia - P rimary Screening for diabetes mellitus documented in this encounter Care Teams Automation Control Technician Relationship Specialty Start Date End Date Needs Pcp, Assignment PCP - General 06/08/13 07/14/17 [place] [address] documented as of this encounter
--- OUTSIDE RECORDS SUMMARY | 2022-05-06 23:58 | XMS_ITS | Encounter Summary ---
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 documented as of this encounter Plan of Treatment Upcoming Encounters Date Type Specialty Care Team Description 05/12/2022 Appointment Audiology 05/12/2022 Appointment Otolaryngology Bro Arroyo , PAMorisC [address] [facility] [phone] (Wo rk) 06/03/2022 Appointment General Dentistry Rylee Amaro, [address] [place] [address] 06/03/2022 Appointment General Dentistry Pee Garcia DDS [address] [place], [place] [phone] (Shereen rk) 06/17/2022 Appointment General Dentistry Pee Garcia DDS [address] [facility] [place] [phone] (Wo rk) documented as of this encounter Procedures Procedure Name Priority Date/Time Associated Diagnosis Comme nts US PELVIC COMPLETE Routine 03/24/2013 7:48 AM Irregular Res ults for this W EV CDT intermenstrual bleeding proc edure are in the results section. documented in this encounter Results US Pelvic Complete W EV (03/24/2013 7:48 AM CDT) Anatomical Region Laterality Modality Pelvis Other Specimen (Source) Anatomical Location Collection Method / Collectio n Time Received Time / Laterality Volume Impressions 03/24/2013 7:52 AM CDT IMPRESSION: ??Negative pelvic ultrasound. ? Narrative 03/24/2013 7:52 AM CDT COMPARISON STUDY: ??None. ? FINDINGS: ??Both transabdominal and coles svaginal scanning were performed. ??The uterus measures 8.3 x 3.8 x 4.7 cm and appears within normal limits. ??The endometrial stripe measures 5 mm in maximum thickness with a normal appearance. ? The ovaries appear within normal limits and demonstrate normal vascular flow. ??There is no free fluid in the cul-de-sac. ? Procedure Note Amaya Garcia MD - 12/14/2015Formattin g of this note might be different from the original. COMPARISON STUDY: None. FINDINGS: Both transabdominal and transv aginal scanning were performed. The uterus measures 8.3 x 3.8 x 4.7 cm and appears within normal limits. The endometrial stripe measures 5 mm in maximum thickness with a normal appearance. The ovaries appear within normal limits and demonstrate normal vascular flow. There is no free fluid in the cul-de-sac. IMPRESSION IMPRESSION: Negative pelvic ultrasound. Helen Rubi MD RAD US documented in this encounter Visit Diagnoses Diagnosis Irregular intermenstrual bleeding Metrorrhagia documented in this encounter
--- OUTSIDE RECORDS SUMMARY | 2022-05-06 23:58 | XMS_ITS | Encounter Summary ---
:1980 Author Organization [employer] Address [address] [place] [address] Care Team Providers Name Role Phone Needs Pcp, Assignment Primary Care Provider Reason for Visit Reason Comments Routine Visit Encounter Details Date Type Department Care Team Description 06/08/2013 Routine [place] Helen Rubi, Pinky P renatal Obstetrics/Gynecolog y Visit 5320 [facility] 5320 [facility] [place], [place] [address] [place], [place] [phone] [address] Social History Tobacco Use Types Packs/Day Years Used Date Smoking Tobacco: Never Assessed Sex Assigned at Date Recorded Female 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 female at 12w3d here for NOB2. So far the has been uncomplicated. Mild nausea, minimal vomitting. Very excited. A little worried about the delivery as she had a hard time withthe perineal stitches last time. Her NOB1 exam and note was reviewed in detail. Past Medical History Diagnosis Date ??? (spontaneous vaginal delivery) x1 Past Surgical History Procedure Laterality Date ??? Albers tooth extraction Labs: Reviewed. Genetic screening discussed and requested. 1st trimester screen scheduled for next week. 20 week ultrasound scheduled. EPIC Problem list updated with plan: Patient Active Problem List Diagnosis Date Noted ??? Supervision of other normal 06/08/2013 Did discuss vs primary csection, at this time she is wanting to go for the vaginal delivery which is what I recommend. All questions and concerns addressed, RTC in 4 weeks. MSAFP at next visit. Helen Rubi MD TT: 25 minutes, CT: 15 minutes going over the history, labs, ultrasound, genetic screening, management, and answering questions about labor and delivery. RIBUTION LEAD documented in this encounter Plan of Treatment Upcoming Encounters Date Type Specialty Care Team Description 05/12/2022 Appointment Audiology 05/12/2022 Appointment Otolaryngology Bro Arroyo , JANET [address] [facility] RUDI [place] [address] (Wo rk) 06/03/2022 Appointment General Dentistry Rylee Amaro, [facility] [address] [place] [address] 06/03/2022 Appointment General Dentistry Pee Garcia DDS [address] [place], [place] [phone] (Wo rk) 06/17/2022 Appointment General Dentistry Pee Garcia DDRadha [address] [place], [place] [phone] (Wo rk) documented as of this encounter Visit Diagnoses Diagnosis Supervision of other normal - Primary documented in this encounter Care Teams Fisher Scallop Relationship Specialty Start Date End Date Needs Pcp, Assignment PCP - General 06/08/13 07/14/17 [place] [address] documented as of this encounter
--- OUTSIDE RECORDS SUMMARY | 2022-05-06 23:58 | XMS_ITS | Encounter Summary ---
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 [address] (Wo kenzie) 06/03/2022 Appointment General Dentistry Rylee Amaro, [facility] [address] [place] [address] 06/03/2022 Appointment General Dentistry Pee Garcia DDS [address] [place], [place] [phone] (Shereen rk) 06/17/2022 Appointment General Pee Abreu, DDS [address] [place] [address] (Wo rk) documented as of this encounter Procedures Procedure Name Priority Date/Time Associated Comments Diagnosis HEMOGLOBIN OB Routine 10/06/2013 4:27 PM Screening for iron Re sults for this CDT deficiency anemia procedure are in the results section. GLUCOSE - 1 HR. P.C. Routine 10/06/2013 4:27 PM Screening for Results for this PREG CDT diabetes mellitus procedure are in the results section. documented in this encounter Results HEMOGLOBIN OB (10/06/2013 4:27 PM CDT) athologist Signature OB Hemoglobin 10.8 HP CONVERSION Comment: Reference Ranges Gestational Hemoglobin level measured in gm/dL First Trimester (Week 12) ?? 11.0-13.4 Second Trimester (Week 20) ??10.5-12.7 Third Trimester (Week 32) ?? 11.0-13.2 From MMWR 1989;38(22):400-4 Specimen Anatomical Collection Method Collection Time Receive d Time (Source) Location / / Volume Laterality 10/06/2013 4:27 PM 4 4:26 CDT PM CDT Narrative HP CONVERSION - 10/06/2013 5:20 PM CDT Performed at [facility], [address] [address], [place] [address] Helen Rubi MD LAB_1 Performing Organization Address City/[facility]/ZIP Code Phon e Number HP CONVERSION Glucose - 1 Hr. P.C. Preg (10/06/2013 4:27 PM CDT) athologist Signature Glucose 111 50 - 134 HP CONVERSION [place] mg/dL Screen Specimen Anatomical Collection Method Collection Time Receive d Time (Source) Location / / Volume Laterality 10/06/2013 4:27 PM 4 6:13 CDT PM CDT Helen Rubi MD LAB_1 Performing Organization Address City/[facility] Phon e Number HP CONVERSION documented in this encounter Visit Diagnoses Diagnosis Screening for diabetes mellitus Screening for iron deficiency anemia documented in this encounter Care Teams Facility Service Manager Relationship Specialty Start Date End Date Needs Pcp, Assignment PCP - General 06/08/13 07/14/17 [place] [address] documented as of this encounter
--- OUTSIDE RECORDS SUMMARY | 2022-05-06 23:58 | XMS_ITS | Encounter Summary ---
:1980 Author Organization [employer] Address [address] [place] [address] Care Team Providers Name Role Phone Unavailable Primary Care Provider Unavailable Reason for Visit Reason Comments Medication Questions Encounter Details Date Type Department Care Team Description 01/05/2012 Telephone [place] Helen Rubi M D Medication Questions Obstetrics/Gynecolog y [address] [place], [place] [address] [place], [place] [phone] (Wo rk) Social History Tobacco Use Types Packs/Day Years Used Date Smoking Tobacco: Never Assessed Sex Assigned at Date Recorded 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 Helen Rubi MD - 01/07/2012 11:59 AM CDT rx sent, please let her know. T Marisol Moreno RN - 01/05/2012 12:25 PM CDT Pt calling had her annual in August with Dr. Rubi. Pt calling reporting she has decided not to go on the pill but would prefer Ortho Evra patches. Pt states she will be traveling and this will be a better regimen for her. tP is about ot get her period and would like to start the patch on Wednesday. Sendingto Dr. Rubi to advise on Rx. Pharmacy preference entered. documented in this encounter Plan of Treatment Upcoming Encounters Date Type Specialty Care Team Description 05/12/2022 Appointment Audiology 05/12/2022 Appointment Otolaryngology Bro Arroyo , PAMorisC [address] [place]ACHEL [place] [address] (Wo rk) 06/03/2022 Appointment General Dentistry Rylee Amaro, [address] [place] [address] 06/03/2022 Appointment General Dentistry Pee Garcia, DDS [address] [place] [address] (Wo rk) 06/17/2022 Appointment General Dentistry Pee Garcia DDS [address] [place], [place] [phone] (Wo rk) documented as of this encounter Visit Diagnoses Not on filedocumented in this encounter
--- OUTSIDE RECORDS SUMMARY | 2022-05-06 23:58 | XMS_ITS | Encounter Summary ---
:1980 Author Organization [employer] Address [address] [place] [address] Care Team Providers Name Role Phone Needs Pcp, Assignment Primary Care Provider Reason for Visit Reason Comments Routine Visit Encounter Details Date Type Department Care Team Description 10/26/2013 Routine [place] Helen Rubi, Routine P renatal Obstetrics/Gynecolog y Visit [address] 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 Hemorrhoids now, will use OTC cream. Otherwise doing well. RTC 2 wks. Helen Rubi MD documented in this encounter Plan of Treatment Upcoming Encounters Date Type Specialty Care Team Description 05/12/2022 Appointment Audiology 05/12/2022 Appointment Otolaryngology Bro Arroyo , PA-C [address] [place] [facility] [address] (Wo rk) 06/03/2022 Appointment General Dentistry Rylee Amaro, [facility] [address] [place] [address] 06/03/2022 Appointment General Dentistry Pee Garcia, DDS [address] [place], [place] [phone] (Wo rk) 06/17/2022 Appointment General Dentistry Pee Garcia DDS [address] [place], [place] [phone] (Wo rk) documented as of this encounter Visit Diagnoses Diagnosis Supervision of other normal - Primary documented in this encounter Care Teams Underwater Trapper Relationship Specialty Start Date End Date Needs Pcp, Assignment PCP - General 06/08/13 07/14/17 [place] [address] documented as of this encounter
--- OUTSIDE RECORDS SUMMARY | 2022-05-06 23:58 | XMS_ITS | Encounter Summary ---
:1980 Author Organization [employer] Address [address] [facility] [place] [address] Care Team Providers Name Role Phone Unavailable Primary Care Provider Unavailable Reason for Visit Reason Comments Concerns Encounter Details Date Type Department Care Team Description 05/03/2013 Telephone Dejuan Warren Co iaerns Obstetrics/Gynecolog y Vianney Farrell, CONTENT DIRECTOR, [address] [place], [place] [address] [phone] [place] [address] (Wo rk) Social History Tobacco Use Types Packs/Day Years Used Date Smoking Tobacco: Never Assessed Sex Assigned at Date Recorded 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 Denies bleeding. Pt states she might be farther along than expected. Appointment made with Vianney Franco tomorrow morning. OR COBOL DEVELOPER documented in this encounter Plan of Treatment Upcoming Encounters Date Type Specialty Care Team Description 05/12/2022 Appointment Audiology 05/12/2022 Appointment Otolaryngology Bro Arroyo , JANET [address] [place] [address] [address] (Wo rk) 06/03/2022 Appointment General Dentistry Rylee Amaro, [facility] [address] [place] [address] 06/03/2022 Appointment General Dentistry Pee Garcia, DDS [address] [place], [place] [phone] (Wo rk) 06/17/2022 Appointment General Dentistry Pee Garcia DDS [address] [place], [place] [phone] (Wo rk) documented as of this encounter Visit Diagnoses Not on filedocumented in this encounter
--- OUTSIDE RECORDS SUMMARY | 2022-05-06 23:58 | XMS_ITS | Encounter Summary ---
:1980 Author [facility] Address [address], [place] [address] Care Team Providers Name Role Phone Unavailable Primary Care Provider Unavailable Reason for Visit Reason Comments UPDATE Encounter Details Date Type Department Care Team Description 08/25/2011 Telephone [facility] edicine Elise Morel MD [facility] [address] 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 Labs are OK. Redness is gone, but still some edema present. She would like to be be seen. Note to Frontline: Can you put this patient into my schedule for 7:45 Rony morning? Ok to call herjust to remind her, but we have already spoken this morning. I am out of the office the next 2 days at a diabetes class, but am available by pager if we can't put her my schedule early. Thank you. Elise Morel - 08/26/2011 10:15 AM CST Called patient. She feels a little better, but now having more neck discomfort, she thinks she is feeling large nodes in her neck. Recommended she come in to be re-evaluated. I also ordered a CBC and ESR. CHMAN Do Alcala RN - 08/25/2011 10:56 AM CST Forward to Dr Morel: Called pt back. Update on symptoms from 08/21 visit: Does not note much improvement, not really any better. Still having facial swelling. If touches site, no pain present. Continues to have headache or pain along right side to back of head. Neck is stiff, more on right side than left. Pulling pressure behind right ear sensation. The only improvement is that there is no longerheaviness or tingling to arms and legs. Denies note of any rash appearance. Requesting call back: Okay to stop abx or continue? What is next step with testing-xray, lab? Marc Vann (Self) [phone] (H) vm okay CHMAN Cristal Winston - 08/25/2011 9:00 AM CST Non -Symptom Message from Front Line Primary Care Provider: No primary provider on file. Message: Pt said Dr Morel told her to call with an update on her progress / [phone] CHMAN documented in this encounter Plan of Treatment Upcoming Encounters Date Type Specialty Care Team Description 05/12/2022 Appointment Audiology 05/12/2022 Appointment Otolaryngology Bro Arroyo , JANET [address] [place] [address] [address] (Wo rk) 06/03/2022 Appointment General Dentistry Rylee Amaro, [facility] [address] [place] [address] 06/03/2022 Appointment General Dentistry Pee Garcia, TAWANNAS [address] [place], [place] [phone] (Wo rk) 06/17/2022 Appointment General Dentistry Pee Garcia DDS [address] [place] [address] (Wo rk) documented as of this encounter Visit Diagnoses Not on filedocumented in this encounter
--- OUTSIDE RECORDS SUMMARY | 2022-05-06 23:58 | XMS_ITS | Encounter Summary ---
:1980 Author Organization [employer] Address [address], [place] [address] Care Team Providers Name Role Phone Unavailable Primary Care Provider Unavailable Reason for Visit Reason Comments Annual Exam Encounter Details Date Type Department Care Team Description 10/10/2012 Office Visit [place] Helen Rubi, Routine gynec ological examination (Primary Dx); Obstetrics/Gynecolog y Other general counseling and advice for contraceptive management; [address] Screening for malignant neoplasm of the cervix; [address] Postcoital bleeding; [place], [place] [address] [place], [place] Pelvic pain in female [phone] Social History Tobacco Use Types Packs/Day Years Used Date Smoking Tobacco: Never Assessed Sex Assigned at Date Recorded 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 Please follow the instructions below to securely access your online medical record. [employer] allows you to send messages to your doctor, view your test results, renewyour prescriptions, schedule appointments, and more. How Do I Sign Up? 1. In your Internet browser, go to: [email or web address] 2. Click on the Sign Up Now link in the Sign In box. You will see the New Member Sign Up page. 3. Enter your [employer] Access Code exactly as it appears below. You will not need to use this code after you???ve completed the sign-up process. If you do not sign up before the expiration date, you must request a new code. [employer] Access Code: [email or web address] Expires: 11/09/12 02:23 PM 4. Enter your Social Security Number ([id number]) and Date of (mm/dd/yyyy) as indicated and click Submit. You will be taken to the next sign- up page. 5. Create a [employer] ID. This will be your [employer] login ID and cannot be changed, so think of one that is secure and easy to remember. 6. Create a [employer] password. You can change your password at any time. 7. Enter your Password Reset Question and Answer. This can be used at a later time if you forget your password. 8. Enter your e-mail address. You will receive e-mail notification when new information is availablein [employer] 9. Click Sign Up. You can now view your medical record. Additional Information If you have questions, you can call [phone] to talk to our [employer] staff. Remember, [employer] is NOT to be used for urgent needs. For medical emergencies, dial 911. documented in this encounter Progress Notes Helen Rubi MD - 10/10/2012 3:02 PM CDT PREVENTATIVE FEMALE ANNUAL EXAM This is a 31 y.o. female who presents today for her annual exam. She has been well, but has had some minor complaints of spotting after intercourse. Does not happen everytime, infrequently but she wanted to get things checked out.. Also, pain with intercourse, again does not happen everytime and is not associated with the bleeding after intercourse. Pain is on the inside, nothing on the outside. OBGYN Issues: Menstrual history: Cycles regular with no concerns. Pap history: No history of abnormal paps. Current contraception: no method, wants to get back on the patch which she has used in the past. STD history: no past history Other photo mask pattern generator issues: none Past Medical History: Past Medical History Diagnosis Date ??? (spontaneous vaginal delivery) x1 Past Surgical History: History reviewed. No pertinent past surgical history. Current outpatient prescriptions ordered prior to encounter Medication Sig Dispense Refill ??? adapalene (DIFFERIN) 0.1 % cream Apply topically nightly. Apply to clean dry skin 1 hour before bedtime. 45 g 11 ??? clindamycin (CLEOCIN T) 1 % lotion Apply topically every morning. 60 mL 11 ??? ibuprofen (MOTRIN) 600 mg tablet Take 1 tablet by mouth 3 times daily. 30 tablet 0 ??? DISCONTD: norelgestromin-ethinyl estradiol (ORTHO EVRA) 150-20 mcg/[address] 1 patch onto the skin once a week. For 3 weeks, followed by 1 week that is patch-free repeat. 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 Diabetes Mother ??? High Cholesterol Mother ??? Diabetes Maternal Grandmother ??? Cancer Father ??? Other Father Preventative health: Pap: Pap smear done today Tetanus: last tetanus booster within 10 years OBJECTIVE : height is 5' 1.5 (1.562 m) and weight is 155 lb (70.308 kg). Her blood pressure is 98/70 and her pulse is 72. Body mass index is 28.81 kg/(m^2). Gen: Alert, cooperative in no acute distress. Breast: Symmetric without masses or nodularity. No skin lesions. No axillary or clavicular adenopathy. Abdomen: The abdomen was soft and nontender, normal sounds present. No obvious masses or organomegaly. Pelvic: EGBUS within normal limits, normal vagina and vulva, normal cervix without lesions, polyps or tenderness, cervical ectropion noted, uterus retroflexed, unable to palpate fundus fully, no obvious abnormality found, adnexa normal in size without mass or tenderness. No CMT. ASSESSMENT : Routine Female Annual exam. PLAN : 1. Routine gynecological examination (V72.31) 2. Other general counseling and advice for contraceptive management (V25.09) norelgestromin-ethinyl estradiol (ORTHO EVRA) 150-20 mcg/24 hr 3. Screening for malignant neoplasm of the cervix (V76.2) Pap Smear Screening 4. Postcoital bleeding (626.7) Sexually Transmitted Disease Probe [STDPR] - Swab, Wet Prep, DEANNA Prep 5. Pelvic pain in female (625.9AC) Will rule out infection, check pap with postcoital bleeding. She will track when the bleeding/pain is happening with her cycle as it could be ovulatory related. MD Helen Cannon MD documented in this encounter Miscellaneous Notes Miscellaneous - 10/16/2016 1:30 AM CDTNotes Recorded by Helen Rubi MD on 10/17/2012 at 9:44 AMnormal pap please send letter. Thanks. Miscellaneous - 08/07/2016 8:06 AM CSTNotes Recorded by Helen Rubi MD on 10/17/2012 at 9:44 AMnormal pap please send letter. Thanks. ENTICE EMBALMER Miscellaneous - 08/07/2016 8:06 AM CSTNotes Recorded by Helen Rubi MD on 10/17/2012 at 9:44 AMnormal pap please send letter. Thanks. ENTICE EMBALMER Miscellaneous - 08/07/2016 8:06 AM CSTNotes Recorded by Helen Rubi MD on 10/17/2012 at 9:44 AMnormal pap please send letter. Thanks. ENTICE EMBALMER documented in this encounter Plan of Treatment Upcoming Encounters Date Type Specialty Care Team Description 05/12/2022 Appointment Audiology 05/12/2022 Appointment Otolaryngology Bro Arroyo , JANET [address] [facility] [place] [address] [address] (Wo rk) 06/03/2022 Appointment General Dentistry Rylee Amaro, [facility] [address] [place] [address] 06/03/2022 Appointment General Dentistry Pee Garcia, DDS [address] [place], [place] [phone] (Wo rk) 06/17/2022 Appointment General Dentistry Pee Garcia, DDS [address] [facility] [place] [phone] (Wo rk) documented as of this encounter Procedures Procedure Name Priority Date/Time Associated Comments Diagnosis WET PREP Routine 10/10/2012 3:06 PM Postcoital bleeding Re sults for this CDT procedure are i n the results section. ANATOMICAL PATH Routine 10/10/2012 3:06 PM Result s for this LIQUID BASED CDT procedure are i n the results section. PAP SMEAR SCREENING Routine 10/10/2012 3:06 PM Screening for R esults for this CDT malignant neoplasm procedure are in of the cervix the results section. SEXUALLY TRANSMITTED Routine 10/10/2012 3:06 PM Postcoital ble eding Results for this DISEASE PROBE CDT procedure are in the results section. DEANNA PREP Routine 10/10/2012 3:06 PM Postcoital bleeding Re sults for this CDT procedure are i n the results section. documented in this encounter Results Sexually Transmitted Disease Probe (10/10/2012 3:06 PM CDT) Component Value Ref Test Analysis Performed At [facility] gist Range Method Time Signature Chlamydia Chlamydia HP CONVERSION Trach DNA trachomatis NEGATIVE by DNA amplification GC DNA Neisseria HP CONVERSION gonorrhea NEGATIVE by DNA amplification. Specimen (Source) Anatomical Collection Method Collection Time Re ceived Time Location / / Volume Laterality Endocervical for 10/10/2012 3:06 molecular testing: PM CDT Transcriptions 10/16/2016 1:30 AM CDTNotes Recorded by Helen Rubi MD on 10/17/2012 at 9:44 AMnormal pap please send letter. Thanks. Helen Rubi MD LAB_1 Performing Organization Address City/State/ZIP Code Phon e Number HP CONVERSION Pap Smear (10/10/2012 3:06 PM CDT) Specimen (Source) Anatomical Collection Method Collection Time Re ceived Time Location / / Volume Laterality 10/10/2012 3:06 PM CDT Narrative HP CONVERSION - 10/17/2012 9:32 AM CDT FINAL GYNECOLOGICAL CYTOLOGY REPORT Pathology #: [id number] ?Date Obtained: 10/10/2012 ? Date Received: 10/11/2012 INTERPRETATION/RESULTS: Negative for Intraepithelial Lesion or M alignancy SPECIMEN ADEQUACY: Satisfactory for Evaluation. ??Endocervi karen cells/transformation zone component present. Verified on 10/17/2012 ??by PRISCILLA ISAACS(ASCP) (electronic signature) CLINICAL NOTES: ?LMP: Not Stated LIQUID BASED PAP SMEAR SPECIMEN TYPE: ?CERVICAL [...] s may occur. ? End of Report Transcriptions 08/07/2016 8:06 AM CSTNotes Recorded by Helne Rubi MD on 10/17/2012 at 9:44 AMnormal pap please send letter. Thanks. Helen Rubi MD LAB_1 Performing Organization Address [facility] Code Phon e Number HP CONVERSION DEANNA Prep (10/10/2012 3:06 PM CDT) [facility] Method Time Signature DEANNA Yeast None Seen HP CONVERSION DEANNA Fungus None Seen HP CONVERSION DEANNA Pseudo None Seen HP CONVERSION Hypae DEANNA Source Cervix/Vag HP CONVERSION inal: Specimen Anatomical Collection Method Collection Time Receive d Time (Source) Location / / Volume Laterality 10/10/2012 3:06 PM 3 3:13 CDT PM CDT Narrative HP CONVERSION - 10/10/2012 3:19 PM CDT Performed at [facility], [address], [place] [address] Transcriptions 08/07/2016 8:06 AM CSTNotes Recorded by Helen Rubi MD on 10/17/2012 at 9:44 AMnormal pap please send letter. Thanks. Helen Rubi MD LAB_1 Performing Organization Address [facility] Phon e Number HP CONVERSION WET PREP (10/10/2012 3:06 PM CDT) [facility] Method Time Signature WETPR White None Seen HP CONVERSION Blood Cells WETPR Moderate HP CONVERSION Epithelial Cells WETPR Yeast None Seen HP CONVERSION WETPR None Seen HP CONVERSION Trichomonas WETPR Clue None Seen HP CONVERSION Cells Wet Prep Source Cervix/Vagin HP CONVERSI ON al: Specimen Anatomical Collection Method Collection Time Receive d Time (Source) Location / / Volume Laterality 10/10/2012 3:06 PM 3 3:16 CDT PM CDT Narrative HP CONVERSION - 10/10/2012 3:16 PM CDT Performed at [facility], [address], [place] [address] Transcriptions 08/07/2016 8:06 AM CSTNotes Recorded by Helen Rubi MD on 10/17/2012 at 9:44 AMnormal pap please send letter. Thanks. Helen Rubi MD LAB_1 Performing Organization Address [facility] Code Phon e Number HP CONVERSION Pap Smear Screening (10/10/2012 3:06 PM CDT) athologist Signature PAP Routine Collected HP CONVERSION Specimen (Source) Anatomical Collection Method Collection Time Re ceived Time Location / / Volume Laterality 10/10/2012 3:06 PM CDT Helen Rubi MD LAB_1 Performing Organization Address City/State/ZIP Code Phon e Number HP CONVERSION documented in this encounter Visit Diagnoses Diagnosis Routine gynecological examination - Prim zander Other general counseling and advice for contraceptive management Screening for malignant neoplasm of the cervix Postcoital bleeding Pelvic pain in female Unspecified symptom associated with fema le genital organs documented in this encounter
--- OUTSIDE RECORDS SUMMARY | 2022-05-06 23:58 | XMS_ITS | Encounter Summary ---
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 documented in this encounter Miscellaneous Notes Miscellaneous - 08/07/2016 12:19 AM CSTNotes Recorded by Melissa Rothman CGC on 06/19/2013 at 1:08 PMletter jf. eric TEACHER documented in this encounter Plan of Treatment Upcoming Encounters Date Type Specialty Care Team Description 05/12/2022 Appointment Audiology 05/12/2022 Appointment Otolaryngology Bro Arroyo , PAMorisC [address] [place] [address] (Wo rk) 06/03/2022 Appointment General Dentistry Rylee Amaro, [facility] [address] [place] [address] 06/03/2022 Appointment General Dentistry Pee Garcia, DDS [address] [place], [place] [phone] (Wo rk) 06/17/2022 Appointment General Dentistry Pee Garcia, DDS [address] [facility] [place] [address] (Wo rk) documented as of this encounter Procedures Procedure Name Priority Date/Time Associated Diagnosis Comme nts NTD FIRST TRIMESTER Routine 06/14/2013 1:48 PM Supervision of other Results for this SCREEN TMR TEACHER normal procedure are in First trimester the results screening section. documented in this encounter Results NTD FIRST TRIMESTER SCREEN (06/14/2013 1:48 PM TMR TEACHER) Analysis Performed At Patho logist Time Signature Free Beta hCG 1.43 HP CONVERSION MoM Free Beta hCG 68.07 ng/mL HP CONVERSION Value Free Beta hCG 70 % HP CONVERSION % MESSI-A MoM 2.88 HP CONVERSION MESSI-A Value 4.54 mIU/mL HP CONVERSION MESSI-A % 95 % HP CONVERSION NT Delta 0.34 HP CONVERSION NT Value 2.00 mm HP CONVERSION NT% 75 % HP CONVERSION Risk Table See Note HP CONVERSION Comment: Nasal Bone: Present Risk Table: ? 1st ? Befor e ? After ? Results ? Trimester Screenin g ??Screening ? Cut-Off Down Syndrome: 1 in 310 ??1 in 615 ??1 i n >37349 ??Within Range Trisomy 18/13: 1 in 150 ??1 in 1140 1 in >03152 ??Within Range SEE ORIGINAL FOR CHART Nasal bone results are used only for Wayne n syndrome risk calculation but not for Trisomy 18/13. Blood draw for MSAFP for open neural tub e defects, or other second trimester screening must be colle cted between 06/29/2013 and 08/16/2013 CAUTION: This test was developed and its performance characteristics determined by [employer]. It has not been cleared or approved by the U.S. Food and Drug Administration. There is no Down syndrom e screening test that has been approved by the FDA. The method s and performance characteristics have been reviewed and a pproved by the [facility] Department of [facility]. These r esults do not eliminate the possibility that this preg shiela may be associated with defects including Down Syndrome, trisomy 18, trisomy 12 or other disorder s not detectable by this screening test. This report contain s Protected Healthcare Information. The recipient sh all not disclose this information unless required to provide a ppropriate medical care without the permission of the patie nt. The multiple of the median and risk results provided in this report are dependent on the accuracy of the demogra phic and ultrasound information provided. The ordering physi jaron should ensure that the ultrasound information has been obtained from a edge stitcher who is credentialed by and p articipating in an NT/NB quality review program such as NTQ R or FMF. [employer] assumes no responsibility for ensuring t hat the ultrasound information has been obtained by a taylor husain credentialed edge stitcher, including verification or u pdates to credentialing status. Specimen Anatomical Collection Method Collection Time Receive d Time (Source) Location / / Volume Laterality 06/14/2013 1:48 PM 3 2:59 TMR TEACHER PM TMR TEACHER Narrative HP CONVERSION - 06/17/2013 11:57 AM TMR TEACHER Performed at [facility] [facility] [place] [address] Transcriptions 08/07/2016 12:19 AM CSTNotes Recorded by Melissa Rothman CGC on 06/19/2013 at 1:08 jf. Connor Melissa Mena CGC LAB_1 Performing Organization Address City/State/ZIP Code Phon e Number HP CONVERSION documented in this encounter Visit Diagnoses Diagnosis Supervision of other normal First trimester screening Other specified screening documented in this encounter Care Teams Global [employer] Relationship Specialty Start Date End Date Needs Pcp, Assignment PCP - General 06/08/13 07/14/17 [place] [address] documented as of this encounter
--- OUTSIDE RECORDS SUMMARY | 2022-05-06 23:58 | XMS_ITS | Encounter Summary ---
:1980 Author Organization [employer] Address [address] [place] [address] Care Team Providers Name Role Phone Unavailable Primary Care Provider Unavailable Reason for Visit Reason Comments Annual Exam Encounter Details Date Type Department Care Team Description 09/17/2011 [place], Routine gynec ological examination (Primary Dx); Obstetrics/Gynecolog y MD Screening for malignant neoplasm of the cervix [facility] [facility] [place], [place] [address] [place], [place] [phone] [id number] Social History Tobacco Use Types Packs/Day Years Used Date Smoking Tobacco: Never Assessed Sex Assigned at Date Recorded 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 Please follow the instructions below to securely access your online medical record. [facility] allows you to send messages to your doctor, view your test results, renewyour prescriptions, schedule appointments, and more. How Do I Sign Up? 1. In your Internet browser, go to: [email or web address] 2. Click on the Sign Up Now link in the Sign In box. You will see the New Member Sign Up page. 3. Enter your [facility] Access Code exactly as it appears below. You will not need to use this code after you???ve completed the sign-up process. If you do not sign up before the expiration date, you must request a new code. [facility] Access Code: [email or web address] Expires: 10/17/11 03:15 PM 4. Enter your Social Security Number ([id number]) and Date of (mm/dd/yyyy) as indicated and click Submit. You will be taken to the next sign- up page. 5. Create a [facility] ID. This will be your [facility] login ID and cannot be changed, so think of one that is secure and easy to remember. 6. Create a [facility] password. You can change your password at any time. 7. Enter your Password Reset Question and Answer. This can be used at a later time if you forget your password. 8. Enter your e-mail address. You will receive e-mail notification when new information is availablein [facility]. 9. Click Sign Up. You can now view your medical record. Additional Information If you have questions, you can call [phone] to talk to our [facility] staff. Remember, [facility] is NOT to be used for urgent needs. For medical emergencies, dial 911. documented in this encounter Progress Notes Helen Rubi MD - 09/25/2011 8:25 AM CDT Quick Note: normal pap please send letter. Thanks. Helen Rubi MD - 09/17/2011 3:39 PM CDT PREVENTATIVE FEMALE ANNUAL EXAM This is a 30 y.o. female who presents today for her annual exam. She has been well, but has had some minor complaints of constipation. OBGYN Issues: Menstrual history: Cycles regular with no concerns. Pap history: No history of abnormal paps. 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 Migraine ??? (spontaneous vaginal delivery) x1 Past Surgical History: History reviewed. No pertinent past surgical history. 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 Diabetes Mother ??? Other Father ??? Diabetes Maternal Grandmother OBJECTIVE : height is 5' 1 (1.549 m) and weight is 155 lb (70.308 kg). Her blood pressure is 96/70 and her pulse is 72. Body mass index is 29.29 kg/(m^2). Gen: Alert, cooperative in no acute distress. Breast: Symmetric without masses or nodularity. No skin lesions. No axillary or clavicular adenopathy. Abdomen: The abdomen was soft and nontender, normal sounds present. No obvious masses or organomegaly. Pelvic: BUS normal. Introitus normal. Normal appearing vaginal epithelium, Normal cervix without lesions or tenderness, Uterus normal size mid position. NT., Adnexa normal in size left and right without tenderness. ASSESSMENT : Routine Female Annual exam. Constipation. PLAN : Reviewed changes in diet, exercise, water for constipation. 1. Routine gynecological examination (V72.31) 2. Screening for malignant neoplasm of the cervix (V76.2) Pap Smear Screening [PAPL] Helen Rubi MD documented in this encounter Miscellaneous Notes Miscellaneous - 08/07/2016 7:27 PM CSTNotes Recorded by Helen Rubi MD on 09/25/2011 at 8:25 AMnormal pap please send letter. Thanks. TER ORDNANCE documented in this encounter Plan of Treatment Upcoming Encounters Date Type Specialty Care Team Description 05/12/2022 Appointment Audiology 05/12/2022 Appointment Otolaryngology Bro Arroyo , PA-C [address] [facility] [place] [address] [address] (Wo rk) 06/03/2022 Appointment General Dentistry Rylee Amaro, [facility] [address] [place] [address] 06/03/2022 Appointment General Dentistry Pee Garcia, DDS [address] [place], [place] [phone] (Wo rk) 06/17/2022 Appointment General Dentistry Pee Garcia, DDS [address] [place] [address] (Wo rk) documented as of this encounter Procedures Procedure Name Priority Date/Time Associated Comments Diagnosis ANATOMICAL PATH Routine 09/17/2011 3:46 PM Result s for this LIQUID BASED CDT procedure are i n the results section. PAP SMEAR SCREENING Routine 09/17/2011 3:46 PM Screening for R esults for this CDT malignant neoplasm procedure are in of the cervix the results section. documented in this encounter Results Pap Smear (09/17/2011 3:46 PM CDT) Specimen (Source) Anatomical Collection Method Collection Time Re ceived Time Location / / Volume Laterality 09/17/2011 3:46 PM CDT Narrative HP CONVERSION - 09/24/2011 3:44 PM CDT Final GYNECOLOGICAL CYTOLOGY REPORT Pathology #: [id number] ?Date Obtained: 09/17/2011 ? Date Received: 09/21/2011 INTERPRETATION/RESULTS: Negative for Intraepithelial Lesion or M alignancy SPECIMEN ADEQUACY: Satisfactory for Evaluation. ??Endocervi karen cells/transformation zone component present. Verified on 09/24/2011 ??by SABINE KEENE, CT(ASCP) (electronic signature) CLINICAL NOTES: ? LMP: Not Stated. LIQUID BASED PAP SMEAR SPECIMEN TYPE: ?CERVICAL [...] occur. ? End of Report Transcriptions 08/07/2016 7:27 PM CSTNotes Recorded by Helen Rubi MD on 09/25/2011 at 8:25 AMnormal pap please send letter. Thanks. Helen Rubi MD LAB_1 Performing Organization Address City/[facility] [place] [facility] Phon e Number HP CONVERSION Pap Smear Screening (09/17/2011 3:46 PM CDT) P athologist Signature PAP Routine Collected HP CONVERSION Specimen Anatomical Collection Method Collection Time Receive d Time (Source) Location / / Volume Laterality 09/17/2011 3:46 PM 2 4:58 CDT AM CDT Helen Rubi MD LAB_1 Performing Organization Address City/[facility] [place] [facility] Phon e Number HP CONVERSION documented in this encounter Visit Diagnoses Diagnosis Routine gynecological examination - Prim zander Screening for malignant neoplasm of the cervix documented in this encounter
--- OUTSIDE RECORDS SUMMARY | 2022-05-06 23:58 | XMS_ITS | Encounter Summary ---
:1980 Author Organization [facility] Address [address] [place] [address] Care Team Providers Name Role Phone Unavailable Primary Care Provider Unavailable Encounter Details Date Type Department Care Team Description 05/10/2013 Lab Visit [facility] Screening for unspecified di sorder of blood and blood-forming organs; [address] [facility] [place] Special screening examinatio n for other specified viral diseases; [place], [place] [address] Screening examination for ve nereal disease; [phone] Supervision of other normal Social History Tobacco Use Types Packs/Day Years Used Date Smoking Tobacco: Never Assessed Sex Assigned at Date Recorded 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 Plan of Treatment Upcoming Encounters Date Type Specialty Care Team Description 05/12/2022 Appointment Audiology 05/12/2022 Appointment Otolaryngology Bro Arroyo , PAMorisC [address] [facility] [place] [address] [address] (Wo rk) 06/03/2022 Appointment General Dentistry Rylee Amaro, RD [address] [place] [address] 06/03/2022 Appointment General Dentistry Pee Garcia, DDS [address] [place] [address] (Wo rk) 06/17/2022 Appointment General Dentistry [place], DDS [address] [place] [address] (Wo rk) documented as of this encounter Procedures Procedure Name Priority Date/Time Associated Diagnosis Comme nts URINALYSIS Routine 05/10/2013 4:10 PM Supervision of other R esults for this ROUTINE(MICRO IF POS) DATA WAREHOUSE SPECIALIST normal pr ocedure are in the results section. URINE CULTURE Routine 05/10/2013 4:10 PM Supervision of other Results for this DATA WAREHOUSE SPECIALIST normal procedure a re in the results section. HIV ANTIBODY Routine 05/10/2013 4:04 PM Special screening Resu lts for this DATA WAREHOUSE SPECIALIST examination for procedure ar e in other specified the results viral diseases section. Screening examination for venereal disease TREPONEMA SCREEN Routine 05/10/2013 4:04 PM Screening Resul ts for this DATA WAREHOUSE SPECIALIST examination for procedure ar e in venereal disease the results section. HEP B SURFACE Routine 05/10/2013 4:04 PM Special screening Res ults for this ANTIGEN, NO REFLEX DATA WAREHOUSE SPECIALIST examination for proced ure are in other specified the results viral diseases section. Screening examination for venereal disease COMPLETE BLOOD Routine 05/10/2013 4:04 PM Screening for Result s for this COUNT-W/DIFF DATA WAREHOUSE SPECIALIST unspecified disorder procedu re are in of blood and the results blood-forming organs section . DIFFERENTIAL Routine 05/10/2013 4:04 PM Results f or this DATA WAREHOUSE SPECIALIST procedure are i n the results section. documented in this encounter Results Urine Culture (05/10/2013 4:10 PM DATA WAREHOUSE SPECIALIST) [place] Method Time Signature Source Urine HP CONVERSION Site clean catch HP CONVERSION Urine Culture No growth HP CONVERSION Specimen (Source) Anatomical Collection Method Collection Time Re ceived Time Location / / Volume Laterality Urine:clean catch 05/10/2013 4:10 PM DATA WAREHOUSE SPECIALIST Vianney Warren NEWS WIRE PHOTO OPERATOR, MAIL CLERKS SUPERVISOR LAB_1 Performing Organization Address City/State/ZIP Code Phon e Number HP CONVERSION URINALYSIS ROUTINE(MICRO IF POS) (05/10/2013 4:10 PM DATA WAREHOUSE SPECIALIST) [place] Method Time Signature Urine Type Urine:clean HP CONVERSION cat Turbidity Clear Clear HP CONVERSION U BILI Negative Negative HP CONVERSION Blood Urine Negative Negative HP CONVERSION Glucose, Negative Neg-30 HP CONVERSION Qualitative U mg/dL Ketones Negative Negative HP CONVERSION Leukocyte Negative Negative HP CONVERSION Esterase Urine Nitrite Urine Negative Negative HP CONVERSION pH Urine 6.5 5.0 - 8.0 HP CONVERSION Protein Urine Negative Neg - Trace HP CONVERSION mg/dL U Specific 1.025 1.005 - HP CONVERSION [place] 1.030 Urobilinogen Negative Negative HP CONVERSION Urine Eu/dL Specimen Anatomical Collection Method Collection Time Receive d Time (Source) Location / / Volume Laterality Urine: 05/10/2013 4:10 PM 3 4:10 DATA WAREHOUSE SPECIALIST PM DATA WAREHOUSE SPECIALIST Narrative HP CONVERSION - 05/10/2013 4:50 PM DATA WAREHOUSE SPECIALIST Performed at [facility]3], [facility] [address], [place] [address] Vianney Warren APRN, MAIL CLERKS SUPERVISOR LAB_1 Performing Organization Address City/[facility] Code Phon e Number HP CONVERSION Differential (05/10/2013 4:04 PM DATA WAREHOUSE SPECIALIST) P athologist Signature Absolute 3.2 1.8 - 8.0 HP CONVERSION Neutrophils k/cmm Absolute 2.2 1.1 - 4.0 HP CONVERSION Lymphocytes k/cmm Absolute 0.7 0.2 - 0.8 HP CONVERSION Monocytes k/cmm Absolute 0.2 0.0 - 0.5 HP CONVERSION Eosinophils k/cmm Absolute 0.1 0.0 - 0.2 HP CONVERSION Basophils k/cmm Specimen Anatomical Collection Method Collection Time Receive d Time (Source) Location / / Volume Laterality 05/10/2013 4:04 PM 3 4:04 DATA WAREHOUSE SPECIALIST PM DATA WAREHOUSE SPECIALIST Narrative HP CONVERSION - 05/10/2013 4:33 PM DATA WAREHOUSE SPECIALIST Performed at [facility]3], [facility] [place] [address] Vianney Warren NEWS WIRE PHOTO OPERATOR, MAIL CLERKS SUPERVISOR LAB_1 Performing Organization Address City/[facility] Phon e Number HP CONVERSION Treponema Screen (05/10/2013 4:04 PM DATA WAREHOUSE SPECIALIST) Patholo gist Method Time Signature Treponema Non Reactive Non Reactive HP CONVERSION Screen Specimen Anatomical Collection Method Collection Time Receive d Time (Source) Location / / Volume Laterality 05/10/2013 4:04 PM 3 6:29 DATA WAREHOUSE SPECIALIST PM DATA WAREHOUSE SPECIALIST Vianney Warren APRN, MAIL CLERKS SUPERVISOR LAB_1 Performing Organization Address City/[facility]/ZIP Code Phon e Number HP CONVERSION HIV ANTIBODY (05/10/2013 4:04 PM DATA WAREHOUSE SPECIALIST) athologist Signature HIV 1/HIV 2 Non-React Non-Reacti HP CONVERSION ve Specimen Anatomical Collection Method Collection Time Receive d Time (Source) Location / / Volume Laterality 05/10/2013 4:04 PM 3 6:21 DATA WAREHOUSE SPECIALIST PM DATA WAREHOUSE SPECIALIST Vianney Warren APRN, MAIL CLERKS SUPERVISOR LAB_1 Performing Organization Address [facility] Code Phon e Number HP CONVERSION Hep B Surface Antigen, No Reflex (05/10/2013 4:04 PM DATA WAREHOUSE SPECIALIST) Analysis Performed At [facility] Hep B Surf Ag Negative Negative HP CONVERSION Specimen Anatomical Collection Method Collection Time Receive d Time (Source) Location / / Volume Laterality 05/10/2013 4:04 PM 3 6:21 DATA WAREHOUSE SPECIALIST PM DATA WAREHOUSE SPECIALIST Vianney Warren APRN, MAIL CLERKS SUPERVISOR LAB_1 Performing Organization Address [facility] Phon e Number HP CONVERSION Complete Blood Count W/Diff (05/10/2013 4:04 PM DATA WAREHOUSE SPECIALIST) athologist Signature White Blood Cell 6.4 3.8 - 11.0 HP CONVERSIO N Count k/cmm Red Blood Cell 4.20 3.70 - HP CONVERSION Count 5.20 m/cmm Hemoglobin 12.7 11.8 - HP CONVERSION 15.5 g/dL Hematocrit 37.9 35.0 - HP CONVERSION 46.0 % Mean Corpuscular 90.2 80.0 - HP CONVERSION Volume 100.0 fL RDW 12.1 11.0 - HP CONVERSION 15.0 % Platelet Count 224 140 - 450 HP CONVERSION k/cmm Specimen Anatomical Collection Method Collection Time Receive d Time (Source) Location / / Volume Laterality 05/10/2013 4:04 PM 3 4:04 DATA WAREHOUSE SPECIALIST PM DATA WAREHOUSE SPECIALIST Narrative HP CONVERSION - 05/10/2013 4:33 PM DATA WAREHOUSE SPECIALIST Performed at [facility]3], [address], [place] [address] Vianney Warren APRN, ROSINA LAB_1 Performing Organization Address City/State/ZIP Code Phon e Number HP CONVERSION documented in this encounter Visit Diagnoses Diagnosis Screening for unspecified disorder of bl ood and blood-forming organs Special screening examination for other specified viral diseases Screening examination for venereal disea se Supervision of other normal documented in this encounter
--- OUTSIDE RECORDS SUMMARY | 2022-05-06 23:58 | XMS_ITS | Encounter Summary ---
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 Traveling to [facility] over the next month. No other concerns. RTC at 28 wks. Helen Rubi MD DRY SUPERVISOR documented in this encounter Plan of Treatment Upcoming Encounters Date Type Specialty Care Team Description 05/12/2022 Appointment Audiology 05/12/2022 Appointment Otolaryngology Bro Arroyo , PA-C [address] [facility] [address] [place] [facility] [address] (Wo rk) 06/03/2022 Appointment General Dentistry Rylee Amaro, [facility] [address] [place] [address] 06/03/2022 Appointment General Dentistry Pee Garcia, DDS [address] [place], [place] [phone] (Wo rk) 06/17/2022 Appointment General Dentistry Pee Garcia DDS [address] [place], [place] [phone] (Wo rk) documented as of this encounter Visit Diagnoses Diagnosis Supervision of other normal - Primary documented in this encounter Care Teams Golf Course Ranger Relationship Specialty Start Date End Date Needs Pcp, Assignment PCP - General 06/08/13 07/14/17 [place] [address] documented as of this encounter
--- OUTSIDE RECORDS SUMMARY | 2022-05-06 23:58 | XMS_ITS | Encounter Summary ---
:1980 Author Organization [employer] Address [address] [place] [address] Care Team Providers Name Role Phone Needs Pcp, Assignment Primary Care Provider Reason for Visit Reason Comments Routine Visit Encounter Details Date Type Department Care Team Description 08/03/2013 Routine [place] Helen Rubi, Pinky P renatal Obstetrics/Gynecolog y Visit 5320 [facility] 5320 [facility] [place], [place] [address] [place], [place] [phone] Social History Tobacco Use Types Packs/Day Years Used Date Smoking Tobacco: Never Assessed Sex Assigned at Date Recorded 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 Having some SOB and stuffy nose. No F/C. No cough. Doing ok. RTC 4 wks. Helen Rubi MD P PROCESSOR documented in this encounter Plan of Treatment Upcoming Encounters Date Type Specialty Care Team Description 05/12/2022 Appointment Audiology 05/12/2022 Appointment Otolaryngology Bro Arroyo , PA-C [address] [facility] [address] (Wo rk) 06/03/2022 Appointment General Dentistry Rylee Amaro, [address] [place] [address] 06/03/2022 Appointment General Dentistry Pee Garcia, DDS [address] [place], [place] [phone] (Wo rk) 06/17/2022 Appointment General Dentistry Pee Garcia, DDS [address] [place], [place] [phone] (Wo rk) documented as of this encounter Visit Diagnoses Diagnosis Supervision of other normal - Primary documented in this encounter Care Teams Camera Operator Relationship Specialty Start Date End Date Needs Pcp, Assignment PCP - General 06/08/13 07/14/17 [place] [address] documented as of this encounter
--- OUTSIDE RECORDS SUMMARY | 2022-05-06 23:58 | XMS_ITS | Encounter Summary ---
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 femalepatient with facial acne. It has been present for several months. Stopped OCPs, but over one year ago. Currently washes with [employer]ique. Has been using nothing to treat acne. PAST HISTORY: Generally healthy. ADVERSE DRUG REACTIONS: Pt's Adverse Drug Reactions were reviewed, and updated today on the EMR. CHRONIC MEDICATIONS: reviewed and updated today on the EMR FAMILY HISTORY: Sister with mild acne SOCIAL HISTORY: , nonsmoker. OBJECTIVE: General Appearance: Patient in no apparent distress, with normal affect. Face: Scattered inflammatory pustules. ASSESSMENT: Adult acne PLAN: Risks, benefits, and alternatives of treatments discussed with the patient. Cleansing program discussed with the patient. AquaGlycolic recommended. New Topical Medications: Differin at bedtime, Cleocin lotion QAM. Discussed the importance of sticking with the program, not picking or excoriating. RTC 2 months if not satisfied with progress, sooner PRN Total visit time: 20 minutes. Counseling time: 15 minutes. Literature provided: Adult Acne documented in this encounter Plan of Treatment Upcoming Encounters Date Type Specialty Care Team Description 05/12/2022 Appointment Audiology 05/12/2022 Appointment Otolaryngology Bro Arroyo , JANET [address] [facility] [place] [address] (Wo rk) 06/03/2022 Appointment General Dentistry Rylee Amaro, [facility] [address] [place] [address] 06/03/2022 Appointment General Dentistry Pee Garcia, DDS [address] [place], [place] [phone] (Wo rk) 06/17/2022 Appointment General Dentistry Pee Garcia DDS [address] [place], [place] [phone] (Wo rk) documented as of this encounter Visit Diagnoses Diagnosis Acne - Primary Other acne documented in this encounter
--- OUTSIDE RECORDS SUMMARY | 2022-05-06 23:58 | XMS_ITS | Encounter Summary ---
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 Released to MyChart. documented in this encounter Miscellaneous Notes Miscellaneous - 08/06/2016 7:12 PM CSTNotes Recorded by Garima Santana CNM on 11/30/2013 at 12:41 PMNegative Hep C. Released to MyChart. MATRON documented in this encounter Plan of Treatment Upcoming Encounters Date Type Specialty Care Team Description 05/12/2022 Appointment Audiology 05/12/2022 Appointment Otolaryngology Bro Arroyo , PAMorisC [address] [place] [address] (Wo rk) 06/03/2022 Appointment General Dentistry Rylee Amaro, RD [address] [place] [address] 06/03/2022 Appointment General Dentistry Pee Garcia, DDS [address] [place], [place] [phone] (Wo rk) 06/17/2022 Appointment General Dentistry Pee Garcia, DDS [address] [place] [address] (Wo rk) documented as of this encounter Procedures Procedure Name Priority Date/Time Associated Diagnosis Comme nts HEPATITIS C Routine 11/29/2013 4:10 PM Need for hepatitis C R esults for this ANTIBODY, WITH CDT screening test procedure a re in REFLEX the results section. documented in this encounter Results Hepatitis C Antibody, with Reflex (11/29/2013 4:10 PM CDT) [facility] gist Method Time Signature Hepatitis C Non-React Non-Reacti HP CONVERSION Antibody ve Specimen Anatomical Collection Method Collection Time Receive d Time (Source) Location / / Volume Laterality 11/29/2013 4:10 PM 4 8:33 CDT PM CDT Transcriptions 08/06/2016 7:12 PM CSTNotes Recorded by Garima Santana CNM on 11/30/2013 at 12:41 PMNegative Hep C. [facility] to [facility] Garima Santana APRN, CNM LAB_1 Performing Organization Address City/State/ZIP Code Phon e Number HP CONVERSION documented in this encounter Visit Diagnoses Diagnosis Need for hepatitis C screening test Special screening examination for other specified viral diseases documented in this encounter Care Teams Video Game Animator Relationship Specialty Start Date End Date Needs Pcp, Assignment PCP - General 06/08/13 07/14/[address] [facility] [place] [address] documented as of this encounter
--- OUTSIDE RECORDS SUMMARY | 2022-05-06 23:58 | XMS_ITS | Encounter Summary ---
:1980 Author Organization [employer] Address [address], [place] [address] Care Team Providers Name Role Phone Needs Pcp, Assignment Primary Care Provider Reason for Visit Reason Comments Routine Visit Encounter Details Date Type Department Care Team Description 11/29/2013 Initial Cameron Certified Garima Santana, Routine Nurse Four Horse Hitch Driver SAGE CASTANEDA Visit [address] [facility] 6[address] [facility] 5th [facility] [address] [place], [place] [phone] [address] Social History Tobacco Use Types Packs/Day Years Used Date Smoking Tobacco: Never Assessed Sex Assigned at Date Recorded 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 Interested in [facility] care and having a female provider. Considering water , so we sign consent today and order Hep C. Having a boy. Plans circumcision; unsure if it will be in clinic or hospital. Encouraged iron-rich foods given HGB of 10.8. 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 They have a 3 year old daughterat home. O: See flowsheet A: @ 37w 2d Transfer of care visit, approved by [facility] director at a previous date Low risk Desires water P: Oriented to [facility] practice, philosophy, numbers, etc. RTC weekly until delivery. Water consent signed: 1. Water consent was reviewed in its entirety and signed with the patient. All questions were answered. 2. Reviewed that she must remain low risk in order to have a water . 3. Rarely there may be full capacity on water rooms, so a water can't be guaranteed. 4. Hepatits C screening ordered today. 5. A copy of the signed consent will be sent to [facility]. 6. A copy of the signed consent was provided to the patient. She was instructed to bring copy in labor. documented in this encounter Plan of Treatment Upcoming Encounters Date Type Specialty Care Team Description 05/12/2022 Appointment Audiology 05/12/2022 Appointment Otolaryngology Bro Arroyo PA-C [address] [facility] N [id number] (Wo rk) 06/03/2022 Appointment General Dentistry Rylee Amaro, RD [address] [place] [address] 06/03/2022 Appointment General Dentistry Pee Garcia, TAWANNAS [address] [place], [place] [phone] (Wo rk) 06/17/2022 Appointment General Dentistry Pee Garcia, DDS [address] [place] [address] (Wo rk) documented as of this encounter Visit Diagnoses Diagnosis Supervision of other normal - Primary Need for hepatitis C screening test Special screening examination for other specified viral diseases documented in this encounter Care Teams Life Skills Instructor Relationship Specialty Start Date End Date Needs Pcp, Assignment PCP - General 06/08/13 07/14/17 [place] [address] documented as of this encounter
--- OUTSIDE RECORDS SUMMARY | 2022-05-06 23:59 | XMS_ITS | Encounter Summary ---
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 documented as of this encounter Plan of Treatment Upcoming Encounters Date Type Specialty Care Team Description 05/12/2022 Appointment Audiology 05/12/2022 Appointment Otolaryngology Bro Arroyo , PA-C [address] [place] N [address] (Wo rk) 06/03/2022 Appointment General Dentistry Rylee Amaro, [facility] [address] [place] [address] 06/03/2022 Appointment General Dentistry Pee Garcia DDS [address] [place] [address] (Wo rk) 06/17/2022 Appointment General Dentistry Pee Garcia, DDS [address] [place] [address] (Wo rk) documented as of this encounter Procedures Procedure Name Priority Date/Time Associated Diagnosis Comme nts CHOLESTEROL, TOTAL Routine 08/30/2009 10:35 AM Re sults for this AND HDL CUSTOMS COMPLIANCE MANAGER procedure are i n the results section. documented in this encounter Results (ABNORMAL) Cholesterol, Total and HDL (08/30/2009 10:35 AM CUSTOMS COMPLIANCE MANAGER) [facility] gist Method Time Signature Cholesterol 229 (H) 0 - 200 HP CONVERSION mg/dL HDL Cholesterol 92 >39 mg/dL HP CONVERSION Cholesterol/HDL 2.5 No normal HP CONVERSION Ratio Screen range Specimen (Source) Anatomical Collection Method Collection Time Re ceived Time Location / / Volume Laterality 08/30/2009 10:35 AM CUSTOMS COMPLIANCE MANAGER Helen Rubi MD LAB_1 Performing Organization Address City/State/ZIP Code Phon e Number HP CONVERSION documented in this encounter Visit Diagnoses Not on filedocumented in this encounter
--- OUTSIDE RECORDS SUMMARY | 2022-05-06 23:59 | XMS_ITS | Encounter Summary ---
:1980 Author Organization [employer] Address [address] [address] Care Team Providers Name Role Phone Unavailable Primary Care Provider Unavailable Reason for Visit Reason Comments Other Encounter Details Date Type Department Care Team Description 08/21/2011 Office Visit [facility] Elise Morel Faci al pain (Primary Dx); Medicine Numbness and tingling [address] [facility] [address] [place], [place] [address] [place], [place] [phone] [address] Social History Tobacco Use Types Packs/Day Years Used Date Smoking Tobacco: Never Assessed Sex Assigned at Date Recorded Female 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 Other right sided pain-right facial swelling HISTORY OF PRESENT ILLNESS: Marc Vann is a 30 y.o. female who presents to clinic today to follow-up complaints of facial cellulitis. She was seen by one of my [facility] partners on 08/10 and was treated with Keflex. Shehad a good response, but she is still having facial edema and some numbness and tingling sensations over her right cheek. The erythema has decreased. The right side of her neck and shoulder and face are improved, but still feel edematous. States she thought she was better shortly after starting the Keflex, but now feels like her symptoms are getting worse again. Has mild JOHNSON and some burning pain on her skin on the right side of her face. No vision changes (had blurry vision at her last visit), or hearing changes. Can eat and drink OK. No weight loss, no night sweats. No obvious lymph nodes, but pt is nervous b/c her father of lymphoma. No recent travel. It has been > 1 yr since she has been to her home country of [place]. No other sick contacts. Has a young daughter at home who is well. PAST MEDICAL HISTORY: No chronic medical problems. FAMILY HISTORY: Father of lymphoma. SOCIAL HISTORY: History Substance Use Topics ??? Smoking status: Never Smoker ??? Smokeless tobacco: Not on file ??? Alcohol Use: Alcoholic Drinks/day: Freq:Never; CURRENT MEDICATIONS: Current outpatient prescriptions ordered prior to encounter Medication Sig Dispense Refill ??? drospirenone-ethinyl estradiol (JOE 28) 3-0.03 mg per tablet Take 1 tablet by mouth daily (every 24 hours). 90 tablet 3 ALLERGIES: No Known Allergies REVIEW OF SYSTEMS: No fevers. No nausea or diarrhea. PHYSICAL EXAM: BP 115/66 Pulse 102 Wt 156 lb (70.761 kg) Gen: Alert, cooperative in no acute distress. Eyes: PERRL, full EOM. Sclera white. Ears/ Nose/Mouth/Throat: Normal pinnae and ear canals, TMs without erythema or effusion. Oropharynx mucous membranes moist, without erythema, or exudate. Gloved oral exam yields no obvious abscesses. No open oral lesions. Mild facial edema over right cheek. No erythema present. Neck: Supple, without masses, lymphadenopathy or tenderness. Full ROM present. No cervical or supraclavicular lymphadenopathy. Heart: Regular rate and rhythm without murmurs, rubs, or gallops. Lungs: Normal respiratory effort. Lungs are clear to auscultation. Good breath sounds bilaterally. Musculoskeletal: No lower extremity edema. Skin: No rashes noted. Neurologic: Alert, oriented x3, nonfocal. CN II-XII grossly intact. Sensation intact. ASSESSMENT: Marc Vann is a 30 y.o. female who presents with residual symptoms of right sided facial and cheekcellulitis. PLAN: 1. Facial pain / Numbness and tingling. Likely residual cellulitis. Repeat course of Keflex given good initial response. Rx strength ibu for inflammation. Flexeril for neck stiffness. Meningitis unlikely - no sick contacts, no travel, unilateral symptoms, no fevers. 2. RTC if symptoms are not improved at the end of the course of abx. documented in this encounter Plan of Treatment Upcoming Encounters Date Type Specialty Care Team Description 05/12/2022 Appointment Audiology 05/12/2022 Appointment Otolaryngology Bro Arroyo , PADerick [address] [facility] [address] (Shereen espino) 06/03/2022 Appointment General Dentistry Rylee Amaro, [facility] [address] [place] [address] 06/03/2022 Appointment General Dentistry Pee Garcia DDS [address] [place] [address] (Shereen espino) 06/17/2022 Appointment General Dentistry Pee Garcia DDS [address] [place], [place] [phone] (Shereen espino) documented as of this encounter Visit Diagnoses Diagnosis Facial pain - Primary Headache Numbness and tingling Disturbance of skin sensation documented in this encounter
--- OUTSIDE RECORDS SUMMARY | 2022-05-06 23:59 | XMS_ITS | Encounter Summary ---
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 Pt sates she is having rectal pain. the pain keeps her from feeding her and hurts when she sits or moves. Pt has her 6 wk post check this wednesday, Pt states she cannot wait that long. Pt states it is difficult to have a bowel movement because of the pain. Pt is asking for a work-in appt fro her Post check today.Pt offered appt with another physician and declines, pt prefers to see Dr. Rubi. Will forward to Dr. Rubi fro work-in appt. Contact [phone], ok to leave message. Created on 23Apr2008 1:39pm by MARISOL GAMINO On 23Apr2008 1:49pm ELENI RUBI wrote: Could Messi Torres see her today? [email or web address] Acknowledged by ELENI RUBI on 1:49pm On 23Apr2008 1:55pm MARISOL GAMINO wrote: Pt called and left message to call back about work in appt. Pt informed DR. Rubi has no appt today but she can be seen by Messi Torres. On 23Apr2008 5:23pm MARISOL GAMINO wrote: Pt called OB appt line and booked appt. T EDGER documented in this encounter Plan of Treatment Upcoming Encounters Date Type Specialty Care Team Description 05/12/2022 Appointment Audiology 05/12/2022 Appointment Otolaryngology Bro Arroyo , PA-C [address] [place] [id number] (Wo rk) 06/03/2022 Appointment General Dentistry Rylee Amaro, [facility] [address] [place] [address] 06/03/2022 Appointment General Dentistry Pee Garcia, [place] [address] [place] [address] (Wo rk) 06/17/2022 Appointment General Dentistry Pee Garcia, [place] [address] [place], [place] [phone] (Wo rk) documented as of this encounter Visit Diagnoses Not on filedocumented in this encounter
--- OUTSIDE RECORDS SUMMARY | 2022-05-06 23:59 | XMS_ITS | Encounter Summary ---
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 documented as of this encounter Last Filed Vital Signs Vital Sign Reading Time Taken Comments Blood Pressure 110/60 08/30/2009 10:05 AM WET PRIMER POWDER BLENDER Pulse - - Temperature - - Respiratory Rate - - Oxygen Saturation - - Inhaled Oxygen Concentration - - Weight 60.8 kg (133 lb 15.9 oz) 08/30/2009 10:05 AM C: 60.8kg WET PRIMER POWDER BLENDER Height 154.9 cm (5' 1) 08/30/2009 10:05 AM C: 154.9cm WET PRIMER POWDER BLENDER Body Mass Index 25.32 08/30/2009 10:05 AM WET PRIMER POWDER BLENDER documented in this encounter Progress Notes Helen Rubi MD - 08/30/2009 12:01 AM CST H&P signed by Helen Rubi MD at 09/03/09 0639 Author: Helen Rubi MD Service: (none) Author Type: Physician Filed: 10/18/10 2038 Note Time: 08/30/092021 Status: Signed Reexaminer: Helen Rubi MD (Physician) NAME: MARC VANN MR#: [id number] ACCT: [id number] VISIT: [id number] DICTATING CLINICIAN: Helen Rubi MD CONFIRM #: [id number] LOC: 1012 CLINIC PHYSICAL DATE OF VISIT: 08/30/2009 SUBJECTIVE: : 1980. This is a 28-year-old female who comes in for a routine physical. PAST MEDICAL HISTORY: Notable for a full-term vaginal delivery without complication. She has a history of a seizure disorder, seen by neurology on 02/23/08, as well as 11/[address] Fernández and Dr. Aguirre. Apparently there is no concern for ongoing seizure disorders. It was possibly a sleep-deprived seizure and she is on no chronic medication, and has no needs to see Neurology in followup at this time. No other medical issues. CURRENT MEDICATIONS: Reviewed. She would like to continue with her control pills. ADR/ALLERGIES: REVIEWED. She is a nonsmoker. . 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 FAMILY HISTORY: Reviewed and notable for her mother with diabetes, father with bone cancer. Grandparents with diabetes as well. REVIEW OF SYSTEMS: Overall, Marc feels very well. She is a little bit concerned as she has some breast pain that seems to come right before her period. She just wants to make sure everything is okay. She does not know how to do self-breast exams, so she never checked for anything. She does not drink a lot of caffeine. The pain seems to go away after her period starts. They are not ready yet to have another child. HEALTHCARE MAINTENANCE: She is due for a Pap. She takes very good care of herself. Does regular calcium. She has never had her cholesterol checked. OBJECTIVE: VS: BP: 110/60. Wt: 134. GENERAL: She is healthy appearing. NECK: Supple, without thyromegaly. HEART: Regular rate and rhythm. LUNGS: Clear. BREASTS: Symmetric, nontender. No dominant masses. No axillary or clavicular adenopathy. At this point, I did teach the patient how to do her own self-breast exam. ABDOMEN: Soft, nontender, without mass or organomegaly. EXTREMITIES: Nontender, without edema. SKIN: Warm, dry, without lesions. PELVIC: She has normal external genitalia. Vagina with normal rugae. Cervix is without lesion. Pap was obtained. Bimanual reveals a small, midline, mobile uterus. No adnexal masses or tenderness. ASSESSMENT: 1. Normal annual exam. 2. Mastalgia, likely cyclic with menstrual cycle. PLAN: Check screening Pap, total HDL cholesterol. Refill control pills. I instructed her on self-breast exam. I think, given her normal exam today and cyclic nature of the breast pain, it is likely just menstrual related. We talked about avoiding caffeine; vitamin E and other things she can do. Return to clinic annually. [id number] C: 08/30/09 11:15 CONFIRM #: [id number] PRIMER POWDER BLENDER documented in this encounter Plan of Treatment Upcoming Encounters Date Type Specialty Care Team Description 05/12/2022 Appointment Audiology 05/12/2022 Appointment Otolaryngology Bro Arroyo PA-C [address] [facility] [address] (Shereen espino) 06/03/2022 Appointment General Dentistry Rylee Amaro, [place] [address] [place] [address] 06/03/2022 Appointment General Dentistry Pee Garcia DDS [address] [place], [place] [phone] (Shereen espino) 06/17/2022 Appointment General Dentistry Pee Garcia DDS [address] [place], [place] [phone] (Shereen espino) documented as of this encounter Visit Diagnoses Not on filedocumented in this encounter
--- OUTSIDE RECORDS SUMMARY | 2022-05-06 23:59 | XMS_ITS | Encounter Summary ---
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 I told her this is ok and will not harm her. She states the injection site is sore but there are no other sx. I told her this is also wnl and to report any hardness, swelling or redness at the site. Pt agrees with plan and denies further questions.This is an FYI. Created on 07Dec2008 3:38pm by ALBERTINA MCKEE Acknowledged by ELENI RUBI on 4:06pm UNTING OFFICE MANAGER documented in this encounter Plan of Treatment Upcoming Encounters Date Type Specialty Care Team Description 05/12/2022 Appointment Audiology 05/12/2022 Appointment Otolaryngology Bro Arroyo , PAMorisC [address] [facility] [address] [address] (Wo rk) 06/03/2022 Appointment General Dentistry Rylee Amaro, [facility] [address] [place] [address] 06/03/2022 Appointment General Dentistry Pee Garcia, DDS [address] [place], [place] [phone] (Wo rk) 06/17/2022 Appointment General Dentistry Pee Garcia DDS [address] [place], [place] [phone] (Wo rk) documented as of this encounter Visit Diagnoses Not on filedocumented in this encounter
--- OUTSIDE RECORDS SUMMARY | 2022-05-06 23:59 | XMS_ITS | Encounter Summary ---
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 encounter Last Filed Vital Signs Vital Sign Reading Time Taken Comments Blood Pressure 106/58 01/29/2011 9:20 AM CDT Pulse - - Temperature - - Respiratory Rate - - Oxygen Saturation - - Inhaled Oxygen Concentration - - Weight 68.5 kg (151 lb) 01/29/2011 9:20 AM CDT Height 154.9 cm (5' 1) 01/29/2011 9:20 AM CDT Body Mass Index 28.53 01/29/2011 9:20 AM CDT documented in this encounter Progress Notes Maria Antonia Parisi, TRUCK RENTAL MANAGER, INDUSTRIAL RADIOGRAPHER - 01/29/2011 12:00 PM CDT Progress Notes signed by FRANCHESCA Ren at 02/02/11 1431 Author: FRANCHESCA Ren Service: (none) Author Type: Nurse Practitioner Filed: 02/02/11 1431 Note Time: 01/29/11 1200 Status: Signed Hadoop Admin: FRANCHESCA Ren (Nurse Practitioner) NAME: MARC VANN MR#: [id number] CSN: [id number] AUTHENTICATING CLINICIAN: FRANCHESCA Ren CONFIRM #: [id number] LOC: 2312 CLINIC PROGRESS NOTE DATE OF VISIT: 01/29/2011 : 1980 SUBJECTIVE: This is a , 30-year-old, 1, para 1 patient who comes to the clinic today with 2 concerns. The first is some right sided breast pain. She states that she first noticed it greater than 1 year ago. In the last week, it has returned. It has been off and on in the interim. She states she will sometimes notice a sharp pain in her breast that will be very brief. She has also noted pain inside the breast. She denies noting any pain when she palpates the breast. She also notes a sensation of warmth in the right breast. States that she has never noted any skin changes, redness, palpated any tender masses. She is also requesting more information on alternate forms of contraception. Is currently using Lisa oral contraceptive pills, but feels insecure in that she may forget her pills. She is interested in the Mirena. States she has used the patch in the past, but was discouraged from patch use at her last appointment. She does not feel she would be comfortable with the NuvaRing. Past medical and surgical history are unremarkable. She has been very healthy, has no history of abnormal Pap smear or gynecologic infection. CURRENT MEDICATIONS: Lisa oral contraceptive pills. No known drug allergy. SOCIAL HISTORY: Patient is and her daughter is age 3. There is no tobacco, alcohol, or drug use. OBJECTIVE: Ht 61 wt 151. BP 106/58. This is a very pleasant female in no acute distress. The breasts are examined in the seated as well as supine position. To gross inspection the right breast is slightly larger in size than the left breast. There is no obvious skin dimpling, retraction, or other change observed. Both nipples are everted. To palpation, mild fibrocystic changes are noted with the right breast slightly more than the left. No palpable masses are noted and no nipple discharge is noted. There is no supra or infraclavicular lymph adenopathy and no axillary adenopathy palpated. Overall the skin is warm and dry and free of any inflammation, rashes or lesions. ASSESSMENT: Bilateral fibrocystic breast changes with occasional breast pain. Family planning counseling. PLAN: 1. Patient is reassured regarding the breast changes. She is given information on fibrocystic breast changes and this is reviewed together. She is encouraged to continue breast self-examination. She will follow up if any changes are noted. 2. Reviewed family planning information and the patient is given information on the Mirena IUD. She will follow up with the onset of her next menses if she would be interested in initiation. She does have adequate supply of oral contraceptive pills to continue. TT 25 CT 20 MKR:JERSON C: CONFIRM #: [id number] documented in this encounter Plan of Treatment Upcoming Encounters Date Type Specialty Care Team Description 05/12/2022 Appointment Audiology 05/12/2022 Appointment Otolaryngology Bro Arroyo , JANET [address] [facility] [place] [address] (Shereen espino) 06/03/2022 Appointment General Dentistry Rylee Amaro, [facility] [address] [place] [address] 06/03/2022 Appointment General Dentistry Pee Garcia DDS [address] [place], [place] [phone] (Shereen espino) 06/17/2022 Appointment General Dentistry Pee Garcia DDS [address] [place], [place] [phone] (Shereen espino) documented as of this encounter Visit Diagnoses Diagnosis Mastalgia - Primary Mastodynia documented in this encounter
--- OUTSIDE RECORDS SUMMARY | 2022-05-06 23:59 | XMS_ITS | Encounter Summary ---
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 [id number] (Wo rk) 06/03/2022 Appointment General Dentistry Rylee Amaro, [facility] [address] [place] [address] 06/03/2022 Appointment General Dentistry Pee Garcia DDS [address] [place] [address] (Wo rk) 06/17/2022 Appointment General Dentistry Pee Garcia DDS [address] [place], [place] [phone] (Wo rk) documented as of this encounter Visit Diagnoses Not on filedocumented in this encounter
--- OUTSIDE RECORDS SUMMARY | 2022-05-06 23:59 | XMS_ITS | Encounter Summary ---
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 Plan of Treatment Upcoming Encounters Date Type Specialty Care Team Description 05/12/2022 Appointment Audiology 05/12/2022 Appointment Otolaryngology Bro Arroyo , PA-C [address] [facility] [place] N 368096 (Wo rk) 06/03/2022 Appointment General Dentistry Rylee Amaro, [facility] [address] [place] [address] 06/03/2022 Appointment General Dentistry Pee Garcia DDS [address] [place] [address] (Wo rk) 06/17/2022 Appointment General Dentistry Pee Garcia, DDS [address] [place] [address] (Wo rk) documented as of this encounter Procedures Procedure Name Priority Date/Time Associated Comments Diagnosis ANATOMICAL PATH Routine 12/07/2008 10:38 AM Resul ts for this LIQUID BASED CDT procedure are i n the results section. documented in this encounter Results Pap Smear (12/07/2008 10:38 AM CDT) [facility] gist Method Time Signature PAP Smear SEE TEXT No normal HP CONVERSION Liquid Based range Comment: Patient: MARC VANN ? CERVICAL CYTOLOGY REPORT Pathology # ??[id number] ?Date Obtained: ? Date Received: CYTOLOGIC IMPRESSION: Negative for intraepithelial lesion or m alignancy. Verified 12/13/08 by: ? (electronic signature) ? LESLIE TIONAL DATA LMP: CLINICAL HIST LIQUID BASED PAP CERVICAL SPECIMEN ADEQUACY: ?? Satisfactory. ENDOCERVICAL CELLS: ??Present. Specimen (Source) Anatomical Collection Method Collection Time Re ceived Time Location / / Volume Laterality 12/07/2008 10:38 AM CDT Helen Rubi MD LAB_1 Performing Organization Address City/State/ZIP Code Phon e Number HP CONVERSION documented in this encounter Visit Diagnoses Not on filedocumented in this encounter
--- OUTSIDE RECORDS SUMMARY | 2022-05-06 23:59 | XMS_ITS | Encounter Summary ---
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 encounter Plan of Treatment Upcoming Encounters Date Type Specialty Care Team Description 05/12/2022 Appointment Audiology 05/12/2022 Appointment Otolaryngology Bro Arroyo , PA-C [address] [facility] [place] N [address] (Wo rk) 06/03/2022 Appointment General Dentistry Rylee Amaro, [facility] [address] [place] [address] 06/03/2022 Appointment General Dentistry Pee Garcia DDS [address] [place] [address] (Wo rk) 06/17/2022 Appointment General Dentistry Pee Garcia, DDS [address] [place] [address] (Wo rk) documented as of this encounter Procedures Procedure Name Priority Date/Time Associated Comments Diagnosis ANATOMICAL PATH Routine 08/30/2009 12:28 PM Resul ts for this LIQUID BASED CLOTH BOLT BANDER procedure are i n the results section. documented in this encounter Results Pap Smear (08/30/2009 12:28 PM CLOTH BOLT BANDER) P athologist Signature Pap Smear SEE TEXT No normal HP CONVERSION range Comment: Final GYNECOLOGICAL CYTOLOGY REPORT Pathology #: [id number] ?Date Obta ined: 08/30/2009 ? Date Received: 09/02/2009 INTERPRETATION/RESULTS: Negative for Intraepithelial Lesion or M alignancy SPECIMEN ADEQUACY: Satisfactory for Evaluation. ??No endoce rvical cells/transformation zone component present. Verified on 09/05/2009 ??by PRISCILLA SANFORD(ASCP) (electronic signature) CLINICAL NOTES: ? LMP: not stated. SPECIMEN TYPE: ?CERVICAL WITH REFLEX TO HPV IF ASCUS ?* End of Report Specimen (Source) Anatomical Collection Method Collection Time Re ceived Time Location / / Volume Laterality 08/30/2009 12:28 PM CLOTH BOLT BANDER Helen Rubi MD LAB_1 Performing Organization Address City/State/ZIP Code Phon e Number HP CONVERSION documented in this encounter Visit Diagnoses Not on filedocumented in this encounter
--- OUTSIDE RECORDS SUMMARY | 2022-05-06 23:59 | XMS_ITS | Encounter Summary ---
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 as of this encounter Plan of Treatment Upcoming Encounters Date Type Specialty Care Team Description 05/12/2022 Appointment Audiology 05/12/2022 Appointment Otolaryngology Bro Arroyo , PAMorisC [address] [facility] [place] [address] [address] (Wo rk) 06/03/2022 Appointment General Dentistry Rylee Amaro, RD [address] [place] [address] 06/03/2022 Appointment General Dentistry Pee Garcia, DDS [address] [place] [address] (Wo rk) 06/17/2022 Appointment General Dentistry Pee Garcia, DDS [address] [place] [address] (Wo rk) documented as of this encounter Procedures Procedure Name Priority Date/Time Associated Diagnosis Comme nts HEMOGLOBIN, BLOOD Routine 04/23/2008 5:04 PM Resu lts for this CDT procedure are i n the results section. documented in this encounter Results (ABNORMAL) Hemoglobin, Blood (04/23/2008 5:04 PM CDT) athologist Signature Hemoglobin 11.6 (L) 11.8 - 15.5 HP CONVERSION gm/dL Specimen (Source) Anatomical Collection Method Collection Time Re ceived Time Location / / Volume Laterality 04/23/2008 5:04 PM CDT Vianney Torres APRN, BOILER SHOP MECHANIC LAB_1 Performing Organization Address City/State/ZIP Code Phon e Number HP CONVERSION documented in this encounter Visit Diagnoses Not on filedocumented in this encounter
--- OUTSIDE RECORDS SUMMARY | 2022-05-06 23:59 | XMS_ITS | Encounter Summary ---
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 as of this encounter Last Filed Vital Signs Vital Sign Reading Time Taken Comments Blood Pressure 102/64 04/23/2008 3:38 PM CDT Pulse - - Temperature - - Respiratory Rate - - Oxygen Saturation - - Inhaled Oxygen Concentration - - Weight 67.6 kg (148 lb 15.8 oz) 04/23/2008 3:38 PM CDT C: 67.6kg Height - - Body Mass Index 29.1 03/01/2008 11:18 AM CDT documented in this encounter Progress Notes Vianney Torres - 04/23/2008 12:01 AM CDT Progress Notes signed by FRANCHESCA Grajeda at 04/25/08 0949 Author: FRANCHESCA Grajeda Service: (none) Author Type: Nurse Practitioner Filed: 10/18/10 0812 Note Time: 04/23/08 0001 Status: Signed Whiskey Regauger: FRANCHESCA Grajeda (Nurse Practitioner) NAME: MARC VANN MR#: [id number] ACCT: [id number] VISIT: [id number] DICTATING CLINICIAN: FRANCHESCA Grajeda CONFIRM #: [id number] LOC: 1012 CLINIC PROGRESS NOTE DATE OF VISIT: 04/23/2008 SUBJECTIVE: : 1980. The patient is a 1, para 1, 27-year-old female presenting to the clinic today for rectal pain. The patient delivered vaginally on March 13 to a baby girl and had a second degree laceration. She reports that this pain has been present since the time of delivery but she thought that it was from the stitches. Reports pain has gotten worse and it is difficult for her to sit, as well as have bowel movements. The patient has been taking ibuprofen occasionally and Colace twice a day with bowel movements every other day. She has also tried using Dulcolax suppositories approximately four times with minimal relief. The patient has been pumping. She had been trying to breast feed but was having some difficulty and now finds it hard to sit in one spot. Bleeding stopped about a week ago and her period began two days ago that has been heavier than normal for her. She reports she is having to change her pad every two to three hours. Denies fever, chills, nausea, or any urinary symptoms. The patient does report she is feeling overwhelmed being a new mom and also having guests in the home. She is interested in starting on control pils for contraception. MEDICATIONS: Reviewed and updated in the patient health profile. OBJECTIVE: VS: BP: 102/64. WT: 149. GENERAL: The patient is a pleasant well-groomed female that does appear to be quite uncomfortable sitting on the table. She is oriented to time and location. BREASTS: Symmetric, nontender. Lactating without dominant masses or nipple discharge and no supraclavicular or axillary adenopathy. ABDOMEN: Soft, nontender. No inguinal adenopathy. PELVIC: On examining the external genitalia, there is an area of swelling on the posterior right between the introitus and rectum that feels slightly firm when palpated. This area is not red but it does cause discomfort when palpated. No obvious hemorrhoid noted. No pain noted when palpated internal vaginal vault. Deferred speculum and bimanual exam at this point due to patient comfort. Patient was examined by Dr. Helen Rubi as well. ASSESSMENT: 1. perineal pain. PLAN: 1. Pelvic MRI for perineal mass and tenderness in the period. 2. Percocet 5/325 mg tablets for pain. 3. Senokot-S recommended for constipation. 4. Micronor OCP for contraception. 5. Patient given consult and breast feeding center brochure for any future help. 6. Will get a hemoglobin today. 7. Patient will follow up with Dr. Heeln Rubi this Wednesday as scheduled. Total time 30 minutes, 20 minutes in counseling patient regarding issues. CMD:[id number] C: 04/24/08 08:10 CONFIRM #: [id number] documented in this encounter Plan of Treatment Upcoming Encounters Date Type Specialty Care Team Description 05/12/2022 Appointment Audiology 05/12/2022 Appointment Otolaryngology Bro Arroyo , JANET [address] [facility] [place] [address] (Shereen espino) 06/03/2022 Appointment General Dentistry Rylee Amaro, [facility] [address] [place] [address] 06/03/2022 Appointment General Dentistry Pee Garcia DDS [address] [place], [place] [phone] (Wo rk) 06/17/2022 Appointment General Dentistry Pee Garcia DDS [address] [place], [place] [phone] (Shereen espino) documented as of this encounter Visit Diagnoses Not on filedocumented in this encounter
--- OUTSIDE RECORDS SUMMARY | 2022-05-06 23:59 | XMS_ITS | Encounter Summary ---
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 Pt acknowledges understanding. OR ANDROID SOFTWARE ENGINEER Helen Rubi MD - 07/31/2011 5:45 PM CST rx sent, please let her know. OR ANDROID SOFTWARE ENGINEER Lance Rodriguez RN - 07/31/2011 4:44 PM CST Pt calls on Ortho Evra Patch. States this is too expensive. Would like to switch to Lisa Has been on in the past. Last well visit 09/05. Pharmacy loaded. documented in this encounter Plan of Treatment Upcoming Encounters Date Type Specialty Care Team Description 05/12/2022 Appointment Audiology 05/12/2022 Appointment Otolaryngology Bro Arroyo , PA-C [address] [facility] [address] [address] (Wo rk) 06/03/2022 Appointment General Dentistry Rylee Amaro, [facility] [address] [place] [address] 06/03/2022 Appointment General Dentistry Pee Garcia, DDS [address] [place], [place] [phone] (Wo rk) 06/17/2022 Appointment General Dentistry Pee Garcia DDS [address] [place], [place] [phone] (Wo rk) documented as of this encounter Visit Diagnoses Not on filedocumented in this encounter
--- OUTSIDE RECORDS SUMMARY | 2022-05-06 23:59 | XMS_ITS | Encounter Summary ---
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 Note written in triage room. P tneeds to call back with her works fax number. When pt calls RTW note can be sent. Created on 01Jun2008 4:02pm by MARISOL GAMINO On [id number] 4:05pm FADIA WILKS wrote: fax #[phone]. Attn: Wendi Gaspar at [employer] On [id number] 2:27pm MARISOL GAMINO wrote: PT calling, her work did not recieve the note. Found and faxed again. Pt to call back if her work still has not gotten it again. IT RISK ASSOCIATE documented in this encounter Plan of Treatment Upcoming Encounters Date Type Specialty Care Team Description 05/12/2022 Appointment Audiology 05/12/2022 Appointment Otolaryngology Bro Arroyo , JANET [address] [facility] [address] (Wo rk) 06/03/2022 Appointment General Dentistry Rylee Amaro, [facility] [address] [place] [address] 06/03/2022 Appointment General Dentistry Pee Garcia DDS [address] [place], [place] [phone] (Wo rk) 06/17/2022 Appointment General Dentistry Pee Garcia DDS [address] [facility] [place] [phone] (Wo rk) documented as of this encounter Visit Diagnoses Not on filedocumented in this encounter
--- OUTSIDE RECORDS SUMMARY | 2022-05-06 23:59 | XMS_ITS | Encounter Summary ---
:1980 Author Organization [employer] Address [address] [place] [address] Care Team Providers Name Role Phone Unavailable Primary Care Provider Unavailable Encounter Details Date Type Department Care Team Description 03/13/2008 - Hospital Encounter Jain Labor Covert, Maricel Garcia MD [address] [facility] [place] [address] 03/14/2008 Delivery Recovery Helen Rubi MD [address] [place] [address] 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 documented as of this encounter Last Filed Vital Signs Vital Sign Reading Time Taken Comments Blood Pressure 111/63 03/14/2008 4:00 PM CDT Pulse 107 03/14/2008 4:00 PM CDT Temperature 36.6 ??C (97.9 ??F) 03/14/2008 4:00 PM ORAL C: 9 7.9 F CDT Respiratory Rate 16 03/14/2008 4:00 PM CDT Oxygen Saturation - - Inhaled Oxygen Concentration - - Weight - - Height - - Body Mass Index - - documented in this encounter Medications at Time of Discharge Medication Sig Dispensed Refills Start Date End Date bisacodyl (AKA Place 1 suppository 10 0 03/14/2008 0 08/03/2008 DULCOLAX) 10 MG rectally daily as suppository needed. docusate sodium (AKA Take 1 capsule by 90 3 03/14/20 08 08/03/2008 COLACE) 100 MG capsule mouth 2 times daily. LW Addl Instr:Indicated for: Stool Softener lanolin (LANSINOH) Apply 1 Application 30 0 03/14/20 08 08/03/2008 ointment topically 4 times daily. LW Addl Instr:apply to affected area on breast three to four times daily unknown medication Indications: PN: 0 03/14/2008 09/04/2010 unknown medication Indications: PN: 0 03/13/2008 09/04/2010 unknown medication Indications: PN: 0 03/01/2008 09/04/2010 unknown medication Indications: PN: 0 02/17/2008 09/04/2010 unknown medication Indications: PN: 0 02/09/2008 09/04/2010 unknown medication Indications: PN: 0 02/03/2008 09/04/2010 unknown medication Indications: PN: 0 01/09/2008 09/04/2010 unknown medication Indications: PN: 0 12/22/2007 09/04/2010 unknown medication Indications: PN: 0 12/08/2007 09/04/2010 unknown medication Indications: PN: 0 11/25/2007 09/04/2010 unknown medication Indications: PN: 0 10/27/2007 09/04/2010 unknown medication Indications: PN: 0 09/14/2007 09/04/2010 unknown medication Indications: PN: 0 09/08/2007 09/04/2010 unknown medication Indications: PN: 0 08/04/2007 09/04/2010 unknown medication Indications: PN: 0 07/13/2007 09/04/2010 unknown medication Indications: PN: 0 06/16/2007 09/04/2010 documented as of this encounter Progress Notes Helen Rubi MD - 03/13/2008 12:01 AM CDT Procedures signed by Helen Rubi MD at 03/13/08 0949 Author: Helen Rubi MD Service: (none) Author Type: Physician Filed: 10/18/10 0708 Note Time: 03/13/08 0454 Status: Signed Senior Architect: Helen Rubi MD (Physician) Lastword Labor And Delivery Summary Patient Name Admission Date/Time AGE Michelle VANN 03/13/2008 2:37:00 1980 27 MR# [id number] 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 Kensal added 2 SUTURES AN/ TC Large laps added 0 Small laps added 0 Final needle count #/ initials1 NEEDLE ; 2 SUTURES AN/TC/CNJ Lg lap final ct.-doc. initials1 AN/ CNJ Sm lap final ct-doc. initials 10 AN/ CNJ Type of Labor Augmentation Spontaneous labor AROM Type of Induction Indication of Induction Stages of Labor Date and Time of Labor Onset Date and Time of Full Dilation First Stage 03/12/2008 23:30:00 03/13/2008 3:51:00 4:21 Baby 1 of 1 ROM Date/Time Duration Type Amniotic Fluid Color 03/13/2008 1:14 AROM clear 3:40:00 Delivery Date/Time 2nd Stage Placenta Delivery 3rd Stage 03/13/2008 4:54:00 1:03 03/13/2008 4:59:00 0:05 Duration 2nd Stage Duration 3rd Stage Total Length 1:03 0:05 5:29 Complications Delivery Summary PRESENTATION Vertex POSITION OA HEART RATE VARIATIONS Reassuring IND. FOR OPERATIVE VAG DEL No operative delivery SEE ADDITIONAL DICTATION No Maternal Complications None Meconium NONE Suture Used For Repair 3.0 vicryl 2nd Suture Used for 3.0 vicryl Repair Total length of NONE laceration(cm) Nuchal Cord NONE Cord clamped \T\ cut No before del stem cell No collection True Knot No Female Circ Reversal No female circ Lap count correct Yes Needle count correct Yes Final vaginal inspection Yes Type of Vaginal Delivery Episiotomy Epi.Extension Spontaneous vaginal No Midline 2nd Degree delivery Lacerations Complications of Delivery 1st Degree Vaginal - NONE left Placenta Baby 1 of 1 Date and Time Placenta Delivery Appearance Duration 03/13/2008 Spontaneous Intact 0:05 4:59:00 Blood Loss (ml) 350 Date and Time GA at Delivery Sex Type of Delivery 03/13/2008 40/5 Female Vaginal 4:54:00 Site of Delivery Score Weight(lbs) LDRP 8lb 3oz NewbornID / Band No. Security Band ID Weight(g) [id number] Resusciation Initial [place] Exam Anesthesia Suction Bulb Tactile Topical ( Xylocaine) Stimulation Suction Catheter Comment Delivery Attendants May Covert, Marisol Garcia RESIDENT CINDI RASHEED MD studio set up worker DARIEN COLES RN Secondary RN ALLA MARTINEZ RN documented in this encounter Miscellaneous Notes Miscellaneous - [facility], [facility] - 03/14/2008 12:01 AM CDT ICD-9-CM ICD-9-CM Narrative description Code ======== DIAGNOSES Principal: HIGH VAGINAL LACER-DELIV 665.41 Secondary: DELIVER-SINGLE LIVEBORN V27.0 PROCEDURES Provider1 Date Principal: REPAIR OB LACERATION NEC 85Eqs80 75.69 Provider2: Provider3: documented in this encounter Plan of Treatment Upcoming Encounters Date Type Specialty Care Team Description 05/12/2022 Appointment Audiology 05/12/2022 Appointment Otolaryngology Bro Arroyo , PADerick [address] [address] (Wo rk) 06/03/2022 Appointment General Dentistry Rylee Amaro, [facility] [address] [place] [address] 06/03/2022 Appointment General Dentistry Pee Garcia, DDS [address] [place], [place] [phone] (Wo rk) 06/17/2022 Appointment General Dentistry GarciaPee noel, DDS [address] [place] [address] (Wo rk) documented as of this encounter Procedures Procedure Name Priority Date/Time Associated Diagnosis Comme nts HEMOGLOBIN, BLOOD Routine 03/14/2008 7:42 AM Resu lts for this CDT procedure are i n the results section. DRAW & HOLD Routine 03/13/2008 3:42 AM Results f or this CDT procedure are i n the results section. HEMOGLOBIN, BLOOD Routine 03/13/2008 3:42 AM Resu lts for this CDT procedure are i n the results section. MRSA CULTURE Routine 03/13/2008 3:23 AM Results f or this CDT procedure are i n the results section. documented in this encounter Results (ABNORMAL) Hemoglobin, Blood (03/14/2008 7:42 AM CDT) athologist Signature Hemoglobin 8.7 (L) 11.8 - 15.5 HP CONVERSION gm/dL Specimen (Source) Anatomical Collection Method Collection Time Re ceived Time Location / / Volume Laterality 03/14/2008 7:42 AM CDT Marisol Bautista MD LAB_1 Performing Organization Address City/[facility]/ZIP Code Phon e Number HP CONVERSION (ABNORMAL) Hemoglobin, Blood (03/13/2008 3:42 AM CDT) athologist Signature Hemoglobin 10.2 (L) 11.8 - 15.5 HP CONVERSION gm/dL Specimen (Source) Anatomical Collection Method Collection Time Re ceived Time Location / / Volume Laterality 03/13/2008 3:42 AM CDT Marisol Bautista MD LAB_1 Performing Organization Address [facility]/ZIP [facility] Phon e Number HP CONVERSION Draw & Hold (03/13/2008 3:42 AM CDT) athologist Signature Draw And Hold Done No normal HP CONVERSION range Specimen (Source) Anatomical Collection Method Collection Time Re ceived Time Location / / Volume Laterality 03/13/2008 3:42 AM CDT Marisol Bautista MD LAB_1 Performing Organization Address [facility] Phon e Number HP CONVERSION MRSA Culture (03/13/2008 3:23 AM CDT) Analysis Performed At [facility] Time Signature Culture Mrsa SEE TEXT HP CONVERSION Screen Comment: Patient: MICHELLE VANN Culture, MRSA Screen ?Collected: ??[id number] ??[id number] Source: RHEA ? Processed: ??[id number] ??[id number] ? RHEA Final Report ------ ?[id number] ??[id number] No Methicillin resistant Staph aureus is olated. Specimen (Source) Anatomical Collection Method Collection Time Re ceived Time Location / / Volume Laterality 03/13/2008 3:23 AM CDT Shikha Og MD LAB_1 Performing Organization Address [facility] Phon e Number HP CONVERSION documented in this encounter Visit Diagnoses Not on filedocumented in this encounter
--- OUTSIDE RECORDS SUMMARY | 2022-05-06 23:59 | XMS_ITS | Encounter Summary ---
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 documented as of this encounter Last Filed Vital Signs Vital Sign Reading Time Taken Comments Blood Pressure 102/60 04/27/2008 8:53 AM CDT Pulse - - Temperature - - Respiratory Rate - - Oxygen Saturation - - Inhaled Oxygen Concentration - - Weight 65.7 kg (144 lb 12.8 oz) 04/27/2008 8:53 AM CDT C: 65.7kg Height - - Body Mass Index 28.28 03/01/2008 11:18 AM CDT documented in this encounter Progress Notes Helen Rubi MD - 04/27/2008 12:01 AM CDT Progress Notes signed by Helen Rubi MD at 04/27/08 6508 Author: Helen Rubi MD Service: (none) Author Type: Physician Filed: 10/18/10 0820 Note Time: 04/27/08 0001 Status: Signed [place]orman: Helen Rubi MD (Physician) NAME: MARC VANN MR#: [id number] ACCT: [id number] VISIT: [id number] DICTATING CLINICIAN: Helen Rubi MD CONFIRM #: [id number] LOC: 1012 CLINIC PROGRESS NOTE DATE OF VISIT: 04/27/2008 SUBJECTIVE: : 1980. This is a 27-year-old female who comes in for a check. She had an uncomplicated and delivery she delivered a healthy female infant at 40+5 weeks gestation after spontaneous labor. She currently is breast pumping and has a good milk supply. She has had some significant issues with perineal pain, and this issue is reviewed from the note 04/23/08. She just had MRI. Her MRI results are reviewed with her today. Marc is functioning quite well in this period. She is obviously having some difficulty with walking and bowel movements from the note from 04/23/08, but she does feel like this has been significantly better over the last couple days just from her office visit. She does have some control that was prescribed. She has not started this yet. She is planning on starting the Micronor this weekend. She has no issues with depression. OBJECTIVE: VS: BP: 102/60. Wt: 144. GENERAL: She is healthy appearing. ABDOMEN: Soft, nontender. External genitalia is normal. Vagina and cervix are normal and atrophic, consistent with her breast feeding status. Bladder is well supported. Urethra normal. Bimanual is somewhat tender to palpation due to her perineal pain, but no obvious uterine enlargement or adnexal enlargement. Perineum: No stitches seen. Rectovaginal exam was not done. Her MRI is reviewed and completely normal. ASSESSMENT: 1. Normal check. 2. Persistent perineal pain. PLAN: Marc will continue on her stool softener. Pain medicines as needed. Just give it more time. If these issues are still bothering her in 6 to 8 weeks, she will come back for re-evaluation. She is going to slowly resume exercise, start the Micronor this weekend. Her Pap is due in July. Otherwise she seems to be doing quite well. KBO:[id number] C: 04/27/08 11:14 CONFIRM #: [id number] documented in this encounter Plan of Treatment Upcoming Encounters Date Type Specialty Care Team Description 05/12/2022 Appointment Audiology 05/12/2022 Appointment Otolaryngology Bro Arroyo , PADerick [address] [facility] [place] [address] [address] (Wo rk) 06/03/2022 Appointment General Dentistry Rylee Amaro, [facility] [address] [place] [address] 06/03/2022 Appointment General Dentistry Pee Garcia DDS [address] [place], [place] [phone] (Wo rk) 06/17/2022 Appointment General Dentistry Pee Garcia DDS [address] [place] [address] (Wo rk) documented as of this encounter Visit Diagnoses Not on filedocumented in this encounter
--- OUTSIDE RECORDS SUMMARY | 2022-05-06 23:59 | XMS_ITS | Encounter Summary ---
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 as of this encounter Last Filed Vital Signs Vital Sign Reading Time Taken Comments Blood Pressure 96/60 09/04/2010 3:37 PM SUPERVISOR FORMING AND TEMPERING Pulse 92 09/04/2010 3:37 PM SUPERVISOR FORMING AND TEMPERING Temperature - - Respiratory Rate - - Oxygen Saturation - - Inhaled Oxygen Concentration - - Weight 65.3 kg (143 lb 15.7 oz) 09/04/2010 3:37 PM C: 6 5.3kg SUPERVISOR FORMING AND TEMPERING Height 154.9 cm (5' 1) 09/04/2010 3:37 PM C: 154.9cm SUPERVISOR FORMING AND TEMPERING Body Mass Index 27.21 09/04/2010 3:37 PM SUPERVISOR FORMING AND TEMPERING documented in this encounter Progress Notes Helen Rubi MD - 09/04/2010 12:01 AM CST NAME: MARC VANN MR#: [id number] ACCT: [id number] VISIT: [id number] DICTATING CLINICIAN: Helen Rubi MD CONFIRM #: [id number] LOC: 1012 CLINIC PHYSICAL DATE OF VISIT: 09/04/2010 : 1980 This is a 29-year-old female para 1-0-0-1 who comes in for a routine BRICKLAYER SEWER exam. Her past medical history is notable for a full term vaginal delivery without complication. No history of any chronic medical illnesses or surgeries. No history of abnormal paps. Her medications and allergies are reviewed. She would like to continue on the Lisa for control. 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 She is , has a little girl who is 30 months old. She is from [place], nonsmoker. No alcohol or drug use. FAMILY HISTORY: Reviewed, notable for mother with diabetes, father with bone cancer currently alive and doing well. No other illnesses in the family. REVIEW OF SYSTEMS: Overall she feels well with no concerns today. HEALTH CARE MAINTENANCE: She is up-to-date on immunizations. No history of abnormal paps. Her last Pap was in 2009 and we have several normal Paps in a row. EXAMINATION: GENERAL: She is healthy appearing. VITAL SIGNS: Weight is 144. BP is 96/60. NECK: Supple. She does have what feels like either enlarged an thyroid or excess skin tissue around the neck. It is a little bit hard to tell. I certainly do not feel any nodules. She has no history of any thyroid problems in the past. HEART: Regular rate and rhythm. LUNGS: Clear. BREASTS: Symmetric, nontender, no dominant masses. No axillary click or adenopathy. ABDOMEN: Soft, nontender without mass or organomegaly. : A pelvic exam reveals a small, anteverted, mobile uterus. No adnexal masses or tenderness. ASSESSMENT: 1. Routine BRICKLAYER SEWER exam. 2. Question of thyromegaly on exam. PLAN: Will go ahead and start per standard of care going down to every 2 year Paps. She will be due next year for her Pap screening and this was reviewed with her with the ACOG pamphlet. Draw a TSH today. I would like her to see one of our endocrinologists for an exam to see if they think there is an enlarged thyroid on exam and further workup per Endocrinology if needed. Her Lisa prescription was sent to her pharmacy. Will see her back yearly. KBO:MEDQ C: CONFIRM #: [id number] RVISOR FORMING AND TEMPERING documented in this encounter Plan of Treatment Upcoming Encounters Date Type Specialty Care Team Description 05/12/2022 Appointment Audiology 05/12/2022 Appointment Otolaryngology Bro Arroyo , JANET [address] [facility] [place] [address] (Wo rk) 06/03/2022 Appointment General Dentistry Rylee Amaro, [facility] [address] [place] [address] 06/03/2022 Appointment General Dentistry Pee Garcia DDS [address] [place], [place] [phone] (Wo rk) 06/17/2022 Appointment General Dentistry Pee Garcia DDS [address] [place], [place] [phone] (Wo rk) documented as of this encounter Visit Diagnoses Not on filedocumented in this encounter
--- OUTSIDE RECORDS SUMMARY | 2022-05-06 23:59 | XMS_ITS | Encounter Summary ---
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 Pt is feeling constipated. Pt has had BM they are really heard Pt continues to take stool softeners and has had 2-3 enemas. Pt instructed she should be staying hydrated and eating high fiber foods, ot taking a fiber supplement over the counter. Pt also instructed to try Miralax OTC if she cannot have a BM. Pt states she is passing gas. Pt also encouraged to eat small frequent meals. Pt also wants to know about her stiches. Pt informed they should dissolve within 4-6 weeks. Pt is not c/o of pain near her stiches. Pt also having cramping in her uterus and lower bask. Pt states it happens when she pumps. Discussed with pt that this is anticipated she she is pumping or nursing. Pt can apply heat to the area or ibuprofen for discomfort. Pt encouraged to discuss her concerns with Dr. Rubi at her next appt APR 27. Pt has no other questions and will call back with any other concerns. Created on 16Apr2008 10:44am by MARISOL GAMINO DRIER documented in this encounter Plan of Treatment Upcoming Encounters Date Type Specialty Care Team Description 05/12/2022 Appointment Audiology 05/12/2022 Appointment Otolaryngology Bro Arroyo , PAMorisC [address] [facility] [place] [address] (Wo rk) 06/03/2022 Appointment General Dentistry Rylee Amaro, [facility] [address] [place] [address] 06/03/2022 Appointment General Dentistry Pee Garcia DDS [address] [place], [place] [phone] (Wo rk) 06/17/2022 Appointment General Dentistry Pee Garcia DDS [address] [facility] [place] [phone] (Wo rk) documented as of this encounter Visit Diagnoses Not on filedocumented in this encounter
--- OUTSIDE RECORDS SUMMARY | 2022-05-06 23:59 | XMS_ITS | Encounter Summary ---
:1980 Author Organization [email or web address] Address [address] [place] [address] Care Team Providers Name Role Phone Unavailable Primary Care Provider Unavailable Reason for Visit Reason Comments Menstrual Problems Encounter Details Date Type Department Care Team Description 07/28/2011 Telephone [place] Helen Rubi M D Menstrual Problems Obstetrics/Gynecolog y [address] [facility] [address] [facility] [address] [place], [place] [address] [place], [place] [phone] (Wo rk) Social History Tobacco Use Types Packs/Day Years Used Date Smoking Tobacco: Never Assessed Sex Assigned at Date Recorded Female 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 Pt instructed to call for any further question. DE ATTENDANT Helen Rubi MD - 07/30/2011 10:00 AM CST i would probably have her repeat her UPT in a week if she still hasn't had her period and call back with update if needed. DE ATTENDANT Glo Kilgore RN - 07/28/2011 2:15 PM CST Pt states cycles every 28 days. Has been using condoms only for past 3-4 months. (see telephone notefrom 03/09/11) Pt states was going to start Ortho Evra patch after this next cycle. Last period on 06/29/11 and 2 weeks into cycle had one day of brown spotting. Period due on 07/26/11 and has had 3 days of brown spotting since. HPT yesterday negative. Denies any cramping or pain. Pt states this is unusual for her. Does have appointment with Dr Rubi on 09/17/11 for annual. Pt advised to continue to monitorcycle. Forwarding to Dr Rubi to advise. Pt understands Dr Rubi is not in office until 07/30/11. documented in this encounter Plan of Treatment Upcoming Encounters Date Type Specialty Care Team Description 05/12/2022 Appointment Audiology 05/12/2022 Appointment Otolaryngology Bro Arroyo , PADerick [address] [facility] [address] (Shereen espino) 06/03/2022 Appointment General Dentistry Rylee Amaro, [facility] [address] [place] [address] 06/03/2022 Appointment General Dentistry Pee Garcia DDS [address] [place] [address] (Shereen espino) 06/17/2022 Appointment General Dentistry Pee Garcia DDS [address] [facility] [place] [place] [phone] (Shereen sepino) documented as of this encounter Visit Diagnoses Not on filedocumented in this encounter
--- OUTSIDE RECORDS SUMMARY | 2022-05-06 23:59 | XMS_ITS | Encounter Summary ---
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 is calling stating that she will not be able to make her appt. with Dr.Streitz Rice for today,01/28/11. Pt. is still having right breast pain that comes and goes. Denies any lump. Appt. scheduled with Maria Antonia Parisi NP in [place] for 01/29/11 @ 0900 for evaluation. Pt. agreed with this plan and appt. time and date. documented in this encounter Plan of Treatment Upcoming Encounters Date Type Specialty Care Team Description 05/12/2022 Appointment Audiology 05/12/2022 Appointment Otolaryngology Bro Arroyo , JANET [address] [place] [address] (Wo rk) 06/03/2022 Appointment General Dentistry Rylee Amaro, [facility] [address] [place] [address] 06/03/2022 Appointment General Dentistry Pee Garcia, TAWANNAS [address] [place] [address] (Wo rk) 06/17/2022 Appointment General Dentistry Pee Garcia DDS [address] [place] [address] (Wo rk) documented as of this encounter Visit Diagnoses Not on filedocumented in this encounter
--- OUTSIDE RECORDS SUMMARY | 2022-05-06 23:59 | XMS_ITS | Encounter Summary ---
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 had her baby on 03/14. contacted pt for f/u appt. pt states she will call to schedule when she is comming for a f/u with OB. gave pt appt line and my number. Created on 20Mar2008 10:58am by JESSICA SALCIDO Acknowledged by ADRIANNA AGUIRRE on 12:32pm BOILER documented in this encounter Plan of Treatment Upcoming Encounters Date Type Specialty Care Team Description 05/12/2022 Appointment Audiology 05/12/2022 Appointment Otolaryngology Bro Arroyo , PAMorisC [address] [facility] [place] [address] (Wo rk) 06/03/2022 Appointment General Dentistry Rylee Amaro, RD [address] [place] [address] 06/03/2022 Appointment General Dentistry Pee Garcia, DDS [address] [place], [place] [phone] (Wo rk) 06/17/2022 Appointment General Dentistry Pee Garcia DDS [address] [place] [address] (Wo rk) documented as of this encounter Visit Diagnoses Not on filedocumented in this encounter
--- OUTSIDE RECORDS SUMMARY | 2022-05-06 23:59 | XMS_ITS | Encounter Summary ---
:1980 Author Organization [facility] Address [address] [address] Care Team Providers Name Role Phone Unavailable Primary Care Provider Unavailable Reason for Visit Reason Comments SWELLING, FACE Encounter Details Date Type Department Care Team Description 07/31/2011 Office Visit [place] Internal Semaj Brown Ce llulitis (Primary Medicine MD Dx) [address] [place] [address] [phone] (Wo rk) Social History Tobacco Use Types Packs/Day Years Used Date Smoking Tobacco: Never Assessed Sex Assigned at Date Recorded Female 05/12/2021 9:48 AM KAIAWHINA KURA KAUPAPA MAORI documented as of this encounter Last Filed Vital Signs Vital Sign Reading Time Taken Comments Blood Pressure 98/52 07/31/2011 3:44 PM KAIAWHINA KURA KAUPAPA MAORI Pulse 68 07/31/2011 3:44 PM KAIAWHINA KURA KAUPAPA MAORI Temperature - - Respiratory Rate - - Oxygen Saturation - - Inhaled Oxygen Concentration - - Weight 67.6 kg (149 lb) 07/31/2011 3:44 PM KAIAWHINA KURA KAUPAPA MAORI Height - - Body Mass Index 28.15 01/29/2011 9:20 AM CDT documented in this encounter Progress Notes Semaj Brown MD - 08/10/2011 9:02 AM CST Reviewed intake note. SUBJECTIVE: Marc is a 30 y.o. female who presents with erythema and tenderness. Location: right cheek Onset: acute Duration: 2 days and symptoms are worsening Associated symptoms: right sided headache Recent treatment: none Functional status affected: yes Allergies: Review of patient's allergies indicates no known allergies. Patient Active Problem List Diagnoses Code ??? Normal Spontaneous Vaginal Delivery 650 OBJECTIVE:Blood pressure 98/52, pulse 68, weight 67.586 kg (149 lb). APPEARANCE: Alert, oriented, no acute distress CARDIOVASCULAR: regular rate and rhythm, no murmurs RESPIRATORY: clear to auscultation, no wheezes or rales and unlabored breathing LESION SIZE/LOCATION: right facial swelling confluent over cheek LESION DESCRIPTION: erythema and swelling ASSOCIATED SIGNS: none SYSTEMIC SYMPTOMS: malaise PULSES: peripheral pulses symmetrical and capillary refill normal CAPILLARY REFILL: Normal A: right facial cellulitis. Start antibiotic with recheck if persistenet sx documented in this encounter Plan of Treatment Upcoming Encounters Date Type Specialty Care Team Description 05/12/2022 Appointment Audiology 05/12/2022 Appointment Otolaryngology Bro Arroyo PA-C [address] [facility] [address] (Shereen espino) 06/03/2022 Appointment General Dentistry Rylee Amaro, [facility] [address] [place] [address] 06/03/2022 Appointment General Dentistry Pee Garcia DDS [address] [place], [place] [phone] (Shereen espino) 06/17/2022 Appointment General Dentistry Pee Garcia DDS [address] [place], [place] [phone] (Shereen espino) documented as of this encounter Visit Diagnoses Diagnosis Cellulitis - Primary Cellulitis and abscess of unspecified si te documented in this encounter
--- OUTSIDE RECORDS SUMMARY | 2022-05-06 23:59 | XMS_ITS | Encounter Summary ---
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 Rubi MESSAGE:Pt. has been researching control options. Thinks that she would like to go on BCP's, but would like a pill that would help decrease the chance of weight and acne. Currently has 1 minipill left. Pls. call her tomorrow, 09/20/08 on her cell phone. PHARMACY NAME:[facility] PHARMACY PHONE #: CITY:[place] CALL BACK PHONE OR CELL PHONE:cell phone # [phone] BEST TIME TO CALL BACK: IS IT OK TO LEAVE A CONFIDENTIAL MESSAGE ON THIS VOICEMAIL? *ECODE~PNMSG Created on 19Sep2008 1:30pm by CODIE PIERCE On 20Sep2008 8:40am ELENI RUBI wrote: I would recommend Lisa, 1po mQD, 3 month supply, make sure she is not . If she would l.nithya to discuss options then I woudl recommend she come in for a visit either with me or one of our well shooter. aixa Acknowledged by ELENI RUBI on 8:40am Acknowledged by FADIA WILKS on 8:44am On 20Sep2008 8:59am GEORGIA GAMINO wrote: Pt called and given the above message from . Pt confirms she is not breast feeding. pt states she did not have much of a period this month. Pt encouraged if there is a chance of , take a UPT to confirm negative state. Pt agrees with plan and will flower buncher or picker the Lisa Rx later today.Pt has no other questions at this time. ICAL PROVIDER TRAINER documented in this encounter Plan of Treatment Upcoming Encounters Date Type Specialty Care Team Description 05/12/2022 Appointment Audiology 05/12/2022 Appointment Otolaryngology Bro Arroyo , PAMorisC [address] [place] [address] (Wo rk) 06/03/2022 Appointment General Dentistry Rylee Amaro, [facility] [address] [place] [address] 06/03/2022 Appointment General Dentistry Pee Garcia, TAWANNAS [address] [place] [address] (Wo rk) 06/17/2022 Appointment General Dentistry Pee Garcia, DDS [address] [place] [address] (Wo rk) documented as of this encounter Visit Diagnoses Not on filedocumented in this encounter
--- OUTSIDE RECORDS SUMMARY | 2022-05-06 23:59 | XMS_ITS | Encounter Summary ---
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 encounter Plan of Treatment Upcoming Encounters Date Type Specialty Care Team Description 05/12/2022 Appointment Audiology 05/12/2022 Appointment Otolaryngology Bro Arroyo , PA-C [address] [facility] RUDI N [address] (Wo rk) 06/03/2022 Appointment General Dentistry Rylee Amaro, [facility] [address] [place] [address] 06/03/2022 Appointment General Dentistry Pee Garcia DDS [address] [place] [address] (Wo rk) 06/17/2022 Appointment General Dentistry Pee Garcia, DDS [address] [place], [place] [phone] (Wo rk) documented as of this encounter Procedures Procedure Name Priority Date/Time Associated Diagnosis Comme nts LIPID PANEL AND Routine 09/12/2009 10:14 AM Resul ts for this DIRECT LDL(IF CDT procedure are in NEEDED) the results section. documented in this encounter Results (ABNORMAL) Lipid Panel and Direct LDL(If Needed) (09/12/2009 10:14 AM CDT) [facility] gist Method Time Signature Cholesterol 230 (H) 0 - 200 HP CONVERSION mg/dL Triglycerides 175 (H) 0 - 149 HP CONVERSION mg/dL HDL Cholesterol 89 >39 mg/dL HP CONVERSION Cholesterol/HDL 2.6 No normal HP CONVERSION Ratio Screen range LDL Calculated 106 19 - 130 HP CONVERSION mg/dL Length Of Fast 12.0 No normal HP CONVERSION range Specimen (Source) Anatomical Collection Method Collection Time Re ceived Time Location / / Volume Laterality 09/12/2009 10:14 AM CDT Helen Rubi MD LAB_1 Performing Organization Address City/State/ZIP Code Phon e Number HP CONVERSION documented in this encounter Visit Diagnoses Not on filedocumented in this encounter
--- OUTSIDE RECORDS SUMMARY | 2022-05-06 23:59 | XMS_ITS | Encounter Summary ---
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 documented as of this encounter Plan of Treatment Upcoming Encounters Date Type Specialty Care Team Description 05/12/2022 Appointment Audiology 05/12/2022 Appointment Otolaryngology Bro Arroyo , PAMorisC [address] [facility] [address] (Wo rk) 06/03/2022 Appointment General Dentistry Rylee Amaro, [facility] [address] [place] [address] 06/03/2022 Appointment General Dentistry Pee Garcia DDS [address] [place] [address] (Wo rk) 06/17/2022 Appointment General Dentistry Pee Garcia DDS [address] [place], [place] [phone] (Wo rk) documented as of this encounter Visit Diagnoses Not on filedocumented in this encounter
--- OUTSIDE RECORDS SUMMARY | 2022-05-06 23:59 | XMS_ITS | Encounter Summary ---
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 [address] [place] [address] 06/03/2022 Appointment General Dentistry Pee Garcia DDS [address] [place] [address] (Wo rk) 06/17/2022 Appointment General Dentistry Pee Garcia, DDS [address] [place], [place] [phone] (Wo rk) documented as of this encounter Procedures Procedure Name Priority Date/Time Associated Comments Diagnosis THYROID STIMULATING Routine 09/04/2010 4:27 PM Re sults for this HORMONE OVEN BAKER procedure are i n the results section. documented in this encounter Results THYROID STIMULATING HORMONE (09/04/2010 4:27 PM OVEN BAKER) athologist Signature Thyroid 1.02 0.20 - HP CONVERSION Stimulating 4.50 mIU/L Hormone Specimen (Source) Anatomical Collection Method Collection Time Re ceived Time Location / / Volume Laterality 09/04/2010 4:27 PM OVEN BAKER Helen Rubi MD LAB_1 Performing Organization Address City/State/ZIP Code Phon e Number HP CONVERSION documented in this encounter Visit Diagnoses Not on filedocumented in this encounter
--- OUTSIDE RECORDS SUMMARY | 2022-05-06 23:59 | XMS_ITS | Encounter Summary ---
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 encounter Last Filed Vital Signs Vital Sign Reading Time Taken Comments Blood Pressure 104/62 08/03/2008 3:41 PM SENIOR TRIAL ATTORNEY Pulse 80 08/03/2008 3:41 PM SENIOR TRIAL ATTORNEY Temperature - - Respiratory Rate - - Oxygen Saturation - - Inhaled Oxygen Concentration - - Weight 66.2 kg (145 lb 15.8 oz) 08/03/2008 3:41 PM SENIOR TRIAL ATTORNEY C: 66.2kg Height - - Body Mass Index 28.51 03/01/2008 11:18 AM CDT documented in this encounter Progress Notes Elizabeth Wilson MD - 08/03/2008 12:01 AM CST Progress Notes signed by JAZZY Dickinson at 08/24/08 0530 Author: JAZZY Dickinson Service: (none) Author Type: Physician Filed: 10/18/10 1044 Note Time: 08/03/08 0001 Status: Signed Lab Rep: JAZZY Dickinson (Resource) NAME: MARC VANN MR#: [id number] ACCT: [id number] VISIT: [id number] DICTATING CLINICIAN: JAZZY DICKINSON CONFIRM #: [id number] LOC: 1002 CLINIC PROGRESS NOTE DATE OF VISIT: 08/03/2008 SUBJECTIVE: : 1980. Patient is a 27-year-old who is accompanied by her with chief concerns about left great toenail pain with swelling. She mentions that she does have a tendency to have an ingrown toenail and she has noticed it the last couple of days. It was quite painful yesterday. She continues to have some achiness with redness. Noticed maybe a little pussy drainage and would like to be looked at. She does mention that she tries to keep her toes trimmed. She is currently a 4-month-old. Otherwise healthy with no major medical problems. MEDICATIONS: Reviewed and updated in LastWord today. ADR/ALLERGIES: REVIEWED AND UPDATED IN LAST[employer] TODAY. Does not smoke cigarettes. OBJECTIVE: The left foot, in particular, does not show any obvious swelling. Pulses normal in the left foot, dorsalis pedis and posterior tibial. Examination of the left great toenail shows she does have a mild swelling on the lateral side of the toenail bed with tenderness noted. No obvious pussy drainage noted. She does have an ingrown toenail. It was tender to touch. Range of motion of the interphalangeal joint of the first metatarsophalangeal joint is normal. ASSESSMENT: Right ingrown toenail with infection. PLAN: At this point I did recommend treating the infection before removing the toenail. Recommended to keep it soaked at least twice a day for the next couple of days, keep it clean and dry. Gave her a prescription for Bactrim to be used twice a day for 7 days. She is currently . I did refer to the pharmacopeia which did mention that it is safe to use. She is going to take it with food and she will follow up with me in 2 weeks for a reassessment, at which point if she continues to have pain with ingrown toenail, I would recommend a partial toenail removal. The patient agrees with the plan. SP:[id number] C: 08/04/08 11:50 CONFIRM #: [id number] OR TRIAL ATTORNEY documented in this encounter Plan of Treatment Upcoming Encounters Date Type Specialty Care Team Description 05/12/2022 Appointment Audiology 05/12/2022 Appointment Otolaryngology Bro Arroyo , JANET [address] [facility] [place] [address] (Wo rk) 06/03/2022 Appointment General Dentistry Rylee Amaro, [facility] [address] [place] [address] 06/03/2022 Appointment General Dentistry Pee Garcia DDS [address] [place], [place] [phone] (Wo rk) 06/17/2022 Appointment General Dentistry Pee Garcia DDS [address] [place], [place] [phone] (Wo rk) documented as of this encounter Visit Diagnoses Not on filedocumented in this encounter
--- OUTSIDE RECORDS SUMMARY | 2022-05-06 23:59 | XMS_ITS | Encounter Summary ---
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 Last Filed Vital Signs Vital Sign Reading Time Taken Comments Blood Pressure 98/58 12/07/2008 11:47 AM CDT Pulse - - Temperature - - Respiratory Rate - - Oxygen Saturation - - Inhaled Oxygen Concentration - - Weight 60.8 kg (133 lb 15.9 oz) 12/07/2008 11:47 AM C: 60.8kg CDT Height - - Body Mass Index 26.17 03/01/2008 11:18 AM CDT documented in this encounter Progress Notes Helen Rubi MD - 12/07/2008 12:01 AM CDT H&P signed by Helen Rubi MD at 12/07/08 1533 Author: Helen Rubi MD Service: (none) Author Type: Physician Filed: 10/18/10 1404 Note Time: 12/07/08 0001 Status: Signed Manager Of Allied Health Services: Helen Rubi MD (Physician) NAME: MARC VANN MR#: [id number] ACCT: [id number] VISIT: [id number] DICTATING CLINICIAN: Helen Rubi MD CONFIRM #: [id number] LOC: 1012 CLINIC PHYSICAL DATE OF VISIT: 12/07/2008 SUBJECTIVE: : 1980. This is a 27-year-old female, para 1, who comes in for a routine physical. PAST MEDICAL HISTORY: Notable for 1 term delivery without complication. She has a history of a seizure disorder, got worked up by Neurology. This was a completely negative workup. She has not been on any seizure medications. CURRENT MEDICATIONS: Reviewed. ADR/ALLERGIES: REVIEWED. SOCIAL HISTORY: She is in school. She has 1 little girl who is 9 months old. She is . Nonsmoker. No alcohol or drug use. FAMILY HISTORY: Reviewed. Mother with diabetes as well as a grandparent. No other illnesses that she is aware of in the family. REVIEW OF SYSTEMS: Overall, she is happy with the Lisa for control, but she does occasionally miss pills. She is still having some occasional perineal pain from her stitches. This was worked up . Everything was negative. Things have maybe gotten a little bit better since then. It is not a huge issue for her. She at this point just wants to wait it out and make sure there is nothing else wrong. She believes she is due for her tetanus. She has not had one in many, many years, and we have no records of that. OBJECTIVE: VS: BP: 98/58. Wt: 134. GENERAL: She is healthy appearing. NECK: Supple, without thyromegaly. HEART: Regular rate and rhythm. LUNGS: Clear. BREASTS: Symmetric, nontender. No dominant masses. No axillary or clavicular adenopathy. ABDOMEN: Soft, nontender. EXTREMITIES: Nontender, without edema. SKIN: Warm and dry, without lesions. PELVIC: Reveals normal external genitalia. The perineum where she reports pain has no lesion. Vagina we normal rugae. Cervix is parous, without lesion. Pap was obtained. Bimanual reveals a small, midline, mobile uterus. No adnexal masses or tenderness. On examination of the area where she describes pain, it is just inside the introitus where her laceration would have been from delivery. There is some palpable scar type tissue here, but certainly no masses or nodules, nothing to be concerned about. Her rectovaginal exam was done as well. She has some point tenderness in the area. ASSESSMENT: 1. Normal annual exam. 2. Perineal pain. PLAN: Reviewed options for different control. Gave her some options for the IUD and Depo-Provera. She wants to continue on the Lisa for now. We gave her a tetanus today. She wants to just wait it out and see if this pain on her perineum gets better. I think it would be reasonable to try a trigger point injection with some steroid and some Marcaine. If she wants to, she will call back and we will go from there. [id number] C: 12/07/08 13:35 CONFIRM #: [id number] documented in this encounter Plan of Treatment Upcoming Encounters Date Type Specialty Care Team Description 05/12/2022 Appointment Audiology 05/12/2022 Appointment Otolaryngology Bro Arroyo PA-C [address] [facility] [address] (Shereen espino) 06/03/2022 Appointment General Dentistry Rylee Amaro, [facility] [address] [place] [address] 06/03/2022 Appointment General Dentistry Pee Garcia DDS [address] [place] [address] (Shereen espino) 06/17/2022 Appointment General Dentistry Pee Garcia DDS [address] [facility] [place] [place] [phone] (Shereen espino) documented as of this encounter Visit Diagnoses Not on filedocumented in this encounter
--- OUTSIDE RECORDS SUMMARY | 2022-05-06 23:59 | XMS_ITS | Encounter Summary ---
:1980 Author Organization [employer] Address [address] [place] [address] Care Team Providers Name Role Phone Unavailable Primary Care Provider Unavailable Encounter Details Date Type Department Care Team Description 10/30/2010 PN Conversion Only [facility] 38[address] Denny Limon MD Obstetrics/Gynecolog y [address] [place] [address] 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 as of this encounter Plan of Treatment Upcoming Encounters Date Type Specialty Care Team Description 05/12/2022 Appointment Audiology 05/12/2022 Appointment Otolaryngology Bro Arroyo , PADerick [address] [facility] [address] [facility] N [phone] (Wo rk) 06/03/2022 Appointment General Dentistry Rylee Amaro, RD [address] [place] [address] 06/03/2022 Appointment General Dentistry Pee Garcia, DDS [address] [place] [address] (Wo rk) 06/17/2022 Appointment General Dentistry Pee Garcia, DDS [address] [place], [place] [phone] (Wo rk) documented as of this encounter Visit Diagnoses Not on filedocumented in this encounter
--- OUTSIDE RECORDS SUMMARY | 2022-05-06 23:59 | XMS_ITS | Encounter Summary ---
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 Pt's last pap was JUL 2007, pt last seen for pp check in MAR 2008.Will send to Dr. Rubi to advise on Rx order. Pharmacy is [facility] in [place] [address]Pt contact #[phone], voice mails okay. Created on 13Sep2008 10:52am by MARISOL GAMINO On 13Sep2008 11:19am ELENI RUBI wrote: I don't prescribe the patch anymore due to concerns about a higher dose of estrogen than is necessary. She has been on ortho tricyclen OCP, if she wants to restart this instead please send her an rx for 3 month supply and refills until she is due for her annual. [email or web address] Acknowledged by ELENI RUBI on 11:19am On 13Sep2008 11:46am FADIA WILKS wrote: Pt states that she didn't do well on Ortho Tri Cyclen, as it made her very nauseated. She did better on the Ortho Evra. Thinking that she needs something lower dose estrogen. I mentioned the Nuva Ring. She is going to do a little research on the internet about this, and call us back with what she thinks she wants to do. RER documented in this encounter Plan of Treatment Upcoming Encounters Date Type Specialty Care Team Description 05/12/2022 Appointment Audiology 05/12/2022 Appointment Otolaryngology Bro Arroyo , PADerick [address] [facility] [place] [phone] (Wo rk) 06/03/2022 Appointment General Dentistry Rylee Amaro, RD [address] [place] [address] 06/03/2022 Appointment General Dentistry Pee Garcia, DDS [address] [place], [place] [phone] (Wo rk) 06/17/2022 Appointment General Dentistry P[place] Garcia, DDS [address] [place] [address] (Wo rk) documented as of this encounter Visit Diagnoses Not on filedocumented in this encounter
--- OUTSIDE RECORDS SUMMARY | 2022-05-06 23:59 | XMS_ITS | Encounter Summary ---
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 Please tell her that her chol. level is back and is elevated at 229. Dr. Rubi has reviewed and would like pt to come in for a fasting chol panel. Lab paperwork has been sent to lab. Pt can call [phone] for lab appt. Created on 06Sep2009 10:36am by MAYRA SEALS M On 06Sep2009 10:38am FADIA WILKS wrote: Pt calling back for above msg. She is transferred to lab scheduling to make this appt in the lab. 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 TENDER documented in this encounter Plan of Treatment Upcoming Encounters Date Type Specialty Care Team Description 05/12/2022 Appointment Audiology 05/12/2022 Appointment Otolaryngology Bro Arroyo , PA-C [address] [facility] R[place] [address] (Wo rk) 06/03/2022 Appointment General Dentistry Rylee Amaro, [facility] [address] [place] [address] 06/03/2022 Appointment General Dentistry Pee Garcia, DDS [address] [place], [place] [phone] (Wo rk) 06/17/2022 Appointment General Dentistry Pee Garcia DDS [address] [place], [place] [phone] (Wo rk) documented as of this encounter Visit Diagnoses Not on filedocumented in this encounter
--- OUTSIDE RECORDS SUMMARY | 2022-05-06 23:59 | XMS_ITS | Encounter Summary ---
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 Call nurse line for any questions. Helen Rubi MD - 03/12/2011 8:44 AM CDT rx sent to her pharmacy, please let her know. T Glo Kilgore RN - 03/10/2011 8:14 AM CDT Contacted pt with [address] Rubi. Pt verbalizes understanding but, is still interested in the patch. Understands increased risk for blood clots. Would like to know if Dr Rubi would still prescribe the contraceptive patch. Will forward to Dr Rubi and pt will also think about 3 opti ons. Will contact pt with Dr Rubi's reply and pt will then make her decision. Can contact pt at [phone]. Okay to leave message. Helen Rubi MD - 03/09/2011 5:05 PM CDT i generally have not prescribed the patch since there was some concern over increased risk of blood clots. i would recommend either the nuvaring, an IUD, or Depo-Provera. Bernice Dupree LPN - 03/09/2011 4:02 PM CDT Pt is currently taking Yasin, but is interested in switching to the contraceptive patch, as she often forgets her pill. LMP 9-8-11. Pt is sexually active. Pt has also been using condoms as well due to her forgetfulness on taking the pill. Plz advise. documented in this encounter Plan of Treatment Upcoming Encounters Date Type Specialty Care Team Description 05/12/2022 Appointment Audiology 05/12/2022 Appointment Otolaryngology Bro Arroyo , HAILEYC [address] [id number] (Wo rk) 06/03/2022 Appointment General Dentistry Rylee Amaro, [facility] [address] [place] [address] 06/03/2022 Appointment General Dentistry Pee Garcia DDS [address] [place] [address] (Wo rk) 06/17/2022 Appointment General Dentistry Pee Garcia, AMBROSE [address] [facility] [place] [phone] (Wo rk) documented as of this encounter Visit Diagnoses Not on filedocumented in this encounter
--- OUTSIDE RECORDS SUMMARY | 2022-05-06 23:59 | XMS_ITS | Encounter Summary ---
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 Medications at Time of Discharge [...] times daily unknown medication Indications: PN: 0 04/23/2008 09/04/2010 unknown medication Indications: PN: 0 04/23/2008 09/04/2010 unknown medication Indications: PN: 0 03/14/2008 09/04/2010 [...] 06/16/2007 09/04/2010 documented as of this encounter Plan of Treatment Upcoming Encounters Date Type Specialty Care Team Description 05/12/2022 Appointment Audiology 05/12/2022 Appointment Otolaryngology Bro Arroyo , JANET [address] [facility] [address] (Wo rk) 06/03/2022 Appointment General Dentistry Rylee Amaro, [facility] [address] [place] [address] 06/03/2022 Appointment General Dentistry Pee Garcia DDS [address] [place] [address] (Wo rk) 06/17/2022 Appointment General Dentistry Pee Garcia DDS [address] [facility] [place] [phone] (Wo rk) documented as of this encounter Procedures Procedure Name Priority Date/Time Associated Diagnosis Comme nts HMR PELVIS SOFT Routine 04/25/2008 8:39 PM Result s for this TISSUE W/WO IV CONT CDT procedur e are in the results section. documented in this encounter Results HMR Pelvis Soft Tissue W/WO IV Cont (04/25/2008 8:39 PM CDT) Anatomical Region Laterality Modality Pelvis Other Specimen (Source) Anatomical Location Collection Method / Collectio n Time Received Time / Laterality Volume Impressions 04/25/2008 8:39 PM CDT : ? 1. ?? No MR evidence ?for perineal mass or significant inflammatory process. ? 2. ?? Small amount ?of bud e fluid in the pelvis is nonspecific. [id number] Dictating FRANCO CARBAJAL MD Narrative 04/25/2008 8:39 PM CDT COMPARISON: ??None. INDICATION: ??Six weeks , with peroneal mass and tenderness. TECHNIQUE: ??Multiplanar, multisequence imaging of the pelvis preadministration and postadministration of 15 mL of intravenous Magnevist contrast. FINDINGS: ??Uterus is unremarkable, humphrey uring 8.1 cm in longitudinal dimension. ??The junctional zone is with in normal limits, measuring 8 mm or less. ??The endometrial stripe is 3 mm and unremarkable. ??The ovaries have an unremarkable appearance, without mass. ??There is a very small amount of free fluid in the p kiki which is nonspecific. No pelvic adenopathy, adnexal mass, or i nguinal hernia. ??No discrete solid or cystic perineal mass is identif ied. ??The vagina appears normal. ??Urethra is within normal limit s. ??Bladder is unremarkable. Rectum and anal canal appear normal. ??N o ischial or rectal fossa mass. ??The visualized osseous structure s are unremarkable. Procedure Note Franco Carpenter MD - 09/02/2016Formatti ng of this note might be different from the original. COMPARISON: None. INDICATION: Six weeks , with p eroneal mass and tenderness. TECHNIQUE: Multiplanar, multisequence im aging of the pelvis preadministration and postadministration of 15 mL of intravenous Magnevist contrast. FINDINGS: Uterus is unremarkable, measur ing 8.1 cm in longitudinal dimension. The junctional zone is within normal limits, measuring 8 mm or less. The endometrial stripe is 3 mm and unremarkable. The ovaries have an unremarkable appearance, without mass. There is a very small amount of free fluid in the p kiki which is nonspecific. No pelvic adenopathy, adnexal mass, or i nguinal hernia. No discrete solid or cystic perineal mass is identif ied. The vagina appears normal. Urethra is within normal limits. Bladder is unremarkable. Rectum and anal canal appear normal. No ischial or rectal fossa mass. The visualized osseous structures are unremarkable. IMPRESSION : 1. No MR evidence for perineal mass or significant inflammatory process. 2. Small amount of free fluid in the pe lvis is nonspecific. [id number] Dictating MD CARPENTER, FRANCO Swann MD Helen Rubi MD RAD MRI documented in this encounter Visit Diagnoses Not on filedocumented in this encounter
--- OUTSIDE RECORDS SUMMARY | 2022-05-06 23:59 | XMS_ITS | Encounter Summary ---
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 Pt is calling with complaints of mild facial swelling and pain. Symptoms started 07/27. She has also noted intermittent pain on the right side of her body. She has a general feeling of heaviness on the right side of her body. She is able to extend her arm and leg and hold a glass of water with no difficulty. She has mild facial swelling on the right side of her face near her nose and eye. Denies rash,sob, dyspnea, wheezing, facial weakness, redness, or fever. She has had an intermittent headache since wednesday. She took Advil at noon and headache improved. Appointment scheduled. documented in this encounter Plan of Treatment Upcoming Encounters Date Type Specialty Care Team Description 05/12/2022 Appointment Audiology 05/12/2022 Appointment Otolaryngology Bro Arroyo , JANET [address] [facility] [place] [address] (Wo rk) 06/03/2022 Appointment General Dentistry Rylee Amaro, [facility] [address] [place] [address] 06/03/2022 Appointment General Dentistry Pee Garcia, DDS [address] [place], [place] [phone] (Wo rk) 06/17/2022 Appointment General Dentistry Pee Garcia DDS [address] [place], [place] [phone] (Wo rk) documented as of this encounter Visit Diagnoses Not on filedocumented in this encounter
--- OUTSIDE RECORDS SUMMARY | 2022-05-06 23:59 | XMS_ITS | Encounter Summary ---
:1980 Author Organization [employer] Address [address] [place] [address] Care Team Providers Name Role Phone Unavailable Primary Care Provider Unavailable Reason for Visit Reason Comments Breast Problem Encounter Details Date Type Department Care Team Description 01/21/2011 Nurse Triage [place] Helen Rubi M D Breast Problem Obstetrics/Gynecolog y [address] [facility] [address] [facility] D ivania Gama [place], [place] [address] [place], [place] [phone] (Wo rk) Social History Tobacco Use Types Packs/Day Years Used Date Smoking Tobacco: Never Assessed Sex Assigned at Date Recorded 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 Pt noted the issue a few weeks ago and now they have returned for the last 2 days. Denies any emergent symptoms PATIENT INFORMATION: Status: Not INTERIM/HOME MANAGEMENT RECOMMENDATIONS: symptoms worsen or persist, any other questions or concerns. PLAN: SCHEDULE APPOINTMENT WITHIN 12 HOURS Patient/Caller agrees with plan and denies additional questions. Reference(s) Used: [facility] Breast Concerns: Male/Female Nursing Reference - Adult, Call Complete. *SH~PNNL~BREAST ~ documented in this encounter Plan of Treatment Upcoming Encounters Date Type Specialty Care Team Description 05/12/2022 Appointment Audiology 05/12/2022 Appointment Otolaryngology Bro Arroyo , PAMorisC [address] [facility] R[place] N [address] (Wo rk) 06/03/2022 Appointment General Dentistry Rylee Amaro, [facility] [address] [place] [address] 06/03/2022 Appointment General Dentistry Pee Garcia, DDS [address] [place], [place] [phone] (Wo rk) 06/17/2022 Appointment General Dentistry Pee Garcia DDS [address] [facility] [place] [phone] (Wo rk) documented as of this encounter Visit Diagnoses Not on filedocumented in this encounter
[2022-05-07] VITALS: PULSE 81; O2SAT 96
--- OUTSIDE RECORDS SUMMARY | 2022-05-07 | XMS_ITS | Encounter Summary ---
:1980 Author Organization [employer] 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 Plan of Treatment Upcoming Encounters Date Type Specialty Care Team Description 05/12/2022 Appointment Audiology 05/12/2022 Appointment Otolaryngology Bro Arroyo , JANET [address] [facility] N [phone] (Wo rk) 06/03/2022 Appointment General Dentistry Rylee Amaro, RD [address] [place] [address] 06/03/2022 Appointment General Dentistry Pee Garcia, DDS [address] [place] [address] (Wo rk) 06/17/2022 Appointment General Dentistry Pee Garcia, DDS [address] [place], [place] [phone] (Wo rk) documented as of this encounter Visit Diagnoses Not on filedocumented in this encounter
--- OUTSIDE RECORDS SUMMARY | 2022-05-07 | XMS_ITS | Encounter Summary ---
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 Last Filed Vital Signs Vital Sign Reading Time Taken Comments Blood Pressure 98/58 02/03/2008 10:05 AM CDT Pulse - - Temperature - - Respiratory Rate - - Oxygen Saturation - - Inhaled Oxygen Concentration - - Weight 71.2 kg (156 lb 15.8 oz) 02/03/2008 10:05 AM C: 71.2kg CDT Height 152.4 cm (5') 02/03/2008 10:05 AM C: 152.4cm CDT Body Mass Index 30.66 02/03/2008 10:05 AM CDT documented in this encounter Plan of Treatment Upcoming Encounters Date Type Specialty Care Team Description 05/12/2022 Appointment Audiology 05/12/2022 Appointment Otolaryngology Bor Arroyo PA-C [address] [place] [address] (Wo rk) 06/03/2022 Appointment General Dentistry Rylee Amaro, [facility] [address] [place] [address] 06/03/2022 Appointment General Dentistry Pee Garcia, AMBROSE [address] [place] [address] (Wo rk) 06/17/2022 Appointment General Dentistry Pee Garcia DDS [address] [place] [address] (Wo rk) documented as of this encounter Visit Diagnoses Not on filedocumented in this encounter
--- OUTSIDE RECORDS SUMMARY | 2022-05-07 | XMS_ITS | Encounter Summary ---
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 encounter Last Filed Vital Signs Vital Sign Reading Time Taken Comments Blood Pressure 92/58 10/27/2007 11:54 AM CDT Pulse - - Temperature - - Respiratory Rate - - Oxygen Saturation - - Inhaled Oxygen Concentration - - Weight 66.2 kg (145 lb 15.8 oz) 10/27/2007 11:54 AM C: 66.2kg CDT Height 152.4 cm (5') 10/27/2007 11:54 AM C: 152.4cm CDT Body Mass Index 28.51 10/27/2007 11:54 AM CDT documented in this encounter Plan of Treatment Upcoming Encounters Date Type Specialty Care Team Description 05/12/2022 Appointment Audiology 05/12/2022 Appointment Otolaryngology Bro Arroyo , JANET [address] [place] [address] (Wo rk) 06/03/2022 Appointment General Dentistry Rylee Amaro, [facility] [address] [place] [address] 06/03/2022 Appointment General Dentistry Pee Garcia, [place] [address] [place] [address] (Wo rk) 06/17/2022 Appointment General Dentistry Pee Garcia DDS [address] [place] [address] (Wo rk) documented as of this encounter Visit Diagnoses Not on filedocumented in this encounter
--- OUTSIDE RECORDS SUMMARY | 2022-05-07 | XMS_ITS | Encounter Summary ---
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 Last Filed Vital Signs Vital Sign Reading Time Taken Comments Blood Pressure 108/50 11/25/2007 11:06 AM CDT Pulse - - Temperature - - Respiratory Rate - - Oxygen Saturation - - Inhaled Oxygen Concentration - - Weight 67.6 kg (148 lb 15.8 oz) 11/25/2007 11:06 AM C: 67.6kg CDT Height - - Body Mass Index 29.1 10/27/2007 11:54 AM CDT documented in this encounter Plan of Treatment Upcoming Encounters Date Type Specialty Care Team Description 05/12/2022 Appointment Audiology 05/12/2022 Appointment Otolaryngology Bro Arroyo , PAMorisC [address] [address] (Wo rk) 06/03/2022 Appointment General Dentistry Rylee Amaro, [facility] [address] [place] [address] 06/03/2022 Appointment General Dentistry Pee Garcia, TA[place]ANNAS [address] [place] [address] (Wo rk) 06/17/2022 Appointment General Dentistry Pee Garcia DDS [address] [place] [address] (Wo rk) documented as of this encounter Visit Diagnoses Not on filedocumented in this encounter
--- OUTSIDE RECORDS SUMMARY | 2022-05-07 | XMS_ITS | Encounter Summary ---
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 encounter Last Filed Vital Signs Vital Sign Reading Time Taken Comments Blood Pressure 108/62 12/08/2007 2:03 PM CDT Pulse 68 12/08/2007 2:03 PM CDT Temperature - - Respiratory Rate - - Oxygen Saturation - - Inhaled Oxygen Concentration - - Weight 68.2 kg (150 lb 6.4 oz) 12/08/2007 2:03 PM CDT C : 68.2kg Height - - Body Mass Index 29.37 10/27/2007 11:54 AM CDT documented in this encounter Progress Notes Adrianna Aguirre - 12/08/2007 12:01 AM CDT Progress Notes signed by Adrianna Aguirre MD at 12/11/07 6922 Author: Adrianna Aguirre MD Service: (none) Author Type: (none) Filed: 10/18/10 0456 Note Time: 12/08/07 0001 Status: Signed Tank Car Repairer: Adrianna Aguirre MD (Physician) NAME: MARC VANN MR#: [id number] ACCT: [id number] VISIT: [id number] DICTATING CLINICIAN: Adrianna Aguirre MD CONFIRM #: [id number] LOC: 223 CLINIC PROGRESS NOTE DATE OF VISIT: 12/08/2007 SUBJECTIVE: : 1980. Ms. Vann is a 26-year-old lady who was seen in consultation at the request of Dr. Helen Rubi for evaluation of seizure disorder. She is currently 26 weeks' . She is accompanied by her . Ms. Vann gives a history of having had 2 seizure episodes, one in 2000 and the other in 2002. Both the seizures were witnessed by her family and occurred when she was sleep deprived. It was described to her as her losing consciousness and becoming unresponsive with her eyes rolled back and tonic-clonic jerking movements of her extremities. She does not remember whether she had postictal confusion/fatigue/somnolence. However, she did sustain a lip bite for both the seizures. She has been sleep deprived on several occasions since 2002, but has not had any seizures. She was evaluated for her seizure disorder in [facility] with imaging studies, but does not remember having had an EEG done previously. She was also evaluated [place] a [place] and was recommended to take Depakote, but she did not take this. She has not had any imaging studies done of her brain within the [facility] system. Her laboratory tests done in 10/2007 were reviewed. They showed a normal hemoglobin, normal 1-hour glucose, and nonreactive RPR. Other laboratory tests for infectious disease were also done as part of the screening for . PAST MEDICAL HISTORY: Significant for seizures. Has had 2 seizures, one in 2000 and the other in 2002, both of which were associated with sleep deprivation prior to the episode. Has not been on any treatment for seizures. MEDICATIONS: Azelaic acid cream. She discontinued her vitamin and has not started any vitamin at present. ADR/ALLERGIES: NO KNOWN DRUG ALLERGIES. FAMILY HISTORY: There is no family history of seizures. 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 Is . Does not drink alcohol; has never had a problem with alcohol use in the past. Has never smoked. REVIEW OF SYSTEMS: A complete review of systems was performed, and pertinent positives include bleeding from the teeth and gums. OBJECTIVE: VS: BP: 108/62. P: 68 per minute. Wt: 150.4 lb. She is a short-statured, well-appearing lady in no acute distress. CARDIOVASCULAR SYSTEM: Regular rate and rhythm. No murmurs or carotid bruits. Peripheral pulsations palpable. Fundus (undilated): Disks and vessels normal. NEUROLOGICAL EXAMINATION: Mental status: Appeared alert and oriented to person, place, and time. Memory both recent and remote, language both expressive and receptive, attention/concentration, and fund of knowledge appeared normal. Cranial nerves 2 to 12 normal. Motor exam: Was able to raise herself from a chair without assistance. Muscle bulk and tone normal. Strength was 5/5 in all 4 extremities. Sensation normal to light touch, vibration, proprioception, and pinprick. Reflexes were 1+ and symmetric bilaterally with unresponsive toes to plantar stimulation. Coordination: Lvxcoz-tp-szol, qlis-xv-tgjt, rapid alternating movements, and finger/feet tapping normal. Gait and station normal. Was able to walk on toes and heels and do tandem walking. Romberg negative. ASSESSMENT: Ms. Vann is a 26-year-old lady with a clinical history of 2 generalized tonic-clonic seizure episodes in 2000 and 2002, both of which were associated with prior sleep deprivation and were witnessed by her family. She has had sleep deprivation since her last seizure in 2002, but has never had a recurrence of seizures. She is currently 27 weeks' and has never been on any antiseizure medication, although she was prescribed Depakote by a physician [place], which she did not take. She was evaluated for her seizure disorder in [place] with imaging studies and was told that they were normal. However, she does not remember having had an EEG performed previously. Laboratory tests done thus far within the [facility] include hemoglobin, 1-hour glucose which was normal, RPR which was nonreactive, and other infectious disease laboratory tests done as part of screening in . She has not had any previous imaging studies done since she moved to the [place] ago from [place]. PLAN: 1. Three-hour sleep-deprived EEG at [facility] to evaluate her seizure disorder. 2. I will discuss with her OB-FIRER DIESEL LOCOMOTIVE, Dr. Rubi, whether imaging studies such as a head CT without contrast could be done during . Ms. Vann would prefer not to have any imaging studies done at this time until her is over. 3. Basic laboratory tests: CBC/platelets, basic metabolic panel, magnesium/calcium/phosphorous, and TSH/free T4. 4. I have informed her that I will contact her with the results of the 3-hour sleep-deprived EEG. Further followup will be based on the results of the EEG. I have discussed my assessment and plan with Ms. Vann, and I have answered all her questions. CC: Helen Rubi MD LMS:[id number] C: 12/09/07 12:31 CONFIRM #: [id number] documented in this encounter Plan of Treatment Upcoming Encounters Date Type Specialty Care Team Description 05/12/2022 Appointment Audiology 05/12/2022 Appointment Otolaryngology Bro Arroyo , JANET [address] [facility] N [address] (Wo rk) 06/03/2022 Appointment General Dentistry Rylee Amaro, [facility] [address] [place] [address] 06/03/2022 Appointment General Dentistry Pee Garcia DDS [address] [place], [place] [phone] (Wo rk) 06/17/2022 Appointment General Dentistry Pee Garcia DDS [address] [place] [address] (Wo rk) documented as of this encounter Visit Diagnoses Not on filedocumented in this encounter
--- OUTSIDE RECORDS SUMMARY | 2022-05-07 | XMS_ITS | Encounter Summary ---
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 Last Filed Vital Signs Vital Sign Reading Time Taken Comments Blood Pressure 114/72 03/09/2008 4:09 PM CDT Pulse - - Temperature - - Respiratory Rate - - Oxygen Saturation - - Inhaled Oxygen Concentration - - Weight 73.9 kg (162 lb 15.8 oz) 03/09/2008 4:09 PM CDT C: 73.9kg Height - - Body Mass Index 31.83 03/01/2008 11:18 AM CDT documented in this encounter Plan of Treatment Upcoming Encounters Date Type Specialty Care Team Description 05/12/2022 Appointment Audiology 05/12/2022 Appointment Otolaryngology Bro Arroyo , PAMorisC [address] [address] (Wo rk) 06/03/2022 Appointment General Dentistry Rylee Amaro, [facility] [address] [place] [address] 06/03/2022 Appointment General Dentistry Pee Garcia, [place] [address] [place] [address] (Wo rk) 06/17/2022 Appointment General Dentistry Pee Garcia DDS [address] [place] [address] (Wo rk) documented as of this encounter Visit Diagnoses Not on filedocumented in this encounter
--- OUTSIDE RECORDS SUMMARY | 2022-05-07 | XMS_ITS | Encounter Summary ---
:1980 Author Organization [employer] 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 She has been vomiting the last day or so also, every thing she eats. She is going to go to urgent care, but in the meantime, I suggested she let her stomach rest for an hour and then just start with ice chips and see if that will stay down. before trying to eat anything more. PHARMACY NAME: PHARMACY PHONE #: CITY: CALL BACK PHONE OR CELL PHONE:[phone] BEST TIME TO CALL BACK: IS IT OK TO LEAVE A CONFIDENTIAL MESSAGE ON THIS VOICEMAIL? *ECODE~PNMSG Created on 14Sep2007 10:45am by CARIN LOZANO ST RESOURCES PROFESSOR documented in this encounter Plan of Treatment Upcoming Encounters Date Type Specialty Care Team Description 05/12/2022 Appointment Audiology 05/12/2022 Appointment Otolaryngology Bro Arroyo , JANET [address] [facility] [place] [address] (Wo rk) 06/03/2022 Appointment General Dentistry Rylee Amaro, [facility] [address] [place] [address] 06/03/2022 Appointment General Dentistry Pee Garcia DDS [address] [place], [place] [phone] (Wo rk) 06/17/2022 Appointment General Dentistry Pee Garcia DDS [address] [place], [place] [phone] (Wo rk) documented as of this encounter Visit Diagnoses Not on filedocumented in this encounter
--- OUTSIDE RECORDS SUMMARY | 2022-05-07 | XMS_ITS | Encounter Summary ---
:1980 Author Organization [employer] 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 encounter Plan of Treatment Upcoming Encounters Date Type Specialty Care Team Description 05/12/2022 Appointment Audiology 05/12/2022 Appointment Otolaryngology Bro Arroyo , PAMorisC [address] [facility] [phone] (Shereen espino) 06/03/2022 Appointment General Dentistry Rylee Amaro, [facility] [address] [place] [address] 06/03/2022 Appointment General Dentistry Pee Garcia DDS [address] [place] [address] (Shereen espino) 06/17/2022 Appointment General Dentistry Pee Garcia DDS [address] [place], [place] [phone] (Shereen espino) documented as of this encounter Visit Diagnoses Not on filedocumented in this encounter
--- OUTSIDE RECORDS SUMMARY | 2022-05-07 | XMS_ITS | Encounter Summary ---
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 asked her to call if she chooses to reschedule. Created on 09Jan2008 11:08am by GLO SALCIDO On 18Jan2008 2:43pm GLO SALCIDO wrote: called pt again to return call to set up SEEG at [place]. Acknowledged by GLO SALCIDO on 2:43pm On 18Jan2008 3:17pm GLO SALCIDO wrote: pt returned call does not want to have EEg done prior to her having her baby as she is having sleep issues at this time. states she will call back to schedule SEEg at [place] after baby is born. Acknowledged by GLO SALCIDO on 3:17pm On 18Jan2008 4:09pm LISE UGARTE wrote: Please schedule her for a 30 minute awake EEG here. I will need this information. Thanks. Acknowledged by LISE UGARTE on 4:09pm On 18Jan2008 4:23pm GLO SALCIDO wrote: pt will talk over having AEEG with and call me back. Acknowledged by GLO SALCIDO on 4:23pm On 03Feb2008 3:14pm GLO SALCIDO wrote: pt has not returned phone calls closing out note. Acknowledged by GLO SALCIDO on 3:14pm M1A1 TANK CREWMAN documented in this encounter Plan of Treatment Upcoming Encounters Date Type Specialty Care Team Description 05/12/2022 Appointment Audiology 05/12/2022 Appointment Otolaryngology Bro Arroyo , PAMorisC [address] [place] [phone] (Wo rk) 06/03/2022 Appointment General Dentistry Rylee Amaro, [facility] [address] [place] [address] 06/03/2022 Appointment General Dentistry Pee Garcia DDS [address] [place], [place] [phone] (Wo rk) 06/17/2022 Appointment General Dentistry Pee Garcia DDS [address] [facility] [place] [place] [phone] (Wo rk) documented as of this encounter Visit Diagnoses Not on filedocumented in this encounter
--- OUTSIDE RECORDS SUMMARY | 2022-05-07 | XMS_ITS | Encounter Summary ---
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 Pt states that they need a call from one of us to confirm the date that he disability began, or the day we first starting seeing her for her . I went ahead and called them at #[phone], and gave them this info. Pt was also notified that this has been taken care of, as her claim was in stand by until they received this info. Note complete. Created on 17Jan2008 4:17pm by FADIA WILKS ATRIC ALLERGIST documented in this encounter Plan of Treatment Upcoming Encounters Date Type Specialty Care Team Description 05/12/2022 Appointment Audiology 05/12/2022 Appointment Otolaryngology Bro Arroyo , JANET [address] [facility] [address] [address] (Wo rk) 06/03/2022 Appointment General Dentistry Rylee Amaro, [facility] [address] [place] [address] 06/03/2022 Appointment General Dentistry Pee Garcia, DDS [address] [place], [place] [phone] (Wo rk) 06/17/2022 Appointment General Dentistry Pee Garcia DDS [address] [place], [place] [phone] (Wo rk) documented as of this encounter Visit Diagnoses Not on filedocumented in this encounter
--- OUTSIDE RECORDS SUMMARY | 2022-05-07 | XMS_ITS | Encounter Summary ---
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 EEG NUMBER: [id number]. ORDERING PHYSICIAN: Dr. Aguirre. PURPOSE: Seizure. MEDICATION 24 HOURS PRIOR TO TEST: None. REPORT: A nonfasting and nonsleep-deprived study is recorded in the lab from a cooperative subject. Total time 28 minutes. The record is characterized by robust and persistent reactive posterior 11 Hz sinusoidal pattern with amplitudes averaging 50 microvolts in bipolar derivations. EKG consistent 108. Intermittent photic stimulation induces no observable posterior response at any flash frequency. Hyperventilation for 3 minutes was not performed. Left undisturbed, the subject eventually drowses and vertex sharp transients and spindle patterns are recorded. During the study, no lateralized or focal slowing nor any epileptiform activity is present. IMPRESSION: Normal waking and light sleep electrographic stages 1 and 2. No sign of epilepsy. JGD:[id number] C: 02/24/08 07:57 CONFIRM #: [id number] documented in this encounter Plan of Treatment Upcoming Encounters Date Type Specialty Care Team Description 05/12/2022 Appointment Audiology 05/12/2022 Appointment Otolaryngology Bro Arroyo , JANET [address] [place] [address] [address] (Wo rk) 06/03/2022 Appointment General Dentistry Rylee Amaro, [facility] [address] [place] [address] 06/03/2022 Appointment General Dentistry Pee Garcia, DDS [address] [place] [address] (Wo rk) 06/17/2022 Appointment General Dentistry Pee Garcia DDS [address] [place], [place] [phone] (Wo rk) documented as of this encounter Visit Diagnoses Not on filedocumented in this encounter
--- OUTSIDE RECORDS SUMMARY | 2022-05-07 | XMS_ITS | Encounter Summary ---
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 monthly appt scheduled for next week. Created on 17Oct2007 11:20am by CARIN LOZANO LLITE DISH TECHNICIAN documented in this encounter Plan of Treatment Upcoming Encounters Date Type Specialty Care Team Description 05/12/2022 Appointment Audiology 05/12/2022 Appointment Otolaryngology Bro Arroyo , JANET [address] [place] [address] (Wo rk) 06/03/2022 Appointment General Dentistry Rylee Amaro, [facility] [address] [place] [address] 06/03/2022 Appointment General Dentistry Pee Garcia, DDS [address] [place] [address] (Wo rk) 06/17/2022 Appointment General Dentistry Pee Garcia DDS [address] [place], [place] [phone] (Wo rk) documented as of this encounter Visit Diagnoses Not on filedocumented in this encounter
--- OUTSIDE RECORDS SUMMARY | 2022-05-07 | XMS_ITS | Encounter Summary ---
:1980 Author Organization [facility] Address [address], [place] [address] Care Team Providers Name Role Phone Unavailable Primary Care Provider Unavailable Reason for Visit Reason Comments Other Encounter Details Date Type Department Care Team Description 03/13/2008 Telephone Yazidi Labor Deli very Recovery Ranjit Novak RN Other [address] [facility]. 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 this rn unable to document triage call at time of call due to emergency on unit. Pt called 3103/13/2008. c/o contractions every 3-5 minutes for last hour. do i need to come in? MD/CNM:jose P:0 EDC:03/08/2008 Gest Age:40 5/7 Spoke with (Pt, Hus/SO):pt Contractions? (y/n):y Frequency:3-5 minutes some are 8 minutes apart Duration:45 seconds When did they start?2329 Last office visit/cervical exam?wednesday 3cm Patient Lives X minutes away?13 miles away Bloody show/Bleeding? (y/n):yes Amount:small amount mucousy discharge Fluid/water broken? (y/n):no Time: Fluid color: MOVEMENT:yes Complications with this or a previous ?:denies *If patient is less than 37 weeks, fill out this portion* Backache? (y/n): Pressure? (y/n): *Vaginal discharge: *History of : *Cervical status: On tocolyctic (y/n): Dose: Frequency: Last Dose: *Pulse: *Has pt palpated for contractions? *Has pt spoken with MD/CALEBM? Pt has been advised- xIs welcome to come to the hospital and be checked prn _To call /CALEBM: In AM: KAMRON: _Call transferred to digitizer operator to page /SAGE process environmental technician: _Come to the hospital for further evaluation _Lie down and count movements for one-half hour and call back _To drink 8oz glasess of fluid and time contractions and call back or come Number of glasses of fluid: Minutes to time contractions: x_Wait until contractions are every __3-5_ minutes and call back or come Minutes:more consistent 3-5 minutes and not 8 minutes apart and pt uncomfortable x_Early labor comfort measures reviewed x_Other:pt agrees to plan of taking a bath for comfort. Created on [id number] 1:45am by RANJIT NOVAK AL MERCHANDISE MANAGER documented in this encounter Plan of Treatment Upcoming Encounters Date Type Specialty Care Team Description 05/12/2022 Appointment Audiology 05/12/2022 Appointment Otolaryngology Bro Arroyo , JANET [address] [address] (Wo rk) 06/03/2022 Appointment General Dentistry Rylee Amaro, [facility] [address] [place] [address] 06/03/2022 Appointment General Dentistry Pee Garcia DDS [address] [place] [address] (Wo rk) 06/17/2022 Appointment General Dentistry Pee Garcia DDS [address] [place], [place] [id number] (Wo rk) documented as of this encounter Visit Diagnoses Not on filedocumented in this encounter
--- OUTSIDE RECORDS SUMMARY | 2022-05-07 | XMS_ITS | Encounter Summary ---
:1980 [address] [facility] Address [address] [address] Care Team Providers Name Role Phone Unavailable Primary Care Provider Unavailable Reason for Visit Reason Comments Other Encounter Details Date Type Department Care Team Description 03/11/2008 Telephone Temple Labor Delivery Petrona Portillo APRN, Other Recovery CNM [address] [place] [address] [facility] 5th Floor [phone] 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 (y/n):cramping Frequency: Duration: When did they start? Last office visit/cervical exam? 3cm on Wednesday (with stretching) Patient Lives X minutes away? Bloody show/Bleeding? (y/n):yes Amount: Fluid/water broken? (y/n): little trickle of fluid Time: Fluid color: mucus MOVEMENT:yes Complications with this or a previous ?: none *If patient is less than 37 weeks, fill out this portion* Backache? (y/n): Pressure? (y/n): *Vaginal discharge: *History of : *Cervical status: On tocolyctic (y/n): Dose: Frequency: Last Dose: *Pulse: *Has pt palpated for contractions? *Has pt spoken with /SAGE? Pt has been advised- _Is welcome to come to the hospital and be checked prn _To call /CALEBM: In AM: KAMRON: _Call transferred to homogenizer operator to page /SAGE second time worker: _Come to the hospital for further evaluation _Lie down and count movements for one-half hour and call back _To drink 8oz glasess of fluid and time contractions and call back or come Number of glasses of fluid: Minutes to time contractions: _Wait until contractions are every ___ minutes and call back or come Minutes: XEarly labor comfort measures reviewed _Other: Created on 11Mar2008 10:00am by PETRONA PORTILLO TING MACHINE OPERATOR documented in this encounter Plan of Treatment Upcoming Encounters Date Type Specialty Care Team Description 05/12/2022 Appointment Audiology 05/12/2022 Appointment Otolaryngology Bro Arroyo , JANET [address] [address] (Wo rk) 06/03/2022 Appointment General Dentistry Rylee Amaro, [facility] [address] [place] [address] 06/03/2022 Appointment General Dentistry Pee Garcia, DDS [address] [place] [address] (Wo rk) 06/17/2022 Appointment General Dentistry Pee Garcia, DDS [address] [place], [place] [phone] (Wo rk) documented as of this encounter Visit Diagnoses Not on filedocumented in this encounter
--- OUTSIDE RECORDS SUMMARY | 2022-05-07 | XMS_ITS | Encounter Summary ---
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 Last Filed Vital Signs Vital Sign Reading Time Taken Comments Blood Pressure 107/58 02/24/2008 10:00 AM CDT Pulse - - Temperature - - Respiratory Rate - - Oxygen Saturation - - Inhaled Oxygen Concentration - - Weight 72.6 kg (159 lb 15.8 oz) 02/24/2008 10:00 AM C: 72.6kg CDT Height - - Body Mass Index 31.25 02/09/2008 4:01 PM CDT documented in this encounter Plan of Treatment Upcoming Encounters Date Type Specialty Care Team Description 05/12/2022 Appointment Audiology 05/12/2022 Appointment Otolaryngology Bro Arroyo , PAMorisC [address] [address] (Wo rk) 06/03/2022 Appointment General Dentistry Rylee Amaro, [facility] [address] [place] [address] 06/03/2022 Appointment General Dentistry Pee Garcia, TAWANNAS [address] [place] [address] (Wo rk) 06/17/2022 Appointment General Dentistry Pee Garcia DDS [address] [place] [address] (Wo rk) documented as of this encounter Visit Diagnoses Not on filedocumented in this encounter
--- OUTSIDE RECORDS SUMMARY | 2022-05-07 | XMS_ITS | Encounter Summary ---
:1980 Author Organization [facility] Address [address], [place] [address] Care Team Providers Name Role Phone Unavailable Primary Care Provider Unavailable Reason for Visit Reason Comments Other Encounter Details Date Type Department Care Team Description 03/10/2008 Telephone Rastafarian Labor Delivery Dori Ovalle RN Other Recovery [address] 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 (y/n):N Frequency: Duration: When did they start? Last office visit/cervical exam?03/09/08 Patient Lives X minutes away? Bloody show/Bleeding? (y/n):N Amount: Fluid/water broken? (y/n):N Time: Fluid color: MOVEMENT:N Complications with this or a previous ?: *If patient is less than 37 weeks, fill out this portion* Backache? (y/n): Pressure? (y/n): *Vaginal discharge: *History of : *Cervical status: On tocolyctic (y/n): Dose: Frequency: Last Dose: *Pulse: *Has pt palpated for contractions? *Has pt spoken with MD/CALEBM? Pt has been advised- _Is welcome to come to the hospital and be checked prn _To call MD/CNM: In AM: KAMRON: _Call transferred to terminal press operator to page MD/CNM technical communication teacher: _Come to the hospital for further evaluation _Lie down and count movements for one-half hour and call back _To drink 8oz glasess of fluid and time contractions and call back or come Number of glasses of fluid: Minutes to time contractions: _Wait until contractions are every ___ minutes and call back or come Minutes: _Early labor comfort measures reviewed _Other: Created on 10Mar2008 11:31am by DORI OVALLE DER HAND documented in this encounter Plan of Treatment Upcoming Encounters Date Type Specialty Care Team Description 05/12/2022 Appointment Audiology 05/12/2022 Appointment Otolaryngology Bro Arroyo , PAMorisC [address] [facility] [address] [place] [address] (Wo rk) 06/03/2022 Appointment General Dentistry Rylee Amaro, [facility] [address] [place] [address] 06/03/2022 Appointment General Dentistry Pee Garcia DDS [address] [place], [place] [phone] (Wo rk) 06/17/2022 Appointment General Dentistry Pee Garcia DDS [address] [place] [address] (Wo rk) documented as of this encounter Visit Diagnoses Not on filedocumented in this encounter
--- OUTSIDE RECORDS SUMMARY | 2022-05-07 | XMS_ITS | Encounter Summary ---
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 Last Filed Vital Signs Vital Sign Reading Time Taken Comments Blood Pressure 104/70 02/17/2008 10:56 AM CDT Pulse - - Temperature - - Respiratory Rate - - Oxygen Saturation - - Inhaled Oxygen Concentration - - Weight 72.1 kg (158 lb 15.9 oz) 02/17/2008 10:56 AM C: 72.1kg CDT Height - - Body Mass Index 31.05 02/09/2008 4:01 PM CDT documented in this encounter Plan of Treatment Upcoming Encounters Date Type Specialty Care Team Description 05/12/2022 Appointment Audiology 05/12/2022 Appointment Otolaryngology Bro Arroyo , PAMorisC [address] [address] (Wo rk) 06/03/2022 Appointment General Dentistry Rylee Amaro, [facility] [address] [place] [address] 06/03/2022 Appointment General Dentistry Pee Garcia, TAWANNAS [address] [place] [address] (Wo rk) 06/17/2022 Appointment General Dentistry Pee Garcia DDS [address] [place] [address] (Wo rk) documented as of this encounter Visit Diagnoses Not on filedocumented in this encounter
--- OUTSIDE RECORDS SUMMARY | 2022-05-07 | XMS_ITS | Encounter Summary ---
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 encounter Plan of Treatment Upcoming Encounters Date Type Specialty Care Team Description 05/12/2022 Appointment Audiology 05/12/2022 Appointment Otolaryngology Bro Arroyo , PAMorisC [address] [place] [address] et [facility] N [address] (Wo rk) 06/03/2022 Appointment General Dentistry Rylee Amaro, [address] [place] [address] 06/03/2022 Appointment General Dentistry Pee Garcia, DDS [address] [place] [address] (Wo rk) 06/17/2022 Appointment General Dentistry Pee Garcia, DDS [address] [place], [place] [address] (Wo rk) documented as of this encounter Procedures Procedure Name Priority Date/Time Associated Comments Diagnosis ELECTROLYTES (NA, K, Routine 12/08/2007 3:00 PM R esults for this CL, BICARB) CDT procedure are i n the results section. THYROID STIMULATING Routine 12/08/2007 3:00 PM Re sults for this HORMONE CDT procedure are i n the results section. CREATININE / GFR Routine 12/08/2007 3:00 PM Resul ts for this CDT procedure are i n the results section. COMPLETE BLOOD Routine 12/08/2007 3:00 PM Results for this COUNT-W/DIFF CDT procedure are i n the results section. FREE T4 Routine 12/08/2007 3:00 PM Results f or this CDT procedure are i n the results section. MAGNESIUM Routine 12/08/2007 3:00 PM Results f or this CDT procedure are i n the results section. PHOSPHORUS Routine 12/08/2007 3:00 PM Results f or this CDT procedure are i n the results section. CALCIUM Routine 12/08/2007 3:00 PM Results f or this CDT procedure are i n the results section. BUN Routine 12/08/2007 3:00 PM Results f or this CDT procedure are i n the results section. documented in this encounter Results (ABNORMAL) Complete Blood Count-W/Diff (12/08/2007 3:00 PM CDT) [facility] Method Time Signature White Blood Cell 8.9 3.8 - 11.0 HP CONVERSIO N Count K/cmm Red Blood Cell 3.44 (L) 3.70 - HP CONVERSION Count 5.20 m/cmm Hemoglobin 10.8 (L) 11.8 - HP CONVERSION 15.5 gm/dL Hematocrit 31.2 (L) 35.0 - HP CONVERSION 46.0 % Mean Corpuscular 90.8 80.0 - HP CONVERSION Volume 100.0 fl Mean Corpuscular 31.5 27.0 - HP CONVERSION Hemoglobin 34.0 pg Mean Corpuscular 34.7 32.0 - HP CONVERSION Hemoglobin Conc 36.5 gm/dL [place] RDW 12.4 11.0 - HP CONVERSION 15.0 % Platelet Count 201 140 - 450 HP CONVERSION k/cmm Differential Auto-Dif No normal HP CONVERSION Verify range Neutrophils 5.1 2.0 - 7.5 HP CONVERSION Absolute Count K/cmm Neutrophil 56.8 50.0 - HP CONVERSION 75.0 % Lymphocyte % 31.8 20.0 - HP CONVERSION 40.0 % Monocyte 8.9 5.0 - 14.0 HP CONVERSION % Eosinophil 2.0 0.0 - 6.0 HP CONVERSION % Basophil % 0.5 0.0 - 2.0 HP CONVERSION % Specimen (Source) Anatomical Collection Method Collection Time Re ceived Time Location / / Volume Laterality 12/08/2007 3:00 PM CDT Helen Rubi MD LAB_1 Performing Organization Address City/State/ZIP Code Phon e Number HP CONVERSION BUN (12/08/2007 3:00 PM CDT) athologist Signature Blood Urea 8 5 - 26 HP CONVERSION Nitrogen mg/dL Specimen (Source) Anatomical Collection Method Collection Time Re ceived Time Location / / Volume Laterality 12/08/2007 3:00 PM CDT Helen Rubi MD LAB_1 Performing Organization Address City/State/ZIP Code Phon e Number HP CONVERSION Calcium (12/08/2007 3:00 PM CDT) athologist Signature Calcium 9.4 8.5 - 10.5 HP CONVERSION mg/dL Specimen (Source) Anatomical Collection Method Collection Time Re ceived Time Location / / Volume Laterality 12/08/2007 3:00 PM CDT Helen Rubi MD LAB_1 Performing Organization Address City/[facility]/ZIP Code Phon e Number HP CONVERSION Creatinine / GFR (12/08/2007 3:00 PM CDT) athologist Signature Creatinine 0.5 0.4 - 1.3 HP CONVERSION Serum mg/dL Est GFR >60 >60 HP CONVERSION Am Comment: -Swazi and Npb-Nrzhuco-Yafzmsv n reference range units: mL/min/1.73m2 Normal>60, moderate decrease 30 - 59, se snow decrease 15 - 29, renal failure <15 mL/min/1.73 m2 Est GFR Non-Afr Am >60 >60 HP CONVERSI ON Specimen (Source) Anatomical Collection Method Collection Time Re ceived Time Location / / Volume Laterality 12/08/2007 3:00 PM CDT Helen Rubi MD LAB_1 Performing Organization Address City/State/ZIP Code Phon e Number HP CONVERSION Magnesium (12/08/2007 3:00 PM CDT) athologist Signature Magnesium 1.9 1.5 - 2.4 HP CONVERSION mg/dL Specimen (Source) Anatomical Collection Method Collection Time Re ceived Time Location / / Volume Laterality 12/08/2007 3:00 PM CDT Helen Rubi MD LAB_1 Performing Organization Address City/[facility] Code Phon e Number HP CONVERSION Phosphorus (12/08/2007 3:00 PM CDT) athologist Signature Phosphorus 3.9 2.5 - 4.5 HP CONVERSION Serum mg/dL Specimen (Source) Anatomical Collection Method Collection Time Re ceived Time Location / / Volume Laterality 12/08/2007 3:00 PM CDT Helen Rubi MD LAB_1 Performing Organization Address City/[facility] Phon e Number HP CONVERSION Electrolytes (NA, K, CL, Bicarb) (12/08/2007 3:00 PM CDT) athologist Signature Sodium 139 137 - 147 HP CONVERSION mEq/L Potassium 4.2 3.5 - 5.2 HP CONVERSION mEq/L Chloride 107 98 - 110 HP CONVERSION mEq/L Bicarbonate 24 23 - 33 HP CONVERSION mmol/L Specimen (Source) Anatomical Collection Method Collection Time Re ceived Time Location / / Volume Laterality 12/08/2007 3:00 PM CDT Helen Rubi MD LAB_1 Performing Organization Address City/[facility]/ZIP Code Phon e Number HP CONVERSION Free T4 (12/08/2007 3:00 PM CDT) athologist Signature Thyroxine, Free 0.9 0.8 - 1.8 HP CONVERSION ng/dL Specimen (Source) Anatomical Collection Method Collection Time Re ceived Time Location / / Volume Laterality 12/08/2007 3:00 PM CDT Helen Rubi MD LAB_1 Performing Organization Address City/[facility] Phon e Number HP CONVERSION Thyroid Stimulating Hormone (12/08/2007 3:00 PM CDT) P athologist Signature Thyroid 0.67 0.20 - HP CONVERSION Stimulating 4.50 Hormone uIU/mL Specimen (Source) Anatomical Collection Method Collection Time Re ceived Time Location / / Volume Laterality 12/08/2007 3:00 PM CDT Helen Rubi MD LAB_1 Performing Organization Address City/[facility] Phon e Number HP CONVERSION documented in this encounter Visit Diagnoses Not on filedocumented in this encounter
--- OUTSIDE RECORDS SUMMARY | 2022-05-07 | XMS_ITS | Encounter Summary ---
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 Last Filed Vital Signs Vital Sign Reading Time Taken Comments Blood Pressure 102/62 12/22/2007 11:19 AM CDT Pulse - - Temperature - - Respiratory Rate - - Oxygen Saturation - - Inhaled Oxygen Concentration - - Weight 68.9 kg (151 lb 15.8 oz) 12/22/2007 11:19 AM C: 68.9kg CDT Height 152.4 cm (5') 12/22/2007 11:19 AM C: 152.4cm CDT Body Mass Index 29.68 12/22/2007 11:19 AM CDT documented in this encounter Plan of Treatment Upcoming Encounters Date Type Specialty Care Team Description 05/12/2022 Appointment Audiology 05/12/2022 Appointment Otolaryngology Bro Arroyo , JANET [address] [place] [address] [address] (Wo rk) 06/03/2022 Appointment General Dentistry Rylee Amaro, [facility] [address] [place] [address] 06/03/2022 Appointment General Dentistry Pee Garcia, TAWANNAS [address] [place] [address] (Wo rk) 06/17/2022 Appointment General Dentistry Pee Garcia DDS [address] [place] [address] (Wo rk) documented as of this encounter Visit Diagnoses Not on filedocumented in this encounter
--- OUTSIDE RECORDS SUMMARY | 2022-05-07 | XMS_ITS | Encounter Summary ---
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 Patient states needs workin appointment. Is appointment scheduled & when? yes Courier Driver:Marc Best call back number: [phone] Is it OK to leave a confidential message on this voicemail? yes *ECODE~PNSX2 Created on 02Jan2008 8:44am by ANÍBAL WASHINGTON On [id number] 9:50am KARLOS BOONE wrote: Forward to triage. On [id number] 5:18pm FADIA WILKS wrote: called and lmom for pt to call back tomorrow so that we can further triage her call as to what she needs to be worked in for. On 04Jan2008 4:01pm GEORGIA GAMINO wrote: Pt called and left message to call back for further evaluation and work-in appt. On 05Jan2008 11:01am GEORGIA GAMINO wrote: Pt calling [address] notes. One for her insurance company stating she is preganat, her due date, and stating she needs a 6 week recovery. The pt also requests a second note to shorten her work shift to 8 hours, she currently works twelve hour shifts. Pt states she is willing to come in fo an appt if it is needed. Pt also states she saw Mireya Silva in November for these issues, se was aware but is unable to right her thses notes, not transcriptions found for this visit. Please Advise. On 05Jan2008 11:08am GEORGIA GAMINO wrote: Please send notes to pt home address [address] [facility], [place] [address] On 05Jan2008 12:30pm ELENI CARRILLO wrote: Please send the note to her insurance as requested. As far as the note reucing ehr work hours, I usually need to discuss this with them in an appt. She can either wait until her next appt to address this or see if you can find a spot to work her in. [email or web address] Acknowledged by ELENI CARRILLO on 12:30pm On 05Jan2008 4:18pm GEORGIA GAMINO wrote: Pt ccalled for appt on Wednesday to discuss work limitations. insurance letter mailed out to pt's home. Pt has no other questions at this time. ZEN PARTICIPATION SPECIALIST documented in this encounter Plan of Treatment Upcoming Encounters Date Type Specialty Care Team Description 05/12/2022 Appointment Audiology 05/12/2022 Appointment Otolaryngology Bro Arroyo , PAMorisC [address] [facility] [address] (Wo rk) 06/03/2022 Appointment General Dentistry Rylee Amaro, [facility] [address] [place] [address] 06/03/2022 Appointment General Dentistry Pee Garcia DDS [address] [place], [place] [phone] (Wo rk) 06/17/2022 Appointment General Dentistry Pee Garcia DDS [address] [place], [place] [phone] (Wo rk) documented as of this encounter Visit Diagnoses Not on filedocumented in this encounter
--- OUTSIDE RECORDS SUMMARY | 2022-05-07 | XMS_ITS | Encounter Summary ---
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 RUDI N 088166 (Wo rk) 06/03/2022 Appointment General Dentistry Rylee Amaro, [facility] [address] [place] [address] 06/03/2022 Appointment General Dentistry Pee Garcia DDS [address] [place] [address] (Wo rk) 06/17/2022 Appointment General Dentistry Pee Garcia, DDS [address] [place] [address] (Wo rk) documented as of this encounter Procedures Procedure Name Priority Date/Time Associated Comments Diagnosis URINALYSIS Routine 11/25/2007 11:00 Results for this ROUTINE(MICRO IF POS) AM CDT proced ure are in the results section. HEMOGLOBIN OB Routine 11/25/2007 11:00 Results fo r this AM CDT procedure are i n the results section. URINALYSIS Routine 11/25/2007 11:00 Results for this MICROSCOPIC AM CDT procedure are i n the results section. URINE CULTURE Routine 11/25/2007 11:00 Results fo r this AM CDT procedure are i n the results section. GLUCOSE - 1 HR. P.C. Routine 11/25/2007 11:00 Res ults for this PREG AM CDT procedure are i n the results section. documented in this encounter Results Urine Culture (11/25/2007 11:00 AM CDT) Analysis Performed At Patho logist Time Signature Urine Culture SEE TEXT HP CONVERSION Comment: Patient: MARC VANN Culture, Urine ?Collected: ??[id number] ??[id number] Source: Clean Ca ?Processed: ??[id number] ??1149 ? B/SENSI Final Report ------ ?[id number] ??0944 <10,000 CFU/mL gram positive organism No further workup Specimen (Source) Anatomical Collection Method Collection Time Re ceived Time Location / / Volume Laterality 11/25/2007 11:00 AM CDT Helen Rubi MD LAB_1 Performing Organization Address [facility] Phon e Number HP CONVERSION Hemoglobin Ob (11/25/2007 11:00 AM CDT) P athologist Signature OB Hemoglobin 10.9 gm/dL HP CONVERSION Comment: First trimester (week 12) 11.0 - 13.4 gm /dL Second trimester(week 20) 10.5 - 12.7 gm /dL Third trimester (week 32) 11.0 - 13.2 gm /dL From MMWR 1989;38(22): 400-4 Specimen (Source) Anatomical Collection Method Collection Time Re ceived Time Location / / Volume Laterality 11/25/2007 11:00 AM CDT Helen Rubi MD LAB_1 Performing Organization Address [facility] Phon e Number HP CONVERSION Glucose - 1 Hr. P.C. Preg (11/25/2007 11:00 AM CDT) P athologist Signature Glucose, GTT - 112 40 - 139 HP CONVERSION 1 Hour mg/dL Specimen (Source) Anatomical Collection Method Collection Time Re ceived Time Location / / Volume Laterality 11/25/2007 11:00 AM CDT Helen Rubi MD LAB_1 Performing Organization Address [facility] Phon e Number HP CONVERSION (ABNORMAL) Urinalysis Routine(Micro If Pos) (11/25/2007 11:00 AM CDT) Patholo gist Method Time Signature Turbidity Cloudy (A) No normal HP CONVERSION range pH Urine 7.5 4.5 - 7.5 HP CONVERSION Protein Urine Trace Neg-Trac HP CONVERSION Glucose, 100mg/dL Neg-Trac HP CONVERSION Qualitative U Ketones Trace (A) Negative HP CONVERSION U BILI Negative Negative HP CONVERSION Blood Urine Negative Negative HP CONVERSION Nitrite Urine Negative Negative HP CONVERSION Leukocyte Negative Negative HP CONVERSION Esterase Urine Urobilinogen Negative 0.2 - 1.0 HP CONVERSION Urine U Specific 1.020 1.005 - 25 HP CONVERSION [place] Specimen (Source) Anatomical Collection Method Collection Time Re ceived Time Location / / Volume Laterality 11/25/2007 11:00 AM CDT Helen Rubi MD LAB_1 Performing Organization Address [facility] Phon e Number HP CONVERSION (ABNORMAL) Urinalysis Microscopic (11/25/2007 11:00 AM CDT) Analysis Performed At Patho logist Time Signature White Blood 0-2/HPF 0 - 3 HP CONVERSION Cells Urine Red Blood 0-2/HPF 0 - 2 HP CONVERSION Cells Urine Bacteria Urine Rare (A) None HP CONVERSION Specimen (Source) Anatomical Collection Method Collection Time Re ceived Time Location / / Volume Laterality 11/25/2007 11:00 AM CDT Helen Rubi MD LAB_1 Performing Organization Address City/[facility] Phon e Number HP CONVERSION documented in this encounter Visit Diagnoses Not on filedocumented in this encounter
--- OUTSIDE RECORDS SUMMARY | 2022-05-07 | XMS_ITS | Encounter Summary ---
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 OR Take over care (referral) Reason/Indication is REQUIRED: Please send response to Dr Bud Aguirre [id number] The new Medicare guidelines for consultation services require that the intent of request be clearly documented in the requesting physician's medical record. These guidelines also apply to other health insurers. *ECODE~PNCONSULT Created on 17Oct2007 3:34pm by GLO SALCIDO On 17Oct2007 4:04pm ELENI CARRILLO wrote: CONSULT FOR PT WHO IS , HISTORY OF SEIZURES AND NOW OFF ALL MEDS. JosOTTMD Acknowledged by ELENI CARRILLO on 4:04pm Acknowledged by GLO SALCIDO on 4:10pm TYPE CUTTER documented in this encounter Plan of Treatment Upcoming Encounters Date Type Specialty Care Team Description 05/12/2022 Appointment Audiology 05/12/2022 Appointment Otolaryngology Bro Arroyo , PAMorisC [address] [facility] [address] (Wo rk) 06/03/2022 Appointment General Dentistry Rylee Amaro, [facility] [address] [place] [address] 06/03/2022 Appointment General Dentistry Pee Garcia DDS [address] [place], [place] [phone] (Wo rk) 06/17/2022 Appointment General Dentistry Pee Garcia DDS [address] [place], [place] [phone] (Wo rk) documented as of this encounter Visit Diagnoses Not on filedocumented in this encounter
--- OUTSIDE RECORDS SUMMARY | 2022-05-07 | XMS_ITS | Encounter Summary ---
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 Plan of Treatment Upcoming Encounters Date Type Specialty Care Team Description 05/12/2022 Appointment Audiology 05/12/2022 Appointment Otolaryngology Bro Arroyo , PAMorisC [address] [facility] RUDI N [address] (Wo rk) 06/03/2022 Appointment General Dentistry Rylee Amaro, RD [address] [place] [address] 06/03/2022 Appointment General Dentistry Pee Garcia, DDS [address] [place] [address] (Wo rk) 06/17/2022 Appointment General Dentistry Pee Garcia, DDS [address] [place], [place] [phone] (Wo rk) documented as of this encounter Procedures Procedure Name Priority Date/Time Associated Diagnosis Comme nts GROUP B STREP Routine 02/09/2008 5:06 PM Results for this SCREEN (OB PTS) CDT procedure ar e in the results section. documented in this encounter Results Group B Strep Screen (OB Pts) (02/09/2008 5:06 PM CDT) [facility] Time Signature Culture Strep SEE TEXT HP CONVERSION Screen Other Source Comment: Patient: MARC VANN Culture Strep Scr Other Source ?Collected: ??[id number] ??[id number] Source: Vag/Rect ?Processed: ??[id number] ??1706 ? 1B Final Report ------ ?[id number] ??1043 No group A or B Streptococcus isolated Specimen (Source) Anatomical Collection Method Collection Time Re ceived Time Location / / Volume Laterality 02/09/2008 5:06 PM CDT Vianney Warren APRN, OFFICE SUPPORT CLERK LAB_1 Performing Organization Address City/State/ZIP Code Phon e Number HP CONVERSION documented in this encounter Visit Diagnoses Not on filedocumented in this encounter
--- OUTSIDE RECORDS SUMMARY | 2022-05-07 | XMS_ITS | Encounter Summary ---
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 Plan of Treatment Upcoming Encounters Date Type Specialty Care Team Description 05/12/2022 Appointment Audiology 05/12/2022 Appointment Otolaryngology Bro Arroyo , PAMorisC [address] [facility] N [id number] (Wo rk) 06/03/2022 Appointment General Dentistry Rylee Amaro, [facility] [address] [place] [address] 06/03/2022 Appointment General Dentistry Pee Garcia DDS [address] [place] [address] (Wo rk) 06/17/2022 Appointment General Dentistry Pee Garcia, DDS [address] [place], [place] [phone] (Wo rk) documented as of this encounter Procedures Procedure Name Priority Date/Time Associated Diagnosis Comme nts INFLUENZA A AND B Routine 09/14/2007 1:43 PM Resu lts for this ANTIGEN CDT procedure are i n the results section. documented in this encounter Results Influenza A and B Antigen (09/14/2007 1:43 PM CDT) Analysis Performed At Patho logist Time Signature Influenza A & SEE TEXT HP CONVERSION B Ag Comment: Patient: MARC VANN Influenza A,B (Swab, In House) ?Collected: ??[id number] ??[id number] Source: NASOPHAR ?Processed: ??[id number] ??1343 ? 1V Final Report ------ ?[id number] ??[id number] No influenza antigen detected. If influe nza is suspected please submit another specimen for cultu re. Specimen (Source) Anatomical Collection Method Collection Time Re ceived Time Location / / Volume Laterality 09/14/2007 1:43 PM CDT Huma Molina MD LAB_1 Performing Organization Address City/State/ZIP Code Phon e Number HP CONVERSION documented in this encounter Visit Diagnoses Not on filedocumented in this encounter
--- OUTSIDE RECORDS SUMMARY | 2022-05-07 | XMS_ITS | Encounter Summary ---
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 [address] [place] [address] 06/03/2022 Appointment General Dentistry Pee Garcia DDS [address] [place] [address] (Shereen espino) 06/17/2022 Appointment General Dentistry Pee Garcia DDS [address] [place], [place] [phone] (Shereen espino) documented as of this encounter Procedures Procedure Name Priority Date/Time Associated Diagnosis Comme nts US OB >/= 14 WEEKS Routine 10/13/2007 9:50 AM Res ults for this 0 DAYS, SINGLE CDT procedure are in FETUS the results section. documented in this encounter Results US OB >/= 14 Weeks 0 Days, Single Fetus (10/13/2007 9:50 AM CDT) Anatomical Region Laterality Modality Pelvis Other Specimen (Source) Anatomical Location Collection Method / Collectio n Time Received Time / Laterality Volume Narrative 10/13/2007 9:50 AM CDT There is a single viable intrauterine fetus in breech presentation. The placenta is situated anteriorly and is not low lying. ??The amniotic fluid is normal in amount. movement was observed, as were fet al heart tones at 148 beats per minute. The biparietal diameter measures 4.4 cm, the head circumference 15.6 cm, the abdominal circumference 13.5 cm, and the femur length 3.[address] the overall gestational age at approximately 18 weeks 6 days. No anomalies are identified. CONCLUSION: ??Viable 18 weeks 6 days int rauterine . [id number] Dictating MIRIAM SILVA RADIOLOGIST Procedure Note Miriam Lazaro - 09/02/2016 There is a single viable intrauterine fe tus in breech presentation. The placenta is situated anteriorly and is not low lying. The amniotic fluid is normal in amount. movement was observed, as were fet al heart tones at 148 beats per minute. The biparietal diameter measures 4.4 cm, the head circumference 15.6 cm, the abdominal circumference 13.5 cm, and the femur length 3.0 cm. This [address] the overall gestational age at approximately 18 weeks 6 days. No anomalies are identified. CONCLUSION: Viable 18 weeks 6 days intra uterine . [id number] Dictating MIRIAM SILVA RADIOLOGIST Helen Rubi MD [facility] documented in this encounter Visit Diagnoses Not on filedocumented in this encounter
--- OUTSIDE RECORDS SUMMARY | 2022-05-07 | XMS_ITS | Encounter Summary ---
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 Last Filed Vital Signs Vital Sign Reading Time Taken Comments Blood Pressure 102/60 02/09/2008 4:01 PM CDT Pulse - - Temperature - - Respiratory Rate - - Oxygen Saturation - - Inhaled Oxygen Concentration - - Weight 72.1 kg (158 lb 15.9 oz) 02/09/2008 4:01 PM C: 7 2.1kg CDT Height 152.4 cm (5') 02/09/2008 4:01 PM C: 152.4cm CDT Body Mass Index 31.05 02/09/2008 4:01 PM CDT documented in this encounter Plan of Treatment Upcoming Encounters Date Type Specialty Care Team Description 05/12/2022 Appointment Audiology 05/12/2022 Appointment Otolaryngology Bro Arroyo , JANET [address] [place] [address] [address] (Wo rk) 06/03/2022 Appointment General Dentistry Rylee Amaro, [address] [place] [address] 06/03/2022 Appointment General Dentistry ePe Garcia, [place] [address] [place] [address] (Wo rk) 06/17/2022 Appointment General Dentistry Pee Garcia DDS [address] [place] [address] (Wo rk) documented as of this encounter Visit Diagnoses Not on filedocumented in this encounter
--- OUTSIDE RECORDS SUMMARY | 2022-05-07 | XMS_ITS | Encounter Summary ---
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 Last Filed Vital Signs Vital Sign Reading Time Taken Comments Blood Pressure 90/60 03/01/2008 11:18 AM CDT Pulse - - Temperature - - Respiratory Rate - - Oxygen Saturation - - Inhaled Oxygen Concentration - - Weight 73.9 kg (162 lb 15.8 oz) 03/01/2008 11:18 AM C: 73.9kg CDT Height 152.4 cm (5') 03/01/2008 11:18 AM C: 152.4cm CDT Body Mass Index 31.83 03/01/2008 11:18 AM CDT documented in this encounter Plan of Treatment Upcoming Encounters Date Type Specialty Care Team Description 05/12/2022 Appointment Audiology 05/12/2022 Appointment Otolaryngology Bro Arroyo , JANET [address] [place] [address] [address] (Wo rk) 06/03/2022 Appointment General Dentistry Rylee Amaro, [facility] [address] [place] [address] 06/03/2022 Appointment General Dentistry Pee Garcia, TAWANNAS [address] [place] [address] (Wo rk) 06/17/2022 Appointment General Dentistry Pee Garcia DDS [address] [place] [address] (Wo rk) documented as of this encounter Visit Diagnoses Not on filedocumented in this encounter
[2022-05-07 00:01] VITALS: BP 95/65; PULSE 78; O2SAT 97
[2022-05-07 00:01] LABS: C Reactive Protein* < 0.5 mg/dL (0.5-1.0); Ethanol* < 0.01 % (0.01-0.03)
--- OUTSIDE RECORDS SUMMARY | 2022-05-07 00:01 | XMS_ITS | Encounter Summary ---
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 Last Filed Vital Signs Vital Sign Reading Time Taken Comments Blood Pressure 100/48 09/08/2007 3:34 PM CDT Pulse - - Temperature - - Respiratory Rate - - Oxygen Saturation - - Inhaled Oxygen Concentration - - Weight 62.1 kg (136 lb 15.9 oz) 09/08/2007 3:34 PM CDT C: 62.1kg Height - - Body Mass Index 26.75 08/04/2007 11:23 AM MAILROOM MANAGER documented in this encounter Plan of Treatment Upcoming Encounters Date Type Specialty Care Team Description 05/12/2022 Appointment Audiology 05/12/2022 Appointment Otolaryngology Bro Arroyo , HAILEYC [address] [place] [address] (Wo rk) 06/03/2022 Appointment General Dentistry Rylee Amaro, [facility] [address] [place] [address] 06/03/2022 Appointment General Dentistry Pee Garcia, [place] [address] [place] [address] (Wo rk) 06/17/2022 Appointment General Dentistry Pee Garcia DDS [address] [place] [address] (Wo rk) documented as of this encounter Visit Diagnoses Not on filedocumented in this encounter
--- OUTSIDE RECORDS SUMMARY | 2022-05-07 00:01 | XMS_ITS | Encounter Summary ---
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 See LW. Created on 09Aug2007 2:55pm by YARITZA FIGUEROA On 10Aug2007 3:43pm BELLA LOZANO wrote: phone call to pt, above message given, all questions answered regarding if this will affect the baby, what does it mean. Rx faxed to Nicki Gerard On 11Aug2007 1:12am ROSAURA MASON wrote: Pt calling,got a message to call. Gave her the above information. Said she got that information. Picked up the medication. Wondered what causes a bladder infection,question about soap. Answered questions from our resource. CAT OPERATOR documented in this encounter Plan of Treatment Upcoming Encounters Date Type Specialty Care Team Description 05/12/2022 Appointment Audiology 05/12/2022 Appointment Otolaryngology Bro Arroyo , PAMorisC [address] [facility] [address] (Wo rk) 06/03/2022 Appointment General Dentistry Rylee Amaro, [facility] [address] [place] [address] 06/03/2022 Appointment General Dentistry Pee Garcia DDS [address] [place], [place] [phone] (Wo rk) 06/17/2022 Appointment General Dentistry Pee Garcia DDS [address] [place], [place] [phone] (Wo rk) documented as of this encounter Visit Diagnoses Not on filedocumented in this encounter
--- OUTSIDE RECORDS SUMMARY | 2022-05-07 00:01 | XMS_ITS | Encounter Summary ---
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 Plan of Treatment Upcoming Encounters Date Type Specialty Care Team Description 05/12/2022 Appointment Audiology 05/12/2022 Appointment Otolaryngology Bro Arroyo , JANET [address] Alvin [facility] N 094756 (Wo rk) 06/03/2022 Appointment General Dentistry Rylee Amaro, RD [address] [place] [address] 06/03/2022 Appointment General Dentistry Pee Garcia, DDS [address] [place] [address] (Wo rk) 06/17/2022 Appointment General Dentistry Pee Garcia, DDS [address] [place], [place] [phone] (Wo rk) documented as of this encounter Visit Diagnoses Not on filedocumented in this encounter
--- OUTSIDE RECORDS SUMMARY | 2022-05-07 00:01 | XMS_ITS | Encounter Summary ---
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 Last Filed Vital Signs Vital Sign Reading Time Taken Comments Blood Pressure 107/71 09/14/2007 12:45 PM CDT Pulse 86 09/14/2007 12:45 PM CDT Temperature 36.7 ??C (98.1 ??F) 09/14/2007 12:45 PM ORAL C: 36.7 C CDT Respiratory Rate 12 09/14/2007 12:45 PM CDT Oxygen Saturation - - Inhaled Oxygen Concentration - - Weight - - Height - - Body Mass Index - - documented in this encounter Progress Notes Chiqui Mobley MD - 09/14/2007 12:01 AM CDT Progress Notes signed by Chiqui Mobley MD at 09/22/07 1021 Author: Chiqui Mobley MD Service: (none) Author Type: Physician Filed: 10/18/10 0151 Note Time: 09/14/07 0001 Status: Signed Steel Turner: Chiqui Mobley MD (Physician) NAME: MARC VANN MR#: [id number] ACCT: [id number] VISIT: [id number] DICTATING CLINICIAN: Chiqui Mobley MD JOB: [id number] LOC: 520 CLINIC PROGRESS NOTE DATE OF VISIT: 09/14/2007 SUBJECTIVE: : 1980. This 26 year old is here with her with a few concerns. Yesterday, she developed some diffuse body aches but more so in her upper arms. She also started to feel nauseated and vomit. She vomited several times yesterday, but today only when she would eat. She also bumped her stomach on a piece of furniture, right lower quadrant, and she wanted to get her baby's heart tones checked. She is supposedly 16 weeks by gestation and confirmed ultrasound, 1, para zero. She denies any sore throat, fever, no congestion or cough. No diarrhea. She is still staying hydrated, denies any dysuria or urinary frequency. She was not vaccinated for the flu this fall. Her abdomen where she bumped it the other day is minimally tender now. She has not yet felt any movement based on her gestational age. She does work and is exposed to sick people. OBJECTIVE: VS: BP: 107/71. T: 98.1. P: 85. R: 12. Patient is alert and oriented. ENT: Negative. NECK: Supple. LUNGS: Clear. CARDIAC: Negative. ABDOMEN: Gravid uterus about 18 to 19 weeks in size. There is no uterine tenderness or abdominal tenderness. heart tones are audible at 156 with movement appreciated. Influenza swab is checked and negative. ASSESSMENT: Myalgias, question viral syndrome or other, vomiting probably from reflux disease and , possible flu-like illness and then abdominal pain from a bump. PLAN: Reviewed supportive measures, extra strength Tylenol, Zofran 8 mg ODT #12 with directions. Reviewed antacid, eating small amounts frequently, antireflux regimen, etc. Recheck if not improving with recommendations. KMK:[id number] C: 09/15/07 06:15 DOCUMENT: [id number] documented in this encounter Plan of Treatment Upcoming Encounters Date Type Specialty Care Team Description 05/12/2022 Appointment Audiology 05/12/2022 Appointment Otolaryngology Bro Arroyo , JANET [address] et [facility] [place] N [address] (Wo rk) 06/03/2022 Appointment General Dentistry Rylee Amaro, [facility] [address] [place] [address] 06/03/2022 Appointment General Dentistry Pee Garcia, DDS [address] [place], [place] [phone] (Wo rk) 06/17/2022 Appointment General Dentistry Pee Garcia DDS [address] [place] [address] (Wo rk) documented as of this encounter Visit Diagnoses Not on filedocumented in this encounter
--- OUTSIDE RECORDS SUMMARY | 2022-05-07 00:01 | XMS_ITS | Encounter Summary ---
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 Her works nights and his work needs documentation that she does have the seizures, so that he can change to day shifts. She would like it today or tomorrow,if possible. Pls advise She will come by to pick it up. PHARMACY NAME: PHARMACY PHONE #: CITY: CALL BACK PHONE OR CELL PHONE:home [phone] BEST TIME TO CALL BACK: IS IT OK TO LEAVE A CONFIDENTIAL MESSAGE ON THIS VOICEMAIL? *ECODE~PNMSG Created on 25Aug2007 2:51pm by CARIN LOZANO On 25Aug2007 3:07pm ELENI RUBI wrote: She needs a neurology consult. Can we call and get the records from her previous evaluations? doesn't trigger seizures and it would be unusual for her to have one now out of the blue if she hasn't had one since 2002. Let's see what neuro says before we put her on 24 hour watch. [email or web address] Acknowledged by ELENI RUBI on 3:07pm On 25Aug2007 3:38pm CARIN LOZANO wrote: phone call to pt, above message given, appt scheduled in Neurology STOP/CONTAINMENT WORKER documented in this encounter Plan of Treatment Upcoming Encounters Date Type Specialty Care Team Description 05/12/2022 Appointment Audiology 05/12/2022 Appointment Otolaryngology Bro Arroyo , PADerick [address] [phone] (Wo rk) 06/03/2022 Appointment General Dentistry Rylee Amaro, RD [address] [place] [address] 06/03/2022 Appointment General Dentistry Pee Garcia, [place] [address] [place] [address] (Wo rk) 06/17/2022 Appointment General Dentistry Pee Garcia, [place] [address] [facility] [place], [place] [phone] (Wo rk) documented as of this encounter Visit Diagnoses Not on filedocumented in this encounter
--- OUTSIDE RECORDS SUMMARY | 2022-05-07 00:01 | XMS_ITS | Encounter Summary ---
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 RUDI N 930826 (Wo rk) 06/03/2022 Appointment General Dentistry Rylee Amaro, RD [address] [place] [address] 06/03/2022 Appointment General Dentistry Pee Garcia, DDS [address] [place] [address] (Wo rk) 06/17/2022 Appointment General Dentistry Pee Garcia, DDS [address] [place], [place] [phone] (Wo rk) documented as of this encounter Procedures Procedure Name Priority Date/Time Associated Comments Diagnosis BLOOD GROUP & RH Routine 08/04/2007 12:15 Results for this (BLOOD TYPE) PM CAMP NURSE procedure are i n the results section. ANTIBODY SCREEN Routine 08/04/2007 12:15 Results for this PM CAMP NURSE procedure are i n the results section. HIV ANTIBODY Routine 08/04/2007 12:15 Results for this PM CAMP NURSE procedure are i n the results section. URINALYSIS Routine 08/04/2007 12:15 Results for this ROUTINE(MICRO IF POS) PM CAMP NURSE proced ure are in the results section. RPR BLOOD Routine 08/04/2007 12:15 Results for this PM CAMP NURSE procedure are i n the results section. HEMOGLOBIN OB Routine 08/04/2007 12:15 Results fo r this PM CAMP NURSE procedure are i n the results section. URINALYSIS Routine 08/04/2007 12:15 Results for this MICROSCOPIC PM CAMP NURSE procedure are i n the results section. RUBELLA IMMUNE STATUS Routine 08/04/2007 12:15 Re sults for this PM CAMP NURSE procedure are i n the results section. HEP B SURFACE Routine 08/04/2007 12:15 Results fo r this ANTIGEN, NO REFLEX PM CAMP NURSE procedure are in the results section. URINE CULTURE Routine 08/04/2007 12:15 Results fo r this PM CAMP NURSE procedure are i n the results section. ANATOMICAL PATH Routine 08/04/2007 11:29 Results for this LIQUID BASED AM CAMP NURSE procedure are i n the results section. documented in this encounter Results (ABNORMAL) Urine Culture (08/04/2007 12:15 PM CAMP NURSE) [facility] gist Method Time Signature Urine Culture SEE TEXT HP CONVERSION (A) Comment: Patient: MICHELLE VANN Culture, Urine ?Collected: ??[id number] ??[id number] Source: Clean Ca ?Processed: ??[id number] ??1215 ? B/SENS Final Report ------ ?[id number] ??[id number] >100,000 CFU/mL Escherichia coli Susceptibility Testing E COL ??TIARRA INTERP: ?S ??AMPICILLIN , AMOX/CLAV ACID, CEFAZOLIN, LEVOFLOXACIN, ?CIPR OFLOXACIN, CEFTRIAXONE, CEFTAZIDIME, GENTAMICIN, ?CEFE PIME, NITROFURANTOIN, TRIMETH-SULFA Specimen (Source) Anatomical Collection Method Collection Time Re ceived Time Location / / Volume Laterality 08/04/2007 12:15 PM CAMP NURSE Vianney Warren BARKING MACHINE FEEDER, CABLE INSTALLER LAB_1 Performing Organization Address City/State/ZIP Code Phon e Number HP CONVERSION Antibody Screen (08/04/2007 12:15 PM CAMP NURSE) P athologist Signature N/O BB NEG No normal HP CONVERSION ANTIBODY range SCREEN Comment: Performed by Solid [employer] Techni que Specimen (Source) Anatomical Collection Method Collection Time Re ceived Time Location / / Volume Laterality 08/04/2007 12:15 PM CAMP NURSE Vianney Warren APRN, CNP PN BLOOD BANK ORD ERS Performing Organization Address City/State/ZIP Code Phon e Number HP CONVERSION Blood Group & Rh (Blood Type) (08/04/2007 12:15 PM CAMP NURSE) athologist Signature BB BLOOD TYPE O POS No normal HP CONVERSION (BLOOD GROUP & range RH) Specimen (Source) Anatomical Collection Method Collection Time Re ceived Time Location / / Volume Laterality 08/04/2007 12:15 PM CAMP NURSE Vianney Warren APRN, CNP PN BLOOD BANK ORD ERS Performing Organization Address [facility] Code Phon e Number HP CONVERSION Rubella Immune Status (08/04/2007 12:15 PM CAMP NURSE) athologist Signature Rubella Immune Immune Immune HP CONVERSION Status Specimen (Source) Anatomical Collection Method Collection Time Re ceived Time Location / / Volume Laterality 08/04/2007 12:15 PM CAMP NURSE Vianney Warren APRN, CNP LAB_1 Performing Organization Address [facility] Phon e Number HP CONVERSION Hemoglobin Ob (08/04/2007 12:15 PM CAMP NURSE) athologist Signature OB Hemoglobin 11.9 gm/dL HP CONVERSION Comment: First trimester (week 12) 11.0 - 13.4 gm /dL Second trimester(week 20) 10.5 - 12.7 gm /dL Third trimester (week 32) 11.0 - 13.2 gm /dL From MMWR 1989;38(22): 400-4 Specimen (Source) Anatomical Collection Method Collection Time Re ceived Time Location / / Volume Laterality 08/04/2007 12:15 PM CAMP NURSE Vianney Warren APRN, ROSINA LAB_1 Performing Organization Address City/[facility]/ZIP Code Phon e Number HP CONVERSION (ABNORMAL) Urinalysis Routine(Micro If Pos) (08/04/2007 12:15 PM CAMP NURSE) [facility] gist Method Time Signature Turbidity Hazy (A) No normal HP CONVERSION range pH Urine 7.0 4.5 - 7.5 HP CONVERSION Protein Urine Negative Neg-Trac HP CONVERSION Glucose, Negative Neg-Trac HP CONVERSION Qualitative U Ketones Negative Negative HP CONVERSION U BILI Negative Negative HP CONVERSION Blood Urine Negative Negative HP CONVERSION Nitrite Urine Positive Negative HP CONVERSION (A) Leukocyte Negative Negative HP CONVERSION Esterase Urine Urobilinogen Negative 0.2 - 1.0 HP CONVERSION Urine U Specific 1.025 1.005 - 25 HP CONVERSION [place] Specimen (Source) Anatomical Collection Method Collection Time Re ceived Time Location / / Volume Laterality 08/04/2007 12:15 PM CAMP NURSE Vianney Warren APRN, CABLE INSTALLER LAB_1 Performing Organization Address City/[facility]/ZIP Code Phon e Number HP CONVERSION RPR Blood (08/04/2007 12:15 PM CAMP NURSE) P athologist Signature RPR Non Reac Non Reac HP CONVERSION Specimen (Source) Anatomical Collection Method Collection Time Re ceived Time Location / / Volume Laterality 08/04/2007 12:15 PM CAMP NURSE Vianney Warren APRN, CABLE INSTALLER LAB_1 Performing Organization Address [facility] Code Phon e Number HP CONVERSION HIV Antibody (08/04/2007 12:15 PM CAMP NURSE) P athologist Signature HIV 1/HIV 2 Non Reac Non Reac HP CONVERSION Specimen (Source) Anatomical Collection Method Collection Time Re ceived Time Location / / Volume Laterality 08/04/2007 12:15 PM CAMP NURSE Vianney Warren APRN, CABLE INSTALLER LAB_1 Performing Organization Address City/[facility]/ZIP Code Phon e Number HP CONVERSION Hep B Surface Antigen, No Reflex (08/04/2007 12:15 PM CAMP NURSE) Analysis Performed At Patho logist Time Signature Hep B Surf Ag Negative Negative HP CONVERSION Specimen (Source) Anatomical Collection Method Collection Time Re ceived Time Location / / Volume Laterality 08/04/2007 12:15 PM CAMP NURSE Vianney Warren APRN, CABLE INSTALLER LAB_1 Performing Organization Address City/[facility]/ZIP Code Phon e Number HP CONVERSION (ABNORMAL) Urinalysis Microscopic (08/04/2007 12:15 PM CAMP NURSE) Patholo gist Method Time Signature White Blood 3-4/HPF 0 - 3 HP CONVERSION Cells Urine Red Blood Cells Negative 0 - 2 HP CONVERSION Urine Bacteria Urine Many (A) None HP CONVERSION Epithelial Few Few /HPF HP CONVERSION Cells Specimen (Source) Anatomical Collection Method Collection Time Re ceived Time Location / / Volume Laterality 08/04/2007 12:15 PM CAMP NURSE Vianney Warren APRN, CABLE INSTALLER LAB_1 Performing Organization Address City/State/ZIP Code Phon e Number HP CONVERSION Pap Smear (08/04/2007 11:29 AM CAMP NURSE) [facility] Method Time Signature PAP Smear SEE TEXT No normal HP CONVERSION Liquid Based range Comment: Patient: MICHELLE VANN ? CERVICAL CYTOLOGY REPORT Pathology # ??[id number] ?Date Obtained: ? Date Received: CYTOLOGIC IMPRESSION: Negative for intraepithelial lesion or m alignancy. Verified 08/09/07 by: ? (electronic signature) ? LESLIE TIONAL DATA LMP: CLINICAL HIST LIQUID BASED PAP CERVICAL SPECIMEN ADEQUACY: ?? Satisfactory. ENDOCERVICAL CELLS: ??Present. Specimen (Source) Anatomical Collection Method Collection Time Re ceived Time Location / / Volume Laterality 08/04/2007 11:29 AM CAMP NURSE Vianney Warren APRN, CABLE INSTALLER LAB_1 Performing Organization Address City/State/[facility] Code Phon e Number HP CONVERSION documented in this encounter Visit Diagnoses Not on filedocumented in this encounter
--- OUTSIDE RECORDS SUMMARY | 2022-05-07 00:01 | XMS_ITS | Encounter Summary ---
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 pt is and has questions Is appointment scheduled & when? Manager Grocery:Jen Montalvo call back number: [phone] Is it OK to leave a confidential message on this voicemail? *ECODE~[email or web address] Created on [id number] 12:03pm by JEY MACHUCA M On [id number] 2:59pm BELLA LOZANO wrote: see second note ERCIAL FINANCE ANALYST documented in this encounter Plan of Treatment Upcoming Encounters Date Type Specialty Care Team Description 05/12/2022 Appointment Audiology 05/12/2022 Appointment Otolaryngology Bro Arroyo , PAMorisC [address] [facility] [place] [place] [address] (Wo rk) 06/03/2022 Appointment General Dentistry Rylee Amaro, [facility] [address] [place] [address] 06/03/2022 Appointment General Dentistry Pee Garcia DDS [address] [place], [place] [phone] (Wo rk) 06/17/2022 Appointment General Dentistry Pee Garcia DDS [address] [place], [place] [phone] (Wo rk) documented as of this encounter Visit Diagnoses Not on filedocumented in this encounter
--- OUTSIDE RECORDS SUMMARY | 2022-05-07 00:01 | XMS_ITS | Encounter Summary ---
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 documented as of this encounter Last Filed Vital Signs Vital Sign Reading Time Taken Comments Blood Pressure 110/62 08/04/2007 11:[address] SECURITY OFFICER Pulse - - Temperature - - Respiratory Rate - - Oxygen Saturation - - Inhaled Oxygen Concentration - - Weight 61 kg (134 lb 9.5 oz) 08/04/2007 11:[address] SECURITY OFFICER C: 61.1kg Height 152.4 cm (5') 08/04/2007 11:[address] SECURITY OFFICER C: 152.4 cm Body Mass Index 26.29 08/04/2007 11:[address] SECURITY OFFICER documented in this encounter Progress Notes Vianney Burgos, LEONEL, MOLD MACHINE OPERATOR - 08/04/2007 12:01 AM CST Progress Notes signed by Vianney Silva APRN, CNP at 08/08/07 0814 Author: FRANCHESCA Sanders Service: (none) Author Type: Nurse Practitioner Filed: 10/18/10 0052 Note Time: 08/04/07 0001 Status: Signed Supervisor Area: FRANCHESCA Sanders (Nurse Practitioner) NAME: MARC VANN MR#: [id number] ACCT: [id number] VISIT: [id number] DICTATING CLINICIAN: FRANCHESCA Sanders JOB: [id number] LOC: 1012 CLINIC PROGRESS NOTE DATE OF VISIT: 08/04/2007 SUBJECTIVE: Marc is a 26-year-old, female. She is here for a new OB part I with a first day of last period 06/02. She suspects conception occurred around 06/16. She typically has 28 to 30 day cycles lasting seven. She had a positive test 07/07/07, and reports positive signs and symptoms of including fatigue, nausea, itchy nipples. MEDICATIONS: vitamins. ADR/ALLERGIES: NO KNOWN DRUG ALLERGIES. GENETIC SCREENING: Negative. INFECTION HISTORY: The patient has had chickenpox. No cats in the home, precautions reviewed. Last tetanus current. PAST MEDICAL HISTORY: The patient reports seizure activity on two occasions, once in 2000, once in 2002. She was evaluated and given medication, which she declined to take. History also includes a shave biopsy for atypical nevi. This is the patient's first . OBJECTIVE: VS: BP: 110/62. ??134.6?? Wt: Pre- weight 130. The patient is a well-nourished female with appropriate affect, oriented to time and location. SKIN: Warm and dry without lesions. Eyes: Normal, sclerae clear. Ears: Symmetrical. Mouth: Normal lips, teeth and gums. NECK: Supple without masses, nodes or enlarged thyroid. BREASTS: Tender per patient report. No dominant masses, nipple cracks or blisters. ABDOMEN: Soft and nontender. No enlarged organs, inguinal nodes or herniation. PELVIC: Reveals a 9 week uterine size with positive cardiac activity and motion seen on ultrasound. Pap obtained without difficulty. The cervix was long and closed. No external hemorrhoids or perianal fissures. EXTREMITIES: Normal without edema or varicosities. ASSESSMENT: Normal new OB part I, 1. PLAN: The patient agrees to call if she has a seizure. I indicated that it would be very important for us to know about any seizure activity and that we would refer her to neurology for management. Patient states that she was reluctant to be on medication and really does not want to be on medication through . The patient was oriented to STRAP MACHINE OPERATOR AUTOMATIC hospital call system, screening tests, labs. The unplanned nature of the was reviewed. She does recall that she was using fertility awareness and mentioned to her the possibility that they might be a little close to ovulation. Both are excited to be . The patient expresses concerns that she is in school and working, and was not quite ready for a . Her family is supportive, although not local. The patient is from [facility]. Total time 40 minutes, counseling time 30 on above topics. The patient will return for OB care with Dr. Helen Rbui 09/07 at 2. CLT:[id number] C: 08/05/07 17:40 DOCUMENT: [id number] T SECURITY OFFICER documented in this encounter Plan of Treatment Upcoming Encounters Date Type Specialty Care Team Description 05/12/2022 Appointment Audiology 05/12/2022 Appointment Otolaryngology Bro Arroyo PA-C [address] [facility] [address] (Shereen espino) 06/03/2022 Appointment General Dentistry Rylee Amaro, [facility] [address] [place] [address] 06/03/2022 Appointment General Dentistry Pee Garcia DDS [address] [place], [place] [phone] (Shereen espino) 06/17/2022 Appointment General Dentistry Pee Garcia [facility] [address] [facility] [place] [phone] (Wo rk) documented as of this encounter Visit Diagnoses Not on filedocumented in this encounter
--- OUTSIDE RECORDS SUMMARY | 2022-05-07 00:01 | XMS_ITS | Encounter Summary ---
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 Khalil for lesion removal. Sutures were removed from left temporal. Wound healing without signs of infection or inflammation. Pathology report given and questions answered. Follow up is PRN. Created on 21Jul2007 11:21am by DIANNE CHAUDHARY Acknowledged by TONI KHALIL on 1:19pm TING LABORER documented in this encounter Plan of Treatment Upcoming Encounters Date Type Specialty Care Team Description 05/12/2022 Appointment Audiology 05/12/2022 Appointment Otolaryngology Bro Arroyo , PA-C [address] [facility] [place]I [place] [address] (Wo rk) 06/03/2022 Appointment General Dentistry Rylee Amaro, [facility] [address] [place] [address] 06/03/2022 Appointment General Dentistry Pee Garcia, DDS [address] [place], [place] [phone] (Wo rk) 06/17/2022 Appointment General Dentistry Pee Garcia DDS [address] [place] [address] (Wo rk) documented as of this encounter Visit Diagnoses Not on filedocumented in this encounter
--- OUTSIDE RECORDS SUMMARY | 2022-05-07 00:01 | XMS_ITS | Encounter Summary ---
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 Plan of Treatment Upcoming Encounters Date Type Specialty Care Team Description 05/12/2022 Appointment Audiology 05/12/2022 Appointment Otolaryngology Bro Arroyo , PA-C [address] [facility] RUDI N [address] (Wo rk) 06/03/2022 Appointment General Dentistry Rylee Amaro, [facility] [address] [place] [address] 06/03/2022 Appointment General Dentistry Pee Garcia DDS [address] [place] [address] (Wo rk) 06/17/2022 Appointment General Dentistry Pee Garcia, DDS [address] [place] [address] (Wo rk) documented as of this encounter Procedures Procedure Name Priority Date/Time Associated Comments Diagnosis URINALYSIS Routine 09/08/2007 4:14 PM Results f or this ROUTINE(MICRO IF CDT procedure a re in POS) the results section. documented in this encounter Results Urinalysis Routine(Micro If Pos) (09/08/2007 4:14 PM CDT) [facility] gist Method Time Signature Turbidity Clear No normal HP CONVERSION range pH Urine [...] Specific 1.020 1.005 - 25 HP CONVERSION Gary Specimen (Source) Anatomical Collection Method Collection Time Re ceived Time Location / / Volume Laterality 09/08/2007 4:14 PM CDT Helen Rubi MD LAB_1 Performing Organization Address City/State/ZIP Code Phon e Number HP CONVERSION documented in this encounter Visit Diagnoses Not on filedocumented in this encounter
[2022-05-07 00:02] VITALS: PULSE 80; O2SAT 97
[2022-05-07 00:02] LABS: Bacteria Urine Moderate; RBC Urine 0-2 (0-2); Squamous Epithelial Cell Urine Moderate (None-Few); WBC Urine 0-2 (0-5)
--- OUTSIDE RECORDS SUMMARY | 2022-05-07 00:02 | XMS_ITS | Encounter Summary ---
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 I sent the slide to Марина Santana at [place] to review and she concurs with diagnosis and need to reexcise conservatively. These are available by clicking on the Lab Chart Tab: REMINDER: Once the note has been reviewed, click the ACKNOWLEDGE ALERT button to remove this alert from your Inbox. Created on 27Jun2007 3:06pm by MIRIAM VASQUES On 04Jul2007 2:16pm TONI KHALIL wrote: Called patient and discussed this result and need for conservative excision , we will review the pathology report then also. juarez Acknowledged by TONI KHALIL on 2:16pm AND GAMES HAND FINISHER documented in this encounter Plan of Treatment Upcoming Encounters Date Type Specialty Care Team Description 05/12/2022 Appointment Audiology 05/12/2022 Appointment Otolaryngology Bro Arroyo , PAMorisC [address] [facility] [address] (Shereen espino) 06/03/2022 Appointment General Dentistry Rylee Amaro, [facility] [address] [place] [address] 06/03/2022 Appointment General Dentistry Pee Garcia DDS [address] [place], [place] [phone] (Shereen espino) 06/17/2022 Appointment General Dentistry Pee Garcia DDS [address] [place], [place] [phone] (Shereen sepino) documented as of this encounter Visit Diagnoses Not on filedocumented in this encounter
--- OUTSIDE RECORDS SUMMARY | 2022-05-07 00:02 | XMS_ITS | Encounter Summary ---
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 Plan of Treatment Upcoming Encounters Date Type Specialty Care Team Description 05/12/2022 Appointment Audiology 05/12/2022 Appointment Otolaryngology Bro Arroyo , PAMorisC [address] Alvin [facility] [address] [address] (Wo rk) 06/03/2022 Appointment General Dentistry Rylee Amaro, RD [address] [place] [address] 06/03/2022 Appointment General Dentistry Pee Garcia, DDS [address] [place] [address] (Wo rk) 06/17/2022 Appointment General Dentistry Garcia Pee [place]rell, DDS [address] [place] [address] (Wo rk) documented as of this encounter Procedures Procedure Name Priority Date/Time Associated Comments Diagnosis SURGICAL RUDI BROWN Routine 06/20/2007 8:00 AM Re sults for this NICOLLET PICTURE ENLARGER procedure are i n the results section. ANATOMICAL PATH Routine 06/20/2007 8:00 AM Result s for this CONSULT 1 PICTURE ENLARGER procedure are i n the results section. documented in this encounter Results Pathology Report (06/20/2007 8:00 AM PICTURE ENLARGER) [facility] gist Method Time Signature Surgical SEE TEXT No normal HP CONVERSION Pathology range Comment: Patient: MARC VANN ?S URGICAL PATHOLOGY REPORT Pathology # ??[id number] ?Date Obtained: ? 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 Марина glover at the [facility] who concurs. ?Liliana Vasques M.D. ?(electronic signature) JSM/JSM/kjs Date of Report: 06/27/07 Pathology # ??[id number] ?Date Obtained: ? Date Received: ORGAN/TISSUE SITE: ?Left temporal area GROSS DESCRIPTION: ?Received in formalin is a 0.4 x 0. 4 x 0.2 cm irregular morales-pink skin ?shave. ??The surface of the skin i s hairbearing and displays a 0.2 cm ?circular darkly pigmented lesion. ??The skin is inked, bisected and ?entirely submitted in cassette 150 33. MJL/beh MICROSCOPIC DESCRIPTION: ?The microscopic examination substa ntiates the diagnosis cited. Specimen (Source) Anatomical Collection Method Collection Time Re ceived Time Location / / Volume Laterality 06/20/2007 8:00 AM PICTURE ENLARGER Marley Escoto MD LAB_1 Performing Organization Address City/State/ZIP Code Phon e Number HP CONVERSION Anatomical Path Consult 1 (06/20/2007 8:00 AM PICTURE ENLARGER) Patholo gist Method Time Signature Anatomical SEE TEXT No normal HP CONVERSION Pathology range Outside Consult Comment: Patient: MARC VANN ? SURGICAL PATHOLOGY SUPPLEMENTAL REPORT Pathology # ??[id number] ?Date Obtained: ? Date Received: CONSULTATION: DOCTOR: ?Dr. Марина Santana INSTITUTION: [place], [place] THEIR #: ? [id number] ?Skin, left temporal area, shave bi opsy: ??Moderate to severely atypical ?compound nevus with epithelioid fe atures. The lesion extends to involve ?the inked deep biopsy margin. JSM/amf Specimen (Source) Anatomical Collection Method Collection Time Re ceived Time Location / / Volume Laterality 06/20/2007 8:00 AM PICTURE ENLARGER Marley Escoto MD LAB_1 Performing Organization Address City/State/ZIP Code Phon e Number HP CONVERSION documented in this encounter Visit Diagnoses Not on filedocumented in this encounter
--- OUTSIDE RECORDS SUMMARY | 2022-05-07 00:02 | XMS_ITS | Encounter Summary ---
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 [address] (Wo rk) 06/03/2022 Appointment General Dentistry Rylee Amaro, [facility] [address] [place] [address] 06/03/2022 Appointment General Dentistry Pee Garcia DDS [address] [place], [place] [phone] (Wo rk) 06/17/2022 Appointment General Dentistry Pee Garcia DDS [address] [facility] [place] [phone] (Wo rk) documented as of this encounter Procedures Procedure Name Priority Date/Time Associated Comments Diagnosis ANATOMICAL PATH Routine 11/18/2006 12:41 PM Resul ts for this LIQUID BASED CDT procedure are i n the results section. documented in this encounter Results Pap Smear (11/18/2006 12:41 PM CDT) [facility] gist Method Time Signature PAP Smear SEE TEXT No normal HP CONVERSION Liquid Based range Comment: Patient: MARC VANN ? CERVICAL CYTOLOGY REPORT Pathology # ??[id number] ?Date Obtained: ? Date Received: CYTOLOGIC IMPRESSION: Negative for intraepithelial lesion or m alignancy. Verified 11/24/06 by: ??LBM ?(electronic signature) ? LESLIE TIONAL DATA LMP: CLINICAL HIST LIQUID BASED PAP CERVICAL SPECIMEN ADEQUACY: ?? Satisfactory. ENDOCERVICAL CELLS: ??Present. Specimen (Source) Anatomical Collection Method Collection Time Re ceived Time Location / / Volume Laterality 11/18/2006 12:41 PM CDT Seema Rice MD LAB_1 Performing Organization Address City/State/ZIP Code Phon e Number HP CONVERSION documented in this encounter Visit Diagnoses Not on filedocumented in this encounter
--- OUTSIDE RECORDS SUMMARY | 2022-05-07 00:02 | XMS_ITS | Encounter Summary ---
:1980 [address] 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 She also has a question regarding a nevus on the left temporal area that she has had for years. She also has a little nodule on the right labia area that is not tender, but is more noticeable at times than others. PAST MEDICAL HISTORY: She has been in good health. No previous surgeries. MEDICATIONS: None. FAMILY HISTORY: No skin cancer. 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 Nonsmoker. REVIEW OF SYSTEMS: She has had no fever or chills. Products used for acne: Primarily [id number] skin products. OBJECTIVE: This is a white female who has an isolated inflammatory papule on her chin. A few closed comedones. No significant scarring. Left temporal area: She has a dark, raised lesion. Dermatoscope visualized an area of hyperpigmentation in the center. Did not see the typical characteristics of seborrheic keratoses. There were no abnormal vessels. I suspect this still represents just a benign lesion, benign change, but I did recommend biopsy of this lesion. ??SWEDISH MASSEUSE:?? She has a small, 1 mm, palpable, small little cyst in the right labia. It is not inflamed. Did not recommend any further management or treatment. ASSESSMENT: 1. Mild inflammatory papules on her face. 2. Nevi, left temporal area. Recommended shave removal to rule out atypia. 3. Benign cyst, right labia. PLAN: 1. First we discussed pathophysiology of acne, rationale for treatment. 2. Oilatum for cleansing. 3. Azelaic acid at bedtime. She does potentially have dry skin. Return to check in 6 to 8 weeks. 4. Schedule for biopsy of lesion, left temporal area. 5. No further treatment recommended for the cyst on the right labial area. PARKER:[id number] C: 06/16/07 22:47 DOCUMENT: [id number] CORNER MACHINE OPERATOR documented in this encounter Plan of Treatment Upcoming Encounters Date Type Specialty Care Team Description 05/12/2022 Appointment Audiology 05/12/2022 Appointment Otolaryngology Bro Arroyo , JANET [address] [place] [address] (Wo rk) 06/03/2022 Appointment General Dentistry Rylee Amaro, [facility] [address] [place] [address] 06/03/2022 Appointment General Dentistry Pee Garcia, DDS [address] [place], [place] [phone] (Wo rk) 06/17/2022 Appointment General Dentistry Pee Garcia DDS [address] [place], [place] [phone] (Wo rk) documented as of this encounter Visit Diagnoses Not on filedocumented in this encounter
--- OUTSIDE RECORDS SUMMARY | 2022-05-07 00:02 | XMS_ITS | Encounter Summary ---
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 Plan of Treatment Upcoming Encounters Date Type Specialty Care Team Description 05/12/2022 Appointment Audiology 05/12/2022 Appointment Otolaryngology Bro Arroyo , PAMorisC [address] et Alvin [facility] RUDI N [address]856 (Wo rk) 06/03/2022 Appointment General Dentistry Rylee Amaro, RD [address] [place] [address] 06/03/2022 Appointment General Dentistry Pee Garcia, DDS [address] [place] [address] (Wo rk) 06/17/2022 Appointment General Dentistry Pee Garcia, DDS [address] [place] [address] (Wo rk) documented as of this encounter Procedures Procedure Name Priority Date/Time Associated Diagnosis Comme nts SURGICAL PATHRUDI Routine 07/13/2007 11:20 AM R esults for this NICOLLET CREATIVE LEAD procedure are i n the results section. documented in this encounter Results Pathology Report (07/13/2007 11:20 AM CREATIVE LEAD) [facility] gist Method Time Signature Surgical SEE TEXT No normal HP CONVERSION Pathology range Comment: Patient: MARC VANN ?S URGICAL PATHOLOGY REPORT Pathology # ??[id number] ?Date Obtained: ? Date Received: DIAGNOSIS: ?Skin lesion designated left tempor al area, re-excision: ?1. Stromal changes consistent with previous biopsy. ?2. No evidence of residual melanoc ytic lesion. ?3. Mild dermal solar elastosis. ?Allen Novoa MD ?(electronic signature) MDM/MDM/beh Date of Report: 07/15/07 Pathology # ??[id number] ?Date Obtained: ? Date Received: ORGAN/TISSUE SITE: ?Left temporal area GROSS DESCRIPTION: ?Received in formalin labeled left temporal area is a 0.7 cm circular ?portion of morales-pink skin excised t o a depth of 0.5 cm. The surface of the ?skin is hair-bearing. The skin is inked, bisected and entirely submitted ?in cassette 539. MJL/kjs MICROSCOPIC DESCRIPTION: ?Microscopic examination performed. Specimen (Source) Anatomical Collection Method Collection Time Re ceived Time Location / / Volume Laterality 07/13/2007 11:20 AM CREATIVE LEAD Marley Escoto MD LAB_1 Performing Organization Address City/State/ZIP Code Phon e Number HP CONVERSION documented in this encounter Visit Diagnoses Not on filedocumented in this encounter
--- OUTSIDE RECORDS SUMMARY | 2022-05-07 00:02 | XMS_ITS | Encounter Summary ---
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 Plan of Treatment Upcoming Encounters Date Type Specialty Care Team Description 05/12/2022 Appointment Audiology 05/12/2022 Appointment Otolaryngology Bro Arroyo , PAMorisC [address] [place] et [facility] [id number] (Wo rk) 06/03/2022 Appointment General Dentistry Rylee Amaro, [facility] [address] [place] [address] 06/03/2022 Appointment General Dentistry Pee Garcia DDS [address] [place] [address] (Wo rk) 06/17/2022 Appointment General Dentistry Pee Garcia DDS [address] [place], [place] [phone] (Wo rk) documented as of this encounter Visit Diagnoses Not on filedocumented in this encounter
--- OUTSIDE RECORDS SUMMARY | 2022-05-07 00:02 | XMS_ITS | Encounter Summary ---
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 She currently is 6 weeks . We recently removed a nevi left temporal area right behind the hairline, came back showing atypical cells, recommended a conservative reexcision. We reviewed the significance of atypia and rational for conservative reexcision. Potential risk for scarring, hyperpigmentation or hypopigmentation. 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 Skin : no new rash. Lesions or skin changes they are concerned about listed above in the subjective.No change in hair texture . Objective: This is a healthly appearing individual, who is alert and oriented and appears in no acute distress. Total Body Skin Exam : scalp, neck, trunk, both upper extremities , both lower extremities, all ten fingers and toes, palms and soles of feet were examined with and without magnification. Benign Findings: She does have scattered nevi benign appearance. Suspicious Lesions: Lesion: Left lateral thigh, upper, she has 8 irregular pigmented nevi, 3-mm in size. Dermatoscope-irregular architecture, central globules. I did recommend biopsy with this, but she does not want to pursue this at this time. She did agree to a 3 month recheck exam. Picture taken with her permission. Lesion: Left-sided scalp, approximately 2.5 cm behind the hairline, area previous biopsy visualized, 4-mm in size. 2-mm margin was marked out, and 8mm core punch biopsy was performed. 3-0 Ethilon, was used to approximate the edges, and control bleeding. Simple interrupted stitches were used. She tolerated procedure well Assessment: 1. Conservative reexcision nevi left-sided scalp-for atypical nevi 2. Nevi left upper lateral thigh-irregular pigmentation, strongly recommended repeat exam in 3 months. Plan: 1) Reviewed findings on skin exam and questions answered regarding skin changes that they have noticed. 2) Discussion regarding danger signs in pigmented lesions of the skin i.e. asymmetry, irregular border, irregular color, diameter of lesion and enlargement of lesion. Also reviewed simple principle of the ugly duckling rule ( if there is a lesion that looks dramatically different from their other skin lesions then this should be reviewed. 3) Suggested annual skin exams 4) Discussion regarding sunscreen useage i.e. type used, coverage UVA and UVB , frequency of application , and mode of application.5. Suture removal 7 to 10 days 6. Repeat examination of the nevi left upper lateral thigh at 3 months. 8. Discussed expectations for healing at excision site. 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 Plan of Treatment Upcoming Encounters Date Type Specialty Care Team Description 05/12/2022 Appointment Audiology 05/12/2022 Appointment Otolaryngology Bro Arroyo , PADerick [address] [facility] [place] [address] (Wo rk) 06/03/2022 Appointment General Dentistry Rylee Amaro, [facility] [address] [place] [address] 06/03/2022 Appointment General Dentistry Pee Garcia, DDS [address] [place], [place] [phone] (Wo rk) 06/17/2022 Appointment General Dentistry Pee Garcia DDS [address] [place], [place] [phone] (Wo rk) documented as of this encounter Visit Diagnoses Not on filedocumented in this encounter
--- OUTSIDE RECORDS SUMMARY | 2022-05-07 00:02 | XMS_ITS | Encounter Summary ---
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 She's had this for a while, on visualization it is a dark raised lesion dermatoscope did not have the typical characteristics of seborrheic keratoses, some irregular architecture. So recommended biopsy. Discussed risk of hypo-and hyperpigmentation and scarring. Adverse Drug Reactions: See EMR Medications: Reviewed. See Medication List in LastWord. OBJECTIVE: Vital Signs : Reviewed; See Flowsheet Charting in LastWord. Lesion: Darkly pigmented, raised nevi, grossly symmetrical.Procedure : Skin was cleansed with Álvaro-Clens, it was then infiltrated with a buffered solution of 1% lidocaine with epinephrine .A scallop shave biopsy was performed, with complete removal of the lesion. Bleeding controlled with aluminum chloride. Antibiotic when was applied. Dressing was then applied.Discussed risk of hypopigmentation, hyperpigmentation, scarring, infection and pain with this procedure. This was discussed with the patient prior to the procedure. ASSESSMENT: 1. Saucerization shave of nevi left temporal area PLAN: The patient was discharged ambulatory and in stable condition.1 Watch for signs of infection e.g. redness, drainage, increasing tenderness 2. Care instructions given e.g. daily bandaid changes, topical bacitracin for 2-3 days 3 A letter will be sent regarding biopsy results 4. Follow-up if problems 5. Discussed potential for hypopigmentation , hyperpigmentation, scarring, and potential for infection. 6. Further decisions pending pathology report. E LEAD FILTERER documented in this encounter Plan of Treatment Upcoming Encounters Date Type Specialty Care Team Description 05/12/2022 Appointment Audiology 05/12/2022 Appointment Otolaryngology Bro Arroyo , JANET [address] [facility] [address] (Shereen espino) 06/03/2022 Appointment General Dentistry Rylee Amaro, [facility] [address] [place] [address] 06/03/2022 Appointment General Dentistry Pee Garcia DDS [address] [place], [place] [phone] (Shereen espino) 06/17/2022 Appointment General Dentistry Pee Garcia DDS [address] [place] [address] (Wo rk) documented as of this encounter Visit Diagnoses Not on filedocumented in this encounter
--- OUTSIDE RECORDS SUMMARY | 2022-05-07 00:02 | XMS_ITS | Encounter Summary ---
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 Also, can she start the patch right away? Pls advise PHARMACY NAME:[facility] PHONE #:seq # [phone] CITY:[facility] CALL BACK PHONE OR CELL PHONE:lv message at home [phone] BEST TIME TO CALL BACK: IS IT OK TO LEAVE A CONFIDENTIAL MESSAGE ON THIS VOICEMAIL? Created on 06Dec2006 10:32am by CARIN LOZANO On 07Dec2006 12:57pm KELSI MORRISON wrote: Pt calling back again today. Please call her today and try the work number which is [phone] ext [phone] On 08Dec2006 12:17pm MILIND CONROY wrote: pt is calling back. she is upset know one has called her back.the phone # is [phone]. On 08Dec2006 1:32pm CARIN LOZANO wrote: pt now decides she wants to go back on the Ortho Evra patch. rx faxed to pharm Acknowledged by ANDREA REYNA on 1:36pm OMER SERVICE SALES ASSOCIATE documented in this encounter Plan of Treatment Upcoming Encounters Date Type Specialty Care Team Description 05/12/2022 Appointment Audiology 05/12/2022 Appointment Otolaryngology Bro Arroyo , PAMorisC [address] [place] [address] (Wo rk) 06/03/2022 Appointment General Dentistry Rylee Amaro, [address] [place] [address] 06/03/2022 Appointment General Dentistry Pee Garcia, TAWANNAS [address] [place] [address] (Wo rk) 06/17/2022 Appointment General Dentistry Pee Garcia DDS [address] [facility] [place] [address] (Wo rk) documented as of this encounter Visit Diagnoses Not on filedocumented in this encounter
--- OUTSIDE RECORDS SUMMARY | 2022-05-07 00:02 | XMS_ITS | Encounter Summary ---
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 encounter Plan of Treatment Upcoming Encounters Date Type Specialty Care Team Description 05/12/2022 Appointment Audiology 05/12/2022 Appointment Otolaryngology Bro Arroyo , PAMorisC [address] et Alvin [facility] RUDI N [address] (Wo rk) 06/03/2022 Appointment General Dentistry Rylee Amaro, RD [address] [place] [address] 06/03/2022 Appointment General Dentistry Pee Garcia, DDS [address] [place] [address] (Wo rk) 06/17/2022 Appointment General Dentistry Pee Garcia, DDS [address] [place] [address] (Wo rk) documented as of this encounter Visit Diagnoses Not on filedocumented in this encounter
--- OUTSIDE RECORDS SUMMARY | 2022-05-07 00:02 | XMS_ITS | Encounter Summary ---
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 I have already talked to her and told her you would be calling. Allow 45 minutes please. If questions please e page me. juarez Created on 30Jun2007 5:17pm by TONI KHALIL On 01Jul2007 10:23am FELICIA WILLIAMSON wrote: Called pt - she called back. Appt scheduled for Jul 05. Acknowledged by FELICIA WILLIAMSON on 10:23am ENIR AND NOVELTY MAKER documented in this encounter Plan of Treatment Upcoming Encounters Date Type Specialty Care Team Description 05/12/2022 Appointment Audiology 05/12/2022 Appointment Otolaryngology Bro Arroyo , PAMorisC [address] [facility] [address] (Wo rk) 06/03/2022 Appointment General Dentistry Rylee Amaro, [facility] [address] [place] [address] 06/03/2022 Appointment General Dentistry Pee Garcia DDS [address] [place], [place] [phone] (Wo rk) 06/17/2022 Appointment General Dentistry Pee Garcia DDS [address] [place], [place] [phone] (Wo rk) documented as of this encounter Visit Diagnoses Not on filedocumented in this encounter
[2022-05-07 00:03] LABS: HCG Qualitative* Negative (Negative)
--- OUTSIDE RECORDS SUMMARY | 2022-05-07 00:03 | XMS_ITS | Clinical Summary ---
:1980 Author Organization [facility] [place] [address] Care Team Providers Name Role Phone Helen Rubi Primary Care Provider Allergies Not on File Medications Not on file Active Problems Not on file Social History Tobacco Use Types Packs/Day Years Used Date Never Assessed Sex Assigned at Date Recorded Not on file Plan of Treatment Not on file Results Not on filefrom Last 3 Months Insurance Payer Benefit Plan / Subscriber ID Effective Dates Phone Addre ss Type Group [employer] CHOICE [id number] 2013-Present [address] [place] [address] [employer] [id number] 2013-Present [address] [place] [address] Care Teams Marketing Support Coordinator Relationship Specialty Start Date End Date Helen Rubi PCP - General Obstetrics and Gynecology 03/21/[address] [place] [place] [place] [address]
--- OUTSIDE RECORDS SUMMARY | 2022-05-07 00:03 | XMS_ITS | Encounter Summary ---
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 as of this encounter Last Filed Vital Signs Vital Sign Reading Time Taken Comments Blood Pressure 118/64 11/18/2006 1:09 PM CDT Pulse - - Temperature - - Respiratory Rate - - Oxygen Saturation - - Inhaled Oxygen Concentration - - Weight 58 kg (127 lb 15.6 oz) 11/18/2006 1:09 PM CDT C: 58.1kg Height 152.4 cm (5') 11/18/2006 1:09 PM CDT C: 152.4c m Body Mass Index 24.99 11/18/2006 1:09 PM CDT documented in this encounter Progress Notes Seema Chandler MD - 11/18/2006 12:01 AM CDT Progress Notes signed by Seema Reyna MD at 01/04/07 1028 Author: Seema Reyna MD Service: (none) Author Type: Physician Filed: 10/17/10 1935 Note Time: 11/18/06 0001 Status: Signed Clerical Transcriber: Seema Reyna MD (Physician) NAME: MARC VANN MR#: [id number] ACCT: [id number] VISIT: [id number] DICTATING CLINICIAN: SEEMA REYNA MD JOB: [id number] LOC: 1012 CLINIC PROGRESS NOTE DATE OF VISIT: 11/18/2006 SUBJECTIVE: A 25-year-old seen today for annual 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 She also would like to restart contraception. She was on the Ortho Evra for a year but discontinued it a month ago due to publicity in the media. She has some questions about other forms of control. Did do quite well on the Ortho Evra. Had no side effects. PAST MEDICAL HISTORY: Essentially negative. No hospitalizations, surgeries or illnesses. MENSTRUAL HISTORY: Menarche at age 16. Menses every 28 days. No intermenstrual bleeding. No dysmenorrhea. MEDICATIONS: None. ADR/ALLERGIES: NO KNOWN DRUG ALLERGIES. 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 She is She and her are both from [facility] [place] [facility] [place] to study in the [employer]. Nonsmoker. No alcohol. Minimal exercise. Currently not using any contraception. FAMILY HISTORY: Mother with diabetes. Father with depression and cancer. Brother with kidney disease. Maternal grandmother with hypertension and diabetes. REVIEW OF SYSTEMS: For positives see HPI. Remainder of complete review of systems is negative. OBJECTIVE: VS: BP: 118/64. Ht: 5 ft. Wt: 128. On exam she is a very pleasant, 25-year-old female in no distress. Well-nourished with appropriate affect. Oriented to time and location. BREASTS: Symmetric, nontender. Without dominant masses or nipple discharge. No axillary adenopathy. ABDOMEN: Soft, nontender. Without mass or organomegaly. PELVIC EXAM: Normal external genitalia. Normal urethral meatus. Normal vagina and discharge. Good pelvic support. Cervix is without lesions. Pap smear performed. Bimanual exam reveals a small mid position uterus. No adnexal masses or tenderness. ASSESSMENT: Annual 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 Restart hormonal contraception. PLAN: Following discussion of control options, she would like to go back to the control pill which she took when she was back in [place]. As she did well on the Ortho Evra, will start her on Ortho Tri-Cyclen. She will start it with the Wednesday of her next period. Discussed strategies for remembering to take the pill. If she does not get menses she will return for further evaluation. SJS:[id number] C: 11/19/06 13:57 DOCUMENT: [id number] documented in this encounter Plan of Treatment Upcoming Encounters Date Type Specialty Care Team Description 05/12/2022 Appointment Audiology 05/12/2022 Appointment Otolaryngology Bro Arroyo PA-C [address] [facility] [address] [place] [address] (Wo rk) 06/03/2022 Appointment General Dentistry Rylee Amaro, [facility] [address] [place] [address] 06/03/2022 Appointment General Dentistry Pee Garcia DDS [address] [place], [place] [phone] (Wo rk) 06/17/2022 Appointment General Dentistry Pee Garcia DDS [address] [place], [place] [phone] (Wo rk) documented as of this encounter Visit Diagnoses Not on filedocumented in this encounter
--- OUTSIDE RECORDS SUMMARY | 2022-05-07 00:03 | XMS_ITS | Encounter Summary ---
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 documented as of this encounter Plan of Treatment Upcoming Encounters Date Type Specialty Care Team Description 05/12/2022 Appointment Audiology 05/12/2022 Appointment Otolaryngology Bro Arroyo , PAMorisC [address] [facility] [id number] (Wo rk) 06/03/2022 Appointment General Dentistry Rylee Amaro, [facility] [address] [place] [address] 06/03/2022 Appointment General Dentistry Pee Garcia DDS [address] [place] [address] (Wo rk) 06/17/2022 Appointment General Dentistry Pee Garcia DDS [address] [place], [place] [id number] (Wo rk) documented as of this encounter Visit Diagnoses Not on filedocumented in this encounter
[2022-05-07 00:04] LABS: SARS PCR* Negative SARS-CoV-2 (Negative)
--- OUTSIDE RECORDS SUMMARY | 2022-05-07 00:07 | XMS_ITS | Encounter Summary ---
:1980 Author Organization [facility] Address [address] [place] [address] Care Team Providers Name Role Phone Needs Pcp, Assignment Primary Care Provider Reason for Visit Reason Comments CONSULT Breast concerns Encounter Details Date Type Department Care Team Description 12/04/2016 Initial Consult Pray September Breast rito n, right (Primary Dx); Obstetrics/Gynecolog brandy Willis MD Asymmetrical breasts; [address] 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 documented as of this encounter Last Filed Vital Signs Vital Sign Reading Time Taken Comments Blood Pressure 120/70 12/04/2016 2:09 PM CDT Pulse 85 12/04/2016 2:09 PM CDT Temperature - - Respiratory Rate - - Oxygen Saturation - - Inhaled Oxygen Concentration - - Weight 70.8 kg (156 lb) 12/04/2016 2:09 PM CDT Height - - Body Mass Index 29.48 08/28/2016 2:40 PM ELECTRICAL POWER STATION TECHNICIAN documented in this encounter Progress Notes Jessica De Luna MD - 12/04/2016 2:30 PM CDT NAME: MARC VANN MR#: [id number] CSN: [id number] AUTHENTICATING CLINICIAN: Jessica De Luna MD CONFIRM #: [id number] LOC: 1012 CLINIC PROGRESS NOTE DATE OF VISIT: 12/04/2016 : 1980 CHIEF COMPLAINT: Right breast pain and heaviness of 4 weeks duration. SUBJECTIVE: Marc is a 35-year-old para 2-0-0-2 woman, whom I am meeting for the first time today for evaluation of a several week history of right breast pain and heaviness. She has always noticed some breast asymmetry but now it is more marked with the right breast being larger than the left. She has had no rashes. She has an intermittent burning heavy feeling in her right breast. Today she is not having anyof the pain. She has no personal history of breast problems other than 1 episode of lactational mastitis. She breast fed and pumped with both of her children. FAMILY HISTORY: Negative for breast cancer. Family medical history updated today. The patient has had no prior breast imaging. Weight 156.1. Blood pressure 120/70. Pulse 85. GENERAL: Patient is alert, oriented, here today with her 3-year-old son. BREASTS: Examined in the seated and supine position. There is marked asymmetry with the right breastbeing pendulous and larger than the left breast. There are no skin changes, dimpling or retractions. In the supine position both breasts are examined. She has fibrocystic changes in the upper outer quadrant of the right breast and a 3 mm nodular density in the right axilla. There is no lymphadenopathy, no other dominant masses or concerning findings. ASSESSMENT: 1.Right breast pain. 2.Breast asymmetry. 3.Patient requests annual blood work that she typically has with her annual health maintenance exams. PLAN: 1.I recommended proceeding with mammogram imaging for further evaluation given the noticeable asymmetry that is becoming more pronounced and the new symptoms of breast pain. I suspect the patient has fibrocystic breast changes. 2.Order entered for cholesterol, glucose and TSH at patient's request. CC: ELENI CARRILLO MD [address] [place] [address] AMS:MEDQ C: CONFIRM #: [id number] documented in this encounter Plan of Treatment Upcoming Encounters Date Type Specialty Care Team Description 05/12/2022 Appointment Audiology 05/12/2022 Appointment Otolaryngology Bro Arroyo , JANET [address] [facility] [address] [address] (Wo rk) 06/03/2022 Appointment General Dentistry Rylee Amaro, [facility] [address] [place] [address] 06/03/2022 Appointment General Dentistry ePe Garcia, DDS [address] [place], [place] [phone] (Wo rk) 06/17/2022 Appointment General Dentistry Pee Garcia DDS [address] [place] [address] (Wo rk) documented as of this encounter Results (ABNORMAL) TSH with Free T4 (if TSH Abnormal) (12/04/2016 2:34 PM CDT) [facility] Method Time Signature Thyroid <0.02 (A) 0.30 - PN SOFT Stimulating 4.50 Hormone uIU/mL Specimen Anatomical Collection Method Collection Time Receive d Time (Source) Location / / Volume Laterality 12/04/2016 2:34 PM 7 3:38 CDT PM CDT Narrative PN SOFT - 12/04/2016 4:35 PM CDT Performed at [facility], [address] [place] [address] CLIA number [id number] Jessica De Luna MD LAB_1 Performing Organization Address City/State/ZIP Code Phon e Number PN SOFT [address] [place] [address] Glucose (12/04/2016 2:34 PM CDT) P athologist [...] - 12/04/2016 4:19 PM CDT Performed at [address] [address] CLIA number [id number] Jessica De Luna MD LAB_1 Performing Organization Address [facility] Phon e Number PN SOFT [address] [place] [address] (ABNORMAL) CHOLESTEROL, TOTAL AND HDL (12/04/2016 2:34 [...] - 12/04/2016 4:19 PM CDT Performed at [facility], [address] [place] [address] CLIA number [id number] Jessica De Luna MD LAB_1 Performing Organization Address [facility] Phon e Number PN SOFT [address] [place] [address] documented in this encounter Visit Diagnoses Diagnosis Breast pain, right - Primary Mastodynia Asymmetrical breasts Other specified disorders of breast Breast screening Breast screening, unspecified Visit for screening mammogram Other screening mammogram Screening for lipoid disorders Screening for diabetes mellitus Screening for thyroid disorder Low TSH level - Primary Nonspecific abnormal results of thyroid function study Screening for lipoid disorders Screening for diabetes mellitus Screening for thyroid disorder documented in this encounter Care Teams Home Management Supervisor Relationship Specialty Start Date End Date Needs Pcp, Assignment PCP - General 06/08/13 07/14/17 [place] [address] documented as of this encounter
[2022-05-07 00:10] LABS: Troponin I* < 0.01 ng/mL (0.01-0.04)
[2022-05-07 00:30] VITALS: PULSE 77; O2SAT 96
[2022-05-07 00:31] VITALS: BP 93/64; PULSE 75; O2SAT 97
[2022-05-07] MEDS: levETIRAcetam 500 MG TABLET 1000 MG PO (01:04)
--- NOTE | 2022-05-07 01:11 | ED.SEIZURE ---
HPI - Seizure General Chief Complaint: Seizure Stated Complaint: Seizure Time Seen by Provider: 05/06/22 22:56 History of Present Illness HPI Narrative: 41-year-old woman presenting to the emergency department with concern of a seizure. Brought by EMS. She is still a little sleepy perhaps in talking with me. Events of this evening-was in prayer kneeling when apparently suddenly passed out. No sense of palpitations chest pain shortness of breath or any preceding symptoms are even recalled. Was in usual state of health but does recall increased stress lately. Mom had been nearby but had left and returned to find Marc lying on the floor staring off to her left and not responding. After 15 minutes she was transferred to a bed. Mom had been holding her and noted that had been rather stiff. Breathing was described as ?heavy?. After some more time tried to get up but was rather discoordinated and required assistance. She was not incontinent. Noted to have bit her lip and was observed to have some foam at her mouth. Was apparently confused upon EMS arrival having no recollection of these events. Was not entirely mentally clear for unspecified amount of time. No recent fever or illness but has had head congestion lately. Over the last 2 months Marc has been experiencing discomfort and muffled sounds that come and go in her left ear. Moments of dizziness sometimes. Sometimes it is more orthostatic in nature. The dizziness can be also combined with some lightheadedness. The discomfort here she describes as deep and inferior in a maybe a little anterior to the left ear as well. It can be worsened with opening her mouth wide for example in a yawn. Reviewing further, she has had other episodes like this 1st in 1997 and then in 2006/2007 at which point did have some degree of a workup with negative EEG. In 2009 had another episode she feels was brought on by some stress. Has no recollection of being out of than coming to with a lot of family around. Was somewhat confused. Stress apparently preceded this event as well I believe she recalls not sleeping very well, some degree of sleep deprivation for one of these episodes at least. Given that she had had a normal EEG she said in 2007 she did not pursue further workup. In 2007 was seen at [facility], unsure which group. Seizure History: Yes Related Data Previous Rx's Medication Instructions Recorded levetiracetam 500 mg tablet 500 mg PO BID #60 tabs 05/07/22 (Keppra) Allergies Allergy/AdvReac Type Severity Reaction Status Date / Time No Known Drug Allergies Allergy Verified 05/06/22 21:56 Review of Systems Status of ROS: Reports: 10 or more systems reviewed and unremarkable except as noted in History and below PFSH PFS Social History Smoking Status: Never smoker Do you use any of these nicotine containing products: None Second hand tobacco smoke exposure: No How often do you have a drink containing alcohol: never How often do you have six or more drinks on one occasion: Never AUDIT-C Alcohol total score: 0 Non-prescribed substance use: denies use Exam Narrative: Exam Narrative: Does seem slightly tired. Speaking fluidly. Sounds a little congested in the nasopharynx. Does not have discrete TMJ area tenderness. TMs bilaterally are clear. It seems a little weaker unsteady to transition to sitting admittedly tangled in bed clothes and cables. Cranial nerves 2-12 intact. Pupils are brisk. GCS of 15 There is no nystagmus. Head is atraumatic neck is supple. Breathing easily lungs are clear Cardiovascular on auscultation with regular rate and rhythm no murmurs rubs or gallops. Abdomen is soft nontender. No masses. Moving all extremities fluidly and with good strength. No sensory loss apparent. No edema Const: Vital Signs, click to edit/add: Vital Signs - 24 hr 05/06/22 21:52 05/06/22 23:17 05/06/22 22:16 Temperature 98.4 F Pulse Rate 73 Pulse Rate [Left P ulse Oximeter] 104 H Blood Pressure 101/69 Blood Pressure [Ri ght Upper Arm] 127/81 Pulse Oximetry 99 98 95 Oxygen Delivery Me thod Room Air 05/06/22 22:17 05/06/22 22:30 05/06/22 22:53 Temperature Pulse Rate 78 80 79 Pulse Rate [Left P ulse Oximeter] Blood Pressure 97/68 Blood Pressure [Ri ght Upper Arm] Pulse Oximetry 95 96 96 Oxygen Delivery Me thod 05/06/22 23:00 05/06/22 23:01 05/06/22 23:31 Temperature Pulse Rate 85 97 Pulse Rate [Left P ulse Oximeter] Blood Pressure 98/78 96/65 Blood Pressure [Ri ght Upper Arm] Pulse Oximetry 96 98 Oxygen Delivery Me thod 05/06/22 23:45 05/07/22 00:00 05/07/22 00:01 Temperature Pulse Rate 83 81 78 Pulse Rate [Left P ulse Oximeter] Blood Pressure 95/65 Blood Pressure [Ri ght Upper Arm] Pulse Oximetry 96 96 97 Oxygen Delivery Me thod 05/07/22 00:02 05/07/22 00:30 05/07/22 00:31 Temperature Pulse Rate 80 77 75 Pulse Rate [Left P ulse Oximeter] Blood Pressure 93/64 Blood Pressure [Ri ght Upper Arm] Pulse Oximetry 97 96 97 Oxygen Delivery Me thod Documenting provider has reviewed patient's vital signs: yes Course Course Hospital Course: IV Hydrated and monitored. Appears further cleared, less sleepy over time in the emergency department Consultations Consultation #1: I did call to [facility] group to speak with on-call. Spoke with Dr. Lozano who was thoughtful and helpful in his consultation. At this point given some degree of postictal state and that she does indeed drive, would recommend loading with antiepileptic and continuing treatment. Recommending follow-up in neurology clinic. Vital Signs Vital signs: Initial Vital Signs Temperature 98.4 F 05/06/22 21:52 Temperature Source Temporal Artery Scan 05/06/22 21:52 Pulse Rate 104 H 05/06/22 21:52 Blood Pressure 127/81 05/06/22 21:52 Blood Pressure Mean 96 05/06/22 21:52 Blood Pressure Position Supine 05/06/22 21:52 Pulse Oximetry 99 05/06/22 21:52 Oxygen Delivery Method 05/06/22 21:52 Vital Signs Temperature 98.4 F 05/06/22 21:52 Pulse Rate 104 H 05/06/22 21:52 Blood Pressure 127/81 05/06/22 21:52 Pulse Oximetry 99 05/06/22 21:52 Oxygen Delivery Method 05/06/22 21:52 Temperature 98.4 F 05/06/22 21:52 Pulse Rate 75 05/07/22 00:31 Blood Pressure 93/64 05/07/22 00:31 Pulse Oximetry 97 05/07/22 00:31 Oxygen Delivery Method 05/06/22 21:52 MDM - Seizure MDM Narrative Medical decision making narrative: Given prior seizure-like events would normally be able to omit imaging however otherwise warranted due to some new neurological symptoms including muffled hearing intermittently in the left ear and episodes of dizziness/lightheadedness will at least do a CT scan tonight. By my read this CT of head was unremarkable. Radiology over-read concurs. Labs were unremarkable Consulted Neurology Medical Records Attestation: I reviewed the patient's medical records. (In conversation) Lab Data Attestation: I reviewed the patient's lab results. Labs: Lab Results 05/06/22 05/06/22 05/06/22 Range/Units 22:00 22:00 23:24 WBC (4.50-11.00) K/uL RBC (4.00-5.20) m/uL Hgb (12.0-16.0) gm/dL Hct (33.0-51.0) % MCV (80-100) fL MCH (26-34) pg MCHC (32-36) gm/dL RDW Coeff of Carole (11.5-15.5) % Plt Count (140-440) K/uL Neut % (Auto) (42.0-72.0) % Lymph % (Auto) (20-44) % [place] % (Auto) (0.0-11.0) % Eos % (Auto) (0.0-7.0) % Baso % (Auto) (0.0-3.0) % Neut # (Auto) (1.7-7.0) K/uL Lymph # (Auto) (0.90-2.90) K/uL [place] # (Auto) (0.00-0.90) K/UL Eos # (Auto) (0.00-0.50) K/uL Baso # (Auto) (0.00-0.30) K/uL Abs Immat Gran (auto) (0.00-0.30) K/uL Imm/Tot Granulo (auto) % Sodium (135-149) mmol/L Potassium (3.6-5.1) mmol/L Chloride (96-114) mmol/L Carbon Dioxide (20-32) mmol/L BUN (5-24) mg/dL Creatinine (0.5-1.5) mg/dL Estimated Creat Clear Estimated GFR ml/min Glucose (60-115) mg/dL Calcium (8.4-10.6) mg/dL Troponin I (0.01-0.04) ng/mL C-Reactive Protein (0.5-1.0) mg/dL HCG, Qual Negative (Negative) Urine Color Yellow (Yellow) Urine Appearance Clear (Clear) Urine pH 5.0 (5.0-8.5) Ur Specific [place] 1.015 (1.000-1.030) Urine Protein Negative (Negative) Urine Glucose (UA) Negative (Negative) Urine Ketones Negative (Negative) Urine Blood Negative (Negative) Urine Nitrite Negative (Negative) Urine Bilirubin Negative (Negative) Urine Urobilinogen 0.2 (0.2-1.0) Ur Leukocyte Esterase Negative (Negative) Urine RBC 0-2 (0-2) Urine WBC 0-2 (0-5) Ur Squamous Epith Cells Moderate A (None-Few) Urine Bacteria Moderate A (None) Urine Opiates Screen Negative (Negative) Ur Oxycodone Screen Negative (Negative) Urine Methadone Screen Negative (Negative) Ur Propoxyphene Screen Negative (Negative) Ur Barbiturates Screen Negative (Negative) U Tricyclic Antidepress Negative (Negative) Ur Phencyclidine Scrn Negative (Negative) Ur Amphetamines Screen Negative (Negative) U Methamphetamines Scrn Negative (Negative) U Benzodiazepines Scrn Negative (Negative) Urine Cocaine Screen Negative (Negative) U Marijuana (THC) Screen Negative (Negative) Ur Drug Screen Comment See Note Ethyl Alcohol (0.01-0.03) % SARS-CoV-2 (PCR) Negative SARS-CoV-2 (Negative) 05/06/22 05/06/22 Range/Units 23:30 23:30 WBC 6.92 (4.50-11.00) K/uL RBC 4.37 (4.00-5.20) m/uL Hgb 13.1 (12.0-16.0) gm/dL Hct 38.3 (33.0-51.0) % MCV 88 (80-100) fL MCH 30 (26-34) pg MCHC 34 (32-36) gm/dL RDW Coeff of Carole 12.2 (11.5-15.5) % Plt Count 237 (140-440) K/uL Neut % (Auto) 67.9 (42.0-72.0) % Lymph % (Auto) 23.1 (20-44) % [place] % (Auto) 7.4 (0.0-11.0) % Eos % (Auto) 0.6 (0.0-7.0) % Baso % (Auto) 0.4 (0.0-3.0) % Neut # (Auto) 4.70 (1.7-7.0) K/uL Lymph # (Auto) 1.60 (0.90-2.90) K/uL [place] # (Auto) 0.50 (0.00-0.90) K/UL Eos # (Auto) 0.04 (0.00-0.50) K/uL Baso # (Auto) 0.03 (0.00-0.30) K/uL Abs Immat Gran (auto) 0.04 (0.00-0.30) K/uL Imm/Tot Granulo (auto) 0.6 % Sodium 137 (135-149) mmol/L Potassium 4.0 (3.6-5.1) mmol/L Chloride 105 (96-114) mmol/L Carbon Dioxide 24 (20-32) mmol/L BUN 13 (5-24) mg/dL Creatinine 0.7 (0.5-1.5) mg/dL Estimated Creat Clear 89.26 Estimated GFR 113 ml/min Glucose 113 (60-115) mg/dL Calcium 9.3 (8.4-10.6) mg/dL Troponin I < 0.01 L (0.01-0.04) ng/mL C-Reactive Protein < 0.5 L (0.5-1.0) mg/dL HCG, Qual (Negative) Urine Color (Yellow) Urine Appearance (Clear) Urine pH (5.0-8.5) Ur Specific [place] (1.000-1.030) Urine Protein (Negative) Urine Glucose (UA) (Negative) Urine Ketones (Negative) Urine Blood (Negative) Urine Nitrite (Negative) Urine Bilirubin (Negative) Urine Urobilinogen (0.2-1.0) Ur Leukocyte Esterase (Negative) Urine RBC (0-2) Urine WBC (0-5) Ur Squamous Epith Cells (None-Few) Urine Bacteria (None) Urine Opiates Screen (Negative) Ur Oxycodone Screen (Negative) Urine Methadone Screen (Negative) Ur Propoxyphene Screen (Negative) Ur Barbiturates Screen (Negative) U Tricyclic Antidepress (Negative) Ur Phencyclidine Scrn (Negative) Ur Amphetamines Screen (Negative) U Methamphetamines Scrn (Negative) U Benzodiazepines Scrn (Negative) Urine Cocaine Screen (Negative) U Marijuana (THC) Screen (Negative) Ur Drug Screen Comment Ethyl Alcohol < 0.01 L (0.01-0.03) % SARS-CoV-2 (PCR) (Negative) ECG Data Attestation: I personally reviewed and interpreted this ECG as follows: (Normal sinus rate of 80 no ischemic changes) Discharge Plan Discharge Clinical Impression: Seizure-like activity, Syncope Patient Disposition: Home w/ Parent or Adult Condition: Improved Additional Instructions: Hydrate. Rest over the next day. You will need to avoid driving until further recommendations upon follow-up with Neurology. Fabricio I spoke with Dr. Lozano at [facility]. Please call them tomorrow to arrange followup. [phone] Prescriptions: New levetiracetam [Keppra] 500 mg tablet 500 mg PO BID Qty: 60 2RF Follow Up/Referrals: Provider,Not a Local [Primary Care Provider] - Stand Alone Forms: MyHealth Info Instructions
== END 2022-05-07 01:15 | disposition home or self-care (01) ==
PROVIDERS: Emergency Provider Family Medicine
DX: R56.9 Unspecified convulsions (principal); R55 Syncope and collapse
CPT/HCPCS: 36415; 70450; 80048; 80306; 81001; 82077; 84484; 84703; 85025; 86140; 87086; 87635; 94761; 96360; 99284; A9270; J7030